=== PATIENT | female | born 1930 | race Caucasian/White ===

== ENCOUNTER → 2017-01-10 | Outpatient (CLI) | payer MEDICARE ==
--- NOTE | 2017-01-10 10:42 | REP ---
BILATERAL DIAGNOSTIC DIGITAL MAMMOGRAM: 01/10/2017. Clinical history: breast cancer follow-up. Lumpectomy and radiation therapy right breast in 2014. Comparison: 05/23/2016, 06/21/2015 diagnostic right mammogram 06/10/2015 screening mammogram. Findings: Standard two-view mammography with an additional rotated CC view of the right breast performed. There are scattered fibroglandular elements in a pattern and distribution which may obscure a lesion. Coarse benign calcifications are seen scattered in each breast. There is some tissue asymmetry and surgical scarring upper outer quadrant right breast. There is only mild stromal thickening and skin thickening related to radiation therapy which has improved significantly since the previous exam. No dominant mass, areas of architectural distortion, clusters of microcalcification or other secondary sign of malignancy. Impression: 1. BIRADS ACR category 2, benign. Benign finding. Postradiation and post-biopsy changes right breast upper outer quadrant with improvement in the postradiation changes since last year's exam. 2. Recommend followup mammography 1 year. This mammogram was interpreted with the aid of an FDA-approved computer-aided detection system. The patient states she/he had a clinical breast exam in 07/2016. Signed by Aden Marino MD 01/10/2017 01:20 P
== END ==
LOC: M RAD 09:24
PROVIDERS: ATTEND Internal Medicine
DX: Z08 Encounter for follow-up examination after completed treatment for malignant neoplasm (principal); Z85.3 Personal history of malignant neoplasm of breast

== ENCOUNTER → 2017-01-30 | Outpatient (CLI) | payer MEDICARE ==
--- NOTE | 2017-01-30 14:10 | RADONC ---
RADIATION ONCOLOGY FOLLOWUP NOTE: DATE: DATE OF SERVICE DIAGNOSIS: Right breast cancer. STAGE: Stage I A, [id number] ECOG PERFORMANCE STATUS: 0 MsRoxann Joaquin is a very pleasant 86-year-old white female with the diagnosis of a stage I A, [id number], moderately differentiated infiltrating ductal carcinoma of the right breast who is presenting to us today for routine followup visit 1 year and 1 month post completion of external beam radiation therapy. The patient presents today reporting that she is doing quite well with no complaints at this time related to her radiation therapy or disease. She has no breast or bone pain. REVIEW OF SYSTEMS: The patient's review of systems is noncontributory. Denies nausea, vomiting, fevers, chills, night sweats, diplopia, headaches, anxiety or depression, anorexia, weight loss, visual disturbances, chest pain, urinary or bowel difficulties, bone pain, or neurological problems. PHYSICAL EXAMINATION: The patient is a well-developed, well-nourished female in no acute distress. HEENT exam is normocephalic, atraumatic. Extraocular movements are intact. There is no palpable cervical, supraclavicular, infraclavicular, axillary, or inguinal lymphadenopathy present. Lungs are clear to auscultation and percussion. Heart has a regular rate and rhythm. Abdomen is benign with no hepatosplenomegaly, masses, or tenderness. Breast examination reveals no masses or discharge bilaterally. Skeletal examination reveals no tenderness to pressure or percussion of the bony skeleton. Extremities reveal no clubbing, cyanosis, or edema. Neurologic exam is grossly intact, as is the remainder of the physical examination. ASSESSMENT: The patient is clinically ASTER at this time and will be seen by us again in 6 months for further followup. She will also continue to be followed by her other physicians as well. cc: *Edgar Oliver MD
== END ==
LOC: M ONCR 13:17
PROVIDERS: ATTEND Radiology Radiation Oncology
DX: C50.411 Malignant neoplasm of upper-outer quadrant of right female breast (principal)

== ENCOUNTER → 2017-07-31 | Outpatient (CLI) | payer MEDICARE ==
--- NOTE | 2017-08-01 08:20 | RADONC ---
RADIATION ONCOLOGY FOLLOWUP NOTE DATE: 07/31/2017 CHART NUMBER: [id number] DIAGNOSIS: Right breast cancer. STAGE IA, [id number]. ECOG PERFORMANCE STATUS: 0 FOLLOWUP NOTE: Ms. Joaquin is a very pleasant 86-year-old white female with the diagnosis of a stage IA, [id number] moderately differentiated infiltrating ductal carcinoma of the right breast who is presenting to us today for routine followup visit 1-1/2 years post completion of external beam radiation therapy. The patient presents today reporting that she is doing quite well with no complaints at this time related to radiation therapy or disease. She has no breast or bone pain. The patient's review of systems is noncontributory. She denies nausea, vomiting, fevers, chills, night sweats, diplopia, headaches, anxiety or depression, anorexia, weight loss, visual disturbances, chest pain, urinary or bowel difficulties, bone pain, or neurological problems. PHYSICAL EXAMINATION: The patient is a well-developed, well-nourished female in no acute distress. HEENT exam is normocephalic, atraumatic. Extraocular movements are intact. There is no palpable cervical, supraclavicular, infraclavicular, axillary, or inguinal lymphadenopathy present. Lungs are clear to auscultation and percussion. Heart has a regular rate and rhythm. Abdomen is benign with no hepatosplenomegaly, masses, or tenderness. Breast examination reveals no masses or discharge bilaterally. Skeletal examination reveals no tenderness to pressure or percussion of the bony skeleton. Extremities reveal no clubbing, cyanosis, or edema. Neurologic exam is grossly intact, as is the remainder of the physical examination. ASSESSMENT: The patient is clinically ASTER at this time and will be seen by us again in 6 months for further followup. She will also continue to be followed by her other physicians as well. cc: Edgar Oliver MD
== END ==
LOC: M ONCR 13:13
PROVIDERS: ATTEND Radiology Radiation Oncology
DX: C50.411 Malignant neoplasm of upper-outer quadrant of right female breast (principal)

== ENCOUNTER → 2018-01-13 | Outpatient (CLI) | payer MEDICARE | LOC: M WHC 12:27 | DX: Z12.31 Encounter for screening mammogram for malignant neoplasm of breast (principal) | CPT/HCPCS: 77067 ==

== ENCOUNTER → 2018-02-05 | Outpatient (CLI) | payer MEDICARE | LOC: M ONCR 09:30 | DX: Z08 Encounter for follow-up examination after completed treatment for malignant neoplasm (principal); Z85.3 Personal history of malignant neoplasm of breast; Z92.3 Personal history of irradiation | CPT/HCPCS: G0463 ==

== ENCOUNTER → 2018-04-08 | Outpatient (CLI) | payer MEDICARE | LOC: M WUC 09:25 | DX: I20.9 Angina pectoris, unspecified (principal) | CPT/HCPCS: 71046 ==

== ENCOUNTER → 2018-08-06 | Outpatient (CLI) | payer MEDICARE | LOC: M ONCR 09:03 | DX: C50.411 Malignant neoplasm of upper-outer quadrant of right female breast (principal); Z92.3 Personal history of irradiation | CPT/HCPCS: G0463 ==

== ENCOUNTER → 2019-01-14 | Outpatient (CLI) | payer MEDICARE ==
--- NOTE | 2019-01-14 11:45 | REPMRS ---
Patient History The patient states she had a clinical breast exam in 09/04 Family history of breast cancer at age 48 in daughter, ovarian cancer in mother. Malignant radio exam breast specimen, August 25, 2015. 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 Radiation therapy of the right breast. Digital Woman Screen Mammo: January 14, 2019 - Exam #: [id number] Bilateral CC and MLO view(s) were taken. Technologist: Fariba Humphries, Technologist Prior study comparison: January 13, 2018, digital woman screen mammo performed at [facility]. January 10, 2017, digital mammo diagnostic bilateral, performed at [facility]. May 23, 2016, digital mammo diagnostic bilateral, performed at [facility]. FINDINGS: There are scattered fibroglandular densities. There has been no change in the appearance of the mammogram from the prior studies. There is a mild amount of scattered fibroglandular density which is fairly symmetric. There is no interval development of dominant mass, architectural distortion, or clustered microcalcification suggestive of malignancy. 3-D tomosynthesis shows no additional findings. Assessment: BI-RADS/ACR category 1 mammogram. Negative Mammogram. Recommendation Routine screening mammogram of both breasts in 1 year (for women over age 40). This mammogram was interpreted with the aid of an FDA-approved computer-aided dectection system. Electronically Signed By: Rolando Harper MD 01/14/19 [id number]
== END ==
LOC: M WHC 10:26
PROVIDERS: ATTEND Internal Medicine
DX: Z12.31 Encounter for screening mammogram for malignant neoplasm of breast (principal)

== ENCOUNTER → 2019-02-04 | Outpatient (CLI) | payer MEDICARE ==
--- NOTE | 2019-02-05 09:08 | RADONC ---
RADIATION ONCOLOGY FOLLOW-UP NOTE DATE: 02/04/2019 CHART NUMBER: [id number] DIAGNOSIS: Right breast cancer. STAGE: IA, [id number]. ECOG PERFORMANCE STATUS: 0 FOLLOW-UP NOTE Ms. Joaquin is a very pleasant 88-year-old white female with the diagnosis of a stage IA, [id number], moderately differentiated infiltrating ductal carcinoma of the right breast who is presenting to us today for routine followup visit 3 years and 1 month post completion of external beam radiation therapy. The patient presents today reporting that she is doing quite well with no complaints at this time related to her radiation therapy or disease. She has no breast or bone pain. REVIEW OF SYSTEMS: The patient's review of systems is noncontributory. She denies nausea, vomiting, fevers, chills, night sweats, diplopia, headaches, anxiety or depression, anorexia, weight loss, visual disturbances, chest pain, urinary or bowel difficulties, bone pain, or neurological problems. PHYSICAL EXAMINATION: The patient is a well-developed, well-nourished white female in no acute distress. HEENT exam is normocephalic, atraumatic. Extraocular movements are intact. There is no palpable cervical, supraclavicular, infraclavicular, axillary, or inguinal lymphadenopathy present. Lungs are clear to auscultation and percussion. Heart has a regular rate and rhythm. Abdomen is benign with no hepatosplenomegaly, masses, or tenderness. Breast examination reveals no masses or discharge bilaterally. Skeletal examination reveals no tenderness to pressure or percussion of the bony skeleton. Extremities reveal no clubbing, cyanosis, or edema. Neurologic exam is grossly intact, as is the remainder of the physical examination. ASSESSMENT: The patient is medically ASTER at this time. She is being followed by her primary care doctor, Dr. Oliver, who is ordering her mammograms. In light of this, I am discharging her from our follow-up except on a p.r.n. basis.
== END ==
LOC: M ONCR 10:08
PROVIDERS: ATTEND Radiology Radiation Oncology
DX: C50.411 Malignant neoplasm of upper-outer quadrant of right female breast (principal)

== ENCOUNTER 2019-02-25 10:19 | Inpatient (IN) | payer MEDICARE ==
[~2019-02-25] VITALS: Ht 152.4 cm; Wt 80.0 kg
[~2019-02-25 10:19] MED LIST: ASPIRIN 81 MG CHEW TABLET PO SCH
[2019-02-25] MEDS ORDERED: LISI20TA PO (10:28)
[2019-02-25] MEDS ORDERED: ROSU5TAB4 PO (10:28)
--- NOTE | 2019-02-25 11:06 | REP ---
CT brain without contrast: History: CVA. No comparison brain imaging. 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 No bony calvarial defect is seen. Vascular calcification is noted in the carotid siphons bilaterally. Visualized paranasal sinuses are clear. On soft tissue windows, there is minimal diffuse atrophy. There are small vessel atherosclerotic changes in the periventricular white matter of the frontal lobes bilaterally. There is no evidence of intracranial hemorrhage. No acute infarction is evident. No mass, extra-axial fluid collection, or midline shift is seen. Impression: Minimal diffuse atrophy, vascular calcification, small vessel changes. No acute intracranial abnormality seen. Electronically Signed by Isai Harper MD 02/25/2019 11:04 A
[2019-02-25] MEDS ORDERED: ASPIRIN 325 MG TAB PO ONE (11:15)
[2019-02-25 11:17] LABS: BASO % 0.5 % (0.0-1.0); EOS # 0.1 10^3/uL (0.0-0.50); EOS % 2.5 % (0.0-3.0); HEMATOCRIT 41.8 % (36.0-47.0); HEMOGLOBIN 13.8 g/dl (12.0-15.5); LYMPH # 1.4 10^3/uL (1.5-4.5); LYMPH % 31.5 % (24.0-44.0); MEAN CORPUSCULAR HEMOGLOBIN 29.7 pg (27.0-33.0); MEAN CORPUSCULAR VOLUME 89.9 fl (80.0-96.0); MONO # 0.5 10^3/uL (0.0-0.8); NEUTROPHILS # 2.4 10^3/uL (1.8-7.7); NEUTROPHILS % 54.3 % (36.0-66.0); PLATELET COUNT, AUTOMATED 223 10^3/uL (150-450); RED BLOOD COUNT 4.65 10^6/uL (4.00-5.40); WHITE BLOOD COUNT 4.4 10^3/uL (4.0-10.0)
--- NOTE | 2019-02-25 11:19 | REP ---
White floors portable chest, 11:02 a.m., single AP upright view: Comparison is the PA and lateral chest dated 04/08/2018. There is chronic cardiomegaly, unchanged. The lung rockwell are clear. The lionel, mediastinum, skeletal structures are unremarkable. Impression: Chronic cardiomegaly. No acute cardiopulmonary findings. Electronically Signed by Yassine Gonzalez MD 02/25/2019 11:10 A
[2019-02-25] MEDS ORDERED: MAGN400T PO (11:37)
[2019-02-25] MEDS ORDERED: VITA-158 PO (11:37)
[2019-02-25] MEDS ORDERED: NITR4TASL SL (11:37)
[2019-02-25] MEDS ORDERED: D-10TAB3 PO (11:37)
[2019-02-25] MEDS ORDERED: HAWT150C PO (11:37)
[2019-02-25] MEDS ORDERED: VITA400C53 PO (11:37)
[2019-02-25] MEDS ORDERED: [UNRECOGNIZED DRUG - OTHER] PO (11:37)
[2019-02-25] MEDS ORDERED: IBUP200T45 PO (11:37)
[2019-02-25] MEDS ORDERED: CALC600T5 PO (11:37)
[2019-02-25 12:57] LABS: INR 0.92; PROTHROMBIN TIME 12.5 SECONDS (12.1-14.4)
[2019-02-25 12:58] LABS: PARTIAL THROMBOPLASTIN TIME 30.2 SECONDS (25.4-37.6)
[2019-02-25 13:08] LABS: BLOOD UREA NITROGEN 21 MG/DL (7-18); CALCIUM LEVEL 9.2 MG/DL (8.8-10.2); CARBON DIOXIDE LEVEL 29 MEQ/L (21-32); CHLORIDE LEVEL 105 MEQ/L (98-107); CPK CREATINE PHOSPHOKINASE 63 U/L (26-192); CREATININE FOR GFR 0.78 MG/DL (0.55-1.30); GLOMERULAR FILTRATION RATE > 60.0 (>32); GLUCOSE, FASTING 100 MG/DL (70-100); SODIUM LEVEL 141 MEQ/L (136-145); TROPONIN I < 0.02 NG/ML (< 0.10)
--- NOTE | 2019-02-25 13:42 | ECGEPIP ---
Stationary ECG Study 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
[2019-02-25] MEDS: HEPARIN SOD (PORCINE) 5000 UNITS/ML VIAL SC SCH ×2 (14:00→22:01)
--- NOTE | 2019-02-25 15:24 | HPE ---
DATE OF ADMISSION: 02/25/2019 PRIMARY CARE PROVIDER: Edgar Oliver MD HISTORY OF PRESENT ILLNESS: The patient is an 88-year-old female with a past medical history significant for right breast cancer status post radiation therapy, hypertension, osteoarthritis, hyperlipidemia, angina who presented to [facility] on 02/25/2019 with a complaint of left-sided tingling/weakness. The patient stated she went to bed around 10:00 p.m. yesterday and at around 2:00 a.m. this morning, the patient woke up with a complaint of left facial, hand and foot tingling/numbness. Initially, she thought she had a nerve compression so she went back to sleep and woke up around 7:00 a.m. However, the patient still had persistent symptoms. Therefore, then the patient went to be evaluated in urgent care. Emergency medical services (EMS) was called and the patient was transferred to [facility] for further evaluation. The patient denies any chest pain. The patient denies any shortness of breath. The patient denies any similar episode occurring in the past. The patient denies any loss of consciousness. Denies any loss of muscle strength. PAST MEDICAL HISTORY: 1. Angina. 2. Hypertension. 3. History of right breast cancer diagnosed four years ago, status post radiation therapy. 4. Osteoarthritis. 5. Hyperlipidemia. PAST SURGICAL HISTORY: 1. Hysterectomy. 2. Bladder suspension. 3. Right breast cancer biopsy. 4. Left torn meniscus repair. SOCIAL HISTORY: Denies smoking. Denies any alcohol use. Denies any recreational drug use. The patient is a [employer]. REVIEW OF SYSTEMS: GENERAL: Denies any fever or chills. HEENT: Denies any vision change or auditory changes. CARDIOVASCULAR: Denies any chest pain or palpitations. RESPIRATORY: Denies shortness of breath, cough, or sputum production. GASTROINTESTINAL (GI): Denies any nausea, vomiting, diarrhea or abdominal pain. MUSCULOSKELETAL: Denies any muscle pain or joint pain. NEUROLOGICAL: The patient complained about onset of the left facial, left hand and left foot numbness/tingling. The symptoms have been persistent since 2:00 a.m. this morning. Denies any muscle weakness. OBJECTIVE: VITAL SIGNS: Temperature 98.4, pulse is 67, blood pressure is 167/76 at the time of the encounter, pulse oximetry is 96% in room air. GENERAL: No sign of acute distress, alert and awake. HEENT: Normocephalic, atraumatic. Extraocular motor grossly intact. CARDIOVASCULAR: Positive S1, S2, regular rate. Positive systolic murmur mainly on the second intercostal space. LUNGS: Clear to auscultation bilaterally. No wheezes or rhonchi. ABDOMEN: Soft, nontender, nondistended. Bowel sounds present. MUSCULOSKELETAL: No lower extremity appreciated. NEUROLOGICAL: Cranial nerves II-XII grossly intact. Sensation to fine touch intact. Muscle strength 5/5 bilaterally. However, during the physical examination, the patient stated she feels the sensation is equal on both sides but she had a subjective feeling of the tingling of the left side. She thinks that there is some numbness mainly on the left side. LABORATORY DATA: WBC 4.4, hemoglobin 13.8, hematocrit 41.8, platelet count is 223. Sodium is 141, potassium 4, chloride is 105, carbon dioxide 29, BUN 21, creatinine is 0.78, GFR greater than 60, fasting glucose 100, calcium is 9.2, total CK is 63, troponin I is less than 0.02. PT is 12.5, INR is 0.92. IMAGING STUDIES: CT of the head without contrast shows minimal diffuse atrophy, vascular calcification, small vessel changes, no acute intracranial abnormality. Chest x-ray demonstrates no acute cardiopulmonary findings, chronic cardiomegaly. ASSESSMENT AND PLAN: 1. Left-sided numbness/tingling. The patient admitted to the progressive care unit (PCU) under observation status. We will finish the transient ischemic attack (TIA) workup. MRI/MRA ordered. We will followup with the carotid ultrasound. Followup with echocardiogram. The patient will be monitored on the telemetry. The patient will be given 325 mg aspirin. According to the patient, the patient complained about reaction to the statin. She states she has tried different types of statin and it causes some musculoskeletal discomfort. The patient also experienced palpitations with the statin therapy. Therefore, the patient has discontinued the statin therapy. In the past two months, the patient has been started on the new cholesterol medication but she can not recall the name of the therapy. At the time of the encounter, the patient had a systolic blood pressure of 160s to 170s. We will continue to hold the blood pressure medication for her permissive hypertension. Neurology consulted. 2. Hypertension. At baseline, the patient is taking lisinopril and hydrochlorothiazide. Currently, we are allowing permissive hypertension. We will hold the blood pressure medication at this moment. Continue to monitor symptoms. 3. Angina. At baseline, the patient is using as needed statin. The patient is not sure why she is not on the aspirin therapy. At baseline, the patient follows with Dr. Farnsworth in the outpatient setting. 4. Cardiac murmur. Follow with repeated echocardiogram. 5. History of right breast cancer, status post radiation therapy. The patient had a biopsy performed in 2014. At the time, the patient was shown to have grade 2 infiltrating ductal carcinoma. 6. Deep vein thrombosis (DVT) prophylaxis. The patient will be on heparin.
--- NOTE | 2019-02-25 16:04 | REP ---
Bilateral carotid artery duplex ultrasound: Peak flow velocity analysis: RIGHT LEFT ICA Peak flow velocity cm/sec 66.9 71.3 ICA Diastolic flow velocity cm/sec 15.6 19.4 ICA/CCA Ratio 0.88 0.90 ECA Peak flow velocity cm/sec 88.1 77.7 CCA Peak flow velocity cm/sec 75.6 79.6 There is shallow atheromatous plaque in the bulbs bilaterally. There is no atheromatous plaque is seen in the ICA is or EDC is bilaterally. The peak flow velocities are normal bilaterally. The findings indicate that there is less than 50% stenosis on the right and the left. The vertebral arteries could not be identified. Impression: There is no significant stenosis on the right on the left. Electronically Signed by Yassine Gonzalez MD 02/25/2019 03:56 P
[2019-02-25 17:00] VITALS: BP 142/84
[2019-02-25] MEDS ORDERED: SLF 3 ML SYR IV PRN (17:15)
--- NOTE | 2019-02-25 17:17 | REP ---
MR angiography the brain without contrast: History: Left sided numbness. Possible CVA. Technique: 3-D [id number] MR angiography of the brain is acquired in the usual fashion and maximal intensity projection images were generated in rotational format about the vertical and horizontal axes. In addition, source axial T1-weighted images are viewed in cine mode. MR angiographic findings: The distal vertebral arteries are patent and co-dominant. Basilar artery is tortuous but widely patent. The posterior cerebral and superior cerebellar vessels are patent and symmetric. There is some atherosclerotic irregularity of the posterior cerebral arteries bilaterally left a little more so than right. No high-grade stenosis is seen. The distal internal carotid arteries are unremarkable. Anterior and middle cerebral arteries appear intact. The A1 segment on the right is smaller than that on the left. There is no visible ramirez aneurysm or arteriovenous malformation. Impression: Atherosclerotic changes involving the proximal posterior cerebral arteries bilaterally and the right A1 segment. Otherwise unremarkable MR angiography the brain. Electronically Signed by Isai Harper MD 02/25/2019 05:08 P
--- NOTE | 2019-02-25 17:18 | REP ---
MRI brain without contrast: History: Left-sided numbness. Comparison is made with today's head CT. Technique: Axial and sagittal imaging planes are utilized for T1 and T2-weighted scans. Sequences include spin-echo, fast spin echo, FLAIR, and diffusion weighted sequences. MRI findings: Craniocervical junction and upper cervical cord are normal. No bony calvarial lesion is appreciated. There is no MR evidence of significant paranasal sinus disease. No intraorbital abnormality is seen. On diffusion weighted scans, there is a subcentimeter focus of restricted diffusion in the right thalamus consistent with a recent infarction. No other evidence of restricted diffusion is seen. There is no evidence of intracranial hemorrhage. There is some low T1 high T2 signal in the periventricular white matter of the right frontal lobe posteriorly. This may be old lacunar infarct. There are small vessel atherosclerotic changes. Impression: Findings consistent with an acute lacunar infarction involving the right thalamus. Small vessel changes and mild diffuse atrophy are seen. No hemorrhage is noted. Old lacunar infarcts suspected in the periventricular white matter of the right frontal lobe. Electronically Signed by Isai Harper MD 02/25/2019 05:34 P
[2019-02-25 20:00] VITALS: BP 170/94
[2019-02-25] MEDS: SLF 3 ML SYR IV SCH (22:01)
[2019-02-25 23:59] VITALS: BP 168/78
[2019-02-26] VITALS (7 sets, daily range): BP systolic 140–182; BP diastolic 68–90
[2019-02-26 05:48] LABS: HEMATOCRIT 40.9 % (36.0-47.0); HEMOGLOBIN 13.7 g/dl (12.0-15.5); MEAN CORPUSCULAR HEMOGLOBIN 29.7 pg (27.0-33.0); MEAN CORPUSCULAR HGB CONC 33.5 g/dl (32.0-36.5); MEAN CORPUSCULAR VOLUME 88.7 fl (80.0-96.0); PLATELET COUNT, AUTOMATED 224 10^3/uL (150-450); RED BLOOD COUNT 4.61 10^6/uL (4.00-5.40); WHITE BLOOD COUNT 4.9 10^3/uL (4.0-10.0)
[2019-02-26] MEDS: SLF 3 ML SYR IV SCH ×3 (06:00→21:35)
[2019-02-26] MEDS: HEPARIN SOD (PORCINE) 5000 UNITS/ML VIAL SC SCH ×3 (06:00→21:35)
[2019-02-26 06:08] LABS: HEMOGLOBIN A1c 5.9 %
[2019-02-26 06:27] LABS: BLOOD UREA NITROGEN 17 MG/DL (7-18); CALCIUM LEVEL 8.5 MG/DL (8.8-10.2); CARBON DIOXIDE LEVEL 27 MEQ/L (21-32); CHLORIDE LEVEL 107 MEQ/L (98-107); CHOLESTEROL LEVEL 227 MG/DL (<200); CHOLESTEROL RISK RATIO 4.934 (<5); CREATININE FOR GFR 0.78 MG/DL (0.55-1.30); GLOMERULAR FILTRATION RATE > 60.0 (>32); GLUCOSE, FASTING 96 MG/DL (70-100); HDL CHOLESTEROL 46 MG/DL (>40); LDL CHOLESTEROL 147 MG/DL (<100); MAGNESIUM LEVEL 2.1 MG/DL (1.8-2.4); NON-HDL-C 181 MG/DL; POTASSIUM SERUM 3.8 MEQ/L (3.5-5.1); SODIUM LEVEL 140 MEQ/L (136-145); TRIGLYCERIDES LEVEL 172 MG/DL (<150)
[2019-02-26] MEDS: VITAMIN D 1,000 INTERNATIONAL UNITS TABLET PO SCH (08:42)
[2019-02-26] MEDS: ASPIRIN 81 MG CHEW TABLET PO SCH (08:42)
[2019-02-26] MEDS ORDERED: FENOFIBRATE 48 MG TAB (TRICOR) PO SCH (09:00)
--- NOTE | 2019-02-26 18:12 | IPN ---
DATE: 02/26/2019 SUBJECTIVE: Patient seen and examined in the room today. Patient states that she still has residual left facial, left hand and foot numbness, however, during the physical exam sensation to fine touch is very similar bilateral upper and lower extremities. Patient feels that there may be improvement of her symptoms. Denies any acute complaints. Imaging studies and diagnostic workup were discussed with the patient. Patient understands the importance of controlling her cholesterol and also continue with aspirin. Patient states she has been on low dose Crestor for the past 2 weeks and she has had no adverse affects from the medication. She does have a history of severe myalgia from a different type of statin in the past. OBJECTIVE: VITAL SIGNS: Temperature 97.8, pulse 68, respirations 18, blood pressure 144/68, pulse oximetry 95% on room air. GENERAL: No sign of acute distress. Alert and oriented times three. HEENT: Normocephalic, atraumatic. Extraocular movements grossly intact. CARDIOVASCULAR: Positive S1, S2, regular rate. LUNGS: Clear to auscultation bilaterally. ABDOMEN: Soft, nontender, nondistended. Bowel sounds present. EXTREMITIES: No edema appreciated. NEURO: Neurological changes sensation defined almost close to equal bilaterally. However, during physical exam, patient still noticed mild tingling of the left facial area and left hand. Muscle strength 5 out of 5 bilaterally. LABORATORY DATA: WBC 4.9, hemoglobin 13.7, hematocrit 40.9, platelet count 224. Sodium is 140, potassium 3.8, chloride is 107, carbon dioxide 27, BUN 17, creatinine 0.78. GFR greater than 60. Fasting glucose 96. A1c is 5.9. Magnesium 2.1, calcium 8.5. Triglycerides 172. Total cholesterol is 227. LDL is 147. TSH 1.38. ASSESSMENT AND PLAN: 1. Right thalamic infarct. MRI demonstrated acute lacunar infarct involving the right thalamus. No hemorrhage seen. There is a lacunar infarct suspected in the periventricular white matter of the right frontal lobe. MRA demonstrated there is atherosclerotic changes involving the proximal posterior cerebral artery bilaterally in the right A1 segment. Echocardiogram was performed. We are waiting for the official report. No events monitored on telemetry. Patient's blood pressure medications continue to be on hold for permissive hypertension. Patient is on aspirin 81 mg. Patient is on Crestor 5 mg by mouth at bedtime. Patient does have severe myalgia due to statin adverse affect. She has tried different type of statin in the past, however, so far she has not had any reaction to the Crestor. Lipid profile reviewed. Will supplement the patient with Tricor. Patient passed physical therapy. We anticipate discharge in the next 24 hours. 2. Angina. On aspirin. On statin. 3. Hypertension. Currently blood pressure is on hold for permissive hypertension. 4. History of right breast cancer diagnosed 4 years ago. Status post radiation therapy. 5. Osteoarthritis. Continue outpatient followup. 6. Deep venous thrombosis (DVT) prophylaxis. Patient is on heparin.
[2019-02-26] MEDS ORDERED: ROSUVASTATIN 10 MG TAB (CRESTOR) PO SCH (21:00)
--- NOTE | 2019-02-26 22:14 | ECHO ---
DATE OF PROCEDURE: 02/25/2019 AGE: 88 GENDER: Female HEIGHT: 60 inches WEIGHT: 183 pounds BODY SURFACE AREA: 1.80 m2 PATIENT LOCATION: Inpatient, PCU, room 3224 REFERRING PHYSICIAN: Aviva Villasenor MD INDICATION: Transient ischemic attack (TIA). 2-D MEASUREMENTS: RV: 3.0 cm LV: 4.7 cm Septum: 1.0 cm Posterior wall: 1.0 cm Aortic root: 3.1 cm LA: 4.3 cm LVEF: 75% DOPPLER MEASUREMENTS: AV: 2.6 m/s LVOT: 1.0 m/s LVOT diameter: 2.1 cm Mean AV systolic gradient: 15 mmHg Dimensionless index: 0.38 MV-E: 55, A: 120, EA ratio: 0.5 Early mitral deceleration time: 261 ms E prime: 4.3, A prime: 8.5, E/E prime ratio: 13.5 PV: 0.8 m/s Pulmonary artery acceleration time: 130 ms RVST: 28 mmHg IVC: 1.3 cm COMMENTS Normal sinus rhythm without intraventricular conduction disturbance. M-mode and two-dimensional echocardiography was performed with pulsed, continuous wave, color flow, and tissue Doppler studies. Normal left ventricular size and wall thickness with hyperkinetic wall motion. Mildly dilated left atrium with impairment of left ventricle (LV) diastolic relaxation, but current estimated mean left atrial pressure upper limits of normal. Normal right heart chamber sizes and wall motion with current pulmonary arterial pressure upper limits of normal. Normal inferior vena cava (IVC) size and collapse against an elevated central venous pressure. Mild calcific aortic stenosis without insufficiency. Normal aortic root size. Mild mitral annular thickening without functional valvular abnormality. No apparent intracardiac mass or pericardial effusion. If a cardiac source is seriously suspect for the patient's transient ischemic attack, a transesophageal echocardiogram would be the investigation of choice. KAREEMD
[2019-02-27 01:05] VITALS: BP 166/74
[2019-02-27 04:00] VITALS: BP 162/70
[2019-02-27 05:26] LABS: HEMATOCRIT 39.4 % (36.0-47.0); MEAN CORPUSCULAR HEMOGLOBIN 29.7 pg (27.0-33.0); PLATELET COUNT, AUTOMATED 221 10^3/uL (150-450); RED BLOOD COUNT 4.38 10^6/uL (4.00-5.40); WHITE BLOOD COUNT 4.1 10^3/uL (4.0-10.0)
[2019-02-27 05:40] LABS: BLOOD UREA NITROGEN 21 MG/DL (7-18); CALCIUM LEVEL 8.6 MG/DL (8.8-10.2); CARBON DIOXIDE LEVEL 27 MEQ/L (21-32); CHLORIDE LEVEL 110 MEQ/L (98-107); GLOMERULAR FILTRATION RATE > 60.0 (>32); GLUCOSE, FASTING 94 MG/DL (70-100); MAGNESIUM LEVEL 2.2 MG/DL (1.8-2.4); POTASSIUM SERUM 3.7 MEQ/L (3.5-5.1); SODIUM LEVEL 143 MEQ/L (136-145)
[2019-02-27] MEDS: HEPARIN SOD (PORCINE) 5000 UNITS/ML VIAL SC SCH (06:13)
[2019-02-27] MEDS: SLF 3 ML SYR IV SCH (06:14)
--- NOTE | 2019-02-27 07:05 | CR ---
DATE OF CONSULTATION: 02/26/2019 NEUROLOGY CONSULTATION: REFERRING PROVIDER: Dr. Aviva Villasenor REASON FOR CONSULTATION: Suspected stroke. HISTORY OF PRESENT ILLNESS: Mayra Joaquin is an 88-year-old female with past medical history significant for hypertension, history of angina, history of breast cancer diagnosed 4 years ago status post radiation therapy, and hyperlipidemia. The patient presents with going to bed at 10:30 p.m., waking up at 2:30 a.m. with left hand numbness. The patient thought she fell asleep on the bed wrong and compressed her left hand. The patient woke up again in the morning and had numbness of her left foot and face as well. The symptoms persisted. She came to the emergency department. The patient states that the symptoms are mostly located in her hand now. They are no longer affecting the rest of her body. She was examined by Dr. Jhon Fernandez in the emergency department. National Institutes of Health (NIH) Stroke Scale was reported to be 0. The patient's last known time of being normal was 10:30 p.m. Tissue plasminogen activator (tPA) (agree) was not offered. [facility] was not contacted for management advice. The patient was admitted to [facility]. MRI of the brain reveals right acute thalamic stroke, corresponding to the patient's new acute symptoms. The patient denies any headache, chest pain, or shortness of breath at this point in time. She denies any vertigo, dizziness, dysarthria, aphasia. REVIEW OF SYSTEMS: 14-point review of systems obtained and is negative except as per history of present illness (HPI). PAST MEDICAL HISTORY: Hypertension. Hyperlipidemia. History of breast cancer status post radiation therapy. Angina. Osteoporosis. PAST SURGICAL HISTORY: Hysterectomy. Bladder suspension. Right breast cancer biopsy. Left torn meniscus repair. FAMILY HISTORY: Noncontributory. SOCIAL HISTORY: The patient denies use of tobacco, alcohol, or illicit drugs. PHYSICAL EXAMINATION: Blood pressure is 150/55, pulse rate is 63, respiratory rate is 18, temperature is 98.4 degrees Fahrenheit, oxygenation 98% on room air. Height is 5 feet 0 inches. Current weight is 82 kg. The patient is awake, alert, oriented to person, place, and time. Speech-language comprehension and repetition are intact. Pupils are 2-3 mm, round, reactive to light. Extraocular movements are intact in all directions without nystagmus. Sensation in V1, V2, V3 is decreased to light touch involving the left face. Tongue is midline. No weakness of sternocleidomastoids bilaterally. Hearing is subjectively equal to finger rub. There is no pronator drift. The patient has reasonable strength in bilateral deltoids, biceps, triceps, handgrip. Iliopsoas is 5-, bilateral quadriceps is 5/5, anterior tibialis 5/5. Sensory is decreased to light touch in the left hand and parts of the left face, otherwise intact throughout. Coordination: There is slight ataxia [id number] of the left upper extremity. The right upper extremity [id number] is within normal limits. Gait deferred. ASSESSMENT: 88-year-old female with acute right thalamic lacunar infarction, likely related to underlying microvessel disease. PLAN: Start aspirin 81 mg by mouth daily. The patient is intolerant to statin therapy but states she takes a home medication to reduce cholesterol. Primary team will look into which medication that is. Continue telemetry monitoring. Obtain echocardiogram. Physical therapy (PT)/occupational therapy (OT) evaluation. Systolic blood pressure can remain 140-180 over the next 48 hours, after which it can be normalized. Anticipate discharge date to be Saturday possibly. Followup in the [facility] Neurology office 4-8 weeks after discharge. History obtained from both the patient and the patient's [id number] and son.
[2019-02-27 08:00] VITALS: BP 164/90
[2019-02-27] MEDS ORDERED: ASPI81CH8 PO (08:33)
[2019-02-27] MEDS ORDERED: ROSU10TA5 PO (08:33)
[2019-02-27] MEDS: VITAMIN D 1,000 INTERNATIONAL UNITS TABLET PO SCH (09:50)
[2019-02-27] MEDS: ASPIRIN 81 MG CHEW TABLET PO SCH (09:50)
--- NOTE | 2019-02-27 15:05 | DSES ---
DATE OF ADMISSION: 02/25/2019 DATE OF DISCHARGE: 02/27/2019 CONSULTANTS: Neurology. PROCEDURES: None. DISCHARGE DIAGNOSES: 1. Right thalamic infarct. 2. History of angina. 3. Hypertension. 4. History of right breast cancer, status post radiation therapy. 5. Osteoarthritis. HOSPITAL COURSE: The patient is an 88-year-old female who presented to [facility] on 02/25/2019 with complaint of left-sided tingling and numbness. The initial onset of event occurred approximately 10 pm on the night before admission. Patient did not seek medical evaluation till the next morning. Patient was admitted and neurology consulted. Later MRI/MRA demonstrated patient had an acute right thalamic stroke. Patient continued to be monitored on telemetry. Blood pressures medicines were on hold for <<1:41>> hypertension. Patient was also evaluated by physical therapy. Patient's cerebrovascular accident (CVA) medication was started. On 02/27/2019, patient is determined stable for discharge with recommendations to follow with her primary care provider in 1 week. Patient should follow with neurology in 4 weeks. Patient should continue taking aspirin and statin medication. Patient recommended to followup low cholesterol diet. Patient does have a significant history of developing adverse effects from different type of statin therapy. Patient was on Crestor for the past too low dose of Crestor prior to admission. Recommend titrating up the Crestor dosage as tolerated. OBJECTIVE: VITAL SIGNS: Temperature 97.2, pulse 71, respirations 16, blood pressure 164/94, saturating 97% in room air. LABORATORY DATA: On the day of discharge: WBC 4.1, hemoglobin 13, hematocrit 39.4, platelet count 221. Sodium 142, potassium 3.7, chloride 110, carbon dioxide 27, BUN 21, creatinine 0.8, GFR greater than 60, fasting glucose 94, A1c 5.9, calcium 8.6, magnesium 2.2. Triglycerides on admission show 172, total cholesterol 227, LDL 147, HDL 46, TSH 1.38. IMAGING STUDY: CT head without contrast demonstrates minimal diffuse atrophy, vascular calcification, small vessel changes. No acute intracranial abnormalities. Portable chest x-ray: No acute cardiopulmonary findings. Carotid duplex demonstrates no significant stenosis of the right or the left. MRA of the brain without contrast demonstrates atherosclerotic changes involving the proximal posterior cerebral arteries bilaterally and the right A1 segment. Otherwise unremarkable MR angiogram of the brain. MRI of the brain without contrast demonstrates findings consistent with acute lacunar infarction involving the right thalamus. Small vessel changes and mild diffuse atrophy are seen. No hemorrhage is noted. Low lacunar infarct suspected in the periventricular white matter of the right frontal lobe. DISCHARGE MEDICATIONS: - aspirin 81 mg by mouth daily - rosuvastatin 10 mg by mouth nightly - vitamin C 500 mg by mouth daily - calcium 600 mg by mouth nightly - vitamin D3 1000 units by mouth daily - Ibuprofen 200 by mouth every 6 hours as needed - lisinopril/hydrochlorothiazide 20/12.5 one tablet by mouth daily - magnesium oxide 400 mg by mouth nightly - nitroglycerine 0.4 mg sublingual every 5 minutes as needed for chest pain - vitamin E 400 mg by mouth daily DISCHARGE INSTRUCTIONS: Discharged home. Activity as tolerated. Low fat diet as tolerated. Patient should follow with her primary care provider in one week. Patient should follow with neurology in 4 weeks. It is uncertain why patient was not on aspirin or why patient has a significant cardiac history. Patient was recommended to continue taking the aspirin and statin for stroke prevention. Discharge took greater than 30 minutes.
== END 2019-02-27 10:45 | disposition home or self-care (01) | DRG 66 ==
LOC: M ED 10:19 → EDBD 10:19 → M ED INP 13:18 → OBSVTOIN 13:18 → M PCU 17:01
PROVIDERS: ADMIT Internal Medicine; ATTEND Internal Medicine
DX: I63.9 Cerebral infarction, unspecified (principal); I10 Essential (primary) hypertension; M19.90 Unspecified osteoarthritis, unspecified site; Z85.3 Personal history of malignant neoplasm of breast; E78.5 Hyperlipidemia, unspecified; I20.9 Angina pectoris, unspecified; Z79.899 Other long term (current) drug therapy

== ENCOUNTER 2019-10-28 18:18 | Observation (INO) | payer MEDICARE ==
[~2019-10-28] VITALS: Ht 165.1 cm; Wt 84.0 kg
[~2019-10-28 18:18] MED LIST changes: +ASPI81CH8 PO; -ASPIRIN 81 MG CHEW TABLET PO SCH; +CALC600T5 PO; +D-10TAB3 PO; +HAWT150C PO; +IBUP200T45 PO; +LISI20TA19 PO; +MAGN400T3 PO; +NITR4TASL SL; +ROSU10TA6 PO; +ROSU5TAB5 PO; +VITA-158 PO; +VITA400C53 PO; +[UNRECOGNIZED DRUG - OTHER] PO
[2019-10-28 18:52] LABS: BASO % 0.6 % (0.0-1.0); EOS # 0.2 10^3/uL (0.0-0.5); EOS % 4.2 % (0.0-3.0); HEMATOCRIT 42.3 % (36.0-47.0); HEMOGLOBIN 14.4 g/dl (12.0-15.5); LYMPH # 1.7 10^3/uL (1.5-5.0); LYMPH % 33.3 % (24.0-44.0); MEAN CORPUSCULAR HEMOGLOBIN 30.4 pg (27.0-33.0); MEAN CORPUSCULAR VOLUME 89.4 fl (80.0-96.0); MONO # 0.6 10^3/uL (0.0-0.8); MONO % 11.8 % (0.0-5.0); NEUTROPHILS # 2.5 10^3/uL (1.5-8.5); NEUTROPHILS % 49.9 % (36.0-66.0); PLATELET COUNT, AUTOMATED 231 10^3/uL (150-450); RED BLOOD COUNT 4.73 10^6/uL (4.00-5.40)
[2019-10-28 19:02] LABS: INR 0.94; PROTHROMBIN TIME 12.3 SECONDS (11.8-14.0)
[2019-10-28] MEDS ORDERED: fentaNYL 100 MCG/2 ML INJECTION (J3010) IV ONE (19:15)
[2019-10-28] MEDS ORDERED: LABETALOL HCL 100 MG/20 ML VIAL IV STA ×2 (19:18→20:23)
--- NOTE | 2019-10-28 19:36 | REP ---
CHEST, SINGLE VIEW: Single view of the chest is performed and compared to prior study of 02/25/2019. There is mild cardiomegaly. There is mild calcification and tortuosity of the thoracic aorta. The mediastinal silhouette is unchanged. There are degenerative changes of the spine. There is no acute infiltrate or pulmonary edema. IMPRESSION: Mild cardiomegaly. No acute infiltrate or pulmonary edema. Electronically Signed by Yassine Fernandez MD 11/02/2019 10:11 A
[2019-10-28 19:41] LABS: ALT/SGPT 26 U/L (12-78); BLOOD UREA NITROGEN 18 MG/DL (7-18); CALCIUM LEVEL 9.1 MG/DL (8.8-10.2); CARBON DIOXIDE LEVEL 28 MEQ/L (21-32); CHLORIDE LEVEL 107 MEQ/L (98-107); CK-MB VALUE MASS 2.1 NG/ML (<3.6); CPK CREATINE PHOSPHOKINASE 91 U/L (26-192); CREATININE FOR GFR 0.79 MG/DL (0.55-1.30); GLOMERULAR FILTRATION RATE > 60.0 (>32); GLUCOSE, FASTING 108 MG/DL (70-100); POTASSIUM SERUM 3.7 MEQ/L (3.5-5.1); SODIUM LEVEL 141 MEQ/L (136-145)
[2019-10-28 19:42] LABS: ALBUMIN 3.9 GM/DL (3.2-5.2); BILIRUBIN,DIRECT < 0.1 MG/DL (0.0-0.2); BILIRUBIN,TOTAL 0.3 MG/DL (0.2-1.0); LIPASE 116 U/L (73-393); TOTAL PROTEIN 7.3 GM/DL (6.4-8.2); TROPONIN I < 0.02 NG/ML (< 0.10)
--- NOTE | 2019-10-28 20:25 | REPVR ---
PROCEDURE INFORMATION: Exam: CT Cervical Spine Without Contrast Exam date and time: 10/28/2019 7:33 PM Age: 88 years old Clinical history: Injury or trauma; Fall; Initial encounter; Blunt trauma TECHNIQUE: Imaging protocol: Computed tomography images of the cervical spine without contrast. Radiation optimization: All CT scans at this facility use at least one of these dose optimization techniques: automated exposure control; mA and/or kV adjustment per patient size (includes targeted exams where dose is matched to clinical indication); or iterative reconstruction. COMPARISON: No relevant prior studies available. FINDINGS: Vertebrae: Nonspecific straightening of the cervical lordosis. Vertebral body height and AP alignment is preserved. Mild to moderate degenerative change about the dens. Moderate to severe prevertebral osteophytosis. There are bilateral facet joint degenerative changes. No acute cervical spine fracture. Discs/Spinal canal/Neural foramina: No definite significant central canal stenosis. Soft tissues: Unremarkable. Thyroid: Heterogeneous thyroid gland with poorly defined nodules. Lungs: Mild scarring at the lung apices. Pleural space: No visible pneumothorax. IMPRESSION: 1. No acute fracture. 2. Heterogeneous thyroid gland with poorly defined nodules. Ultrasound may be considered. COMMENT: In patients aged 35 years and older with an incidental thyroid nodule equal to or greater than 1.[address], MRI or extrathyroidal US, further evaluation with dedicated thyroid US is recommended for patients with normal life expectancy and without comorbidities. For smaller nodules without suspicious features, no further evaluation or follow up is recommended. Electronically signed by: Fidel Smith On 10/28/2019 20:24:53 PM
--- NOTE | 2019-10-28 20:27 | REPVR ---
PROCEDURE INFORMATION: Exam: CT Head Without Contrast Exam date and time: 10/28/2019 7:33 PM Age: 88 years old Clinical history: Injury or trauma; Fall; Initial encounter; Blunt trauma (contusions or hematomas) TECHNIQUE: Imaging protocol: Computed tomography of the head without contrast. Radiation optimization: All CT scans at this facility use at least one of these dose optimization techniques: automated exposure control; mA and/or kV adjustment per patient size (includes targeted exams where dose is matched to clinical indication); or iterative reconstruction. COMPARISON: CT Head without contrast 02/25/2019 10:40 AM FINDINGS: Brain: Decreased attenuation of the supratentorial white matter is likely secondary to chronic microvascular ischemia. No acute intracranial hemorrhage. Ventricles: Ventricular and subarachnoid spaces are age appropriate. Bones/joints: Unremarkable. No acute fracture. Sinuses: Visualized sinuses are unremarkable. No fluid levels. Mastoid air cells: Visualized mastoid air cells are well aerated. Soft tissues: High posterior scalp soft tissue swelling. Vasculature: Intracranial vascular calcification. IMPRESSION: No acute intracranial abnormality. Electronically signed by: Fidel Smith On 10/28/2019 20:26:37 PM
[2019-10-28] MEDS ORDERED: ACET-1146 PO (20:41)
[2019-10-28] MEDS ORDERED: AMLO5TAB6 PO (20:41)
[2019-10-28] MEDS ORDERED: C-101TAB3 PO (20:41)
[2019-10-28] MEDS ORDERED: CRES5TAB PO (20:41)
[2019-10-28] MEDS ORDERED: ECOT81TA5 PO (20:41)
[2019-10-28] MEDS ORDERED: VITA100066 PO (20:41)
--- NOTE | 2019-10-28 21:02 | HPEPDOC ---
[facility] Medical History & Physical Date of Admission Oct 28, 2019 Date of Service: Oct 28, 2019 Primary Care Physician: A Other Provider Edgar Oliver MD Attending Physician: PORTILLO NAPIER MD History and Physical TIME OF SERVICE: 10:30 PM CHIEF COMPLAINT: High blood pressure HISTORY OF PRESENT ILLNESS: This is an 88 old female who came to the hospital because her blood pressure was high . Yesterday she had chest "heaviness" but denied that it was chest pain. She thought her blood pressure was high, so she took an extra 5 mg of amlodipine. Today prior to arrival in the ER systolic pressure was in 180- 190s. She came in because she was concerned because she had a CVA in the past. Her initial blood pressure in the ER was 201/93. She denied having any chest pain, shortness of breath, dizziness, or any other complaints. On her way to the hospital, she slipped on her wooden floors and hit her head. Her son also slipped when he came to try help his mother up; she had recently applied an "oil treatment" on the floors. As a result of the fall, she hit her head and developed a headache. 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 Chronic hypertension/ Chronic diastolic congestive heart failure History of right lacunar infarct Osteoarthritis Dyslipidemia. Status post hysterectomy. Status post bladder suspension surgery SOCIAL HISTORY: Does not smoke. Does not drink. History of Restorationism FAMILY HISTORY: Father had kidney cancer ALLERGIES: Please see below. HOME MEDICATIONS: Please see below. PHYSICAL EXAMINATION: VITAL SIGNS: Please see below. GEN: well nourished / well developed INTEGUMENT: not flushed/ not jaundice HEENT: normocephalic / atraumatic / neck short/mucus membranes moist and pink CVS: RRR/NMRG/ radial and dorsalis pedis pulses intact / upper chest is nontender on palpation LUNGS: able to speak full sentences without stopping to take a breath / no coughing / lungs are clear to auscultation bilaterally on room air ABDOMEN: there are no masses or lesions / bowel sounds are present / the abdomen is soft & not tender with palpation MSK/EXTREMITIES: range of motion intact in all 4 extremities NEURO: CN 2-12 are grossly intact / speech is not dysarthric PSYCH: alert and oriented/ able to understand and follow all commands LABORATORY DATA: See below. IMAGING: Chest x-ray " IMPRESSION: Mild cardiomegaly. No acute infiltrate or pulmonary edema." CT of the head " IMPRESSION: No acute intracranial abnormality. " CT of the head " IMPRESSION: 1. No acute fracture. 2. Heterogeneous thyroid gland with poorly defined nodules. Ultrasound may be considered. COMMENT: In patients aged 35 years and older with an incidental thyroid nodule equal to or greater than 1.[address], MRI or extrathyroidal US, further evaluation with dedicated thyroid US is recommended for patients with normal life expectancy and without comorbidities. For smaller nodules without suspicious features, no further evaluation or follow up is recommended. ASSESSMENT: Ms. Joaquin is an 88 [id number] with a the past medical history of the infilt rating ductal carcinoma, CVA, chronic hypertension and dyslipidemia will be admitted for management of hypertensive urgency. PLAN: 1. Hypertensive Urgency Resolved after she received IV metoprolol in the ER It is unclear what caused the sudden rise in her blood pressure. Per Dr. Hoffman the EKG is unremarkable Her Trop, Potassium, GFR, Cr & BUN, Ca++ and chest x-ray are all unremarkable. Her echo from earlier on this year showed mild diastolic dysfunction. Plan: admit to medical floor/ low salt diet / follow-up TSH and renal ultrasound / increase amlodipine from 5 to 10 mg QHS, c/w Lisionpril 20mg PO daily, increase HTCZ from 12.5 to 25mg daily / recommend cardiovascular exercise 4-5 days a week for weight loss as this has been shown to help improve blood pressure control / her PCP may consider ordering an ambulatory blood pressure monitor, referral to elementary librarian for assistance w weight loss and completing a ST[employer] questionnaire to determine if she needs a sleep study 2. Abnormal thyroid on CT scan. Plan: Follow-up thyroid ultrasound and TSH 3. History of right lacunar infarct /Dyslipidemia Plan: Continue with aspirin, statin DVT prophylaxis with SCDs. Disposition likely home after less than 2 midnight's stay Vital Signs Vital Signs Date Time Temp Pulse Resp B/P (MAP) Pulse Ox O2 Delivery O2 Flow Rate FiO2 10/28/19 20:43 144/67 (92) 10/28/19 20:35 66 10/28/19 20:34 93 10/28/19 20:33 18 Room Air 10/28/19 18:19 97.4 Laboratory Data Labs 24H Laboratory Tests 2 10/28/19 18:40: Immature Granulocyte % (Auto) 0.2, Neutrophils (%) (Auto) 49.9, Lymphocytes (%) (Auto) 33.3, Monocytes (%) (Auto) 11.8H, Eosinophils (%) (Auto) 4.2H, Basophils (%) (Auto) 0.6, Neutrophils # (Auto) 2.5, Lymphocytes # (Auto) 1.7, Monocytes # (Auto) 0.6, Eosinophils # (Auto) 0.2, Basophils # (Auto) 0.0, Nucleated Red Blood Cells % (auto) 0.0, Prothrombin Time 12.3, Prothromb Time International Ratio 0.94, Anion Gap 6L, Glomerular Filtration Rate > 60.0, Calcium Level 9.1, Total Bilirubin 0.3, Direct Bilirubin < 0.1, Aspartate Amino Transf (AST/SGOT) 20, Alanine Aminotransferase (ALT/SGPT) 26, Alkaline Phosphatase 92, Total Creatine Kinase 91, Creatine Kinase MB 2.1, Creatine Kinase MB Relative Index 2.30, Troponin I < 0.02, Total Protein 7.3, Albumin 3.9, Albumin/Globulin Ratio 1.15, Lipase 116 CBC/BMP Laboratory Tests 10/28/19 18:40 Home Medications Scheduled Acetaminophen/Diphenhydramine (Acetaminophen-Diphenhyd 500-25) 1 Each Tablet, 2 TAB PO QHS Amlodipine Besylate (Amlodipine Besylate) 10 Mg Tablet, 10 MG PO QHS Ascorbic Acid (C-1000) 1,000 Mg Tablet, 1,000 MG PO DAILY Aspirin (Ecotrin) 81 Mg Tablet.dr, 81 MG PO DAILY Calcium Carbonate (Calcium) 600 Mg Tablet, 600 MG PO QHS Cholecalciferol (Vitamin D3) (Vitamin D3) 1,000 Unit Tablet, 1,000 UNIT PO DAILY [place] Extract ([place]) 150 Mg Capsule, 150 MG PO DAILY Hydrochlorothiazide (Hydrochlorothiazide) 25 Mg Tablet, 25 MG PO DAILY Lisinopril (Lisinopril) 20 Mg Tablet, 20 MG PO DAILY Magnesium Oxide (Magnesium Oxide) 400 Mg Tablet, 400 MG PO QHS Rosuvastatin Calcium (Crestor) 5 Mg Tablet, 5 MG PO DAILY Vitamin E (Vitamin E) 400 Unit Capsule, 400 UNIT PO DAILY [[employer]] , 1 TAB PO DAILY Scheduled PRN Nitroglycerin (Nitrostat) 0.4 Mg Tab.subl, 0.4 MG SL NITRO PRN for CHEST PAIN Allergies Coded Allergies: Antihistamines - Alkylamine (Unverified Allergy, Unknown, UNKNOWN REACTION, 02/25/19) hydrocodone (Verified Allergy, Unknown, 02/26/19) oxycodone (Unverified Allergy, Unknown, UNKNOWN REACTION, 02/25/19) Pdtsgon-Cfz-Tko Reductase Inhibitor (Verified Adverse Reaction, Intermediate, HEART RACES, 02/26/19) A-FIB/CHADSVASC A-FIB History Current/History of A-Fib/PAF?: No Current PO Anticoag Therapy: PORTILLO Palmer MD Oct 28, 2019 21:02
[2019-10-28] MEDS ORDERED: ACETAMINOPHEN TAB 650MG DOSE (2X325MG) PO PRN (21:15)
[2019-10-29] MEDS ORDERED: NITROGLYCERIN 0.4 MG SUBL TABLET SL PRN (01:30)
[2019-10-29] MEDS ORDERED: amLODIPine 5 MG TAB PO ONE (02:00)
[2019-10-29] MEDS ORDERED: PILL CUTTER 1 EACH XX PRN (02:45)
--- NOTE | 2019-10-29 07:25 | IPNPDOC ---
Text Note Date of Service The patient was seen on 10/29/19. NOTE SUBJECTIVE: Patient is sitting at bedside in emergency department. She states that she did have chest tightness yesterday morning when she woke up and found her blood pressure to be elevated, workup in the emergency department ruled out acute myocardial infarction. Her blood pressure has been quite difficult to control overnight. She is now on 20 mg of lisinopril, 25 mg of hydrochlorothiazide, and 10 mg of amlodipine. She denies any chest pain, palpitations, or difficulty breathing. She denies any lower extremity swelling. She denies fever or chills. OBJECTIVE: VITAL SIGNS: Please see below. GENERAL: Elderly obese female in the stretcher, in no acute distress HEENT: Atraumatic, normocephalic. Mucous membranes are moist. NECK: No JVD is appreciated HEART: Crescendo decrescendo murmur heard best at the second intercostal space on the right. No gallops or rubs. Regular rate and rhythm LUNGS: Clear to auscultation bilaterally; no wheezes, rhonchi, or rales ABDOMEN: Obese, normoactive bowel sounds, soft and nontender EXTREMITIES: No clubbing or cyanosis. Trace edema in the lower extremities that is nonpitting. NEURO: Sensation intact throughout, muscle strength 5 out of 5 bilaterally, cranial nerves II through XII grossly intact PSYCH: Answers questions appropriately, affect full LABORATORY DATA: See below. IMAGING: Chest x-ray 10/28/2019: Mild cardiomegaly, no acute infiltrates or pulmonary edema CT of the head 10/28/2019: No acute intracranial abnormality. CT of the neck 10/28/2019: 1. No acute fracture. 2. Heterogeneous thyroid gland with poorly defined nodules. Thyroid ultrasound 10/29/2019: Right lobe larger than left, with a suspicious nodule mid right lobe maximum diameter 2.7 cm, appears to contain tiny microcalcifications. Recommend ultrasound guided FNA. Several other smaller cystic and solid appearing nodules, not particularly suspicious. Renal ultrasound 10/29/2019: Real-time sonographic evaluation of the kidneys performed. The kidneys ar normal in size and echotexture, right kidney measuring 12.0 x 5.9 x 4.5 cm and left kidney 11.3 x 5.6 x 4.7 cm. There is no renal mass, hydronephrosis or nephrolithiasis. Urinary bladder demonstrates bilateral ureteral jets with Doppler color evaluation. ASSESSMENT: Ms. Joaquin is an 88 [id number] with a the past medical history of the infiltrating ductal carcinoma, CVA, chronic hypertension and dyslipidemia will be admitted for management of hypertensive urgency. Hospital day #2 PLAN: 1. Hypertensive Urgency. EKG done in the emergency department yesterday unchanged from prior. Troponins negative, blood lites are stable, and her kidney function is stable. ProBNP not elevated. Chest x-ray unremarkable Her echo from February showed mild diastolic dysfunction. - Blood pressure medications increased to lisinopril 20 mg daily, hydrochlorothiazide 25 mg daily, amlodipine 10 mg daily - Continue to observe, may consider switching her hydrochlorothiazide to chlorthalidone for a longer half-life - Case discussed with Dr. Hutson, her flute teacher, no cardiac intervention needed at this time, she can follow up with him outpatient 2. History of right lacunar infarct /Dyslipidemia Plan: Continue with aspirin, statin 3. Thyroid nodule, should get FNA and workup outpatient. Thyroid hormones are within normal limits, likely not the cause of her hypertension. DVT prophylaxis with SCDs. Disposition likely discharge home tomorrow pending adequate blood pressure cont rol VS,Fishbone, I+O VS, Fishbone, I+O Laboratory Tests 10/28/19 18:40 Vital Signs Date Time Temp Pulse Resp B/P (MAP) Pulse Ox O2 Delivery O2 Flow Rate FiO2 10/29/19 07:01 70 135/64 (87) 10/29/19 06:00 97.9 96 Room Air 10/28/19 22:00 18 GME ATTESTATION GME ATTESTATION My faculty preceptor for this patient encounter was physically present during the encounter and was fully available. All aspects of the patient interview, examination, medical decision making process, and medical care plan development were reviewed and approved by the faculty preceptor. The faculty preceptor is aware and concurs with the plan as stated in the body of this note and will att est to such by his/her cosignature. HAZEL LIVE D.O. Oct 29, 2019 07:25
[2019-10-29 07:38] LABS: BLOOD UREA NITROGEN 13 MG/DL (7-18); CALCIUM LEVEL 8.8 MG/DL (8.8-10.2); CARBON DIOXIDE LEVEL 26 MEQ/L (21-32); CHLORIDE LEVEL 104 MEQ/L (98-107); CREATININE FOR GFR 0.76 MG/DL (0.55-1.30); GLOMERULAR FILTRATION RATE > 60.0 (>32); GLUCOSE, FASTING 98 MG/DL (70-100); MAGNESIUM LEVEL 2.2 MG/DL (1.8-2.4); POTASSIUM SERUM 3.7 MEQ/L (3.5-5.1); SODIUM LEVEL 141 MEQ/L (136-145)
[2019-10-29 07:45] LABS: FREE T4 1.14 NG/DL (0.76-1.46)
[2019-10-29] MEDS: ROSUVASTATIN 10 MG TAB (CRESTOR) PO SCH (08:22)
[2019-10-29] MEDS: lisinopriL 20 MG TAB PO SCH (08:22)
[2019-10-29] MEDS: hydroCHLOROthiazide 25 MG TAB PO SCH (08:22)
[2019-10-29] MEDS: VITAMIN D 1,000 INTERNATIONAL UNITS TABLET PO SCH (08:22)
[2019-10-29] MEDS: ASPIRIN 81 MG ENTERIC TAB PO SCH (08:22)
[2019-10-29 09:10] LABS: NT-PRO BNP 243 PG/ML (<450)
[2019-10-29 09:40] VITALS: BP 149/68
--- NOTE | 2019-10-29 10:22 | REP ---
RENAL ULTRASOUND: Real-time sonographic evaluation of the kidneys performed. The kidneys are normal in size and echotexture, right kidney measuring 12.0 x 5.9 x 4.5 cm and left kidney 11.3 x 5.6 x 4.7 cm. There is no renal mass, hydronephrosis or nephrolithiasis. Urinary bladder demonstrates bilateral ureteral jets with Doppler color evaluation. IMPRESSION: Negative renal ultrasound. Electronically Signed by Yassine Fernandez MD 11/02/2019 10:13 A
--- NOTE | 2019-10-29 10:24 | REP ---
THYROID ULTRASOUND: Real-time sonographic evaluation of the thyroid was performed. Right lobe is enlarged 6.0 x 2.4 x 2.9 cm. The left lobe measures 4.8 x 1.5 x 2.2 m. Multiple cystic and solid nodules are seen bilaterally with diffuse heterogenous echotexture bilaterally. Dominant solid nodule in the mid right lobe appears to contain several microcalcifications. It measures 2.7 x 2.4 x 1.9 cm. There is an adjacent medial solid nodule in the right mid aspect 1.1 cm in diameter as well as a 5 mm cyst. In the mid to lower left lobe there is a solid appearing nodule 2.0 x 0.7 x 1.1 cm. There is an adjacent 6 mm solid nodule more medially in the lower pole. 3 mm cystic structure is seen in the left upper pole. IMPRESSION: Suspicious nodule mid right lobe maximum diameter 2.7 cm, appears to contain tiny microcalcifications. Recommend ultrasound guided FNA. Otherwise there are several other smaller cystic and solid appearing nodules, not particularly suspicious. Right lobe is larger than left. Electronically Signed by Yassine Fernandez MD 11/02/2019 10:13 A
[2019-10-29 14:00] VITALS: BP 148/73
[2019-10-29] MEDS ORDERED: ACETAMINOPHEN 500 MG TAB PO SCH (21:00)
[2019-10-29] MEDS ORDERED: diphenhydrAMINE 50 MG CAP PO SCH (21:00)
[2019-10-29] MEDS ORDERED: MAGNESIUM OXIDE 400 MG TAB (MAG-OX) PO SCH (21:00)
[2019-10-29] MEDS ORDERED: ENTER DRUG NAME HERE (PATIENT'S OWN MED) PO SCH (21:00)
[2019-10-29] MEDS ORDERED: amLODIPine 10 MG TAB PO SCH (21:00)
--- NOTE | 2019-10-29 21:58 | ECGEPIP ---
[facility] - ED Test Date: 2019-10-28 Pat Name: SUGEY NAM Department: Room: [place] [address] Gender: Female Manager Produce: FARAZ : 1930 Requested By: Navin Vogel Order Number: [id number] Reading MD: An Dubose Measurements Intervals [place] Rate: 78 P: -30 DC: 200 QRS: -19 QRSD: 89 T: 6 QT: 396 QTc: 453 Interpretive Statements SINUS RHYTHM MODERATE VOLTAGE CRITERIA FOR LVH, CONSIDER NORMAL VARIANT INFERIOR MYOCARDIAL INFARCTION, PROBABLY OLD NSTTW abnormalities SLIGHTLY MORE PRONOUNCED COMPARED 02/25/19 Electronically Signed on 10-29-2019 21:58:08 EST by An Dubose
[2019-10-29 22:00] VITALS: BP 142/70
[2019-10-30 06:00] VITALS: BP 169/89
[2019-10-30 10:00] VITALS: BP 169/89
[2019-10-30] MEDS: VITAMIN D 1,000 INTERNATIONAL UNITS TABLET PO SCH (10:00)
[2019-10-30] MEDS: hydroCHLOROthiazide 25 MG TAB PO SCH (10:00)
[2019-10-30] MEDS: ROSUVASTATIN 10 MG TAB (CRESTOR) PO SCH (10:00)
[2019-10-30] MEDS: ASPIRIN 81 MG ENTERIC TAB PO SCH (10:00)
[2019-10-30] MEDS: lisinopriL 20 MG TAB PO SCH (10:00)
[2019-10-30 10:35] LABS: BLOOD UREA NITROGEN 16 MG/DL (7-18); CALCIUM LEVEL 8.6 MG/DL (8.8-10.2); CARBON DIOXIDE LEVEL 23 MEQ/L (21-32); CHLORIDE LEVEL 106 MEQ/L (98-107); GLOMERULAR FILTRATION RATE > 60.0 (>32); GLUCOSE, FASTING 193 MG/DL (70-100); POTASSIUM SERUM 3.8 MEQ/L (3.5-5.1); SODIUM LEVEL 137 MEQ/L (136-145)
[2019-10-30] MEDS ORDERED: LISI-538 PO (10:52)
[2019-10-30] MEDS ORDERED: AMLO10TA5 PO (10:52)
[2019-10-30] MEDS ORDERED: HYDR25TAB PO (10:52)
[2019-10-30 11:34] VITALS: BP 154/74
--- NOTE | 2019-10-30 19:08 | DSES ---
DATE OF ADMISSION: 10/28/2019 DATE OF DISCHARGE: 10/30/2019 My preceptor for this encounter is Dr. Gustavo Alexandre. DISCHARGE DIAGNOSES: 1. Hypertensive urgency, asymptomatic. 2. History of right lacunar infarct. 3. Dyslipidemia. 4. Thyroid nodule. This is an 88-year-old female who presented to the emergency department on 10/28/2019 due to chest tightness, which woke her up from sleep. She checked her blood pressure and found it to be elevated with a systolic in the 200s. She decided to come to the emergency department for evaluation. On her way out the door, she slipped on her wooden floors, which had recently been varnished. She ended up hitting her head. She is accompanied by her son who also slipped when he went to try to help his mother up. As a result of the fall, they both hit their heads. She hit her head and developed a headache. In the emergency department, she received IV labetalol, which seemed to control her blood pressure decently. EKG was unchanged from prior. Her troponins were negative. Her blood electrolytes were stable, and her kidney function was stable. Pro-BNP was not elevated, and her chest x-ray was unremarkable. Her blood pressure medications were increased to 20 mg of lisinopril daily, 25 mg of hydrochlorothiazide daily, and amlodipine 10 mg by mouth daily. The case was also discussed with her magnetic tape typewriter operator, Dr. Hutson, with whom she should followup with outpatient. Due to her fall and subsequent headache, CT of the head and neck were done. CT of the head revealed no acute intracranial abnormality. However, the CT of the neck showed a heterogeneous thyroid gland with poorly defined nodules. Subsequent thyroid ultrasound showed that the right lobe was larger than the left with a suspicious nodule mid right lobe, maximum diameter 2.7 cm, appears to contain tiny microcalcifications. It was recommended to get an ultrasound-guided fine needle aspiration. There were several other smaller cystic and solid appearing nodules, none of which looked particularly suspicious. On the day of discharge, her blood pressure had been much better controlled with the systolic ranging in the 140s to 160s. All of her chest pressure had resolved. She was asymptomatic, and meeting all discharge criteria. PHYSICAL EXAMINATION: Vital signs: Temperature 97.6, pulse 73 and regular, respiratory rate 18, blood pressure 154/74, 94% on room air. General: Elderly obese female lying in bed. No acute distress. HEENT: Atraumatic, normocephalic. Mucous membranes are moist. Sclerae are anicteric. Neck: Mild fullness to the right side of the thyroid is appreciated. There is no jugular venous distention (JVD). Heart: Crescendo-decrescendo murmur heard best at the second intercostal space on the right side of the sternum, no gallops or rubs. Regular rate and rhythm. Lungs: Clear to auscultation bilaterally. No wheezes, rhonchi or rales. Abdomen: Obese, normoactive bowel sounds, soft and nontender. Extremities: No clubbing or cyanosis. Nonpitting trace edema in the bilateral lower extremities. Neurologic: Sensation intact throughout, 5/5 muscle strength bilaterally. Cranial nerves II-XII grossly intact. Psychiatric: Answers all questions appropriately. Affect is full. The patient is jovial. LABORATORY DATA: CBC: WBC 5.0, hemoglobin 14.4, hematocrit 42.3, platelets 234. Chemistry: Sodium 137, potassium 3.8, chloride 106, carbon dioxide 23, BUN 16, creatinine 0.90, fasting glucose 193, calcium 8.6. Coagulation: PT 12.3, INR 0.94. Troponins done 10/28/2019 were less than 0.02, Pro-BNP 243. Thyroid studies showed a TSH of 1.8 and a free T4 of 1.14. IMAGING: Chest x-ray done 10/28/2019 showed mild cardiomegaly, no acute infiltrates or pulmonary edema. CT of the head done 10/28/2019 showed no acute intracranial abnormality. CT of the head done 10/28/2019 showed no acute cervical spine fracture, but there was a heterogeneous thyroid gland with poorly defined nodules. Thyroid ultrasound done 10/29/2019 showed a right lobe larger than left, suspicious nodule in the mid right lobe, maximum diameter 2.7 cm, appears to contain tiny microcalcifications. Recommend ultrasound-guided FNA. Several other smaller cystic and solid appearing nodules, none particularly suspicious. Renal ultrasound 10/29/2019 showed the kidneys are normal in size and echo texture, right kidney measuring 12.0 x 5.9 x 4.5 cm and left kidney 11.3 x 5.6 x 4.7 cm. No renal mass, hydronephrosis, or nephrolithiasis. Urinary bladder demonstrates bilateral ureteral jets with Doppler color evaluation. DIET: 2 gram sodium. ACTIVITY: As tolerated. FOLLOWUP: 1. Hypertensive urgency: Blood pressure medications were increased to lisinopril 20 mg daily, hydrochlorothiazide 25 mg daily and amlodipine 10 mg daily. She should follow up with Dr. Hutson, may consider switching hydrochlorothiazide to chlorthalidone for the longer half-life. 2. Thyroid nodule. Recommend getting an FNA and work up outpatient. The thyroid hormones were within normal limits, and likely not the cause of her hypertension. DISCHARGE MEDICATIONS: - amlodipine 10 mg by mouth nightly - hydrochlorothiazide 25 mg by mouth daily - lisinopril 20 mg by mouth daily - Tylenol-diphenhydramine two tablets by mouth nightly - vitamin C 1000 mg by mouth daily - aspirin 81 mg by mouth daily - calcium carbonate 600 mg by mouth nightly - vitamin D3 1000 units by mouth daily - [place] Extract 150 mg by mouth daily - magnesium oxide 400 mg by mouth nightly - nitroglycerin 0.4 mg sublingual as needed for chest pain - Crestor 5 mg by mouth daily - vitamin E 400 mg by mouth daily - [employer] vitamin one tablet by mouth daily STOPPED MEDICATIONS: Amlodipine 5 mg by mouth daily as needed for systolic greater than 130 and lisinopril/hydrochlorothiazide combination tablet 20-12.5 mg by mouth daily. DISPOSITION: Stable. Greater than 30 minutes spent on discharge.
== END 2019-10-30 12:14 | disposition home or self-care (01) ==
LOC: M ED 18:18 → M ED INP 18:19 → M MSPAV 10-29 13:55
PROVIDERS: ADMIT Internal Medicine; ATTEND Internal Medicine
DX: I16.0 Hypertensive urgency (principal); E78.5 Hyperlipidemia, unspecified; E04.1 Nontoxic single thyroid nodule; I10 Essential (primary) hypertension; Z86.73 Personal history of transient ischemic attack (TIA), and cerebral infarction without residual deficits; Z85.3 Personal history of malignant neoplasm of breast; Z92.3 Personal history of irradiation; Z79.82 Long term (current) use of aspirin; Z79.899 Other long term (current) drug therapy; S09.90XA Unspecified injury of head, initial encounter; W19.XXXA Unspecified fall, initial encounter; Y92.018 Other place in single-family (private) house as the place of occurrence of the external cause; Y93.9 Activity, unspecified; Y99.9 Unspecified external cause status
CPT/HCPCS: 36415; 70450; 71045; 72125; 76536; 76775; 80048; 80076; 82550; 82553; 83690; 83735; 83880; 84439; 84443; 84484; 85025; 85610; 93005; 93041; 94760; 96374; 96375; 96376; 99285; G0378; J3010

== ENCOUNTER → 2020-01-27 | Outpatient (CLI) | payer MEDICARE ==
[~2020-01-27] MED LIST changes: +ACET-1146 PO; +AMLO10TA5 PO; +AMLO5TAB6 PO; +C-101TAB3 PO; +CRES5TAB PO; +ECOT81TA5 PO; +HYDR25TAB PO; +LISI-538 PO; +VITA100066 PO
--- NOTE | 2020-01-27 13:06 | REPMRS ---
Patient History The patient states she had a clinical breast exam in January 2020.Family history of breast cancer at age 48 in daughter, ovarian cancer in mother. Malignant radio exam breast specimen, August 25, 2015. 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 Radiation therapy of the right breast. Digital Woman Screen Mammo: January 27, 2020 - Exam #: [id number] Bilateral CC and MLO view(s) were taken. Technologist: Kerline Benedict, Prior study comparison: January 14, 2019, bilateral digital woman screen mammo performed at [facility]. January 13, 2018, digital woman screen mammo performed at [facility]. January 10, 2017, digital mammo diagnostic bilateral, performed at [facility]. FINDINGS: There are scattered fibroglandular densities. There are stable post-treatment changes on the right. There has been no change in the appearance of the mammogram from the prior studies. There is a mild amount of scattered fibroglandular density which is fairly symmetric. There is no interval development of dominant mass, architectural distortion, or grouped microcalcification suggestive of malignancy. 3-D tomosynthesis shows no additional findings. Assessment: BI-RADS/ACR category 2 mammogram. Benign Findings. Recommendation Routine screening mammogram of both breasts in 1 year (for women over age 40). This mammogram was interpreted with the aid of an FDA-approved computer-aided dectection system. Electronically Signed By: Rolando Harper MD 01/27/20 [id number]
== END ==
LOC: M WHC 10:20
PROVIDERS: ATTEND Nurse Practitioner
DX: Z12.31 Encounter for screening mammogram for malignant neoplasm of breast (principal); Z85.3 Personal history of malignant neoplasm of breast; Z80.41 Family history of malignant neoplasm of ovary; Z92.3 Personal history of irradiation

== ENCOUNTER → 2020-12-07 | Outpatient (CLI) | payer MEDICARE ==
[~2020-12-07] MED LIST changes: -AMLO10TA5 PO; +AMLO1TAB24 PO; +AMLO1TAB25 PO; -AMLO5TAB6 PO; -CALC600T5 PO; +CALC600T61 PO; +CALCCAP4 PO; +D31000TA2 PO; +HYDR-3490 PO; -HYDR25TAB PO; +LETR2.5T2 PO; -LISI-538 PO; -LISI20TA19 PO; +LISI20TA20 PO; +LISI20TA33 PO; +LISI20TA35 PO; +NITR0.4S14 SL; +OMEP-218 PO; +OYST1TAB PO; +RA K500C PO; +SM M250T PO
--- NOTE | 2020-12-07 16:59 | REP ---
INDICATION: MALIGNANT PLEURAL EFFUSION. COMPARISON: Comparison chest x-ray June 03, 2020. TECHNIQUE: Two views.. FINDINGS: There is blunting of the lateral and posterior pleural angles indicating small bilateral effusions. The lungs are hyperinflated overall. Heart is not enlarged. The aorta is calcific and somewhat tortuous. The pleural angle blunting is new when compared with May 19 chest x-ray. No soft tissue mass or pulmonary nodule is appreciated. Pulmonary vasculature is not increased. Heart size is felt to be normal. IMPRESSION: Small bilateral pleural effusions. Hyperinflation. Otherwise no acute disease seen.. <Electronically signed by Rolando Harper > 12/07/20 [id number]
== END ==
LOC: M WUC 15:46
PROVIDERS: ATTEND Internal Medicine
DX: J90 Pleural effusion, not elsewhere classified (principal)

== ENCOUNTER → 2020-12-30 | Outpatient (CLI) | payer MEDICARE ==
[~2020-12-30] MED LIST changes: +ACET1TAB55 PO; +ASCO50TA PO; +BISA10SU PR; +DOK1CAP7 PO; +FERR325T3 PO; +KISQ200T PO; +LIDOCAINE 1% MDV 20ML VIAL As Ordered ONE; +PROT1TAB2 PO; +SUCR1TA PO
[2020-12-30 11:18] LABS: INR 0.92; PROTHROMBIN TIME 12.6 SECONDS (12.5-14.3)
--- NOTE | 2020-12-30 11:56 | REP ---
INDICATION: SHYANN PLEURAL EFFUSION. Preprocedure ultrasound evaluation. Contemplated thoracentesis. COMPARISON: Comparison chest x-ray 07 December 2020.. TECHNIQUE: Targeted right posterior chest ultrasound. None FINDINGS: Scanning of the right posterior chest demonstrates a moderate amount of pleural fluid. Thoracentesis will proceed under ultrasound guidance. IMPRESSION: Right pleural effusion. <Electronically signed by Rolando Harper > 12/30/20 [id number]
[2020-12-30 13:16] LABS: PH BODY FLUID 7.674 UNITS (NOT ESTABLISHED); SOURCE, BODY FLUID pH PLEURAL
--- NOTE | 2020-12-30 13:25 | REP ---
INDICATION: POST RIGHT THORA, 2 VIEW. COMPARISON: 07 December 2020.. TECHNIQUE: PA and lateral views. FINDINGS: Post right thoracentesis radiograph show no evidence of pneumothorax. The right pleural angle blunting is improved. There is a small persistent effusion on the left. Heart size is borderline unchanged. IMPRESSION: No complications seen. Improved right pleural angle post thoracentesis. No evidence of pneumothorax. <Electronically signed by Rolando Harper > 12/30/20 [id number]
[2020-12-30 13:43] LABS: APPEARANCE, BODY FLUID CLOUDY (CLEAR); PLEURAL FL COLOR AMBER (COLORLESS); SOURCE, BODY FLUID PLEURAL
[2020-12-30 13:52] LABS: LDH, BODY FLUID 129 U/L (NOT ESTABLISHED); SOURCE, BODY FLUID GLUCOSE PLEURAL; SOURCE, BODY FLUID LDH PLEURAL; SOURCE, BODY FLUID TOT PROTEIN PLEURAL; TOTAL PROTEIN, BODY FLUID 4.3 G/DL (NOT ESTABLISHED)
[2020-12-30 15:00] VITALS: BP 153/70
--- NOTE | 2020-12-30 17:32 | REP ---
INDICATION: PLEURAL EFFUSION. COMPARISON: None. TECHNIQUE: The procedure was performed under the direct supervision of Dr. Harper. The risks and benefits of the procedure were explained to the patient and informed consent was obtained. The right pleural effusion was localized using ultrasound guidance. The skin was prepped and draped in a sterile fashion. 1% lidocaine was used as local anesthetic. An 8 [place] multi side hole catheter was inserted using trocar technique. 915 cc of low viscosity red colored fluid was withdrawn and sent to the lab for analysis. The patient tolerated the procedure well and there were no immediate complications. After the appropriate amount to monitor convalescence the patient was discharged from the department. FINDINGS: None IMPRESSION: Ultrasound-guided right thoracentesis yielding 915 cc of low viscosity red colored fluid. <Electronically signed by Eric Nguyễn > 12/30/20 [id number] <Electronically signed by Rolando Harper > 12/30/20 [id number]
== END ==
LOC: M IRPRO 10:12
PROVIDERS: ATTEND Internal Medicine Medical Oncology
DX: C78.01 Secondary malignant neoplasm of right lung (principal)

== ENCOUNTER → 2021-01-09 | Outpatient (CLI) | payer MEDICARE ==
[~2021-01-09] MED LIST changes: -ACET1TAB55 PO; -ASCO50TA PO; -BISA10SU PR; -DOK1CAP7 PO; -FERR325T3 PO; -KISQ200T PO; -LIDOCAINE 1% MDV 20ML VIAL As Ordered ONE; -PROT1TAB2 PO; -SUCR1TA PO
--- NOTE | 2021-01-11 17:51 | REP ---
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 COMPARISON: None. TECHNIQUE: Fifty-three minutes following the intravenous injection of a 13.56 mCi dose of F-18 FDG, three-dimensional PET scintigraphy is acquired from the skull base to the proximal thighs. Triplanar noncontrast CT scanning is acquired through the same anatomic range for attenuation correction, and image registration with scan parameters optimized to minimize radiation exposure to the patient. PET scintigraphy and CT datasets were fused and displayed on a workstation with multiplanar and projection display capability. FINDINGS: There is 1 small supraclavicular lymph node on each side which shows mildly hypermetabolic uptake. These are 1 cm lymph nodes. On the right, maximum SUV value is 3.71 and on the left 2.86. There are job foci of hypermetabolic uptake in the mediastinum with maximum standard uptake value 5.28 and 4.69. Bilateral hilar job hypermetabolic uptake is seen. Maximum standard uptake value in the left hilar node is 8.16 and that in the right 5.51. There is a subcarinal hypermetabolic node with maximum standard uptake value 6.35. There are moderate bilateral pleural effusions but no pleural focus of localized hypermetabolic uptake is seen in the pleural space. No pulmonary parenchymal hypermetabolic uptake is appreciated. No axillary job uptake is appreciated. No abnormal hypermetabolic uptake is seen within the abdomen or pelvis. However, there are 2 suspicious bone lesions, the largest of these is in the right superior ischium at the posteroinferior aspect of the acetabulum where maximum standard uptake value is 6.48. Accompanying CT image show some cortical disruption posteriorly at this metastatic site. The other apparent hypermetabolic skeletal metastatic lesion is in the T11 vertebral body. There is no definite accompanying bone destruction on CT images. Maximum standard uptake value at this site is 6.12. IMPRESSION: 1. Hypermetabolic bilateral hilar and mediastinal lymphadenopathy. There are small 1 cm hypermetabolic nodes in each supraclavicular region as well, 1 on each side. 2. Moderate bilateral pleural effusions. No localized pleural uptake or parenchymal uptake seen however. 3. 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 <Electronically signed by Rolando Harper > 01/11/21 0533
== END ==
LOC: M PLARAD 11:08
PROVIDERS: ATTEND Internal Medicine Medical Oncology
DX: C50.811 Malignant neoplasm of overlapping sites of right female breast (principal); J90 Pleural effusion, not elsewhere classified
CPT/HCPCS: 78815; A9552

== ENCOUNTER → 2021-01-12 | Outpatient (CLI) | payer MEDICARE ==
[~2021-01-12] MED LIST changes: +ACET1TAB55 PO
--- NOTE | 2021-01-12 11:08 | REPPI ---
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 COMPARISON: Comparison chest x-ray December 30, 2020. TECHNIQUE: Two views.. FINDINGS: There are small bilateral pleural effusions blunting the pleural angles. This is similar on the left compared to the December 30, 2020 study. This is increased on the right compared to the prior study. Mild cardiomegaly is observed. No infiltrate is seen. IMPRESSION: Small bilateral pleural effusions.. <Electronically signed by Rolando Harper > 01/12/21 1105
== END ==
LOC: M PLAIMG 08:30
PROVIDERS: ATTEND Thoracic Surgery (Cardiothoracic Vascular Surgery)
DX: C50.911 Malignant neoplasm of unspecified site of right female breast (principal); J91.0 Malignant pleural effusion; I51.7 Cardiomegaly

== ENCOUNTER → 2021-01-13 | Outpatient (CLI) | payer MEDICARE | LOC: M LABSMTC 12:17 | PROVIDERS: ATTEND Anesthesiology | DX: Z01.812 Encounter for preprocedural laboratory examination (principal); Z20.822 Contact with and (suspected) exposure to COVID-19 ==

== ENCOUNTER 2021-01-14 04:42 | Inpatient (IN) | payer MEDICARE ==
[~2021-01-14] VITALS: Ht 162.6 cm; Wt 80.4 kg
[2021-01-14] VITALS (24 sets, daily range): BP systolic 125–193; BP diastolic 55–87
[~2021-01-14 04:42] MED LIST changes: -ACET1TAB55 PO
--- OUTSIDE RECORDS SUMMARY | 2021-01-14 04:49 | CCD | Continuity of Care Document ---
Author Author Mayra OLIVER M.D. Organization Unknown Address [address] [address] Phone [phone] Problems Active Problems Provider Date Benign hypertension Edgar Oliver M.D. Onset: 4 Aortic valve stenosis Edgar Oliver M.D. Onset: 019 Hyperlipidemia Edgar Oliver M.D. Onset: 0 Personal history of primary malignant neoplasm of breast Rou Amanda higuera, [employer] Onset: 01/26/2020 Social History Type Date Description Comments Sex Unknown ETOH Use Denies alcohol use Tobacco Use Start: Unknown Patient has never smoked Recreational Drug Use Denies Drug Use Allergies, Adverse Reactions, Alerts Active Allergies Reaction Severity Comments Date Statins muscle pain 06/06/2016 Trilipix hives, flushing of face 02/16 Medications Active Medications SIG Qnty Indications Ordering Provide r Date Omeprazole 20mg Capsules DR 1 by mouth every morning 90caps Edgar Oliver M.D. 11/16/20 20 Crestor 5mg Tablets take one tablet by mouth every day next rx 90 day 90tabs Edgar Oliver M.D. 03/06/2019 Nitroglycerin 0.4mg Tablets Sub take 1 tablet under the tongue every 5 minutes x 3 doses as needed for chest pain. call 911 with second dose 1bottle Edgar Oliver M.D. B Complex 100mg Capsules 1 by mouth every day OTC Unknown Vitamin C 1000mg Tablets 2 by mouth every day Unknown Biotin 120mg Tablets 1 po qd Unknown [place] 3 1000mg Capsules 1 by mouth every day Unknown Calcium 600-D Tablets 1 by mouth twice a day Unknown Aspirin [address] 1 by mouth every day Unknown Vitamin D 25mcg (1000 Ut) Tablets 1 by mouth every day OTC Unknown Lisinopril-Hydrochlorothiazide 20-25mg Tablets 1 by mouth every day 90tabs Edgar Oliver M .D. Immunizations CPT Code Status Date Vaccine Lot # [id number] Refused 08/16/2020 Influenza Virus Vaccine, Quadrivalent, Slit Virus, Im Use 3Y & Up Vital Signs Date Vital Result Comment 12/07/2020 2:59pm BP Systolic 136 mmHg BP Diastolic 76 mmHg Body Temperature 98.3 F Heart Rate 88 /min Respiratory Rate 18 /min Height 64 inches 5'4" Weight 171.00 lb [place] Body Weight 120 lb BMI (Body Mass Index) 29.3 kg/m2 O2 % BldC Oximetry 97 % 11/16/2020 10:57am BP Systolic 138 mmHg BP Diastolic 68 mmHg Body Temperature 97.8 F Heart Rate 86 /min Respiratory Rate 16 /min Height 64 inches 5'4" Weight 175.00 lb [place] Body Weight 120 lb BMI (Body Mass Index) 30.0 kg/m2 O2 % BldC Oximetry 94 % Results Test Acquired Date Facility Test Result H/L Range Note Cell Count Pleural Fluid 12/30/2020 [facility] (Interface) [phone] Source, Body Fluid PLEURAL Normal Pleural FL Color REESE Normal Colorless Appearance, Body Fluid CLOUDY Normal Clear WBC Body Fluid 1623 /uL High 0-10 RBC Body Fluid 22 10 Normal <2 BF Mononuclear Cell % 96.1 % High 0-0 BF Polymorphonuclear Cell % 3.9 % High 0-0 TP Body Fluid 12/30/2020 [facility]) [phone] Total Protein, Body Fluid 4.3 g/dL Normal Not Es tablished Source, Body Fluid Tot Protein PLEURAL Normal LDH Body Fluid 12/30/2020 [facility]) [phone] LDH, Body Fluid 129 U/L Normal Not Established Source, Body Fluid LDH PLEURAL Normal Glucose Body Fluid 12/30/2020 [facility]) [phone] Glucose, Body Fluid 105 mg/dL Normal Not Establis hed Source, Body Fluid Glucose PLEURAL Normal PH, Body Fluid 12/30/2020 [facility] [phone] PH Body Fluid 7.674 units Normal Not Established Source, Body Fluid pH PLEURAL Normal Prothrombin Time/Inr 12/30/2020 [facility] ( Interface) [phone] Prothrombin Time 12.6 seconds Normal 12.5-14.3 Inr 0.92 Normal 1 CBC With Auto Differential OB [facility] [phone] White Blood Count 4.2 10 Normal 4.0-10.0 Red Blood Count 4.62 10 Normal 4.00-5.40 Hemoglobin 13.3 g/dL Normal 12.0-15.5 Hematocrit 40.7 % Normal 36.0-47.0 Mean Corpuscular Volume 88.1 fl Normal 80.0-96.0 Mean Corpuscular Hemoglobin 28.8 pg Normal 27.0-33.0 Mean Corpuscular HGB Conc 32.7 g/dL Normal 32.0-36.5 Red Cell Distribution Width 13.5 % Normal 11.5-14.5 Platelet Count, Automated 264 10 Normal 150-450 Neutrophils % 64.0 % Normal 36.0-66.0 Lymph % 21.8 % Low 24.0-44.0 [place] % 11.8 % High 0.0-5.0 Eos % 1.7 % Normal 0.0-3.0 Baso % 0.5 % Normal 0.0-1.0 Immature Granulocyte % 0.2 % Normal 0-3.0 Nucleated Red Blood Cell % 0.0 % Normal 0-0 Neutrophils # 2.7 10 Normal 1.5-8.5 Lymph # 0.9 10 Low 1.5-5.0 [place] # 0.5 10 Normal 0.0-0.8 Eos # 0.1 10 Normal 0.0-0.5 Baso # 0.0 10 Normal 0.0-0.2 Comprehensive Metabolic Profil 12/28/2020 [facility] (Interface) [phone] Glucose, Fasting 129 mg/dL High 70-100 Blood Urea Nitrogen 15 mg/dL Normal 7-18 Creatinine For GFR 0.88 mg/dL Normal 0.55-1.30 Glomerular Filtration Rate > 60.0 Normal >32 2 Sodium Level 137 mEq/L Normal 136-145 Potassium Serum 3.7 mEq/L Normal 3.5-5.1 Chloride Level 102 mEq/L Normal 98-107 Carbon Dioxide Level 27 mEq/L Normal 21-32 Anion Gap 8 mEq/L Normal 8-16 Calcium Level 9.4 mg/dL Normal 8.8-10.2 Ast/Sgot 11 U/L Normal 7-37 Alt/SGPT 14 U/L Normal 12-78 Alkaline Phosphatase 77 U/L Normal 45-117 Bilirubin,Total 0.6 mg/dL Normal 0.2-1.0 Total Protein 6.8 GM/DL Normal 6.4-8.2 Albumin 3.6 GM/DL Normal 3.2-5.2 Albumin/Globulin Ratio 1.1 Low 1.2-2.2 Laboratory test finding 12/28/2020 [facility] (Interface) [phone] Ca15-3 Antigen 44.0 U/ML High <32.4 3 CA 27.29 59.8 U/mL High 0.0-38.6 4 CBC 12/07/2020 [facility] WBC 4.6 10E3/uL 4.1 - 10.9 5 RBC 4.53 10E6/uL 4.20 - 6.30 HGB 13.7 g/dL 12.0 - 18.0 HCT 40.8 % 37.0 - 51.0 MCV 90.1 fL 80.0 - 97.0 MCH 30.2 pg 26.0 - 32.0 MCHC 33.6 g/dL 31.0 - 36.0 PLT 273 10E3/uL 140 - 440 RDW-CV 13.3 % 11.5 - 14.5 Lym% 22.5 % 10.0 - 58.5 Neut% 66.5 % 37.0 - 92.0 MXD% 11.0 % 0.1 - 24.0 Lym# 1.0 10E3/uL 0.6 - 4.1 Neut# 3.1 % 2.0 - 7.8 MXD# 0.5 10E3/uL 0.0 - 1.8 MPV 10.4 fL 9.0 - 13.0 CMP 12/07/2020 [facility] Glu 127 mg/dL High 70 - 110 BUN 18 mg/dL 8 - 23 Creat 0.8 mg/dL 0.5 - 1.0 BUN/Creatinine Ratio 21.0 Calc Na 135 mmol/L Low 136 - 145 K 3.7 mmol/L 3.5 - 5.1 CL 101.6 mmol/L 98.0 - 107.0 Co2 20.9 mmol/L Low 22.0 - 29.0 CA 10.0 mg/dL 8.6 - 10.2 TP 6.6 g/dL 6.6 - 8.7 Alb 4.2 g/dL 3.4 - 4.8 A/G Ratio 1.7 Calc Globulin 2.5 Calc Alp 87.2 U/L 35 - 129 Alt (SGPT) 8 U/L 0 - 41 Ast (Sgot) 14 U/L 0 - 40 Tbili 0.36 mg/dL 0.0 - 1.2 Osmolality-Calculated 274.3 Calc Anion Gap 17 mmol/L eGFR 76 # Calc 6 eGFR Non-Afr. [place] 66 # Calc 7 CBC 08/16/2020 [facility] WBC 4.6 10E3/uL 4.1 - 10.9 8 RBC 4.36 10E6/uL 4.20 - 6.30 HGB 13.1 g/dL 12.0 - 18.0 HCT 39.6 % 37.0 - 51.0 MCV 90.8 fL 80.0 - 97.0 MCH 30.0 pg 26.0 - 32.0 MCHC 33.1 g/dL 31.0 - 36.0 PLT 239 10E3/uL 140 - 440 RDW-CV 14.1 % 11.5 - 14.5 Lym% 30.7 % 10.0 - 58.5 Neut% 62.4 % 37.0 - 92.0 MXD% 6.9 % 0.1 - 24.0 Lym# 1.4 10E3/uL 0.6 - 4.1 Neut# 2.9 % 2.0 - 7.8 MXD# 0.3 10E3/uL 0.0 - 1.8 MPV 10.7 fL 9.0 - 13.0 CMP 08/16/2020 [facility] Glu 94 mg/dL 70 - 110 BUN 15 mg/dL 8 - 23 Creat 0.7 mg/dL 0.5 - 1.0 BUN/Creatinine Ratio 20.9 CALC Na 136 mmol/L 136 - 145 K 3.7 mmol/L 3.5 - 5.1 CL 99.1 mmol/L 98.0 - 107.0 Co2 24.4 mmol/L 22.0 - 29.0 CA 10.0 mg/dL 8.6 - 10.2 TP 6.4 g/dL Low 6.6 - 8.7 Alb 4.3 g/dL 3.4 - 4.8 A/G Ratio 2.1 CALC Globulin 2.1 CALC Alp 79.6 U/L 35 - 129 Alt (SGPT) 10 U/L 0 - 41 Ast (Sgot) 17 U/L 0 - 40 Tbili 0.38 mg/dL 0.0 - 1.2 Osmolality-Calculated 272.6 CALC Anion Gap 16 mmol/L eGFR 90 # Calc 9 eGFR Non-Afr. [place] 78 # Calc 10 Lipid Panel 08/16/2020 [facility] Chol 162 mg/dL 0 - 200 Trig 163 mg/dL 40 - 200 HDL 49 mg/dL 45 - 65 LDL_C 80 Calc 75 - 129 Cho/HDL Ratio 3.3 CALC Laboratory test finding 08/16/2020 [facility] TSH 1.045 ulU/mL 0.60 - 4.8 1 THERAPUTIC HUMAN INR VALUES INDICATIONS NORMAL RANGES PROPHYLAXIS/TREATMENT OF: VENOUS THROMBOSIS 2.0-3.0 PULMONARY EMBOLISM 2.0-3.0 PREVENTION OF SYSTEMIC EMBOLISM FROM: TISSUE HEART VALVES 2.0-3.0 ACUTE MYOCARDIAL INFARCTION 2.0-3.0 VALVULAR HEART DISEASE 2.0-3.0 ATRIAL FIBRILLATION 2.0-3.0 MECHANICAL VALVES(HIGH RISK) 2.5-3.5 RECURRENT MYOCARDIAL INFARCTION 2.5-3.5 2 Units are mL/min/1.73 m2 Chronic Kidney Disease Staging per NKF: Stage I & II GFR >=60 Normal to Mildly Decreased Stage III GFR 30-59 Moderately Decreased Stage IV GFR 15-29 Severely Decreased Stage V GFR <15 Very Little GFR Left ESRD GFR <15 on NEWCOMER HOSTESS 3 THE CA 15-3 ASSAY IS PERFORM ED ON THE [employer] BY CHEMILUMINESCENCE AND SHOULD NOT BE COMPARED INTERCHANGEABLY WITH OTHER METHODS. IT SHOULD NOT BE USED ALONE A SCREENING TEST OR DIAGNOSIS FOR THE PRESENCE OR ABSENCE OF MALIGNANT DISEASE. PREDICTIONS OF DISEASE RECURRENCE SHOULD NOT BE BASED SOLELY ON VALUES OBTAINED FROM SERIAL PATIENT SERUM VALUES. 4 Siemens Centaur Immunochemil uminometric Methodology (ICMA) . Values obtained with different assay methods or kits cannot be used interchangeably. Results cannot be interpreted as absolute evidence of the presence or absence of malignant disease. Performed at: [facility] [id number] [place] Captain: Mervat Huffman MD, Phone: [phone] NORMAL RANGES Age WBC RBC HGB HCT MCV PLT Adult M 4.1-10.9 4.20-6.30 12.0-18.0 37.0-51.0 80-97 140-440 Adult F 4.1-10.9 4.04-5.48 12.0-18.0 37.0-51.0 80-97 140-440 0 -1 Yr 5.0-20.0 3.9-5.9 15-18 MV: 44 MV: 91 MV: 277 2-9 Yr. 6.0-17.0 3.8-5.4 11-13 MV: 37 MV: 78 MV: 300 10 Yrs. 5.0-13.0 3.8-5.4 12-15 MV: 39 MV: 80 MV: 250 NOTE: * FOR ADULT BLACK MALES AND FEMALES, NORMAL WBC IS 2.9-7.7 K/ML * FOR ADULT BLACK MALES AND FEMALES, NORMAL RBC,HGB, AND HCT IS 5% LESS SOURCE FOR DATA: [employer] 1800 OPERATION MANUAL( AUTOMATED BLOOD COUNTS AND DIFF.) APPENDIX B-3 CHRONIC KIDNEY DISEASE STAGING PER NKF: MALE GFR INTERPRETATION: 20-49 YRS: >60 mL/min Normal 50-59 YRS: >56 mL/min Normal 60-69 YRS: >49 mL/min Normal 70-79 YRS: >42 mL/min Normal 80 and above >35 mL/min Normal FEMALE GRF INTERPRETATION: 20-39 YRS: >60 mL/min Normal 40-49 YRS: >58 mL/min Normal 50-59 YRS: >51 mL/min Normal 60-69 YRS: >45 mL/min Normal 70-79 YRS: >39 mL/min Normal 80 and above >32 mL/min Normal 6 CKD-EPI 7 CKD-EPI 8 NORMAL RANGES Age WBC RBC HGB HCT MCV PLT Adult M 4.1-10.9 4.20-6.30 12.0-18.0 37.0-51.0 80-97 140-440 Adult F 4.1-10.9 4.04-5.48 12.0-18.0 37.0-51.0 80-97 140-440 0 -1 Yr 5.0-20.0 3.9-5.9 15-18 MV: 44 MV: 91 MV: 277 2-9 Yr. 6.0-17.0 3.8-5.4 11-13 MV: 37 MV: 78 MV: 300 10 Yrs. 5.0-13.0 3.8-5.4 12-15 MV: 39 MV: 80 MV: 250 NOTE: * FOR ADULT BLACK MALES AND FEMALES, NORMAL WBC IS 2.9-7.7 K/ML * FOR ADULT BLACK MALES AND FEMALES, NORMAL RBC,HGB, AND HCT IS 5% LESS SOURCE FOR DATA: [employer] 1800 OPERATION MANUAL( AUTOMATED BLOOD COUNTS AND DIFF.) APPENDIX B-3 CHRONIC KIDNEY DISEASE STAGING PER NKF: MALE GFR INTERPRETATION: 20-49 YRS: >60 mL/min Normal 50-59 YRS: >56 mL/min Normal 60-69 YRS: >49 mL/min Normal 70-79 YRS: >42 mL/min Normal 80 and above >35 mL/min Normal FEMALE GRF INTERPRETATION: 20-39 YRS: >60 mL/min Normal 40-49 YRS: >58 mL/min Normal 50-59 YRS: >51 mL/min Normal 60-69 YRS: >45 mL/min Normal 70-79 YRS: >39 mL/min Normal 80 and above >32 mL/min NormalCLASSIFICATION CHOLESTEROL FOR ADULTS CHILDREN/ADOLESCENTS* DESIRABLE: <200 MG/DL <170 MG/DL BORDER-LINE HIGH RISK: 200-239 MG/DL 170-199 MG/DL HIGH RISK: >240 MG/DL >200 MG/DL CLASS. FOR PRIMARY LDL CHOL PREVENTION: LDL CHOL-CHILD/ADOLESCENTS* DESIRABLE: <130 MG/DL <110 MG/DL BORDERLINE-HIGH RISK: 130-159 MG/DL 110-129 MG/DL HIGH RISK: >160 MG/DL >130 MG/DL *CHILDREN AND ADOLESCENTS REPRESENTS INDIVIDUALA AGED 2-19 YEARS EXCLUSIVE. 9 CKD-EPI 10 CKD-EPI Procedures Date Code Description Status 01/14/2019 [id number] Mammogram Completed 01/13/2018 [id number] Mammogram Completed Medical Devices Description No Information Available Encounters Type Date Location Provider Dx Diagnosis Office Visit 12/07/2020 3:00p [facility] Edgar Oliver M. D. 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 D. I10 Essential (primary) hypertension E78.5 Hyperlipidemia, unspecified I35.0 Nonrheumatic aortic (valve) stenosis Office Visit 08/16/2020 1:30p [facility] Edgar Oliver M. D. I10 Essential (primary) hypertension E78.5 Hyperlipidemia, unspecified I67.9 Cerebrovascular disease, uns pecified Assessments Date Code Description Provider 12/07/2020 Z85.3 Personal history of malignant ne oplasm of breast Edgar Oliver M.D. 12/07/2020 I67.9 Cerebrovascular disease, unspeci fied Edgar Oliver M.D. 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 12/07/2020 E78.5 Hyperlipidemia, unspecified [facility] Edgar albert M.D. 11/16/2020 I10 Essential (primary) hypertension Edgar Oliver M.D. 11/16/2020 E78.5 Hyperlipidemia, unspecified [facility] Edgar albert M.D. 11/16/2020 I35.0 Nonrheumatic aortic (valve) sten osis Edgar Oliver M.D. 08/16/2020 I10 Essential (primary) hypertension Edgar Oliver M.D. 08/16/2020 E78.5 [facility], [facility] 08/16/2020 I67.9 Cerebrovascular disease, unspeci Edgar Foster M.D. Plan of Treatment Future Appointment(s):* 02/03/2021 9:45 am - Amanda Abraham FNP-BC at [facility] * 01/09/2021 3:20 pm - Edgar Oliver M.D. at [facility] * 02/15/2021 9:00 am - Edgar Oliver M.D. at [facility] Functional Status Description No Information Available Mental Status Description No Information Available Referrals Refer to Dr Reason for Referral Status Appt Date [facility] Oncology & Hematology malignant pleural effusion, h/o breast ca, current lung nodule- eval and rx Sent 12/28/2020 [address] [place] [address] Jose Elias Avila MD malignant pleural effusion- eval and rx Se nt [facility] [employer] [id number] [place] [address] [phone]
--- OUTSIDE RECORDS SUMMARY | 2021-01-14 04:49 | CCD | Continuity of Care Document ---
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 Name Role Phone Edgar Oliver MD AUT [phone] Problems Active Problems Provider Date Aortic valve disorder MARLON Wright Onset: 10/24/2018 Electrocardiogram abnormal MARLON Wright Onset: 10/24 Obesity MARLON Wright Onset: 10/24/2018 Atherosclerotic heart disease of [place] coronary arter y without angina pectoris MARLON Wright Onset: 10/24/2018 Hypertensive heart disease without heart failure MARLON Turcios Onset: 10/24/2018 Essential hypertension MARLON Wright Onset: 9 Pure hypercholesterolemia MARLON Wright Onset: 2018 Dietary management surveillance MARLON Wright Onset: 04/23/2019 Social History Type Date Description Comments Sex Unknown ETOH Use Does not consume alcohol Tobacco Use Start: Unknown Patient has never smoked Smoking Status Reviewed: 08/30/20 Patient has never smoked Exercise Type/Frequency Does housework 3 times a week Exercise Type/Frequency Does yardwork sporadical ly trimming only and small amounts of shoveling as needed Exercise Type/Frequency Walks sporadically Exercise Type/Frequency Physical Therapy x2 days weekly and at home exercises Exercise Type/Frequency Does gardening sporadica lly Exercise Limitations Shortness Of Breath just wh en hurrying or strenuous exertion Allergies, Adverse Reactions, Alerts Active Allergies Reaction Severity Comments Date Statins myalgias and weakness 2017 Ahist Antihistamine heart racing 04/23/20 18 Melatonin alertness and insomnia 04/23 Oxycodone 04/23/2018 Rosuvastatin Calcium restless leg syndrom e, "foamy urine", constipation 06/10/2018 Medications Active Medications SIG Qnty Indications Ordering Provide r Date Eye Multivitamin/Lutein Tablets 1 by mouth daily Unknown 08/29/2020 Amlodipine Besylate 10mg Tablets 1 by mouth in the afternoon only for SBP >130 Unknown 08/29/2020 Lisinopril-Hydrochlorothiazide 20-25mg Tablets 1 by mouth daily Gustavo Alexandre MD 019 Vitamin C 1000mg Tablets 1 by mouth every day Gustavo Alexandre MD 11/02/2019 Calcium Carbonate 1500(600Ca) mg T ablets 1 by mouth every day Gustavo Alexandre MD 11/02/2019 Vitamin D-3 25mcg (1000 Ut) Capsul es 1 by mouth every day Gustavo Alexandre MD 11/02/2019 Magnesium Oxide -MG Supplement 400mg Capsules 1 by mouth every day at bedtime Yury Alexandre MD 11/02/2019 Vitamin E Blend 400Unit Capsules 1 by mouth every day Unknown 11/02/2019 [address]irin [address] 1 by mouth every day Unknown 04/22/2019 Crestor 5mg Tablets 1 by mouth every night at bedtime Unknown 03/06/2019 Nitrostat 0.4mg Tablets Sub 1 sl every 5min x3 as needed for chest pain Edgar Oliver MD 04/23/2018 Immunizations Description No Information Available Vital Signs Date Vital Result Comment 08/30/2020 2:24pm Weight 174.00 lb Home Weight 172lb yesterday Height 64.5 inches 5'4.50" BMI (Body Mass Index) 29.4 kg/m2 Heart Rate 68 /min Regular Respiratory Rate 16 /min BP Systolic Left Arm 128 mmHg sitting, large cuff BP Diastolic Left Arm 76 mmHg sitting, large cuf f 01/20/2020 8:12am Weight 175.00 lb Home Weight 173lb Height 64.5 inches 5'4.50" BMI (Body Mass Index) 29.6 kg/m2 Heart Rate 74 /min BP Systolic Sitting 138 mmHg large cuff, Ra BP Diastolic Sitting 78 mmHg large cuff, Ra Results Test Acquired Date Facility Test Result H/L Range Note Lipid Profile/Cardiac Risk Pro 08/16/2020 [facility] ([facility])- - Triglycerides 163 Cholesterol 162 0-200 HDL 49 45-65 LDL Cholesterol 80 Chol/HDL Ratio 3.3 CBC without Differential 08/16/2020 [facility] ([facility])- - White Blood Count 4.6 4.1-10.9 Red Blood Count 4.36 4.20-6.30 Platelets 239 140-440 Hemoglobin 13.1 12.0-18.0 Hematocrit 39.6 37.0-51.0 CMP 08/16/2020 [facility] (315)- - Albumin Serum/Plasma 4.3 Alt - SGPT 10 Calcium Ser/Plasma Mass/Vol 10.0 Carbon Dioxide Ser/Plasm 24.4 Chloride Serum/Plasma 99.1 Alkaline Phosphatase 79.6 Potassium 3.7 Protein Total 6.4 Sodium 136 Ast - Sgot 17 BUN - Urea Nitrogen 15 Glucose 94 70-110 Creatinine For GFR 0.7 Procedures Date Code Description Status 08/30/2020 [id number] ECG 12-Lead Completed Medical Devices Description No Information Available Encounters Type Date Location Provider Dx Diagnosis Office Visit 11/02/2020 11:59a [facility] Brian Hutson MD I35.0 Nonrheumatic aortic (valve) stenosis I10 Essential (primary) hyperten marlo E78.00 Pure hypercholesterolemia, u nspecified E66.09 Other obesity due to excess calories Office Visit 10/11/2020 8:45a [facility] Brian Hutson MD I35.0 Nonrheumatic aortic (valve) stenosis I10 Essential (primary) hyperten marlo E78.00 Pure hypercholesterolemia, u nspecified E66.09 Other obesity due to excess calories Office Visit 09/08/2020 9:16a [facility] Office Brian Hutson MD I35.0 Nonrheumatic aortic (valve) stenosis I10 Essential (primary) hyperten marlo E78.00 Pure hypercholesterolemia, u nspecified E66.09 Other obesity due to excess calories Office Visit 08/30/2020 2:30p [facility] Office Anne Marie Yousif PA-C I35.0 Nonrheumatic aortic (valve) stenosis I10 Essential (primary) hyperten marlo R94.31 Abnormal electrocardiogram [ ECG] [EKG] E78.00 Pure hypercholesterolemia, u nspecified Z71.3 Dietary counseling and surve illance Office Visit 08/05/2020 11:18a Main Office Brian Hutson MD I10 Essential (primary) hypertension I35.0 Nonrheumatic aortic (valve) stenosis E78.00 Pure hypercholesterolemia, u nspecified E66.09 Other obesity due to excess calories Office Visit 07/14/2020 4:12p Main Office Brian Hutson MD I10 Essential (primary) hypertension I35.0 Nonrheumatic aortic (valve) stenosis E78.00 Pure hypercholesterolemia, u nspecified E66.09 Other obesity due to excess calories Assessments Date Code Description Provider 12/07/2020 I35.0 Nonrheumatic aortic (valve) sten osis Brian Hutson MD 12/07/2020 I10 Essential (primary) hypertension Brian Hutson MD 12/07/2020 E78.00 Pure hypercholesterolemia, unspe cified Brian Hutson MD 12/07/2020 E66.09 Other obesity due to excess kathleen jayant Brian Hutson MD 11/02/2020 I35.0 Nonrheumatic aortic (valve) sten osis Brian Hutson MD 11/02/2020 I10 Essential (primary) hypertension Brian Huston MD 11/02/2020 E78.00 Pure hypercholesterolemia, unspe cified Brian Hutson MD 11/02/2020 E66.09 Other obesity due to excess kathleen jayant Brian Hutson MD 10/11/2020 I35.0 Nonrheumatic aortic (valve) sten osis Brian Hutson MD 10/11/2020 I10 Essential (primary) hypertension Brian Hutson MD 10/11/2020 E78.00 Pure hypercholesterolemia, unspe cified Brian Hutson MD 10/11/2020 E66.09 Other obesity due to excess kathleen jayant Brian Hutson MD 09/08/2020 I35.0 Nonrheumatic aortic (valve) sten osis Brian Hutson MD 09/08/2020 I10 Essential (primary) hypertension Brian Hutson MD 09/08/2020 E78.00 Pure hypercholesterolemia, unspe cified Brian Hutson MD 09/08/2020 E66.09 Other obesity due to excess kathleen jayant Brian Hutson MD 08/30/2020 I35.0 Nonrheumatic aortic (valve) sten osis Anne Marie Yousif PA-C 08/30/2020 I10 Essential (primary) hypertension Anne Marie Yousif PA-C 08/30/2020 R94.31 Abnormal electrocardiogram [ECG] [EKG] Anne Marie Yousif PA-C 08/30/2020 E78.00 Pure hypercholesterolemia, unspe cified Anne Marie Yousif PA-C 08/30/2020 Z71.3 Dietary counseling and surveilla naye Yousif PA-C 08/05/2020 I10 Essential (primary) hypertension Brian Hutson MD 08/05/2020 I35.0 Nonrheumatic aortic (valve) sten osis Brian Hutson MD 08/05/2020 E78.00 Pure hypercholesterolemia, unspe cified Brian Hutson MD 08/05/2020 E66.09 Other obesity due to excess kathleen jayantamanda Hutson MD 07/14/2020 I10 Essential (primary) hypertension Brian Hutson MD 07/14/2020 I35.0 Nonrheumatic aortic (valve) sten traceyis Brian Hutson MD 07/14/2020 E78.00 Pure hypercholesterolemia, unspe cified Brian Hutson MD 07/14/2020 E66.09 Other obesity due to excess kathleen jayantamanda Hutson MD Plan of Treatment Future Appointment(s):* 03/02/2021 9:45 am - Anne Marie Yousif PA-C at Main Office 08/30/2020 - Anne Marie Yousif PA-C* I35.0 Nonrheumatic aortic (valve) stenosis * I10 Essential (primary) hypertension * R94.31 Abnormal electrocardiogram [ECG] [EKG] * E78.00 Pure hypercholesterolemia, unspecified * Z71.3 Dietary counseling and surveillance* Recommendations:* Follow a low fat/low cholesterol diet and do as much aerobic exercise as you can tolerate. * All * Follow up:* 6 month follow up. Functional Status Functional Condition Comment Date Status Independent with all ADL's Activ e Mental Status Description No Information Available Referrals Description No Information Available
--- OUTSIDE RECORDS SUMMARY | 2021-01-14 04:49 | CCD | Continuity of Care Document ---
Author Author Mayra OLIVER M.D. Organization Unknown Address [address] [address] Phone [phone] Problems Active Problems Provider Date Benign hypertension Edgar Oliver M.D. Onset: 4 Aortic valve stenosis Edgar Oliver M.D. Onset: 019 Hyperlipidemia Edgar Oliver M.D. Onset: 0 Personal history of primary malignant neoplasm of breast Rou Amanda higuera, BORDEREAU CLERK-BC Onset: 01/26/2020 Social History Type Date Description [...] Biotin 120mg Tablets 1 po qd Unknown [place] 3 1000mg Capsules 1 by mouth every [...] CPT Code Status Date Vaccine Lot # [id number] Refused 08/16/2020 Influenza Virus Vaccine, Quadrivalent, Slit Virus, Im Use 3Y & Up Vital Signs Date Vital Result Comment 12/07/2020 2:59pm BP Systolic 136 mmHg BP Diastolic 76 mmHg Body Temperature 98.3 F Heart Rate 88 /min Respiratory Rate 18 /min Height 64 inches 5'4" Weight 171.00 lb [place] Body Weight 120 lb BMI (Body Mass Index) 29.3 kg/m2 O2 % BldC Oximetry 97 % 11/16/2020 10:57am BP Systolic 138 mmHg BP Diastolic 68 mmHg Body Temperature 97.8 F Heart Rate 86 /min Respiratory Rate 16 /min Height 64 inches 5'4" Weight 175.00 lb [place] Body Weight 120 lb BMI (Body Mass Index) 30.0 kg/m2 O2 % BldC Oximetry 94 % Results Test Acquired Date Facility Test Result H/L Range Note Prothrombin Time/Inr 12/30/2020 [facility] ( Interface) [phone] Prothrombin Time 12.6 seconds Normal 12.5-14.3 Inr 0.92 Normal 1 CBC With Auto Differential OB 12/28/2020 [facility] (Interface) [phone] White Blood Count 4.2 10 Normal 4.0-10.0 [...] 36.0-66.0 Lymph % 21.8 % Low 24.0-44.0 [place] % 11.8 % High 0.0-5.0 Eos % 1.7 % Normal 0.0-3.0 Baso % 0.5 % Normal 0.0-1.0 Immature Granulocyte % 0.2 % Normal 0-3.0 Nucleated Red Blood Cell % 0.0 % Normal 0-0 Neutrophils # 2.7 10 Normal 1.5-8.5 Lymph # 0.9 10 Low 1.5-5.0 [place] # 0.5 10 Normal 0.0-0.8 Eos # 0.1 10 Normal 0.0-0.5 Baso # 0.0 10 Normal 0.0-0.2 Comprehensive Metabolic Profil 12/28/2020 [facility] (Interface) [phone] Glucose, Fasting 129 mg/dL High 70-100 Blood [...] 1.1 Low 1.2-2.2 Laboratory test finding 12/28/2020 [facility] (Interface) [phone] Ca15-3 Antigen 44.0 U/ML High <32.4 3 [...] eGFR 76 # Calc 6 eGFR Non-Afr. Ugandan 66 # Calc 7 CBC 08/16/2020 [facility]/Inhouse [...] eGFR 90 # Calc 9 eGFR Non-Afr. [place]an 78 # Calc 10 Lipid Panel 08/16/2020 [...] Little GFR Left ESRD GFR <15 on GANG SUPERVISOR 3 THE CA 15-3 ASSAY IS PERFORM ED ON THE Instilling ValuesR BY CHEMILUMINESCENCE AND SHOULD NOT BE COMPARED INTERCHANGEABLY WITH OTHER METHODS. IT SHOULD NOT BE USED ALONE A SCREENING TEST OR DIAGNOSIS FOR THE PRESENCE OR ABSENCE OF MALIGNANT DISEASE. PREDICTIONS OF DISEASE RECURRENCE SHOULD NOT BE BASED SOLELY ON VALUES OBTAINED FROM SERIAL PATIENT SERUM VALUES. 4 Honey Immunochemil uminometric Methodology (ICMA) . Values obtained with different assay methods or kits cannot be used interchangeably. Results cannot be interpreted as absolute evidence of the presence or absence of malignant disease. Performed at: - [facility] [address] [id number] Mini Bar Attendant: Mervat Huffman MD, Phone: [phone] 5 NORMAL RANGES Age WBC RBC HGB [...] HCT IS 5% LESS SOURCE FOR DATA: [employer] 1800 OPERATION MANUAL( AUTOMATED BLOOD COUNTS AND [...] HCT IS 5% LESS SOURCE FOR DATA: [employer] 1800 OPERATION MANUAL( AUTOMATED BLOOD COUNTS AND [...] CKD-EPI Procedures Date Code Description Status 01/14/2019 [id number] Mammogram Completed 01/13/2018 [id number] Mammogram Completed Medical Devices Description No Information Available Encounters Type Date Location Provider Dx Diagnosis Office Visit 12/07/2020 3:00p [place] [facility] Edgar Oliver M. D. 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 D. I10 Essential (primary) hypertension E78.5 Hyperlipidemia, unspecified I35.0 Nonrheumatic aortic (valve) stenosis Office Visit 08/16/2020 1:30p [facility] Edgar Olivre M. D. I10 Essential (primary) hypertension E78.5 Hyperlipidemia, unspecified I67.9 Cerebrovascular disease, uns pecified Assessments Date Code Description Provider 12/07/2020 Z85.3 Personal history of malignant ne oplasm of breast Edgar Oliver M.D. 12/07/2020 I67.9 Cerebrovascular disease, unspeci fied Edgar Oliver M.D. 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 12/07/2020 E78.5 Hyperlipidemia, unspecified Mitc Edgar albert M.D. 11/16/2020 I10 Essential (primary) hypertension Edgar Oliver M.D. 11/16/2020 E78.5 Hyperlipidemia, unspecified Mitc Edgar albert M.D. 11/16/2020 I35.0 Nonrheumatic aortic (valve) sten osis Edgar Oliver M.D. 08/16/2020 I10 Essential (primary) hypertension Edgar Oliver M.D. 08/16/2020 E78.5 Hyperlipidemia, unspecified Mitc Edgar albert M.D. 08/16/2020 I67.9 Cerebrovascular disease, unspeci fied Edgar Oliver M.D. Plan of Treatment Future Appointment(s):* 02/03/2021 9:45 am - Amanda Abraham FNP-LAURA at [facility] * 01/09/2021 3:20 pm - Edgar Oliver M.D. at [facility] * 02/15/2021 9:00 am - Edgar Oliver M.D. at [facility] Functional Status Description No Information Available Mental Status Description No Information Available Referrals Refer to Reason for Referral Status Appt Date [facility] Oncology & Hematology malignant pleural effusion, h/o breast ca, current lung nodule- eval and rx Sent 12/28/2020 [address] [facility] [address] [place] [address] Jose Elias Avila MD malignant pleural effusion- eval and rx Se nt [facility] Pipe Installer [id number], [address] [place] [address] [phone]
--- OUTSIDE RECORDS SUMMARY | 2021-01-14 04:49 | CCD | Continuity of Care Document ---
Author Author Mayra OLIVER M.D. Organization Unknown Address [address] [address] Phone [phone] Problems Active Problems Provider Date Benign hypertension Edgar Oliver M.D. Onset: 4 Aortic valve stenosis Edgar Oliver M.D. Onset: 019 Hyperlipidemia Edgar Oliver M.D. Onset: 0 Personal history of primary malignant neoplasm of breast Rou Amanda higuera, TAX ASSISTANT-BC Onset: 01/26/2020 Social History Type Date Description [...] Biotin 120mg Tablets 1 po qd Unknown [place] 3 1000mg Capsules 1 by mouth every [...] CPT Code Status Date Vaccine Lot # [id number] Refused 08/16/2020 Influenza Virus Vaccine, Quadrivalent, Slit Virus, Im Use 3Y & Up Vital Signs Date Vital Result Comment 12/07/2020 2:59pm BP Systolic 136 mmHg BP Diastolic 76 mmHg Body Temperature 98.3 F Heart Rate 88 /min Respiratory Rate 18 /min Height 64 inches 5'4" Weight 171.00 lb [place] Body Weight 120 lb BMI (Body Mass Index) 29.3 kg/m2 O2 % BldC Oximetry 97 % 11/16/2020 10:57am BP Systolic 138 mmHg BP Diastolic 68 mmHg Body Temperature 97.8 F Heart Rate 86 /min Respiratory Rate 16 /min Height 64 inches 5'4" Weight 175.00 lb [place] Body Weight 120 lb BMI (Body Mass Index) 30.0 kg/m2 O2 % BldC Oximetry 94 % Results Test Acquired Date Facility Test Result H/L Range Note CBC With Auto Differential OB 12/28/2020 [facility] (Interface) [phone] White Blood Count 4.2 10 Normal 4.0-10.0 [...] 36.0-66.0 Lymph % 21.8 % Low 24.0-44.0 [place] % 11.8 % High 0.0-5.0 Eos % 1.7 % Normal 0.0-3.0 Baso % 0.5 % Normal 0.0-1.0 Immature Granulocyte % 0.2 % Normal 0-3.0 Nucleated Red Blood Cell % 0.0 % Normal 0-0 Neutrophils # 2.7 10 Normal 1.5-8.5 Lymph # 0.9 10 Low 1.5-5.0 [place] # 0.5 10 Normal 0.0-0.8 Eos # 0.1 10 Normal 0.0-0.5 Baso # 0.0 10 Normal 0.0-0.2 Comprehensive Metabolic Profil 12/28/2020 [facility] (Interface) [phone] Glucose, Fasting 129 mg/dL High 70-100 Blood Urea Nitrogen 15 mg/dL Normal 7-18 Creatinine For GFR 0.88 mg/dL Normal 0.55-1.30 Glomerular Filtration Rate > 60.0 Normal >32 1 Sodium Level 137 mEq/L Normal 136-145 Potassium [...] 1.1 Low 1.2-2.2 Laboratory test finding 12/28/2020 [facility] (Interface) [phone] Ca15-3 Antigen 44.0 U/ML High <32.4 2 CA 27.29 59.8 U/mL High 0.0-38.6 3 CBC 12/07/2020 [facility]/Inhouse WBC 4.6 10E3/uL 4.1 - 10.9 4 RBC 4.53 10E6/uL 4.20 - 6.30 HGB [...] Gap 17 mmol/L eGFR 76 # Calc 5 eGFR Non-Afr. Eritrean 66 # Calc 6 CBC 08/16/2020 [facility]/Inhouse WBC 4.6 10E3/uL 4.1 - 10.9 7 RBC 4.36 10E6/uL 4.20 - 6.30 HGB [...] Gap 16 mmol/L eGFR 90 # Calc 8 eGFR Non-Afr. [place]ritrean 78 # Calc 9 Lipid Panel 08/16/2020 [facility]Inhouse Chol 162 mg/dL 0 - 200 Trig 163 mg/dL 40 - 200 HDL 49 mg/dL 45 - 65 LDL_C 80 Calc 75 - 129 Cho/HDL Ratio 3.3 CALC Laboratory test finding 08/16/2020 [facility]Inhouse TSH 1.045 ulU/mL 0.60 - 4.8 1 Units are mL/min/1.73 m2 Chronic Kidney Disease Staging per NKF: Stage I & II GFR >=60 Normal to Mildly Decreased Stage III GFR 30-59 Moderately Decreased Stage IV GFR 15-29 Severely Decreased Stage V GFR <15 Very Little GFR Left ESRD GFR <15 on FLOAT BUILDER 2 THE CA 15-3 ASSAY IS PERFORM ED ON THE JESSICA Netsmart Technologies[employer]UR BY CHEMILUMINESCENCE AND SHOULD NOT BE COMPARED INTERCHANGEABLY WITH OTHER METHODS. IT SHOULD NOT BE USED ALONE A SCREENING TEST OR DIAGNOSIS FOR THE PRESENCE OR ABSENCE OF MALIGNANT DISEASE. PREDICTIONS OF DISEASE RECURRENCE SHOULD NOT BE BASED SOLELY ON VALUES OBTAINED FROM SERIAL PATIENT SERUM VALUES. 3 Siemens Digital Reasoningaur Immunochemil uminometric Methodology (ICMA) . Values obtained with different assay methods or kits cannot be used interchangeably. Results cannot be interpreted as absolute evidence of the presence or absence of malignant disease. Performed at: - [facility] [id number] Cardiac/Vascular Sonographer: Mervat Huffman MD, Phone: [phone] 4 NORMAL RANGES Age WBC RBC HGB HCT [...] HCT IS 5% LESS SOURCE FOR DATA: [employer] 1800 OPERATION MANUAL( AUTOMATED BLOOD COUNTS AND [...] Normal 80 and above >32 mL/min Normal 5 CKD-EPI 6 CKD-EPI 7 NORMAL RANGES Age WBC RBC HGB HCT [...] HCT IS 5% LESS SOURCE FOR DATA: [employer] 1800 OPERATION MANUAL( AUTOMATED BLOOD COUNTS AND [...] ADOLESCENTS REPRESENTS INDIVIDUALA AGED 2-19 YEARS EXCLUSIVE. 8 CKD-EPI 9 CKD-EPI Procedures Date Code Description Status 01/14/2019 [id number] Mammogram Completed 01/13/2018 [id number] Mammogram Completed Medical Devices Description No Information Available Encounters Type Date Location Provider Dx Diagnosis Office Visit 12/07/2020 3:00p [place] [facility] Edgar Oliver M. D. 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 D. I10 Essential (primary) hypertension E78.5 Hyperlipidemia, unspecified I35.0 Nonrheumatic aortic (valve) stenosis Office Visit 08/16/2020 1:30p [facility] Edgar Oliver M. D. I10 Essential (primary) hypertension E78.5 Hyperlipidemia, unspecified I67.9 Cerebrovascular disease, uns pecified Assessments Date Code Description Provider 12/07/2020 Z85.3 Personal history of malignant ne oplasm of breast Edgar Oliver M.D. 12/07/2020 I67.9 Cerebrovascular disease, unspeci fied Edgar Oliver M.D. 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 12/07/2020 E78.5 Hyperlipidemia, unspecified Mitc helEdgar olivier M.D. 11/16/2020 I10 Essential (primary) hypertension Edgar Oliver M.D. 11/16/2020 E78.5 Hyperlipidemia, unspecified Mitc Edgar albert M.D. 11/16/2020 I35.0 Nonrheumatic aortic (valve) sten osis Edgar Oliver M.D. 08/16/2020 I10 Essential (primary) hypertension Edgar Oliver M.D. 08/16/2020 E78.5 Hyperlipidemia, unspecified Mitc Edgar albert M.D. 08/16/2020 I67.9 Cerebrovascular disease, unspeci Edgar Foster M.D. Plan of Treatment Future Appointment(s):* 02/03/2021 9:45 am - Amanda Abraham FNP-LAURA at [facility] * 01/09/2021 3:20 pm - Edgar Oliver M.D. at [facility] * 02/15/2021 9:00 am - Edgar Oliver M.D. at [facility] Functional Status Description No Information Available Mental Status Description No Information Available Referrals Refer to Reason for Referral Status Appt Date [facility] Oncology & Hematology malignant pleural effusion, h/o breast ca, current lung nodule- eval and rx Sent 12/28/2020 [address] [place] [address] Jose Elias Avila MD malignant pleural effusion- eval and rx Se nt [facility] Production Hand [id number], [address] [place] [address] [phone]
--- OUTSIDE RECORDS SUMMARY | 2021-01-14 04:50 | CCD | Continuity of Care Document ---
Author Author Mayra OLIVER M.D. Organization Unknown Address [address] [address] Phone [phone] Problems Active Problems Provider Date Benign hypertension Edgar Oliver M.D. Onset: 4 Aortic valve stenosis Edgar Oliver M.D. Onset: 019 Hyperlipidemia Edgar Oliver M.D. Onset: 0 Personal history of primary malignant neoplasm of breast Rou Amanda higuera, SENIOR PROJECT ENGINEER-BC Onset: 01/26/2020 Social History Type Date Description [...] Biotin 120mg Tablets 1 po qd Unknown [place] 3 1000mg Capsules 1 by mouth every [...] CPT Code Status Date Vaccine Lot # [id number] Refused 08/16/2020 Influenza Virus Vaccine, Quadrivalent, Slit Virus, Im Use 3Y & Up Vital Signs Date Vital Result Comment 12/07/2020 2:59pm BP Systolic 136 mmHg BP Diastolic 76 mmHg Body Temperature 98.3 F Heart Rate 88 /min Respiratory Rate 18 /min Height 64 inches 5'4" Weight 171.00 lb [place] Body Weight 120 lb BMI (Body Mass Index) 29.3 kg/m2 O2 % BldC Oximetry 97 % 11/16/2020 10:57am BP Systolic 138 mmHg BP Diastolic 68 mmHg Body Temperature 97.8 F Heart Rate 86 /min Respiratory Rate 16 /min Height 64 inches 5'4" Weight 175.00 lb [place] Body Weight 120 lb BMI (Body Mass Index) 30.0 kg/m2 O2 % BldC Oximetry 94 % Results Test Acquired Date Facility Test Result H/L Range Note CBC 12/07/2020 [facility]house WBC 4.6 10E3/uL 4.1 - 10.9 1 RBC 4.53 10E6/uL 4.20 - 6.30 HGB [...] Gap 17 mmol/L eGFR 76 # Calc 2 eGFR Non-Afr. Salvadorean 66 # Calc 3 CBC 08/16/2020 [facility]Inhouse WBC 4.6 10E3/uL 4.1 - 10.9 4 RBC 4.36 10E6/uL 4.20 - 6.30 HGB [...] Gap 16 mmol/L eGFR 90 # Calc 5 eGFR Non-Afr. Salvadorean 78 # Calc 6 Lipid Panel 08/16/2020 [facility] Chol 162 mg/dL 0 - 200 Trig 163 mg/dL 40 - 200 HDL 49 mg/dL 45 - 65 LDL_C 80 Calc 75 - 129 Cho/HDL Ratio 3.3 CALC Laboratory test finding 08/16/2020 [facility]house TSH 1.045 ulU/mL 0.60 - 4.8 1 NORMAL RANGES Age WBC RBC HGB HCT [...] HCT IS 5% LESS SOURCE FOR DATA: [employer] 1800 OPERATION MANUAL( AUTOMATED BLOOD COUNTS AND [...] Normal 80 and above >32 mL/min Normal 2 CKD-EPI 3 CKD-EPI 4 NORMAL RANGES Age WBC RBC HGB [...] HCT IS 5% LESS SOURCE FOR DATA: [employer] 1800 OPERATION MANUAL( AUTOMATED BLOOD COUNTS AND [...] ADOLESCENTS REPRESENTS INDIVIDUALA AGED 2-19 YEARS EXCLUSIVE. 5 CKD-EPI 6 CKD-EPI Procedures Date Code Description Status 01/14/2019 [id number] Mammogram Completed 01/13/2018 [id number] Mammogram Completed Medical Devices Description No Information Available Encounters Type Date Location Provider Dx Diagnosis Office Visit 12/07/2020 3:00p [place] [facility] Edgar Oliver M. D. 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 D. I10 Essential (primary) hypertension E78.5 Hyperlipidemia, unspecified I35.0 Nonrheumatic aortic (valve) stenosis Office Visit 08/16/2020 1:30p [place] [facility] Edgar Oliver M. D. I10 Essential (primary) hypertension E78.5 Hyperlipidemia, unspecified I67.9 Cerebrovascular disease, uns pecified Office Visit 06/15/2020 2:00p [place] [facility] Edgar Oliver M. D. I10 Essential (primary) hypertension R20.9 Unspecified disturbances of skin sensation R01.1 Cardiac murmur, unspecified Assessments Date Code Description Provider 12/07/2020 Z85.3 [...] Cerebrovascular disease, unspeci fied Edgar Oliver M.D. 06/15/2020 I10 Essential (primary) hypertension Edgar Oliver M.D. 06/15/2020 R20.9 Unspecified disturbances of skin sensation Edgar Oliver M.D. 06/15/2020 R01.1 [facility]iac murmur, [facility] Plan of Treatment Future Appointment(s):* 01/09/2021 3:20 pm - Edgar Oliver M.D. at [facility] * 02/15/2021 9:00 am - Edgar Oliver M.D. at [facility] * 01/30/2021 1:30 pm - Amanda Abraham FNP- at [facility] Functional Status Description No Information Available Mental Status Description No Information Available Referrals Refer to Dr Reason for Referral Status Appt Date [facility] Oncology & Hematology malignant pleural effusion, h/o breast ca, current lung nodule- eval and rx Sent 12/28/2020 [address] [facility] [address] [place] [address] Jose Elias Avila MD malignant pleural effusion- eval and rx Se nt [facility] Group Therapy Counselor [id number] [place] [address] [phone] [facility] Cardiology murmur- echo w doppler only Sent 08/09/[id number] [place], [place] [address] [phone]
--- OUTSIDE RECORDS SUMMARY | 2021-01-14 04:50 | CCD | Continuity of Care Document ---
Author Author Mayra OLIVER M.D. Organization Unknown Address [address] [address] Phone [phone] Problems Active Problems Provider Date Benign hypertension Edgar Oliver M.D. Onset: 4 Aortic valve stenosis Edgar Oliver M.D. Onset: 019 Hyperlipidemia Edgar Oliver M.D. Onset: 0 Personal history of primary malignant neoplasm of breast Rou Amanda higuera, SUMMER CLERK-BC Onset: 01/26/2020 Social History Type Date [...] Biotin 120mg Tablets 1 po qd Unknown [place] 3 1000mg Capsules 1 by mouth every [...] CPT Code Status Date Vaccine Lot # [id number] Refused 08/16/2020 Influenza Virus Vaccine, Quadrivalent, Slit Virus, Im Use 3Y & Up Vital Signs Date Vital Result Comment 12/07/2020 2:59pm BP Systolic 136 mmHg BP Diastolic 76 mmHg Body Temperature 98.3 F Heart Rate 88 /min Respiratory Rate 18 /min Height 64 inches 5'4" Weight 171.00 lb [place] Body Weight 120 lb BMI (Body Mass Index) 29.3 kg/m2 O2 % BldC Oximetry 97 % 11/16/2020 10:57am BP Systolic 138 mmHg BP Diastolic 68 mmHg Body Temperature 97.8 F Heart Rate 86 /min Respiratory Rate 16 /min Height 64 inches 5'4" Weight 175.00 lb [place] Body Weight 120 lb BMI (Body Mass Index) 30.0 kg/m2 O2 % BldC Oximetry 94 % Results Test Acquired Date Facility Test Result H/L Range Note CBC 08/16/2020 [facility]house WBC 4.6 10E3/uL 4.1 - 10.9 1 RBC 4.36 10E6/uL 4.20 - 6.30 HGB [...] Gap 16 mmol/L eGFR 90 # Calc 2 eGFR Non-Afr. Lithuanian 78 # Calc 3 Lipid Panel 08/16/2020 [facility]house Chol 162 mg/dL [...] HCT IS 5% LESS SOURCE FOR DATA: [employer] 1800 OPERATION MANUAL( AUTOMATED BLOOD COUNTS AND [...] ADOLESCENTS REPRESENTS INDIVIDUALA AGED 2-19 YEARS EXCLUSIVE. 2 CKD-EPI 3 CKD-EPI Procedures Date Code Description Status 01/14/2019 [id number] Mammogram Completed 01/13/2018 [id number] Mammogram Completed Medical Devices Description No Information Available Encounters Type Date Location Provider Dx Diagnosis Office Visit 12/07/2020 3:00p [place] [facility] Edgar Oliver M. D. 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 D. I10 Essential (primary) hypertension E78.5 Hyperlipidemia, unspecified I35.0 Nonrheumatic aortic (valve) stenosis Office Visit 08/16/2020 1:30p [place] [facility] Edgar Oliver M. D. I10 Essential (primary) hypertension E78.5 Hyperlipidemia, unspecified I67.9 Cerebrovascular disease, uns pecified Office Visit 06/15/2020 2:00p [place] [facility] Edgar Oliver M. D. I10 Essential (primary) hypertension R20.9 Unspecified disturbances of skin sensation R01.1 Cardiac murmur, unspecified Assessments Date Code Description Provider 12/07/2020 Z85.3 Personal history of malignant ne oplasm of breast Edgar Oliver M.D. 12/07/2020 I67.9 Cerebrovascular disease, unspeci fied Edgar Oliver M.D. 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 11/16/2020 I10 Essential (primary) hypertension Edgar Oliver M.D. 11/16/2020 E78.5 Hyperlipidemia, [facility] 11/16/2020 I35.0 Nonrheumatic aortic (valve) sten osis Edgar Oliver M.D. 08/16/2020 I10 Essential (primary) hypertension Edgar Oliver M.D. 08/16/2020 E78.5 Hyperlipidemia, unspecified [facility] Edgar albert M.D. 08/16/2020 I67.9 Cerebrovascular disease, unspeci fied Edgar Oliver M.D. 06/15/2020 I10 Essential (primary) hypertension Edgar Oliver M.D. 06/15/2020 R20.9 Unspecified disturbances of skin sensation Edgar Oliver M.D. 06/15/2020 R01.1 Cardiac murmur, unspecified [facility] Edgar albert M.D. Plan of Treatment Future Appointment(s):* 02/15/2021 9:00 am - Edgar Oliver M.D. at [facility] * 01/30/2021 1:30 pm - Amanda Abraham FNP-LAURA at [facility] Functional Status Description No Information Available Mental Status Description No Information Available Referrals Refer to Dr Reason for Referral Status Appt Date [facility] Oncology & Hematology malignant pleural effusion, h/o breast ca, current lung nodule- eval and rx Created [address] [facility] [address] [place] [address] Jose Elias Avila MD malignant pleural effusion- eval and rx Cr eated [facility] Sustainability Officer [address] [place] [address] [phone] [place] [facility] Cardiology murmur- echo w doppler only Sent 08/09/2020 [address] [place] [facility] [address] [place] [address] [phone]
--- OUTSIDE RECORDS SUMMARY | 2021-01-14 04:50 | CCD | Continuity of Care Document ---
Author Author Mayra OLIVER M.D. Organization Unknown Address 3 [facility] 3 [place] [address] Phone [phone] Problems Active Problems Provider Date Benign hypertension Edgar Oliver M.D. Onset: 4 Aortic valve stenosis Edgar Oliver M.D. Onset: 019 Hyperlipidemia Edgar Oliver M.D. Onset: 0 Personal history of primary malignant neoplasm of breast Rou Amanda higuera, MANAGER PRIVATE-BC Onset: 01/26/2020 Social History Type Date Description [...] day OTC Unknown Vitamin C 1000mg Tablets 1 by mouth every day Unknown Biotin 120mg Tablets 1 po qd Unknown [place] 3 1000mg Capsules 1 by mouth every [...] CPT Code Status Date Vaccine Lot # [id number] Refused 08/16/2020 Influenza Virus Vaccine, Quadrivalent, Slit Virus, Im Use 3Y & Up Vital Signs Date Vital Result Comment 11/16/2020 10:57am BP Systolic 138 mmHg BP Diastolic 68 mmHg Body Temperature 97.8 F Heart Rate 86 /min Respiratory Rate 16 /min Height 64 inches 5'4" Weight 175.00 lb [place] Body Weight 120 lb BMI (Body Mass Index) 30.0 kg/m2 O2 % BldC Oximetry 94 % 08/16/2020 3:27pm BP Systolic 128 mmHg BP Diastolic 74 mmHg Body Temperature 97.6 F Heart Rate 70 /min Respiratory Rate 14 /min Height 64 inches 5'4" Weight 175.00 lb [place] Body Weight 120 lb BMI (Body Mass [...] eGFR 90 # Calc 2 eGFR Non-Afr. Sierra Leonean 78 # Calc 3 Lipid Panel 08/16/2020 [facility]/Inhouse Chol 162 mg/dL 0 - 200 Trig 163 mg/dL 40 - 200 HDL 49 mg/dL 45 - 65 LDL_C 80 Calc 75 - 129 Cho/HDL Ratio 3.3 CALC Laboratory test finding 08/16/2020 [facility]/Inhouse TSH 1.045 ulU/mL 0.60 - 4.8 CBC With Differential 06/03/2020 [facility] ([facility]) [phone] White Blood Count 4.9 10 Normal 4.0-10.0 Red Blood Count 4.41 10 Normal 4.00-5.40 Hemoglobin 13.1 g/dL Normal 12.0-15.5 Hematocrit 39.7 % Normal 36.0-47.0 Mean Corpuscular Volume 90.0 fl Normal 80.0-96.0 Mean Corpuscular Hemoglobin 29.7 pg Normal 27.0-33.0 Mean Corpuscular HGB Conc 33.0 g/dL Normal 32.0-36.5 Red Cell Distribution Width 13.3 % Normal 11.5-14.5 Platelet Count, Automated 219 10 Normal 150-450 Neutrophils % 61.6 % Normal 36.0-66.0 Lymph % 26.0 % Normal 24.0-44.0 [place] % 10.3 % High 0.0-5.0 Eos % 1.9 % Normal 0.0-3.0 Baso % 0.2 % Normal 0.0-1.0 Immature Granulocyte % 0.0 % Normal 0-3.0 Nucleated Red Blood Cell % 0.0 % Normal 0-0 Neutrophils # 3.0 10 Normal 1.5-8.5 Lymph # 1.3 10 Low 1.5-5.0 [place] # 0.5 10 Normal 0.0-0.8 Eos # 0.1 10 Normal 0.0-0.5 Baso # 0.0 10 Normal 0.0-0.2 Liver Profile 06/03/2020 [facility] ([facility]) [phone] Ast/Sgot 19 U/L Normal 7-37 Alt/SGPT 23 U/L Normal 12-78 Alkaline Phosphatase 78 U/L Normal 45-117 Bilirubin,Total 0.4 mg/dL Normal 0.2-1.0 Bilirubin,Direct 0.1 mg/dL Normal 0.0-0.2 Total Protein 6.9 GM/DL Normal 6.4-8.2 Albumin 3.5 GM/DL Normal 3.2-5.2 Albumin/Globulin Ratio 1.0 Low 1.2-2.2 Basic Metabolic Profile 06/03/2020 [facility] ([facility]) [phone] Glucose, Fasting 122 mg/dL High 70-100 Blood Urea Nitrogen 18 mg/dL Normal 7-18 Creatinine For GFR 0.88 mg/dL Normal 0.55-1.30 Glomerular Filtration Rate > 60.0 Normal >32 4 Sodium Level 142 mEq/L Normal 136-145 Potassium Serum 3.4 mEq/L Low 3.5-5.1 Chloride Level 107 mEq/L Normal 98-107 Carbon Dioxide Level 27 mEq/L Normal 21-32 Anion Gap 8 mEq/L Normal 8-16 Calcium Level 9.1 mg/dL Normal 8.8-10.2 Laboratory test finding 06/03/2020 [facility] ([facility]) [phone] iSTAT Troponin 0.01 NG/ML Normal 0.00-0.08 1 NORMAL RANGES Age WBC RBC HGB [...] HCT IS 5% LESS SOURCE FOR DATA: [employer] 1800 OPERATION MANUAL( AUTOMATED BLOOD COUNTS AND [...] 2-19 YEARS EXCLUSIVE. 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 D. I10 Essential (primary) hypertension E78.5 Hyperlipidemia, unspecified I35.0 Nonrheumatic aortic (valve) stenosis Office Visit 08/16/2020 1:30p [place] [facility] Edgar Oliver M. D. I10 Essential (primary) hypertension E78.5 Hyperlipidemia, unspecified I67.9 Cerebrovascular disease, uns pecified Office Visit 06/15/2020 2:00p [place] Edgar Oliver M. D. I10 Essential (primary) hypertension R20.9 Unspecified disturbances of skin sensation R01.1 Cardiac murmur, unspecified Assessments Date Code Description Provider 11/16/2020 I10 Essential (primary) hypertension Edgar Oliver M.D. 11/16/2020 E78.5 Hyperlipidemia, unspecified [facility] Edgar albert M.D. 11/16/2020 I35.0 Nonrheumatic aortic (valve) sten osis Edgar Oliver M.D. 08/16/2020 I10 Essential (primary) hypertension Edgar Oliver M.D. 08/16/2020 E78.5 Hyperlipidemia, unspecified [facility] Edgar albert M.D. 08/16/2020 I67.9 Cerebrovascular disease, unspeci fied Edgar Oliver M.D. 06/15/2020 I10 Essential (primary) hypertension Edgar Oliver M.D. 06/15/2020 R20.9 Unspecified disturbances of skin sensation Edgar Oliver M.D. 06/15/2020 R01.1 Cardiac murmur, unspecified [facility] Edgar albert M.D. Plan of Treatment Future Appointment(s):* 01/30/2021 1:30 pm - Amanda Abraham FNP-LAURA at [facility] Functional Status Description No Information Available Mental Status Description No Information Available Referrals Refer to Dr Reason for Referral Status Appt Date [facility] Cardiology murmur- echo w doppler only Sent 08/09/[address] Puckett [address] [place] [address] [phone]
--- OUTSIDE RECORDS SUMMARY | 2021-01-14 04:50 | CCD | Continuity of Care Document ---
Author Author Mayra OLIVER M.D. Organization Unknown Address [address] [address] Phone [phone] Problems Active Problems Provider Date Benign hypertension Edgar Oliver M.D. Onset: 4 Aortic valve stenosis Edgar Oliver M.D. Onset: 019 Hyperlipidemia Edgar Oliver M.D. Onset: 0 Personal history of primary malignant neoplasm of breast Rou Amanda higuera, CELLAR PACKER-BC Onset: 01/26/2020 Social History Type Date Description [...] Biotin 120mg Tablets 1 po qd Unknown [place] 3 1000mg Capsules 1 by mouth every [...] CPT Code Status Date Vaccine Lot # [id number] Refused 08/16/2020 Influenza Virus Vaccine, Quadrivalent, Slit Virus, Im Use 3Y & Up Vital Signs Date Vital Result Comment 11/16/2020 10:57am BP Systolic 138 mmHg BP Diastolic 68 mmHg Body Temperature 97.8 F Heart Rate 86 /min Respiratory Rate 16 /min Height 64 inches 5'4" Weight 175.00 lb [place] Body Weight 120 lb BMI (Body Mass Index) 30.0 kg/m2 O2 % BldC Oximetry 94 % 08/16/2020 3:27pm BP Systolic 128 mmHg BP Diastolic 74 mmHg Body Temperature 97.6 F Heart Rate 70 /min Respiratory Rate 14 /min Height 64 inches 5'4" Weight 175.00 lb [place] Body Weight 120 lb BMI (Body Mass [...] eGFR 90 # Calc 2 eGFR Non-Afr. [place] Islander 78 # Calc 3 Lipid Panel 08/16/2020 [facility]/Inhouse Chol 162 mg/dL 0 - 200 Trig 163 mg/dL 40 - 200 HDL 49 mg/dL 45 - 65 LDL_C 80 Calc 75 - 129 Cho/HDL Ratio 3.3 CALC Laboratory test finding 08/16/2020 [facility]/Inhouse TSH 1.045 ulU/mL 0.60 - 4.8 CBC With Differential 06/03/2020 [facility] ([facility]) [phone] White Blood Count 4.9 10 Normal 4.0-10.0 [...] 36.0-66.0 Lymph % 26.0 % Normal 24.0-44.0 Edgar % 10.3 % High 0.0-5.0 Eos % 1.9 % Normal 0.0-3.0 Baso % 0.2 % Normal 0.0-1.0 Immature Granulocyte % 0.0 % Normal 0-3.0 Nucleated Red Blood Cell % 0.0 % Normal 0-0 Neutrophils # 3.0 10 Normal 1.5-8.5 Lymph # 1.3 10 Low 1.5-5.0 Edgar # 0.5 10 Normal 0.0-0.8 Eos # 0.1 10 Normal 0.0-0.5 Baso # 0.0 10 Normal 0.0-0.2 Liver Profile 06/03/2020 [facility] ([facility]) [phone] Ast/Sgot 19 U/L Normal 7-37 Alt/SGPT 23 U/L Normal 12-78 Alkaline Phosphatase 78 U/L Normal 45-117 Bilirubin,Total 0.4 mg/dL Normal 0.2-1.0 Bilirubin,Direct 0.1 mg/dL Normal 0.0-0.2 Total Protein 6.9 GM/DL Normal 6.4-8.2 Albumin 3.5 GM/DL Normal 3.2-5.2 Albumin/Globulin Ratio 1.0 Low 1.2-2.2 Basic Metabolic Profile 06/03/2020 [facility] ([facility]) [phone] Glucose, Fasting 122 mg/dL High 70-100 Blood [...] mg/dL Normal 8.8-10.2 Laboratory test finding 06/03/2020 [facility] ([facility]) [phone] iSTAT Troponin 0.01 NG/ML Normal 0.00-0.08 1 [...] HCT IS 5% LESS SOURCE FOR DATA: [employer] 1800 OPERATION MANUAL( AUTOMATED BLOOD COUNTS AND [...] Little GFR Left ESRD GFR <15 on 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 D. I10 Essential (primary) hypertension E78.5 Hyperlipidemia, unspecified I35.0 Nonrheumatic aortic (valve) stenosis Office Visit 08/16/2020 1:30p [place] [facility] Edgar Oliver M. D. I10 Essential (primary) hypertension E78.5 Hyperlipidemia, unspecified I67.9 Cerebrovascular disease, uns pecified Office Visit 06/15/2020 2:00p [place] [facility] Edgar Oliver M. D. I10 Essential (primary) hypertension R20.9 Unspecified disturbances of skin sensation R01.1 Cardiac murmur, unspecified Assessments Date Code Description Provider 11/16/2020 I10 Essential (primary) hypertension Edgar Oliver M.D. 11/16/2020 E78.5 Hyperlipidemia, unspecified [facility] Edgar albert M.D. 11/16/2020 I35.0 Nonrheumatic aortic (valve) sten osis Edgar Oliver M.D. 08/16/2020 I10 Essential (primary) hypertension Edgar Oliver M.D. 08/16/2020 E78.5 Hyperlipidemia, unspecified [facility] Edgar albert M.D. 08/16/2020 I67.9 Cerebrovascular disease, unspeci fied Edgar Oliver M.D. 06/15/2020 I10 Essential (primary) hypertension Edgar Oliver M.D. 06/15/2020 R20.9 Unspecified disturbances of skin sensation Edgar Oliver M.D. 06/15/2020 R01.1 Cardiac murmur, unspecified [facility] Edgar albert M.D. Plan of Treatment Future Appointment(s):* 02/15/2021 9:00 am - Edgar Oliver M.D. at [facility] * 01/30/2021 1:30 pm - Amanda Abraham FNP-LAURA at [facility] Functional Status Description No Information Available Mental Status Description No Information Available Referrals Refer to Dr Reason for Referral Status Appt Date [facility] Cardiology murmur- echo w doppler only Sent 08/09/[address] Puckett [address] [place] [address] [phone]
--- OUTSIDE RECORDS SUMMARY | 2021-01-14 04:50 | CCD | Continuity of Care Document ---
Author Author Mayra OLIVER M.D. Organization Unknown Address [address] [address] Phone [phone] Problems Active Problems Provider Date Benign hypertension Edgar Oliver M.D. Onset: 4 Aortic valve stenosis Edgar Oliver M.D. Onset: 019 Hyperlipidemia Edgar Oliver M.D. 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 Onset: 01/26/2020 Social History Type Date Description [...] Biotin 120mg Tablets 1 po qd Unknown [place] 3 1000mg Capsules 1 by mouth every [...] CPT Code Status Date Vaccine Lot # [id number] Refused 08/16/2020 Influenza Virus Vaccine, Quadrivalent, Slit Virus, Im Use 3Y & Up Vital Signs Date Vital Result Comment 12/07/2020 2:59pm BP Systolic 136 mmHg BP Diastolic 76 mmHg Body Temperature 98.3 F Heart Rate 88 /min Respiratory Rate 18 /min Height 64 inches 5'4" Weight 171.00 lb [place] Body Weight 120 lb BMI (Body Mass Index) 29.3 kg/m2 O2 % BldC Oximetry 97 % 11/16/2020 10:57am BP Systolic 138 mmHg BP Diastolic 68 mmHg Body Temperature 97.8 F Heart Rate 86 /min Respiratory Rate 16 /min Height 64 inches 5'4" Weight 175.00 lb [place] Body Weight 120 lb BMI (Body Mass [...] eGFR 76 # Calc 2 eGFR Non-Afr. [place] 66 # Calc 3 CBC 08/16/2020 [facility]/Inhouse [...] eGFR 90 # Calc 5 eGFR Non-Afr. [place] 78 # Calc 6 Lipid Panel 08/16/2020 [...] HCT IS 5% LESS SOURCE FOR DATA: [employer] 1800 OPERATION MANUAL( AUTOMATED BLOOD COUNTS AND [...] HCT IS 5% LESS SOURCE FOR DATA: [employer] 1800 OPERATION MANUAL( AUTOMATED BLOOD COUNTS AND [...] CKD-EPI Procedures Date Code Description Status 01/14/2019 [id number] Mammogram Completed 01/13/2018 [id number] Mammogram Completed Medical Devices Description No Information Available Encounters Type Date Location Provider Dx Diagnosis Office Visit 12/07/2020 3:00p [place] [facility] Edgar Oliver M. D. 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 D. I10 Essential (primary) hypertension E78.5 Hyperlipidemia, unspecified I35.0 Nonrheumatic aortic (valve) stenosis Office Visit 08/16/2020 1:30p [place] [facility] Edgar Oliver M. D. I10 Essential (primary) hypertension E78.5 Hyperlipidemia, unspecified I67.9 Cerebrovascular disease, uns pecified Office Visit 06/15/2020 2:00p [place] [facility] Edgar Oliver M. D. I10 Essential [...] Oliver M.D. 06/15/2020 R01.1 Cardiac murmur, unspecified [facility] Edgar albert M.D. Plan of Treatment Future Appointment(s):* 01/09/2021 3:20 pm - Edgar Oliver M.D. at [facility] * 02/15/2021 9:00 am - Edgar Oliver M.D. at [facility] * 01/30/2021 1:30 pm - Amanda Abraham FNP- at [facility] Functional Status Description No Information Available Mental Status Description No Information Available Referrals Refer to Dr Reason for Referral Status Appt Date [facility] Oncology & Hematology malignant pleural effusion, h/o breast ca, current lung nodule- eval and rx Sent [address] [facility] [address] [place] [address] Jose Elias Avila MD malignant pleural effusion- eval and rx Se nt [facility] Lead Business Systems Analyst [address] [place] [address] [phone] [facility] Cardiology murmur- echo w doppler only Sent 08/09/[address] [place] [address] [phone]
--- OUTSIDE RECORDS SUMMARY | 2021-01-14 04:50 | CCD ---
Continuity of Care Document (CCD) Created on: 12/28/2020 Mayra Joaquin External Reference #: [id number] Sex: Female Author Author Mayra OLIVER M.D. Organization Unknown Address [address] [address] Phone [phone] Problems Active Problems Provider Date Benign hypertension Edgar Olivre M.D. Onset: 4 Aortic valve stenosis Edgar Oliver M.D. Onset: 019 Hyperlipidemia Edgar Oliver M.D. 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-BC Onset: 01/26/2020 Social History Type Date [...] Biotin 120mg Tablets 1 po qd Unknown [place] 3 1000mg Capsules 1 by mouth every [...] CPT Code Status Date Vaccine Lot # [id number] Refused 08/16/2020 Influenza Virus Vaccine, Quadrivalent, Slit Virus, Im Use 3Y & Up Vital Signs Date Vital Result Comment 12/07/2020 2:59pm BP Systolic 136 mmHg BP Diastolic 76 mmHg Body Temperature 98.3 F Heart Rate 88 /min Respiratory Rate 18 /min Height 64 inches 5'4" Weight 171.00 lb [place] Body Weight 120 lb BMI (Body Mass Index) 29.3 kg/m2 O2 % BldC Oximetry 97 % 11/16/2020 10:57am BP Systolic 138 mmHg BP Diastolic 68 mmHg Body Temperature 97.8 F Heart Rate 86 /min Respiratory Rate 16 /min Height 64 inches 5'4" Weight 175.00 lb [place] Body Weight 120 lb BMI (Body Mass Index) 30.0 kg/m2 O2 % BldC Oximetry 94 % Results Test Acquired Date Facility Test Result H/L Range Note CBC With Auto Differential OB 12/28/2020 [facility] ([facility]) [phone] White Blood Count 4.2 10 Normal 4.0-10.0 [...] 36.0-66.0 Lymph % 21.8 % Low 24.0-44.0 [place] % 11.8 % High 0.0-5.0 Eos % 1.7 % Normal 0.0-3.0 Baso % 0.5 % Normal 0.0-1.0 Immature Granulocyte % 0.2 % Normal 0-3.0 Nucleated Red Blood Cell % 0.0 % Normal 0-0 Neutrophils # 2.7 10 Normal 1.5-8.5 Lymph # 0.9 10 Low 1.5-5.0 [place] # 0.5 10 Normal 0.0-0.8 Eos # 0.1 10 Normal 0.0-0.5 Baso # 0.0 10 Normal 0.0-0.2 CBC 12/07/2020 [facility]/Inhouse WBC 4.6 10E3/uL 4.1 [...] eGFR 76 # Calc 2 eGFR Non-Afr. [place] 66 # Calc 3 CBC 08/16/2020 [facility]/Inhouse [...] eGFR 90 # Calc 5 eGFR Non-Afr. [place]ian 78 # Calc 6 Lipid Panel 08/16/2020 [...] CKD-EPI Procedures Date Code Description Status 01/14/2019 [id number] Mammogram Completed 01/13/2018 [id number] Mammogram Completed Medical Devices Description No Information Available Encounters Type Date Location Provider Dx Diagnosis Office Visit 12/07/2020 3:00p [place] [facility] Edgar Oliver M. D. 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 D. I10 Essential (primary) hypertension E78.5 Hyperlipidemia, unspecified I35.0 Nonrheumatic aortic (valve) stenosis Office Visit 08/16/2020 1:30p [place] [facility] Edgar Oliver M. D. I10 Essential (primary) hypertension E78.5 Hyperlipidemia, unspecified I67.9 Cerebrovascular disease, uns pecified Assessments Date Code Description Provider 12/07/2020 Z85.3 Personal history of malignant ne oplasm of breast Edgar Oliver M.D. 12/07/2020 I67.9 Cerebrovascular disease, unspeci fied Edgar Oliver M.D. 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 12/07/2020 E78.5 [facility], [facility] 11/16/2020 I10 Essential (primary) hypertension Edgar Oliver M.D. 11/16/2020 E78.5 Hyperlipidemia, unspecified [facility] helEdgar olivier M.D. 11/16/2020 I35.0 Nonrheumatic aortic (valve) sten osis Edgar Oliver M.D. 08/16/2020 I10 Essential (primary) hypertension Edgar Oliver M.D. 08/16/2020 E78.5 Hyperlipidemia, unspecified [facility] Edgar albert M.D. 08/16/2020 I67.9 Cerebrovascular disease, unspeci fied Edgar Oliver M.D. Plan of Treatment Future Appointment(s):* 02/03/2021 9:45 am - Amanda Abraham FNP-BC at [facility] * 01/09/2021 3:20 pm - Edgar Oliver M.D. at [facility] * 02/15/2021 9:00 am - Edgar Oliver M.D. at [facility] Functional Status Description No Information Available Mental Status Description No Information Available Referrals Refer to Dr Reason for Referral Status Appt Date [facility] Oncology & Hematology malignant pleural effusion, h/o breast ca, current lung nodule- eval and rx Sent 12/28/2020 [address] [facility] [address] [place] [address] Jose Elias Avila MD malignant pleural effusion- eval and rx Se nt [facility] Drain Cleaner [address] [place] [address] [phone]
--- OUTSIDE RECORDS SUMMARY | 2021-01-14 04:50 | CCD | Continuity of Care Document ---
Author Author Mayra HUTSON MD Organization Unknown Address [address] [place] [address], [facility] [place] [address] Phone [phone] Care Team Providers Care Tour Agent Name Role Phone Edgar Oliver MD AUT [phone] Problems Active Problems Provider Date Aortic valve disorder MARLON Wright Onset: 10/24/2018 Electrocardiogram abnormal MARLON Wright Onset: 10/24 Obesity MARLON Wright Onset: 10/24/2018 Atherosclerotic heart disease of [place] coronary arter y without angina pectoris MARLON [...] 0.7 Procedures Date Code Description Status 08/30/2020 10321 ECG 12-Lead Completed Medical Devices Description No Information Available Encounters Type Date Location Provider Dx Diagnosis Office Visit 10/11/2020 8:45a Main Office Brian [...] excess calories Assessments Date Code Description Provider 11/02/2020 I35.0 Nonrheumatic aortic (valve) sten osis Brian Hutson MD 11/02/2020 I10 Essential (primary) hypertension Brian Hutson MD 11/02/2020 E78.00 Pure hypercholesterolemia, unspe cified [...] PA-C 08/30/2020 Z71.3 Dietary counseling and surveilla nce Anne Marie Yousif PA-C 08/05/2020 I10 Essential (primary) hypertension Brian Hutson MD 08/05/2020 I35.0 Nonrheumatic aortic (valve) sten osis Brian Hutson MD 08/05/2020 E78.00 Pure hypercholesterolemia, unspe cified Brian Hutson MD 08/05/2020 E66.09 Other obesity due to excess kathleen jayant Hutson MD 07/14/2020 I10 Essential (primary) hypertension Brian Hutson MD 07/14/2020 I35.0 Nonrheumatic aortic (valve) sten osis Brian Hutson MD 07/14/2020 E78.00 Pure hypercholesterolemia, unspe cified Brian Hutson MD 07/14/2020 E66.09 Other obesity due to excess kathleen jayant Hutson MD Plan of Treatment Future Appointment(s):* [...]
--- OUTSIDE RECORDS SUMMARY | 2021-01-14 04:50 | CCD | Continuity of Care Document ---
Author Author Mayra OLIVER M.D. Organization Unknown Address [address] [address] Phone [phone] Problems Active Problems Provider Date Benign hypertension Edgar Oliver M.D. Onset: 4 Aortic valve stenosis Edgar Oliver M.D. Onset: 019 Hyperlipidemia Edgar Oliver M.D. Onset: 0 Personal history of primary malignant neoplasm of breast Rou Amanda higuera, [employer]-BC Onset: 01/26/2020 Social History Type Date Description [...] Biotin 120mg Tablets 1 po qd Unknown [place] 3 1000mg Capsules 1 by mouth every [...] CPT Code Status Date Vaccine Lot # [id number] Refused 08/16/2020 Influenza Virus Vaccine, Quadrivalent, Slit Virus, Im Use 3Y & Up Vital Signs Date Vital Result Comment 12/07/2020 2:59pm BP Systolic 136 mmHg BP Diastolic 76 mmHg Body Temperature 98.3 F Heart Rate 88 /min Respiratory Rate 18 /min Height 64 inches 5'4" Weight 171.00 lb [place] Body Weight 120 lb BMI (Body Mass Index) 29.3 kg/m2 O2 % BldC Oximetry 97 % 11/16/2020 10:57am BP Systolic 138 mmHg BP Diastolic 68 mmHg Body Temperature 97.8 F Heart Rate 86 /min Respiratory Rate 16 /min Height 64 inches 5'4" Weight 175.00 lb [place] Body Weight 120 lb BMI (Body Mass Index) 30.0 kg/m2 O2 % BldC Oximetry 94 % Results Test Acquired Date Facility Test Result H/L Range Note CBC With Auto Differential OB 12/28/2020 [facility] (Interface) [phone] White Blood Count 4.2 10 Normal 4.0-10.0 [...] 36.0-66.0 Lymph % 21.8 % Low 24.0-44.0 [place] % 11.8 % High 0.0-5.0 Eos % 1.7 % Normal 0.0-3.0 Baso % 0.5 % Normal 0.0-1.0 Immature Granulocyte % 0.2 % Normal 0-3.0 Nucleated Red Blood Cell % 0.0 % Normal 0-0 Neutrophils # 2.7 10 Normal 1.5-8.5 Lymph # 0.9 10 Low 1.5-5.0 [place] # 0.5 10 Normal 0.0-0.8 Eos # 0.1 10 Normal 0.0-0.5 Baso # 0.0 10 Normal 0.0-0.2 Comprehensive Metabolic Profil 12/28/2020 [facility] (Interface) [phone] Glucose, Fasting 129 mg/dL High 70-100 Blood [...] 1.1 Low 1.2-2.2 Laboratory test finding 12/28/2020 [facility] (Interface) [phone] Ca15-3 Antigen 44.0 U/ML High <32.4 2 CBC 12/07/2020 [facility] WBC 4.6 10E3/uL 4.1 - 10.9 3 RBC 4.53 10E6/uL 4.20 - 6.30 HGB [...] Gap 17 mmol/L eGFR 76 # Calc 4 eGFR Non-Afr. [place] 66 # Calc 5 CBC 08/16/2020 [facility] WBC 4.6 10E3/uL 4.1 - 10.9 6 RBC 4.36 10E6/uL 4.20 - 6.30 HGB [...] Gap 16 mmol/L eGFR 90 # Calc 7 eGFR Non-Afr. 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 IT SHOULD NOT BE USED ALONE A SCREENING TEST OR DIAGNOSIS FOR THE PRESENCE OR ABSENCE OF MALIGNANT DISEASE. PREDICTIONS OF DISEASE RECURRENCE SHOULD NOT BE BASED SOLELY ON VALUES OBTAINED FROM SERIAL PATIENT SERUM VALUES. 3 NORMAL RANGES Age WBC RBC HGB HCT [...] HCT IS 5% LESS SOURCE FOR DATA: [employer] 1800 OPERATION MANUAL( AUTOMATED BLOOD COUNTS AND [...] Normal 80 and above >32 mL/min Normal 4 CKD-EPI 5 CKD-EPI 6 NORMAL RANGES Age WBC RBC HGB HCT [...] HCT IS 5% LESS SOURCE FOR DATA: [employer] 1800 OPERATION MANUAL( AUTOMATED BLOOD COUNTS AND [...] ADOLESCENTS REPRESENTS INDIVIDUALA AGED 2-19 YEARS EXCLUSIVE. 7 CKD-EPI 8 CKD-EPI Procedures Date Code Description Status 01/14/2019 [id number] Mammogram Completed 01/13/2018 [id number] Mammogram Completed Medical Devices Description No Information Available Encounters Type Date Location Provider Dx Diagnosis Office Visit 12/07/2020 3:00p [facility] Edgar Oliver M. D. 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 D. I10 Essential (primary) hypertension E78.5 Hyperlipidemia, unspecified I35.0 Nonrheumatic aortic (valve) stenosis Office Visit 08/16/2020 1:30p [facility] Edgar Oliver M. D. I10 Essential (primary) hypertension E78.5 Hyperlipidemia, unspecified I67.9 Cerebrovascular disease, uns pecified Assessments Date Code Description Provider 12/07/2020 Z85.3 Personal history of malignant ne oplasm of breast Edgar Oliver M.D. 12/07/2020 I67.9 Cerebrovascular disease, unspeci fied Edgar Oliver M.D. 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 12/07/2020 E78.5 Hyperlipidemia, unspecified [facility] Edgar albert M.D. 11/16/2020 I10 Essential (primary) hypertension Edgar Oliver M.D. 11/16/2020 E78.5 [facility], [facility] 11/16/2020 I35.0 Nonrheumatic aortic (valve) sten osis Edgar Oliver M.D. 08/16/2020 I10 Essential (primary) hypertension Edgar Oliver M.D. 08/16/2020 E78.5 Hyperlipidemia, unspecified [facility] 08/16/2020 I67.9 Cerebrovascular disease, unspeci Edgar Foster M.D. Plan of Treatment Future Appointment(s):* 02/03/2021 9:45 am - Amanda Abraham FNP-BC at [facility] * 01/09/2021 3:20 pm - Edgar Oliver M.D. at [facility] * 02/15/2021 9:00 am - Edgar Oliver M.D. at [facility] Functional Status Description No Information Available Mental Status Description No Information Available Referrals Refer to Dr Reason for Referral Status Appt Date [facility] Oncology & Hematology malignant pleural effusion, h/o breast ca, current lung nodule- eval and rx Sent 12/28/2020 [address] [facility] [address] [place] [address] Jose Elias Avila MD malignant pleural effusion- eval and rx Se nt [facility] Director Of [employer] [address], [address] [place] [address] [phone]
--- OUTSIDE RECORDS SUMMARY | 2021-01-14 04:50 | CCD | Continuity of Care Document ---
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 Name Role Phone Edgar Oliver MD AUTM [phone] Problems Active Problems Provider Date Aortic valve disorder MARLON Wright Onset: 10/24/2018 Electrocardiogram abnormal MARLON Wright Onset: 10/24 Obesity MARLON Wright Onset: 10/24/2018 Atherosclerotic heart disease of [place] coronary arter y without angina pectoris MARLON [...] 0.7 Procedures Date Code Description Status 08/30/2020 10751 ECG 12-Lead Completed Medical Devices Description No Information Available Encounters Type Date Location Provider Dx Diagnosis Office Visit 09/08/2020 9:16a Main Office Brian [...] obesity due to excess calories Office Visit 05/31/2020 10:44a Main Office Brian Hutson MD I10 Essential (primary) hypertension I35.0 Nonrheumatic aortic (valve) stenosis E78.00 Pure hypercholesterolemia, u nspecified E66.09 Other obesity due to excess calories Office Visit 04/29/2020 2:27p Main Office Brian Hutson MD I10 Essential (primary) hypertension I35.0 Nonrheumatic aortic (valve) stenosis E78.00 Pure hypercholesterolemia, u nspecified E66.09 Other obesity due to excess calories Assessments Date Code Description Provider 09/08/2020 I35.0 Nonrheumatic aortic (valve) sten osis Brian Hutson MD 09/08/2020 I10 Essential (primary) hypertension Brian Hutson MD 09/08/2020 E78.00 Pure hypercholesterolemia, unspe cified Brian Hutson MD 09/08/2020 E66.09 Other obesity due to excess kathleen jayant Brian Hutson MD 08/30/2020 I35.0 Nonrheumatic aortic (valve) sten osis Anne Marie Yousif, PA-C 08/30/2020 I10 Essential (primary) hypertension Anne Marie Yousif, PA-C 08/30/2020 R94.31 Abnormal electrocardiogram [ECG] [EKG] Anne Marie Yousif, PA-C 08/30/2020 E78.00 Pure hypercholesterolemia, unspe cified Anne Marie Yousif, PA-C 08/30/2020 Z71.3 Dietary counseling and surveilla nce Anne Marie Yousif, PA-C 08/05/2020 I10 Essential (primary) hypertension Brian Hutson MD 08/05/2020 I35.0 Nonrheumatic aortic (valve) sten osis Brian Hutson MD 08/05/2020 E78.00 Pure hypercholesterolemia, unspe cified Brian Hutson MD 08/05/2020 E66.09 Other obesity due to excess kathleen jayant Brian Hutson MD 07/14/2020 I10 Essential (primary) hypertension Brian Hutson MD 07/14/2020 I35.0 Nonrheumatic aortic (valve) sten osis Brian Hutson MD 07/14/2020 E78.00 Pure hypercholesterolemia, unspe cified Brian Hutson MD 07/14/2020 E66.09 Other obesity due to excess kathleen jayant Brian Hutson MD 05/31/2020 I10 Essential (primary) hypertension Brian Hutson MD 05/31/2020 I35.0 Nonrheumatic aortic (valve) sten traceyis Brian Hutson MD 05/31/2020 E78.00 Pure hypercholesterolemia, unspe cified Brian Hutson MD 05/31/2020 E66.09 Other obesity due to excess kathleen jayant Brian Hutson MD 04/29/2020 I10 Essential (primary) hypertension Brian Hutson MD 04/29/2020 I35.0 Nonrheumatic aortic (valve) sten osis Brian Hutson MD 04/29/2020 E78.00 Pure hypercholesterolemia, unspe cified Brian Hutson MD 04/29/2020 E66.09 Other obesity due to excess kathleen jayant Brian Hutson MD Plan of Treatment Future Appointment(s):* [...]
--- OUTSIDE RECORDS SUMMARY | 2021-01-14 04:50 | CCD | Continuity of Care Document ---
Author Author Mayra OLIVER M.D. Organization Unknown Address [address] [address] Phone [phone] Problems Active Problems Provider Date Benign hypertension Edgar Oliver M.D. Onset: 4 Aortic valve stenosis Edgar Oliver M.D. Onset: 019 Hyperlipidemia Edgar Oliver M.D. Onset: 0 Personal history of primary malignant neoplasm of breast Rou Amanda higuera, [employer]S [employer]-BC Onset: 01/26/2020 Social History Type Date Description [...] Biotin 120mg Tablets 1 po qd Unknown [place] 3 1000mg Capsules 1 by mouth every [...] CPT Code Status Date Vaccine Lot # [id number] Refused 08/16/2020 Influenza Virus Vaccine, Quadrivalent, Slit Virus, Im Use 3Y & Up Vital Signs Date Vital Result Comment 12/07/2020 2:59pm BP Systolic 136 mmHg BP Diastolic 76 mmHg Body Temperature 98.3 F Heart Rate 88 /min Respiratory Rate 18 /min Height 64 inches 5'4" Weight 171.00 lb [place] Body Weight 120 lb BMI (Body Mass Index) 29.3 kg/m2 O2 % BldC Oximetry 97 % 11/16/2020 10:57am BP Systolic 138 mmHg BP Diastolic 68 mmHg Body Temperature 97.8 F Heart Rate 86 /min Respiratory Rate 16 /min Height 64 inches 5'4" Weight 175.00 lb [place] Body Weight 120 lb BMI (Body Mass Index) 30.0 kg/m2 O2 % BldC Oximetry 94 % Results Test Acquired Date Facility Test Result H/L Range Note CMP 12/07/2020 [facility] Glu 127 mg/dL High 70 - 110 1 BUN 18 mg/dL 8 - 23 Creat [...] eGFR 76 # Calc 2 eGFR Non-Afr. [place] 66 # Calc 3 CBC 08/16/2020 [facility] [...] eGFR 90 # Calc 5 eGFR Non-Afr. [place] 78 # Calc 6 Lipid Panel 08/16/2020 [...] HCT IS 5% LESS SOURCE FOR DATA: [employer] 1800 OPERATION MANUAL( AUTOMATED BLOOD COUNTS AND [...] HCT IS 5% LESS SOURCE FOR DATA: [employer] 1800 OPERATION MANUAL( AUTOMATED BLOOD COUNTS AND [...] CKD-EPI Procedures Date Code Description Status 01/14/2019 [id number] Mammogram Completed 01/13/2018 [id number] Mammogram Completed Medical Devices Description No Information Available Encounters Type Date Location Provider Dx Diagnosis Office Visit 12/07/2020 3:00p [facility] Edgar Oliver M. D. 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 D. I10 Essential (primary) hypertension E78.5 Hyperlipidemia, unspecified I35.0 Nonrheumatic aortic (valve) stenosis Office Visit 08/16/2020 1:30p [facility] Edgar Oliver M. D. I10 Essential (primary) hypertension E78.5 Hyperlipidemia, unspecified I67.9 Cerebrovascular disease, uns pecified Office Visit 06/15/2020 2:00p [facility] Edgar Oilver M. D. I10 Essential (primary) hypertension R20.9 [...] I67.9 Cerebrovascular disease, unspeci Edgar Foster M.D. 06/15/2020 I10 Essential (primary) hypertension Edgar Oliver M.D. 06/15/2020 R20.9 Unspecified disturbances of skin sensation Edgar Oliver M.D. 06/15/2020 R01.[address], [address] [facility] Edgar albert M.D. Plan of Treatment Future Appointment(s):* 01/09/2021 3:20 pm - Edgar Oliver M.D. at [facility] * 02/15/2021 9:00 am - Edgar Oliver M.D. 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 Cardiology murmur- echo w doppler only Sent 08/09/[id number] [place] [address] [place] [id number] [phone]
--- OUTSIDE RECORDS SUMMARY | 2021-01-14 04:52 | CCD ---
Author Author [facility] Organization [facility] Address Unknown Phone Unavailable Care Team Providers Care Crumb Packer Name Role Phone Kristal Davila MD Unavailable Unavailable Kristal Davila MD Unavailable Unavailable Kristal Davila MD Unavailable Unavailable Kristal Davila MD Unavailable Unavailable Kristal Davila MD Unavailable Unavailable Kristal Davila MD Unavailable Unavailable Kristal Davila MD Unavailable Unavailable Kristal Davila MD Unavailable Unavailable Kristal Davila MD Unavailable Unavailable Kristal Davila MD Unavailable Unavailable Kristal Davila MD Unavailable Unavailable Kristal Davila MD Unavailable Unavailable Kristal Davila MD Unavailable Unavailable Kristal Davila MD Unavailable Unavailable Rere Yousif Unavailable Unavailable Rere Yousif Unavailable Unavailable Rere Yousif Unavailable Unavailable Rere Yousif Unavailable Unavailable Rere Yousif Unavailable Unavailable Symenow, Rere Anne Marie PA Unavailable Unavailable Symenow, Rere Anne Marie PA Unavailable Unavailable Symenow, Rere Anne Marie PA Unavailable Unavailable Symenow, Rere Anne Marie PA Unavailable Unavailable Symenow, Rere Anne Marie PA Unavailable Unavailable Symenow, Rere Anne Marie PA Unavailable Unavailable Symenow, Rere Anne Marie PA Unavailable Unavailable Symenow, Rere Anne Marie PA Unavailable Unavailable Symenow, Rere Anne Marie PA Unavailable Unavailable Symenow, Rere Anne Marie PA Unavailable Unavailable Symenow, Rere Anne Marie PA Unavailable Unavailable Symenow, Rere Anne Marie PA Unavailable Unavailable Symenow, Rere Anne Marie PA Unavailable Unavailable Symenow, Rere Anne Marie PA Unavailable Unavailable Symenow, Rere Anne Marie PA Unavailable Unavailable Symenow, Rere Anne Marie PA Unavailable Unavailable Symenow, Rere Anne Marie PA Unavailable Unavailable Symenow, Rere Anne Marie PA Unavailable Unavailable Symenow, Rere Anne Marie PA Unavailable Unavailable Symenow, Rere Anne Marie PA Unavailable Unavailable Symenow, Rere Anne Marie PA Unavailable Unavailable Symenow, Rere Anne Marie PA Unavailable Unavailable Symenow, Rere Anne Marie PA Unavailable Unavailable Symenow, Rere Anne Marie PA Unavailable Unavailable Symenow, Rere Anne Marie PA Unavailable Unavailable Symenow, Rere Anne Marie PA Unavailable Unavailable Symenow, Rere Anne Marie PA Unavailable Unavailable Symenow, Rere Anne Marie PA Unavailable Unavailable Symenow, Rere Anne Marie PA Unavailable Unavailable Symenow, Rere Anne Marie PA Unavailable Unavailable Symenow, Rere Anne Marie PA Unavailable Unavailable ANTECOL, Jenny CHIANG MD Unavailable Unavailable ANTECOL, Jenny CHIANG MD Unavailable Unavailable ANTECOL, Jenny CHIANG MD Unavailable Unavailable ANTECOL, Jenny CHIANG MD Unavailable Unavailable ANTECOL, Jenny CHIANG MD Unavailable Unavailable ANTECOL, Jenny CHIANG MD Unavailable Unavailable ANTECOL, Jenny CHIANG MD Unavailable Unavailable ANTECOL, Jenny CHIANG MD Unavailable Unavailable ANTECOL, Jenny CHIANG MD Unavailable Unavailable ANTECOL, Jenny CHIANG MD Unavailable Unavailable ANTECOL, Jenny CHIANG MD Unavailable Unavailable ANTECOL, Jenny CHIANG MD Unavailable Unavailable ANTECOL, Jenny CHIANG MD Unavailable Unavailable ANTECOL, Jenny CHIANG MD Unavailable Unavailable ANTECOL, Jenny CHIANG MD Unavailable Unavailable ANTECOL, Jenny CHIANG MD Unavailable Unavailable ANTECOL, Jenny CHIANG MD Unavailable Unavailable ANTECOL, Jenny CHIANG MD Unavailable Unavailable ANTECOL, Jenny CHIANG MD Unavailable Unavailable ANTECOL, Jenny CHIANG MD Unavailable Unavailable ANTECOL, Jenny CHIANG MD Unavailable Unavailable ANTECOL, Jenny CHIANG MD Unavailable Unavailable ANTECOL, Jenny CHIANG MD Unavailable Unavailable ANTECOL, Jenny CHIANG MD Unavailable Unavailable ANTECOL, Jenny CHIANG MD Unavailable Unavailable ANTECOL, Jenny CHIANG MD Unavailable Unavailable ANTECOL, Jenny CHIANG MD Unavailable Unavailable ANTECOL, Jenny CHIANG MD Unavailable Unavailable ANTECOL, Jenny CHIANG MD Unavailable Unavailable ANTECOL, Jenny CHIANG MD Unavailable Unavailable ANTECOL, Jenny CHIANG MD Unavailable Unavailable ANTECOL, Jenny CHIANG MD Unavailable Unavailable ANTECOL, Jenny CHIANG MD Unavailable Unavailable ANTECOL, Jenny CHIANG MD Unavailable Unavailable ANTECOL, Jenny CHIANG MD Unavailable Unavailable ANTECOL, Jenny CHIANG MD Unavailable Unavailable ANTECOL, Jenny CHIANG MD Unavailable Unavailable ANTECOL, Jenny CHIANG MD Unavailable Unavailable ANTECOL, Jenny CHIANG MD Unavailable Unavailable ANTECOL, Jenny CHIANG MD Unavailable Unavailable ANTECOL, Jenny CHIANG MD Unavailable Unavailable ANTECOL, Jenny CHIANG MD Unavailable Unavailable ANTECOL, Jenny CHIANG MD Unavailable Unavailable ANTECOL, Jenny CHIANG MD Unavailable Unavailable ANTECOL, Jenny CHIANG MD Unavailable Unavailable ANTECOL, Jenny CHIANG MD Unavailable Unavailable ANTECOL, Jenny CHIANG MD Unavailable Unavailable ANTECOL, Jenny CHIANG MD Unavailable Unavailable ANTECOL, Jenny CHIANG MD Unavailable Unavailable ANTECOL, Jenny CHIANG MD Unavailable Unavailable ANTECOL, Jenny CHIANG MD Unavailable Unavailable ANTECOL, Jenny CHIANG MD Unavailable Unavailable ANTECOL, Jenny CHIANG MD Unavailable Unavailable ANTECOL, Jenny CHIANG MD Unavailable Unavailable ANTECOL, Jenny CHIANG MD Unavailable Unavailable ANTECOL, Jenny CHIANG MD Unavailable Unavailable RICK PARMAR Unavailable Unavailable Jenny OLIVER MD Unavailable Unavailable Jenny OLIVER MD Unavailable Unavailable Jenny OLIVER MD Unavailable Unavailable Jenny OLIVER MD Unavailable Unavailable Jenny OLIVER MD Unavailable Unavailable Jenny OLIVER MD Unavailable Unavailable Jenny OLIVER MD Unavailable Unavailable Jenny OLIVER MD Unavailable Unavailable Jenny OLIVER MD Unavailable Unavailable Jenny OLIVER MD Unavailable Unavailable Jenny OLIVER MD Unavailable Unavailable Jenny OLIVER MD Unavailable Unavailable Jenny OLIVER MD Unavailable Unavailable Jenny OLIVER MD Unavailable Unavailable Jenny OLIVER MD Unavailable Unavailable Jenny OLIVER MD Unavailable Unavailable Jenny OLIVER MD Unavailable Unavailable Jenny OLIVER MD Unavailable Unavailable Jenny OLIVER MD Unavailable Unavailable Jenny OLIVER MD Unavailable Unavailable Jenny OLIVER MD Unavailable Unavailable Jenny OLIVER MD Unavailable Unavailable Jenny OLIVER MD Unavailable Unavailable Jenny OLIVER MD Unavailable Unavailable Jenny OLIVER MD Unavailable Unavailable Jenny OLIVER MD Unavailable Unavailable Jenny OLIVER MD Unavailable Unavailable Jenny OLIVER MD Unavailable Unavailable Jenny OLIVER MD Unavailable Unavailable Jenny OLIVER MD Unavailable Unavailable Jenny OLIVER MD Unavailable Unavailable Jenny OLIVER MD Unavailable Unavailable Jenny OLIVER MD Unavailable Unavailable Jenny OLIVER MD Unavailable Unavailable Jenny OLIVER MD Unavailable Unavailable Jenny OLIVER MD Unavailable Unavailable Jenny OLIVER MD Unavailable Unavailable Jenny OLIVER MD Unavailable Unavailable Jenny OLIVER MD Unavailable Unavailable Jenny OLIVER MD Unavailable Unavailable Jenny OLIVER MD Unavailable Unavailable Jenny OLIVER MD Unavailable Unavailable Jenny OLIVER MD Unavailable Unavailable Jenny OLIVER MD Unavailable Unavailable Jenny OLIVER MD Unavailable Unavailable Jenny OLIVER MD Unavailable Unavailable Jenny OLIVER MD Unavailable Unavailable Jenny OLIVER MD Unavailable Unavailable Jenny OLIVER MD Unavailable Unavailable Jenny OLIVER MD Unavailable Unavailable Jenny OLIVER MD Unavailable Unavailable Jenny OLIVER MD Unavailable Unavailable Jenny OLIVER MD Unavailable Unavailable Jenny OLIVER MD Unavailable Unavailable Jenny OLIVER MD Unavailable Unavailable Jenny OLIVER MD Unavailable Unavailable Jenny OLIVER MD Unavailable Unavailable Jenny OLIVER MD Unavailable Unavailable Jenny OLIVER MD Unavailable Unavailable Jenny OLIVER MD Unavailable Unavailable Jenny OLIVER MD Unavailable Unavailable Jenny OLIVER MD Unavailable Unavailable Jenny OLIVER MD Unavailable Unavailable Jenny OLIVER MD Unavailable Unavailable Jenny OLIVER MD Unavailable Unavailable Jenny OLIVER MD Unavailable Unavailable Jenny OLIVER MD Unavailable Unavailable Jenny OLIVER MD Unavailable Unavailable Jenny OLIVER MD Unavailable Unavailable Jenny OLIVER MD Unavailable Unavailable Jenny OLIVER MD Unavailable Unavailable Jenny OLIVER MD Unavailable Unavailable Jenny OLIVER MD Unavailable Unavailable Jenny OLIVER MD Unavailable Unavailable Jenny OLIVER MD Unavailable Unavailable Jenny OLIVER MD Unavailable Unavailable VASQUEZNICK WORTHY Unavailable Unavailable Thai, L Jenna PA Unavailable Unavailable Thai, L Jenna PA Unavailable Unavailable Thai, L Jenna PA Unavailable Unavailable Thai, L Jenna PA Unavailable Unavailable Thai, L Jenna PA Unavailable Unavailable Thai, L Jenna PA Unavailable Unavailable Thai, L Jenna PA Unavailable Unavailable Thai, L Jenna PA Unavailable Unavailable Thai, L Jenna PA Unavailable Unavailable Thai, L Jenna PA Unavailable Unavailable Thai, L Jenna PA Unavailable Unavailable Thai, L Jenna PA Unavailable Unavailable Thai, L Jenna PA Unavailable Unavailable Thai, L Jenna PA Unavailable Unavailable Thai, L Jenna PA Unavailable Unavailable Thai, L Jenna PA Unavailable Unavailable Thai, L Jenna PA Unavailable Unavailable Thai, L Jenna PA Unavailable Unavailable Thai, L Jenna PA Unavailable Unavailable Thai, L Jenna PA Unavailable Unavailable Thai, L Jenna PA Unavailable Unavailable Thai, L Jenna PA Unavailable Unavailable Thai, L Jenna PA Unavailable Unavailable RICK PARMAR Unavailable Unavailable VASQUEZNICK WORTHY Unavailable Unavailable OVALLES, M ROSLYN BICYCLE TAXI DRIVER Unavailable Unavailable OVALLES, M ROSLYN BICYCLE TAXI DRIVER Unavailable Unavailable OVALLES, M ROSLYN BICYCLE TAXI DRIVER Unavailable Unavailable OVALLES, M ROSLYN BICYCLE TAXI DRIVER Unavailable Unavailable OVALLES, M ROSLYN BICYCLE TAXI DRIVER Unavailable Unavailable OVALLES, M ROSLYN BICYCLE TAXI DRIVER Unavailable Unavailable OVALLES, M ROSLYN BICYCLE TAXI DRIVER Unavailable Unavailable OVALLES, M ROSLYN BICYCLE TAXI DRIVER Unavailable Unavailable OVALLES, M ROSLYN BICYCLE TAXI DRIVER Unavailable Unavailable OVALLES, M ROSLYN BICYCLE TAXI DRIVER Unavailable Unavailable OVALLES, M ROSLYN BICYCLE TAXI DRIVER Unavailable Unavailable OVALLES, M ROSLYN BICYCLE TAXI DRIVER Unavailable Unavailable OVALLES, M ROSLYN BICYCLE TAXI DRIVER Unavailable Unavailable OVALLES, M ROSLYN BICYCLE TAXI DRIVER Unavailable Unavailable OVALLES, M ROSLYN BICYCLE TAXI DRIVER Unavailable Unavailable OVALLES, M ROSLYN BICYCLE TAXI DRIVER Unavailable Unavailable OVALLES, M ROSLYN BICYCLE TAXI DRIVER Unavailable Unavailable OVALLES, M ROSLYN BICYCLE TAXI DRIVER Unavailable Unavailable OVALLES, M ROSLYN BICYCLE TAXI DRIVER Unavailable Unavailable OVALLES, M ROSLYN BICYCLE TAXI DRIVER Unavailable Unavailable OVALLES, M ROSLYN BICYCLE TAXI DRIVER Unavailable Unavailable OVALLES, M ROSLYN BICYCLE TAXI DRIVER Unavailable Unavailable OVALLES, M ROSLYN BICYCLE TAXI DRIVER Unavailable Unavailable OVALLES, M ROSLYN BICYCLE TAXI DRIVER Unavailable Unavailable OVALLES, M ROSLYN BICYCLE TAXI DRIVER Unavailable Unavailable OVALLES, M ROSLYN BICYCLE TAXI DRIVER Unavailable Unavailable OVALLES, M ROSLYN BICYCLE TAXI DRIVER Unavailable Unavailable OVALLES, M ROSLYN BICYCLE TAXI DRIVER Unavailable Unavailable OVALLES, M ROSLYN BICYCLE TAXI DRIVER Unavailable Unavailable OVALLES, M ROSLYN BICYCLE TAXI DRIVER Unavailable Unavailable OVALLES, M ROSLYN BICYCLE TAXI DRIVER Unavailable Unavailable OVALLES, M ROSLYN BICYCLE TAXI DRIVER Unavailable Unavailable OVALLES, M ROSLYN BICYCLE TAXI DRIVER Unavailable Unavailable OVALLSE, M ROSLYN BICYCLE TAXI DRIVER Unavailable Unavailable OVALLES, M ROSLYN BICYCLE TAXI DRIVER Unavailable Unavailable OVALLES, M ROSLYN BICYCLE TAXI DRIVER Unavailable Unavailable OVALLES, M ROSLYN BICYCLE TAXI DRIVER Unavailable Unavailable OVALLES, M ROSLYN BICYCLE TAXI DRIVER Unavailable Unavailable OVALLES, M ROSLYN BICYCLE TAXI DRIVER Unavailable Unavailable OVALLES, M ROSLYN BICYCLE TAXI DRIVER Unavailable Unavailable OVALLES, M ROSLYN BICYCLE TAXI DRIVER Unavailable Unavailable OVALLES, M ROSLYN BICYCLE TAXI DRIVER Unavailable Unavailable OVALLES, M ROSLYN BICYCLE TAXI DRIVER Unavailable Unavailable OVALLES, M ROSLYN BICYCLE TAXI DRIVER Unavailable Unavailable OVALLES, M ROSLYN BICYCLE TAXI DRIVER Unavailable Unavailable OVALLES, M ROSLYN BICYCLE TAXI DRIVER Unavailable Unavailable OVALLES, M ROSLYN BICYCLE TAXI DRIVER Unavailable Unavailable OVALLES, M ROSLYN BICYCLE TAXI DRIVER Unavailable Unavailable OVALLES, M ROSLYN BICYCLE TAXI DRIVER Unavailable Unavailable OVALLES, M ROSLYN BICYCLE TAXI DRIVER Unavailable Unavailable OVALLES, M ROSLYN BICYCLE TAXI DRIVER Unavailable Unavailable OVALLES, M ROSLYN BICYCLE TAXI DRIVER Unavailable Unavailable OVALLES, M ROSLYN BICYCLE TAXI DRIVER Unavailable Unavailable OVALLES, M ROSLYN BICYCLE TAXI DRIVER Unavailable Unavailable OVALLES, M ROSLYN BICYCLE TAXI DRIVER Unavailable Unavailable OVALLES, M ROSLYN BICYCLE TAXI DRIVER Unavailable Unavailable OVALLES, M ROSLYN BICYCLE TAXI DRIVER Unavailable Unavailable OVALLES, M ROSLYN BICYCLE TAXI DRIVER Unavailable Unavailable GarciaNinilyn PA Unavailable Unavailable GarciaNinin PA Unavailable Unavailable GarciaNini Nasrin PA Unavailable Unavailable Garcia, Nini Nasrin PA Unavailable Unavailable GarciaNini Nasrin PA Unavailable Unavailable GarciaNini Nasrin PA Unavailable Unavailable GarciaNinin PA Unavailable Unavailable Garcia, Nini Nasrin PA Unavailable Unavailable Garcia, Nini Nasrin PA Unavailable Unavailable GarciaNini Nasrin PA Unavailable Unavailable Tutu Forbes MD Unavailable Unavailable Tutu Forbes MD Unavailable Unavailable Tutu Forbes MD Unavailable Unavailable Tutu Forbes MD Unavailable Unavailable Tutu Forbes MD Unavailable Unavailable Tutu Forbes MD Unavailable Unavailable Tutu Forbes MD Unavailable Unavailable Tutu Forbes MD Unavailable Unavailable Tutu Forbes MD Unavailable Unavailable Tutu Forbes MD Unavailable Unavailable Tutu Forbes MD Unavailable Unavailable Tutu Forbes MD Unavailable Unavailable Tutu Forbes MD Unavailable Unavailable Tutu Forbes MD Unavailable Unavailable Tutu Forbes MD Unavailable Unavailable Tutu Forbes MD Unavailable Unavailable Tutu Forbes MD Unavailable Unavailable Tutu Forbes MD Unavailable Unavailable Tutu Forbes MD Unavailable Unavailable Tutu Forbes MD Unavailable Unavailable Tutu Forbes MD Unavailable Unavailable Tutu Forbes MD Unavailable Unavailable Tutu Forbes MD Unavailable Unavailable Tutu Forbes MD Unavailable Unavailable Tutu Forbes MD Unavailable Unavailable Tutu Forbes MD Unavailable Unavailable Tutu Forbes MD Unavailable Unavailable Tutu Forbes MD Unavailable Unavailable Tutu Forbes MD Unavailable Unavailable Tutu Forbes MD Unavailable Unavailable Tutu Forbes MD Unavailable Unavailable Tutu Forbes MD Unavailable Unavailable Tutu Forbes MD Unavailable Unavailable Tutu Forbes MD Unavailable Unavailable Tutu Forbes MD Unavailable Unavailable Tutu Forbes MD Unavailable Unavailable Tutu Forbes MD Unavailable Unavailable Tutu Forbes MD Unavailable Unavailable Tutu Forbes MD Unavailable Unavailable Tutu Forbes MD Unavailable Unavailable Tutu Forbes MD Unavailable Unavailable Tutu Forbes MD Unavailable Unavailable Tutu Forbes MD Unavailable Unavailable Tutu Forbes MD Unavailable Unavailable Tutu Forbes MD Unavailable Unavailable Tutu Forbes MD Unavailable Unavailable Tutu Forbes MD Unavailable Unavailable Tutu Forbes MD Unavailable Unavailable Tutu Forbes MD Unavailable Unavailable Tutu Forbes MD Unavailable Unavailable Tutu Forbes MD Unavailable Unavailable Tutu Forbes MD Unavailable Unavailable Tutu Forbes MD Unavailable Unavailable Tutu Forbes MD Unavailable Unavailable Tutu Forbes MD Unavailable Unavailable Tutu Forbes MD Unavailable Unavailable Tutu Forbes MD Unavailable Unavailable Tutu Forbes MD Unavailable Unavailable Tutu Forbes MD Unavailable Unavailable Tutu Forbes MD Unavailable Unavailable Tutu Forbes MD Unavailable Unavailable Tutu Forbes MD Unavailable Unavailable Tutu Forbes MD Unavailable Unavailable Tutu Forbes MD Unavailable Unavailable Tutu Forbes MD Unavailable Unavailable Andrei, O Samah MD Unavailable Unavailable Andrei, O Samah MD Unavailable Unavailable Andrei, O Samah MD Unavailable Unavailable Andrei, O Samah MD Unavailable Unavailable Andrei, O Samah MD Unavailable Unavailable Andrei, O Samah MD Unavailable Unavailable Andrei, O Samah MD Unavailable Unavailable Andrei, O Samah MD Unavailable Unavailable Andrei, O Samah MD Unavailable Unavailable Andrei, O Samah MD Unavailable Unavailable Andrei, O Samah MD Unavailable Unavailable WILLIAM, B YUAN MD Unavailable Unavailable WILLIAM, B YUAN MD Unavailable Unavailable WILLIAM, B YUAN MD Unavailable Unavailable WILLIAM, B YUAN MD Unavailable Unavailable WILLIAM, B YUAN MD Unavailable Unavailable WILLIAM, B YUAN MD Unavailable Unavailable WILLIAM, B YUAN MD Unavailable Unavailable WILLIAM, B YUAN MD Unavailable Unavailable WILLIAM, B YUAN MD Unavailable Unavailable WILLIAM, B YUAN MD Unavailable Unavailable WILLIAM, B YUAN MD Unavailable Unavailable WILLIAM, B YUAN MD Unavailable Unavailable WILLIAM, B YUAN MD Unavailable Unavailable WILLIAM, B YUAN MD Unavailable Unavailable WILLIAM, B YUAN MD Unavailable Unavailable WILLIAM, B YUAN MD Unavailable Unavailable WILLIAM, B YUAN MD Unavailable Unavailable WILLIAM, B YUAN MD Unavailable Unavailable WILLIAM, B YUAN MD Unavailable Unavailable WILLIAM, B YUAN MD Unavailable Unavailable WILLIAM, B YUAN MD Unavailable Unavailable WILLIAM, B YUAN MD Unavailable Unavailable WILLIAM, B YUAN MD Unavailable Unavailable WILLIAM, B YUAN MD Unavailable Unavailable WILLIAM, B YUAN MD Unavailable Unavailable WILLIAM, B YUAN Unavailable Unavailable Re-disclosure Warning The records that you are about to access may contain information from federally-assisted alcohol or drug abuse programs. If such information is present, then the following federally mandated warning applies: This information has been disclosed to you from records protected by federal confidentiality rules (42 CFR part 2). The federal rules prohibit you from making any further disclosure of this information unless further disclosure is expressly permitted by the written consent of the person to whom it pertains or as otherwise permitted by 42 CFR part 2. A general authorization for the release of medical or other information is NOT sufficient for this purpose. The Federal rules restrict any use of the information to criminally investigate or prosecute any alcohol or drug abuse patient.The records that you are about to access may contain highly sensitive health information, the redisclosure of which is protected by Article 27-F of the [facility] [place] Public Health law. If you continue you may have access to information: Regarding HIV / AIDS; Provided by facilities licensed or operated by the [facility] Office of Mental Health; or Provided by the [facility] Office for People With Developmental Disabilities. If such information is present, then the following [facility] mandated warning applies: This information has been disclosed to you from confidential records which are protected by state law. State law prohibits you from making any further disclosure of this information without the specific written consent of the person to whom it pertains, or as otherwise permitted by law. Any unauthorized further disclosure in violation of state law may result in a fine or mcfp sentence or both. A general authorization for the release of medical or other information is NOT sufficient authorization for further disc losure. Allergies and Adverse Reactions Type Description Substance Reaction Status Data Source(s ) Propensity to adverse reactions OXYCODONE Oxycodone Acti ve [facility] Propensity to adverse reactions ATORVASTATIN Atorvastatin Active [facility] Propensity to adverse reactions HYDROCODONE Hydrocodone Ac tive [facility] Propensity to adverse reactions ANTIHISTAMINES, DIPHENHYDRAM INE-TYPE Antihistamines, Diphenhydramine-Type Palpitations Low Active 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 Encounters Encounter Providers Location Date Indications Data Source(s ) Outpatient Attender: STEFFEN OLIVER MD [facility] 02:00:00 PM EST [facility] ([facility] Inpatient Attender: NICK Caruso : NICK Caruso: YUAN THOMAS MDAttender: RICK PARMARAttender: RICK PARMARAdmitter: YUAN THOMAS MDConsultant: Kristal Davila MD [id number] 11/25/2020 11:51:56 PM EST - 11/27/2020 04:59:00 PM EST [facility] Patient discharged. Outpatient Attender: STEFFEN OLIEVR MD [facility] 10:15:00 AM EST [facility] ([facility] Office Visit Attender: MARIIA CORNELL MD Main Office 11/02/2020 10: 59:00 AM EST [facility] ([facility]) Office Visit Attender: MARIIA CORNELL MD Main Office 10/11/2020 07: 45:00 AM EST [facility] ([facility]) Outpatient Attender: Efrain Forbes MD Main office - [facility] 09/22/2020 01:45:00 PM EST [facility] ([facility] Office Visit Attender: MARIIA CORNELL MD Main Office 09/08/2020 09: 16:00 AM EDT [facility] ([facility]) Outpatient Attender: Anne Marie MASON Main Office 08/30/2020 02:30:00 PM EDT [facility] ([facility]) [place] [place]: [place] [facility] 01:30:00 PM EDT [facility] ([facility] Outpatient KASH 08/09/2020 07:07:46 PM EDT [facility] Outpatient Referrer: STEFFEN GARZA 07/20 12:00:00 AM EDT [facility] Office Visit Attender: MARIIA CORNELL MD Main Office 08/05/2020 11: 18:00 AM EDT [facility] ([facility]) Office Visit Attender: MARIIA CORNELL MD Main Office 07/14/2020 04: 12:00 PM EDT [facility] ([facility]) Outpatient Attender: Efrain Forbes MD Main office - [facility] 06/16/2020 02:00:00 PM EDT [facility] ([facility] Outpatient Attender: STEFFEN OLIVER MD [facility] 02:00:00 PM EDT [facility] ([facility] Outpatient Attender: Nasrin Serrano nikole 06/03/2020 06:15:00 PM EDT [facility] ([facility] Office Visit Attender: MARIIA CORNELL MD Main Office 05/31/2020 10: 44:00 AM EDT [facility] ([facility]) Office Visit Attender: MARIIA CORNELL MD Main Office 04/29/2020 02: 27:00 PM EDT [facility] ([facility]) Office Visit Attender: MARIIA CORNELL MD Main Office 03/25/2020 02: 15:00 PM EDT [facility] ([facility]) Office Visit Attender: MARIIA CORNELL MD Main Office 02/23/2020 07: 22:00 AM EDT [facility] ([facility]) Outpatient Attender: ROSLYN OVALLES NP [facility] 01/25 11:00:00 AM EDT [facility] ([facility] Outpatient Attender: Jenna MASON Main Office 01/20/2020 07:15:0 0 AM EST [facility] ([facility]) Outpatient Attender: STEFFEN OLIVER MD [facility] 09:40:00 AM EST [facility] ([facility] Immunizations Vaccine Date Status Description Data Source(s) New in 2012. IIV4 08/16/2020 03:24:00 PM EDT completed [facility] ([facility] Medications Medication Brand Name Start Date Product Form Dose Route Admi nistrative Instructions Pharmacy Instructions Status Indications Reaction Description Data Source(s) potassium chloride SA (K-DUR,KLOR-CON) CR tablet 40 mEq 6203 [id number] 11/26/2020 07:00:00 PM EST 40 meq Oral completed 40 mEq, Oral, Once, 11/26/20 at 1900, For 1 dose [facility] Medication administered onsite Magnesium Oxide (MAG-OX) tablet 400 mg [id number] 10:00:00 AM EST 400 mg Oral active 400 mg, Oral, Da raffi, First dose on 11/26/20 at 1000 [facility] Medication administered onsite Aspirin 81 MG Delayed Release Oral Tablet aspirin EC t ablet 81 mg aspirin EC tablet 81 mg 11/26/2020 10:00:00 AM EST 81 mg Oral activ e 81 mg, Oral, Daily, First dose on 11/26/20 at 1000
Hold if bleeding or platelets < 100 and call
[facility] Medication administered onsite Hydrochlorothiazide 25 MG / Lisinopril 2 0 MG Oral Tablet lisinopril- hydrochlorothiazide (PRINZIDE,ZESTORETIC) 20-25 MG per tablet 1 tablet lisinopril-hydrochlorothiazide (PRINZIDE,ZESTORETIC) 20-25 MG per tablet 1 tablet 11/26/2020 10:00:00 AM EST 1 {tbl} Oral active 1 tablet, Oral, Daily, First dose on 11/26/20 at 1000
Hold if SBP < 130 or DBP < 70 and call if held
[facility] Medication administered onsite Rosuvastatin calcium 5 MG Oral Tablet rosuvastatin (CR ESTOR) tablet 5 mg rosuvastatin (CRESTOR) tablet 5 mg 11/26/2020 10:00:00 AM EST 5 mg Oral active 5 mg, Oral, Daily, First dose on 11/26/20 at 1000 [facility] Medication administered onsite pantoprazole 40 MG Delayed Release Oral Tablet pantoprazole (PROTONIX) EC tablet 40 mg pantoprazole (PROTONIX) EC tablet 40 mg 11/26/2020 10:00:[address] 40 mg Oral active Gastroesophageal Reflux Diseas e 40 mg, Oral, Daily, Indications: Gastroesophageal Reflux Disease, First dose on 11/26/20 at 1000 [facility] Gastroesophageal Reflux Disease Medication administered onsite heparin (porcine) injection 5,000 Units 20440-870-32 11/26/19 10:00:00 AM EST 5000 U Subcutaneous active 5,000 Units , Subcutaneous, Every 12 hours (scheduled), First dose on 11/26/20 at 1000
If platelet count is less than 100,000 or hematocrit is less than 25, or if there is a 5 point decrease in hematocrit, do not give the dose and call physician/designee.Hold if any procedure within 8 hours please or call if bleeding or other obvious concerns.
[facility] Medication administered onsite Polyvinyl Alcohol 0.014 ML/ML Ophthalmic Solution polyvinyl alcohol (LIQUIFILM TEARS) 1.4 % ophthalmic solution 1 drop polyvinyl alcohol (LIQUIFILM TEARS) 1.4 % ophthalmic solution 1 drop 11/26/2020 09:28:56 AM EST 1 [drp] active 1 drop, Both Eyes, As needed, dry eyes, Starting 11/26/20 at 0928 [facility] Medication administered onsite Aspirin 81 MG Chewable Tablet aspirin chewable tablet 162 mg aspirin chewable tablet 162 mg 11/25/2020 10:45:00 PM EST 162 mg Oral comp leted 162 mg, Oral, Once, 11/25/20 at 2245, For 1 dose [facility] Medication administered onsite Omeprazole 20 MG Delayed Release Oral Capsule Omeprazole 11/16/2020 12:00:00 AM EST ORAL active [facility] ([facility] Ascorbic Acid 60 MG / Beta Carotene 5000 UNT / Copper Sulfate 40 MG / dl-alpha tocopheryl acetate 30 UNT / Sodium Selenite 0.04 MG / Zinc Oxide 40 MG Oral Tablet Eye Multivitamin/Lutein 08/29/2020 12:00:00 AM EDT ORAL active [facility] ([facility] Amlodipine 10 MG Oral Tablet Amlodipine Besylate 08/29/2020 12:00:00 AM EDT ORAL active [facility] ([facility]) coenzyme Q10 200 MG Oral Capsule Co-Enzyme Q10 01/19/2020 12:00:00 AM EST ORAL active [facility] ([facility]) [place] 11/02/2019 12:00:00 AM EST ORAL completed [facility] ([facility]) Insurance Providers Payer name Policy type / Coverage type Policy ID Covered constitution party ID Covered constitution party's relationship to qureshi Policy Qureshi Plan Information MEDICARE [id number] SP [id number] [employer] OPTIONS [id number] SP [id number] INSURANCE COVID-[address] [facility] [id number] Karma [id number] MEDICARE [id number] Karma [id number] F23 [facility] [id number] MEDICARE [id number] MEDICARE A [id number] Self [id number] MEDICARE C [id number] S [id number] [id number] AARP O [id number] S [id number] 211 MEDICARE C [id number] S [id number] F23 [employer] Medigap Part B [id number] Self [id number] Medicare (Part B) Medicare Primary [id number] Self [id number] [employer] Medigap Part B [id number] Self [id number] [employer] Medigap Part B [id number] Self [id number] Medicare (Part B) Medicare Primary [id number] Self [id number] MEDICARE [id number] SP [id number] A [employer] Medigap Part B [id number] Self [id number] Medicare (Part B) Medicare Primary [id number] Self [id number] [employer] Medigap Part B [id number] Self [id number] Medicare (Part B) Medicare Primary [id number] Self [id number] MEDICARE C [id number] S [id number] A [employer] Medigap Part B [id number] Self [id number] Medicare (Part B) Medicare Primary [id number] Self [id number] MEDICARE [id number] SP [id number] A [employer] Medigap Part B F Self F [place] Medicare Primary Self [facility] [facility] Options Medigap Part B Self Medicare [place] [employer] Medicare Primary Self MEDICARE [id number] SP [id number] A [id number] A Problems, Conditions, and Diagnoses Code Display Name Description Problem Type Effective Dates Data Source(s) J90 Bilateral pleural effusion Bilateral pleural effusion [id number] 11/26/2020 12:00:00 AM EST [facility] R20.0 Numbness and tingling in left hand Numbness and tingling in left hand [id number] 11/26/2020 12:00:00 AM EST [facility] R29.898 Left hand weakness, acute on chronic x 3 days Left hand weakness, acute on chronic x 3 days [id number] 11/26/2020 12:00:00 AM [facility] R20.0 Left arm numbness, complete, acute on ch ronic x 3 days Left arm numbness, complete, acute on chronic x 3 days [id number] 11/26/2020 12:00:00 AM E [facility] R09.89 Suspected cerebrovascular accident (CVA) Suspected cerebrovascular accident (CVA) [id number] 11/26/2020 12:00:00 AM EST 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 [id number] Hyperlipidemia Hyperlipidemia Problem 01/13/2020 12:00: 00 AM EST [facility] ([facility] R07.9 Chest pain, unspecified Chest pain, unspecified Diagno sis 11/25/2020 11:51:56 PM [facility] R20.2 Paresthesia of skin Paresthesia of skin Diagnosis 0 11/25/2020 11:51:56 PM [facility] R20.0 Anesthesia of skin Anesthesia of skin Diagnosis 06/2021 11:51:56 PM [facility] Surgeries/Procedures Procedure Description Date Indications Data Source(s) NT PRO BNP NT PRO BNP Routine 11/27/2020 11:01 AM EST 11/27/2020 04:01:00 PM [facility] BLOOD COUNT COMPLETE AUTOMATED CBC Timed 11/27/2020 11:01 A M EST 11/27/2020 04:01:00 PM [facility] MAGNESIUM MAGNESIUM Routine 11/27/2020 11:01 AM EST 11/27/2020 04:01:00 PM [facility] BASIC METABOLIC PANEL CALCIUM TOTAL BASIC METABOLIC PANEL Timed 11/27/2020 11:01 AM EST 11/27/2020 04:01:00 PM [facility] PLEURAL FLUID CELL COUNT PLEURAL FLUID CELL COUNT Routine 11/27/2020 10:15 AM EST 11/27/2020 03:15:00 PM EST [facility] PLEURAL FLD PH PLEURAL FLD PH Routine 11/27/2020 10:15 AM EST 11/27/2020 03:15:00 PM EST [facility] FLUID SOURCE FLUID SOURCE Routine 11/27/2020 10:15 AM EST 11/27/2020 03:15:00 PM EST [facility] SPECIFIC GRAVITY EXCEPT URINE SPECIFIC GRAVITY, BODY FLUID Rout ine 11/27/2020 10:15 AM EST 11/27/2020 03:15:00 PM [facility] PROTEIN TOTAL XCPT REFRACTOMETRY OTH SRC PROTEIN, BODY FLUID Ro utine 11/27/2020 10:15 AM EST 11/27/2020 03:15:00 PM EST [facility] LACTATE DEHYDROGENASE LDH LACTATE DEHYDROGENASE, BODY FLUID Rou alfonzo 11/27/2020 10:15 AM EST 11/27/2020 03:15:00 PM EST [facility] GLUCOSE BODY FLUID OTHER THAN BLOOD GLUCOSE, BODY FLUID Routine 11/27/2020 10:15 AM EST 11/27/2020 03:15:00 PM [facility] AMYLASE AMYLASE, BODY FLUID Routine 11/27/2020 10:15 AM EST 11/27/2020 03:15:00 PM EST [facility] ECHO TTHRC R-T 2D W/WOM-MODE COMPL SPEC&COLR DOP ECHOCARDIO GRAM TRANSTHORACIC Pending Discharge 11/27/2020 8:18 AM EST 11/27/2020 01:18 :39 PM EST [facility] CT THORAX W/O CONTRAST MATERIAL CT CHEST WO CONTRAST STAT 11/26/2020 1:10 PM EST 11/26/2020 06:10:35 PM [facility] MRA NECK W/O CONTRST MATERIAL MRA NECK WO CONTRAST STAT 11/26/2020 10:13 AM EST 11/26/2020 03:13:27 PM [facility] MRI BRAIN BRAIN STEM W/O CONTRAST MATERIAL MRI BRAIN WO CONTRAS T STAT 11/26/2020 10:03 AM EST 11/26/2020 03:03:58 PM EST [facility] MRA HEAD W/O CONTRST MATERIAL MRA BRAIN WO CONTRAST Routine 11/26/2020 9:52 AM EST 11/26/2020 02:52:36 PM [facility] COVID/FLU AB/RSV PCR COVID/FLU AB/RSV PCR STAT 11/26/2020 4:55 AM EST 11/26/2020 09:55:00 AM EST [facility] CT HEAD/BRAIN W/O CONTRAST MATERIAL CT HEAD WO CONTRAST STAT 11/26/2020 2:08 AM EST 11/26/2020 07:08:26 AM [facility] TROPONIN QUANTITATIVE POCT TROPONIN Routine 11/26/2020 12:57 AM EST 11/26/2020 05:57:00 AM EST [facility] NT PRO BNP NT PRO BNP STAT 11/26/2020 12:09 AM EST 11/26/2020 05:09:00 AM EST [facility] TROPONIN QUANTITATIVE TROPONIN I Routine 11/26/2020 12:09 AM EST 11/26/2020 05:09:00 AM [facility] PROTEIN XCPT REFRACTOMETRY SERUM PLASMA/WHL BLD PROTEIN, TOTAL Add-On 11/26/2020 12:09 AM EST 11/26/2020 05:09:00 AM EST [facility] LACTATE DEHYDROGENASE LDH LACTATE DEHYDROGENASE Add-On 11/26 12:09 AM EST 11/26/2020 05:09:00 AM EST [facility] XR CHEST PORTABLE XR CHEST PORTABLE STAT 11/25/2020 7:08 PM EST 11/26/2020 12:08:46 AM [facility] TROPONIN QUANTITATIVE POCT TROPONIN Routine 11/25/2020 6:28 PM EST 11/25/2020 11:28:00 PM [facility] THROMBOPLASTIN TIME PARTIAL PLASMA/WHOLE BLOOD APTT STAT 11/25/2020 6:11 PM EST 11/25/2020 11:11:00 PM EST [facility] PROTHROMBIN TIME PROTIME-INR STAT 11/25/2020 6:11 PM EST 11/25/2020 11:11:00 PM EST [facility] BLOOD COUNT COMPLETE AUTO&AUTO DIFRNTL WBC COUNT CBC AND DIFFER ENTIAL STAT 11/25/2020 6:11 PM EST 11/25/2020 11:11:00 PM EST [facility] HEMOGLOBIN GLYCOSYLATED A1C HEMOGLOBIN A1C Add-On 11/25/2020 6:11 PM EST 11/25/2020 11:11:00 PM EST [facility] COMPREHENSIVE METABOLIC PANEL COMPREHENSIVE METABOLIC PANEL STA T 11/25/2020 6:11 PM EST 11/25/2020 11:11:00 PM EST [facility] ECG ROUTINE ECG W/LEAST 12 LDS W/I&R ECG 12-LEAD STAT 06/2021 6:10 PM EST 11/25/2020 11:10:06 PM EST [facility] ECG ROUTINE ECG W/LEAST 12 LDS W/I&R 08/30/2020 12:00: 00 AM EDT [facility] ([facility]) TSTG ANS FUNCJ CARDIOVAGAL INNERVAJ PARASYMP 0 12:00:00 AM EDT [facility] ([facility]) TSTG ANS FUNCJ CARDIOVAGAL INNERVAJ PARASYMP 0 12:00:00 AM EDT [facility] ([facility] ) TESTING AUTONOMIC NERVOUS SYSTEM FUNCTION 05/11/2020 1 2:00:00 AM EDT [facility] ([facility]) TESTING AUTONOMIC NERVOUS SYSTEM FUNCTION 05/11/2020 1 2:00:00 AM EDT [facility] ([facility]) Results ID Date Data Source [id number] 12/30/2020 12:36:00 PM EST [facility] ([facility] Name Value Range Interpretation Code Description Data Blanca rce(s) Supporting Document(s) Laboratory test finding (navigational concept) 7.674 units Normal (applies to non-numeric results) [facility] ([facility]) Laboratory test finding (navigational concept) Laboratory test r esult Normal (applies to non-numeric results) [facility] ID Date Data Source [id number] 12/30/2020 12:36:00 PM EST [facility] ([facility] Name Value Range Interpretation Code Description Data Blanca rce(s) Supporting Document(s) Glucose, Body Fluid 105 mg/dL Normal (applies to non-nume pam results) [facility] ([facility] Source, Body Fluid Glucose Laboratory test result Normal (applies to non- numeric results) [facility] ([facility] ) ID Date Data Source [id number] 12/30/2020 12:36:00 PM EST [facility] ([facility] Name Value Range Interpretation Code Description Data Blanca rce(s) Supporting Document(s) Source, Body Fluid LDH Laboratory test result No rmal (applies to non-numeric results) [facility] ([facility] ) LDH, Body Fluid 129 U/L Normal (applies to non-numeric results) [facility] ([facility] ID Date Data Source [id number] 12/30/2020 12:36:00 PM EST [facility] ([facility] Name Value Range Interpretation Code Description Data Blanca rce(s) Supporting Document(s) Total Protein, Body Fluid 4.3 g/dL Normal (applies to no n-numeric results) [facility] ([facility] Source, Body Fluid Tot Protein Laboratory test result Normal (applies to non- numeric results) [facility] ([facility] ) ID Date Data Source [id number] 12/30/2020 12:36:00 PM EST [facility] ([facility] Name Value Range Interpretation Code Description Data Blanca rce(s) Supporting Document(s) Laboratory test finding (navigational concept) Laboratory test r esult Normal (applies to non-numeric results) [facility] ([facility] Laboratory test finding (navigational concept) Laboratory test r esult Normal (applies to non-numeric results) [facility] Laboratory test finding (navigational concept) Laboratory test r esult Normal (applies to non-numeric results) [facility] Laboratory test finding (navigational concept) 1623 /uL 0-10 Above high normal [facility] ([facility] Laboratory test finding (navigational concept) 22 10 Normal (applies to non- numeric results) [facility] ([facility] Laboratory test finding (navigational concept) 96.1 % 0-0 Above high normal [facility] Laboratory test finding (navigational concept) 3.9 % 0-0 Above high normal [facility] ([facility] ID Date Data Source [id number] 12/30/2020 10:40:00 AM EST [facility] ([facility] Name Value Range Interpretation Code Description Data Blanca rce(s) Supporting Document(s) Prothrombin Time 12.6 s 12.5-14.3 Normal (applies to non-numeric results) [facility] ([facility] Inr 0.92 Normal (applies to non-numeric resul ts) [facility] THERAPUTIC HUMAN INR VALUES INDICATIONS NORMAL RANGES PROPHYLAXIS/TREATMENT OF: VENOUS THROMBOSIS 2.0-3.0 PULMONARY EMBOLISM 2.0-3.0 PREVENTION OF SYSTEMIC EMBOLISM FROM: TISSUE HEART VALVES 2.0-3.0 ACUTE MYOCARDIAL INFARCTION 2.0-3.0 VALVULAR HEART DISEASE 2.0-3.0 ATRIAL FIBRILLATION 2.0-3.0 MECHANICAL VALVES(HIGH RISK) 2.5-3.5 RECURRENT MYOCARDIAL INFARCTION 2.5-3.5 ID Date Data Source [id number] 12/28/2020 10:30:00 AM EST [facility] ([facility] Name Value Range Interpretation Code Description Data Blanca rce(s) Supporting Document(s) Cancer Ag 15-3 [Units/volume] in Serum or Plasma 44.0 U/ML Above high normal [facility] ([facility] THE CA 15-3 ASSAY IS PERFORMED ON THE [employer] BY CHEMILUMINESCENCE AND SHOULD NOT BE COMPARED INTERCHANGEABLY WITH OTHER METHODS. IT SHOULD NOT BE USED ALONE A SCREENING TEST OR DIAGNOSIS FOR THE PRESENCE OR ABSENCE OF MALIGNANT DISEASE. PREDICTIONS OF DISEASE RECURRENCE SHOULD NOT BE BASED SOLELY ON VALUES OBTAINED FROM SERIAL PATIENT SERUM VALUES. Cancer Ag 27-29 [Units/volume] in Serum or Plasma 59.8 U/mL 0.0-38.6 Above high normal [facility] ([facility] ) Siemens Centaur Immunochemiluminometric Methodology (ICMA) . Values obtained with different assay methods or kits cannot be used interchangeably. Results cannot be interpreted as absolute evidence of the presence or absence of malignant disease. Performed at: [facility] [id number] [employer] Kit Assembler: Mervat Huffman MD, Phone: [phone] ID Date Data Source [id number] 12/28/2020 10:30:00 AM EST [facility] ([facility] Name Value Range Interpretation Code Description Data Blanca rce(s) Supporting Document(s) Glucose, Fasting 129 mg/dL 70-100 Above high normal [facility] ([facility] Blood Urea Nitrogen 15 mg/dL 7-18 Normal (applies to non-nume pam results) [facility] Creatinine For GFR 0.88 mg/dL 0.55-1.30 Normal (applies to non -numeric results) [facility] ([facility] Glomerular Filtration Rate Laboratory test result Normal (applies to non- numeric results) [facility] ([facility] ) <content>Units are mL/min/1.73 m2</content>
<content></content>
<content>Chronic Kidney Disease Staging per NKF:</content>
<content></content>
<content>Stage I & II GFR >=60 Normal to Mildly Decreased</content>
<content>Stage III GFR 30- 59 Moderately Decreased</content>
<content>Stage IV GFR 15-29 Severely Decreased</content>
<content>Stage V GFR <15 Very Little GFR Left</content>
<content>ESRD GFR <15 on HOP WORKER</content>
<content></content> Potassium Serum 3.7 meq/L 3.5-5.1 Normal (applies to non-numeric results) [facility] ([facility] Sodium Level 137 meq/L 136-145 Normal (applies to non-numeric res ults) [facility] ([facility] Carbon Dioxide Level 27 meq/L 21-32 Normal (applies to non-num layo results) [facility] ([facility] Chloride Level 102 meq/L 98-107 Normal (applies to non-numeric r esults) [facility] ([facility] Anion Gap 8 meq/L 8-16 Normal (applies to non-numeric resul ts) [facility] ([facility] Calcium Level 9.4 mg/dL 8.8-10.2 Normal (applies to non-numeric re sults) [facility] ([facility] Ast/Sgot 11 U/L 7-37 Normal (applies to non-numeric resul ts) [facility] ([facility] Alkaline Phosphatase 77 U/L 45-117 Normal (applies to non-num layo results) [facility] ([facility] Alt/SGPT 14 U/L 12-78 Normal (applies to non-numeric resul ts) [facility] ([facility] Bilirubin,Total 0.6 mg/dL 0.2-1.0 Normal (applies to non-numeric results) [facility] ([facility] Total Protein 6.8 GM/DL 6.4-8.2 Normal (applies to non-numeric re sults) [facility] ([facility] Albumin 3.6 GM/DL 3.2-5.2 Normal (applies to non-numeric resul ts) [facility] ([facility] Albumin/Globulin Ratio 1.1 1.2-2.2 Below low normal [facility] ([facility] ID Date Data Source [id number] 12/28/2020 10:30:00 AM EST [facility] ([facility] Name Value Range Interpretation Code Description Data Blanca rce(s) Supporting Document(s) Red Blood Count 4.62 10 4.00-5.40 Normal (applies to non-numeric results) [facility] ([facility] White Blood Count 4.2 10 4.0-10.0 Normal (applies to non-numeri c results) [facility] ([facility] Hemoglobin 13.3 g/dL 12.0-15.5 Normal (applies to non-numeric resul ts) [facility] ([facility] Hematocrit 40.7 % 36.0-47.0 Normal (applies to non-numeric resul ts) [facility] ([facility] Mean Corpuscular Volume 88.1 fl 80.0-96.0 Normal ( applies to non-numeric results) [facility] ([facility] ) Mean Corpuscular HGB Conc 32.7 g/dL 32.0-36.5 Normal (applies to non-numeric results) [facility] ([facility] ) Mean Corpuscular Hemoglobin 28.8 pg 27.0-33.0 Norm al (applies to non-numeric results) [facility] ([facility] ) Red Cell Distribution Width 13.5 % 11.5-14.5 Norm al (applies to non-numeric results) [facility] ([facility] ) Platelet Count, Automated 264 10 150-450 Normal (applies to non-numeric results) [facility] ([facility] ) Neutrophils % 64.0 % 36.0-66.0 Normal (applies to non-numeric re sults) [facility] ([facility] Lymph % 21.8 % 24.0-44.0 Below low normal [facility] ( [facility] Lane % 11.8 % 0.0-5.0 Above high normal [facility] ([facility] Eos % 1.7 % 0.0-3.0 Normal (applies to non-numeric resul ts) [facility] ([facility] Immature Granulocyte % 0.2 % 0-3.0 Normal (applies to non-n umeric results) [facility] ([facility] Baso % 0.5 % 0.0-1.0 Normal (applies to non-numeric resul ts) [facility] ([facility] Nucleated Red Blood Cell % 0.0 % 0-0 Normal (applies to n on-numeric results) [facility] ([facility] Lymph # 0.9 10 1.5-5.0 Below low normal [facility] ( [facility] Neutrophils # 2.7 10 1.5-8.5 Normal (applies to non-numeric re sults) [facility] ([facility] Eos # 0.1 10 0.0-0.5 Normal (applies to non-numeric resul ts) [facility] ([facility] Lane # 0.5 10 0.0-0.8 Normal (applies to non-numeric resul ts) [facility] ([facility] Baso # 0.0 10 0.0-0.2 Normal (applies to non-numeric resul ts) [facility] ([facility] ID Date Data Source [id number] 12/07/2020 03:32:00 PM EST [facility] ([facility] Name Value Range Interpretation Code Description Data Blanca rce(s) Supporting Document(s) Glu 127 mg/dL 70-110 Above high normal [facility] ([facility] NORMAL RANGES Age WBC RBC HGB HCT [...] HCT IS 5% LESS SOURCE FOR DATA: [employer] 1800 [employer]PERATION MANUAL( AUTOMATED BLOOD COUNTS AND [...] Normal 80 and above >32 mL/min Normal Creat 0.8 mg/dL 0.5-1.0 [facility] NORMAL RANGES Age WBC RBC HGB HCT [...] HCT IS 5% LESS SOURCE FOR DATA: [employer] 1800 OPERATION MANUAL( AUTOMATED BLOOD COUNTS AND [...] Normal 80 and above >32 mL/min Normal BUN 18 mg/dL 8-23 [facility] ([facility] NORMAL RANGES Age WBC RBC HGB HCT [...] HCT IS 5% LESS SOURCE FOR DATA: [employer] 1800 OPERATION MANUAL( AUTOMATED BLOOD COUNTS AND [...] Normal 80 and above >32 mL/min Normal BUN/Creatinine Ratio 21.0 Calc [facility] NORMAL RANGES Age WBC RBC HGB HCT [...] HCT IS 5% LESS SOURCE FOR DATA: [employer] 1800 OPERATION MANUAL( AUTOMATED BLOOD COUNTS AND [...] Normal 80 and above >32 mL/min Normal K 3.7 mmol/L 3.5-5.1 [employer] ([facility] NORMAL RANGES Age WBC RBC HGB HCT [...] HCT IS 5% LESS SOURCE FOR DATA: [employer] 1800 OPERATION MANUAL( AUTOMATED BLOOD COUNTS AND [...] Normal 80 and above >32 mL/min Normal Na 135 mmol/L 136-145 Below low normal [facility] [facility] ( [facility] NORMAL RANGES Age WBC RBC HGB HCT [...] HCT IS 5% LESS SOURCE FOR DATA: GüvenRehberi 1800 OPERATION MANUAL( AUTOMATED BLOOD COUNTS AND [...] Normal 80 and above >32 mL/min Normal CL 101.6 mmol/L 98.0-107.0 [facility] ([facility] NORMAL RANGES Age WBC RBC HGB HCT [...] HCT IS 5% LESS SOURCE FOR DATA: GüvenRehberi 1800 OPERATION MANUAL( AUTOMATED BLOOD COUNTS AND [...] Normal 80 and above >32 mL/min Normal Co2 20.9 mmol/L 22.0-29.0 Below low normal [facility] ([facility] NORMAL RANGES Age WBC RBC HGB HCT [...] HCT IS 5% LESS SOURCE FOR DATA: Güven[employer]hberi 1800 OPERATION MANUAL( AUTOMATED BLOOD COUNTS AND [...] Normal 80 and above >32 mL/min Normal CA 10.0 mg/dL 8.6-10.2 [employer] ([facility] NORMAL RANGES Age WBC RBC HGB HCT [...] HCT IS 5% LESS SOURCE FOR DATA: GüvenRehberi 1800 OPERATION MANUAL( AUTOMATED BLOOD COUNTS AND [...] Normal 80 and above >32 mL/min Normal TP 6.6 g/dL 6.6-8.7 [facility] ([facility] NORMAL RANGES Age WBC RBC HGB HCT [...] HCT IS 5% LESS SOURCE FOR DATA: GüvenRehberi 1800 OPERATION MANUAL( AUTOMATED BLOOD COUNTS AND [...] Normal 80 and above >32 mL/min Normal Alb 4.2 g/dL 3.4-4.8 [facility] NORMAL RANGES Age WBC RBC HGB HCT [...] HCT IS 5% LESS SOURCE FOR DATA: GüvenRehberi 1800 OPERATION MANUAL( AUTOMATED BLOOD COUNTS AND [...] Normal 80 and above >32 mL/min Normal A/G Ratio 1.7 Calc [facility] ([facility] NORMAL RANGES Age WBC RBC HGB HCT [...] HCT IS 5% LESS SOURCE FOR DATA: GüvenRehberi 1800 OPERATION MANUAL( AUTOMATED BLOOD COUNTS AND [...] Normal 80 and above >32 mL/min Normal Globulin 2.5 Calc [facility] ([facility] NORMAL RANGES Age WBC RBC HGB HCT [...] HCT IS 5% LESS SOURCE FOR DATA: GüvenRehberi 1800 OPERATION MANUAL( AUTOMATED BLOOD COUNTS AND [...] Normal 80 and above >32 mL/min Normal Alt (SGPT) 8 U/L 0-41 [facility] ([facility] NORMAL RANGES Age WBC RBC HGB HCT [...] HCT IS 5% LESS SOURCE FOR DATA: GüvenRehberi 1800 OPERATION MANUAL( AUTOMATED BLOOD COUNTS AND [...] Normal 80 and above >32 mL/min Normal Alp 87.2 U/L 35-129 [facility] ([facility] NORMAL RANGES Age WBC RBC HGB HCT [...] HCT IS 5% LESS SOURCE FOR DATA: GüvenRehberi 1800 OPERATION MANUAL( AUTOMATED BLOOD COUNTS AND [...] Normal 80 and above >32 mL/min Normal Ast (Sgot) 14 U/L 0-40 [facility] ([facility] NORMAL RANGES Age WBC RBC HGB HCT [...] HCT IS 5% LESS SOURCE FOR DATA: GüvenRehberi 1800 OPERATION MANUAL( AUTOMATED BLOOD COUNTS AND [...] Normal 80 and above >32 mL/min Normal Osmolality-Calculated 274.3 Calc [facility] ([facility] NORMAL RANGES Age WBC RBC HGB HCT [...] HCT IS 5% LESS SOURCE FOR DATA: GüvenRehberi 1800 OPERATION MANUAL( AUTOMATED BLOOD COUNTS AND [...] Normal 80 and above >32 mL/min Normal Tbili 0.36 mg/dL 0.0-1.2 [facility] ([facility] NORMAL RANGES Age WBC RBC HGB HCT MCV PLT Adult M 4.1-10.9 4.20-6.30 12.0-18.0 37.0-51.0 80- 140-440 Adult F 4.1-10.9 4.04-5.48 12.0-18.0 37.0-51.0 80- 140-440 0 -1 Yr 5.0-20.0 3.9-5.9 15-18 [...] Normal 80 and above >32 mL/min Normal Anion Gap 17 mmol/L [facility] ([facility] NORMAL RANGES Age WBC RBC HGB HCT [...] HCT IS 5% LESS SOURCE FOR DATA: GüvenRehberi 1800 OPERATION MANUAL( AUTOMATED BLOOD COUNTS AND [...] Normal 80 and above >32 mL/min Normal eGFR Non-Afr. Kittitian 66 # [facility] ([facility] NORMAL RANGES Age WBC RBC HGB HCT [...] HCT IS 5% LESS SOURCE FOR DATA: GüvenRehberi 1800 OPERATION MANUAL( AUTOMATED BLOOD COUNTS AND [...] Normal 80 and above >32 mL/min Normal eGFR 76 # [facility] ( [facility] NORMAL RANGES Age WBC RBC HGB HCT [...] HCT IS 5% LESS SOURCE FOR DATA: GüvenRehberi 1800 OPERATION MANUAL( AUTOMATED BLOOD COUNTS AND [...] Normal 80 and above >32 mL/min Normal ID Date Data Source [id number] 12/07/2020 03:32:00 PM EST [facility] ([facility] Name Value Range Interpretation Code Description Data Blanca rce(s) Supporting Document(s) WBC 4.6 10E3/uL 4.1-10.9 [facility] ([facility] NORMAL RANGES Age WBC RBC HGB HCT [...] HCT IS 5% LESS SOURCE FOR DATA: GüvenRehberi 1800 OPERATION MANUAL( AUTOMATED BLOOD COUNTS AND [...] Normal 80 and above >32 mL/min Normal HGB 13.7 g/dL 12.0-18.0 [facility] NORMAL RANGES Age WBC RBC HGB HCT [...] HCT IS 5% LESS SOURCE FOR DATA: GüvenRehberi 1800 OPERATION MANUAL( AUTOMATED BLOOD COUNTS AND [...] Normal 80 and above >32 mL/min Normal RBC 4.53 10E6/uL 4.20-6.30 [facility] ([facility] NORMAL RANGES Age WBC RBC HGB HCT [...] HCT IS 5% LESS SOURCE FOR DATA: GüvenRehberi 1800 OPERATION MANUAL( AUTOMATED BLOOD COUNTS AND [...] Normal 80 and above >32 mL/min Normal HCT 40.8 % 37.0-51.0 [facility] ([facility] NORMAL RANGES Age WBC RBC HGB HCT [...] HCT IS 5% LESS SOURCE FOR DATA: GüvenRehberi 1800 OPERATION MANUAL( AUTOMATED BLOOD COUNTS AND [...] Normal 80 and above >32 mL/min Normal MCV 90.1 fL 80.0-97.0 [facility] ([facility] NORMAL RANGES Age WBC RBC HGB HCT [...] HCT IS 5% LESS SOURCE FOR DATA: [facility] DYN 1800 OPERATION MANUAL( AUTOMATED BLOOD COUNTS [...] Normal 80 and above >32 mL/min Normal MCH 30.2 pg 26.0-32.0 [facility] ([facility] NORMAL RANGES Age WBC RBC HGB HCT MCV PLT Adult M 4.1-10.9 4.20-6.30 12.0-18.0 37.0-51.0 80-97 140-440 Adult F 4.1-10.9 4.04-5.48 12.0-18.0 37.0-51.0 80- 140-440 0 -1 Yr 5.0-20.0 3.9-5.9 15-18 [...] HCT IS 5% LESS SOURCE FOR DATA: [employer] DYN 1800 OPERATION MANUAL( AUTOMATED BLOOD COUNTS [...] Normal 80 and above >32 mL/min Normal MCHC 33.6 g/dL 31.0-36.0 [facility] ([facility] NORMAL RANGES Age WBC RBC HGB HCT [...] HCT IS 5% LESS SOURCE FOR DATA: GüvenRehberi 1800 OPERATION MANUAL( AUTOMATED BLOOD COUNTS AND [...] Normal 80 and above >32 mL/min Normal PLT 273 10E3/uL 140-440 [facility] ([facility] NORMAL RANGES Age WBC RBC HGB HCT [...] HCT IS 5% LESS SOURCE FOR DATA: GüvenRehberi 1800 OPERATION MANUAL( AUTOMATED BLOOD COUNTS AND [...] Normal 80 and above >32 mL/min Normal RDW-CV 13.3 % 11.5-14.5 [facility] ([facility] NORMAL RANGES Age WBC RBC HGB HCT [...] HCT IS 5% LESS SOURCE FOR DATA: GüvenRehberi 1800 OPERATION MANUAL( AUTOMATED BLOOD COUNTS AND [...] Normal 80 and above >32 mL/min Normal Lym% 22.5 % 10.0-58.5 [facility] ([facility] NORMAL RANGES Age WBC RBC HGB HCT [...] HCT IS 5% LESS SOURCE FOR DATA: GüvenRehberi 1800 OPERATION MANUAL( AUTOMATED BLOOD COUNTS AND [...] Normal 80 and above >32 mL/min Normal MXD% 11.0 % 0.1-24.0 [facility] ([facility] NORMAL RANGES Age WBC RBC HGB HCT [...] HCT IS 5% LESS SOURCE FOR DATA: GüvenRehberi 1800 OPERATION MANUAL( AUTOMATED BLOOD COUNTS AND [...] Normal 80 and above >32 mL/min Normal Neut% 66.5 % 37.0-92.0 [facility] NORMAL RANGES Age WBC RBC HGB HCT [...] HCT IS 5% LESS SOURCE FOR DATA: GüvenRehberi 1800 OPERATION MANUAL( AUTOMATED BLOOD COUNTS AND [...] Normal 80 and above >32 mL/min Normal Lym# 1.0 10E3/uL 0.6-4.1 [facility] ([facility] [place] NORMAL RANGES Age WBC RBC HGB HCT [...] HCT IS 5% LESS SOURCE FOR DATA: GüvenRehberi 1800 OPERATION MANUAL( AUTOMATED BLOOD COUNTS AND [...] Normal 80 and above >32 mL/min Normal Neut# 3.1 % 2.0-7.8 [facility] ([facility] NORMAL RANGES Age WBC RBC HGB HCT [...] HCT IS 5% LESS SOURCE FOR DATA: GüvenRehberi 1800 OPERATION MANUAL( AUTOMATED BLOOD COUNTS AND [...] Normal 80 and above >32 mL/min Normal MXD# 0.5 10E3/uL 0.0-1.8 [employer] ([facility] NORMAL RANGES Age WBC RBC HGB HCT [...] Normal 80 and above >32 mL/min Normal MPV 10.4 fL 9.0-13.0 [facility] ([facility] NORMAL RANGES Age WBC RBC HGB HCT [...] Normal 80 and above >32 mL/min Normal ID Date Data Source [id number] 11/28/2020 12:05:51 AM EST [address] [address] Name: SUGEY MARIEB: 1930Sex: FOrdering Provider: JORDAN Greene Prov: JORDAN Boyce Provider: Procedure Performed: IR THORACENTESIS LOCALIZATION RIGHTExam Date: 11/27/2020 10:14MRN: [id number] Number: [id number] Class: InpatientAccount #: [id number] for Exam: Pleural effusionTechnique: Real-time sonographic images recordedComparison: NoneMaximal sterile barrier technique was used including cap and mask, sterile gloves, and partial sterile body drape. Hand hygiene and skin preparation were done according to the hospital policy and procedure. Procedure: This is a 89-year-old female with a rightpleural effusion. Thoracentesis has been requested. Informed consent was obtained. Risks of the procedure were explained to the patient to include but are not limited to: Bleeding, infection, injury to surrounding vessels or adjacent structures, reaction to medications or products used and pneumothorax. Patient expressed understanding of these risk factors. Ultrasound was used to scan the patient's right lung field posteriorly. A safe site for performing the procedure was chosen. The overlying skin was marked, prepped and draped in usual sterile fashion. A timeout was performed verifying patient identity, procedure to be performed, and laterality. Sterile barrier technique was utilized throughout the procedure. Local anesthesia was obtained with 1% Lidocaine. Under ultrasound guidance with image documentation, a 5-Mosotho catheter was inserted into the right pleural space. There was return of clear yellow fluid through the catheter. The catheter was connected to wall suction and approximately 700 mL of clear yellow fluid was removed. Upon completion of procedure catheter was removed and dressing was applied. A fluid sample sent to lab for analysis. There were no immediate complications noted. Patient tolerated the procedure well. The procedure was performed by Rox YEBOAH under the direct supervision of Dr. Trejo.Impression: Ultrasound-guided right thoracentesis as described above with no acute complication.Report electronically approved by: ROX NARAYANAN On 11/27/2020 10:26 AMThe procedure described above was performed under my supervision and I agree with this reportReport electronically signed by: JORDAN TREJO On 11/28/2020 12:05 AMWorkstation ID: [id number] Name Value Range Interpretation Code Description Data Blanca rce(s) Supporting Document(s) ID Date Data Source [id number] 11/27/2020 11:59:19 PM EST [facility] INFORMATIONPatient MRN Name Date of Age Gend*PT [id number] Sugey Joaquin 1930 89 years F IPPT Location Admission Date/Time Visit ID Attending [id number] 11/25/20 2351 --- --- EPI ID CSN Admitting Provider [id number] Yuan Thomas MD([id number]) Attestation signed by Jordan Trejo MD at 11/27/2020 11:59 PMProcedure performed under my supervision, I agree with above report.Jordan Trejo MD 11/27/2020 11:59 PMDepartment of Interventional Radiology ---------Brief Operative/Invasive Procedure NoteFlorence WhiteDATE OF : 1930MRN # [id number] DATE: 11/27/2020ROVIDER:Rox Narayanan NP 11/27/2020 10:23 AMASSISTANCE(S): NonePROCEDURE:Ultrasound guided right thoracentesis.Drained 700 ml of clear yellowpleural fluid.PRE-PROCEDURE DIAGNOSIS:Right Pleural EffusionPOST PROCEDURE DIAGNOSIS:Right Pleural EffusionANESTHESIA TYPE:local-1% Lidocaine (5cc)DRAINS:NoneSPECIMENS:Fluid sent to lab for analysis.ESTIMATED BLOOD LOSS: MinimalGRAFTS OR IMPLANTS:Non eFINDINGS: Consistent with operative diagnosisCOMPLICATIONS: NoneSee dictated note.Rox Narayanan NPDepartment of Interventional Radiology Name Value Range Interpretation Code Description Data Blanca rce(s) Supporting Document(s) ID Date Data Source [id number] 11/27/2020 03:43:04 PM EST [facility] CenterPATIE NT INFORMATIONPatient MRN Name Date of Age Gend*PT [id number] Sugey Joaquin 1930 89 years F IPPT Location Admission Date/Time Visit ID Attending [id number] 11/25/201 --- Nick Vasquez MD([id number]) EPI ID CSN Admitting Provider [id number] Yuan Thomas MD([id number]) Attestation signed by Nick Vasquez MD at 11/27/2020 3:43 PMI discussed case and reviewed MARLON Monsalve 's note. I agree with thehistory, physical and medical decision making. ------- DISCHARGE SUMMARYFlorenctrice [id number]/dmit date: 11/25/2020dmitting Physician: Yuan Thomas MDDischarge date and time:Discharge Orders Placed(From admission, onward) NoneDischarge Physician: Adrian Woodson, PAAdmission Diagnosis:Suspected cerebrovascular accident (CVA)Secondary Diagnoses:Principal Problem: Suspected cerebrovascular accident (CVA)Active Problems: Essential hypertension Aortic valve disorder Coronary arteriosclerosis Obesity Pure hypercholesterolemia Hypertensive heart disease without heart failure Left arm numbness, complete, acute on chronic x 3 days Left hand weakness, acute on chronic x 3 days Numbness and tingling in left hand Bilateral pleural effusionIndication for Admission:LUE weakness, suspected CVAHistory of presenting illness:Sugey Joaquin is a 89 years old female with a 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 She also reported some brief left-sided chestdiscomfort not associated with exertion as well as some mild shortness ofbreath. In the ED, CT head demonstrated chronic or subacute lacunar infarct inthe right escoto radiata. Patient was evaluated by tele-neurology whorecommended inpatient stroke work-up. Troponin was negative and EKG showed NSRwith first-degree AV block and no acute ischemic changes.. CXR showed smallbilateral pleural effusions. Covid/flu was negative. Medicine was asked toadmit.Hospital Course & Complications:Sugey Joaquin was monitored on the observation unit. She underwent MRI brainand MRA head and neck which was notable for a chronic infarct in the rightputamen (full results included below). Patient was evaluated by neurology, , who felt that findings were chronic and recommended outpatient nerveconduction study/EMG to evaluate for other causes of LUE sensory deficit. CT ofthe chest was obtained due to abnormal CXR and revealed moderate pleuraleffusions right greater than left as well as a 1.1 cm spiculated nodule in theanterior aspect of the right midlung. Patient underwent right thoracentesiswith 700 mL of fluid removed which appeared to be consistent with exudativeeffusion. Cultures and cytology are currently pending. Patient and [facility], were both extensively counseled on need for closefollow-up of pleural fluid analysis and need for further work- up of spiculatednodule. They expressed understanding. Ms. Joaquin also underwent TTE whichshowed preserved LVEF, mild diastolic dysfunction, mild aortic stenosis, and nowall motion abnormalities. Serial cardiac enzymes were negative. Patient hadno chest discomfort throughout her stay. Her vital signs remained stable. Shewas advised to follow-up closely with her automatic chief in [place] to discussfurther cardiac work-up and management. Patient is feeling well and isagreeable to discharge. All findings and recommendations were relayed to [facility]. All questions have been answered to their satisfaction.Consultations:Neurology Dr. Rawls discharge instructions:1. Follow-up with PCP in 7-10 days for results of pleural fluid analysis2. Discuss work-up of spiculated right lung nodule pending pleural fluidcytology3. Discuss referral to [facility] for nerve conduction study4. Follow-up with cardiology in 1-2 weeks to discuss further cardiacmanagement.PAST MEDICAL HISTORY:Past Medical History:Diagnosis Date HypertensionPast Surgical History:Procedure Laterality Date BREAST SURGERY HYSTERECTOMYPHYSICAL EXAMVital Signs: Temp: [98.2 F-98.7 F] 98.7 FHeart Rate: [68-83] 75Resp: [12-18] 12BP: (120-172)/(64-90) 150/85I/O:Intake/Output Summary (Last 24 hours) at 11/27/2020 1314Last data filed at 11/27/2020 1000Gross per 24 hourIntake Output 700 mlNet -700 mlPhysical ExamConstitutional: She is oriented to person, place, and time. She appearswell-developed. No distress.Pleasant and conversantHENT:Head: Normocephalic and atraumatic.Mouth/Throat: Oropharynx is clear and moist.Eyes: Conjunctivae and EOM are normal.Neck: Normal range of motion.Cardiovascular: Normal rate, regular rhythm and intact distal pulses.Murmur heard. Systolic murmur is present.Pulmonary/Chest: Effort normal and breath sounds normal. No respiratorydistress. She has no wheezes.Breath sounds diminished at bases, but patient is breathing comfortably andspeaking in full sentences on room airAbdominal: Soft. Bowel sounds are normal. She exhibits no distension. There isno tenderness. There is no rebound and no guarding.Neurological: She is alert and oriented to person, place, and time.LUE strength 4/5, RUE strength 5/5. 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.No facial droop and no slurred speechSkin: Skin is warm and dry.Psychiatric: She has a normal mood and affect.Significant Labs:Recent Labs 11/27/2110NA 139 141K 3.2* 3.9CL 103 105CO2 28 27ANIONGAP 8 9GLU 114* 94BUN 20 22CREATININE 0.86 0.76GFRAA >60 >60GFRNONAA >60 >60CALCIUM 9.5 9.2ALKPHOS 79 --ALT 14 --AST 13 --ALBUMIN 3.8 --Results from last 7 daysLab Units 11/25/2117WBC 10*3/uL 3.7* 5.2HEMOGLOBIN g/dL 13.0 14.0HEMATOCRIT % 37.5 40.7PLATELETS 10*3/uL 224 247Cardiac:Lab ResultsComponent Value Date TROPONINI <0.05 11/26/2020 POCTROP 0.01 11/26/2020 POCTROP <0.01 (L) 11/25/2020 PROBNP 228 11/27/2020oags:Lab ResultsComponent Value Date PROTIME 9.9 11/25/2020 INR 0.94 11/25/2020 APTT 24.6 11/25/2020HgbA1c:Lab ResultsComponent Value Date HGBA1C 5.6 11/25/2020Magnesium:Lab ResultsComponent Value Date MG 2.0 11/27/2020Imaging and Procedures:CXR:IMPRESSION:Small bilateral pleural effusions with probable basilar compressive atelectasisbut minimal pneumonia not excluded and clinical correlation is recommended.CT head:FINDINGS:Brain: Bilateral basal ganglia low densities some appear chronic however therecould be subacute lacunar infarcts. Right escoto radiata chronic or subacutelacunar infarct.No obvious acute loss of meraz-white matter differentiation. Noevidence of acute intracranial hemorrhage.Cerebral ventricles: No ventriculomegaly.Bones/joints: Unremarkable. No acute fracture.Paranasal sinuses: Visualized sinuses are unremarkable. No fluid levels.Mastoid air cells: Visualized mastoid air cells are well aerated.Soft tissues: Unremarkable.IMPRESSION:1. Bilateral basal ganglia low densities some appear chronic however therecould be subacute lacunar infarcts. Right escoto radiata chronic or subacutelacunar infarct.2. No obvious acute large vessel infarct or acute intracranial hemorrhage.MRI brain:INDINGS:Brain: There is no abnormal diffusion weighted signal intensity to suggest anacute ischemic event. There is moderate atrophy and chronic white mattermicroangiopathic changes. Focal 13 mm chronic infarct extending superiorly fromthe right putamen is seen on axial image 5:18 and 8:16. It is not as sharplydefined on CT as a typical chronic lacunar infarct and could be late subacutegiven the absence of DWI signal.Cerebral ventricles: There is compensatory ventricular dilation.Bones/joints: Unremarkable.Paranasal sinuses: Normal as visualized. No acute sinusitis.Mastoid air cells: Normal as visualized. No mastoid effusion.Orbits: Unremarkable.Soft tissues: Unremarkable.Other findings: There is no abnormal suceptibility to suggest h emorrhage.IMPRESSION:1. Focal 13 mm chronic infarct extending superiorly from the right putamen isseen on axial image 5:18 and 8:16. It is not as sharply defined on CT as atypical chronic lacunar infarct and could be late subacute given the absence ofDWI signal.2. No acute intracranial process is identified.MRA brain:ANTERIOR CIRCULATION:Right internal carotid artery: Intracranial segment is patent with nosignificant stenosis. No aneurysm.Right middle cerebral artery: No occlusion or significant stenosis. Noaneurysm.Right anterior cerebral artery: No occlusion or significant stenosis. Noaneurysm.Left internal carotid artery: Intracranial segment is patent with nosignificant stenosis. No aneurysm.Left middle cerebral artery: There is apparent stenosis of the more superior X5rxxllg of the left middle cerebral artery on the rotational views in the planeof axial image 75. This is not confidently identified on the source images andmay reflect a slab saturation artifact given the change in background signal atthis level.Left anterior cerebral artery: No occlusion or significant stenosis. Noaneurysm.POSTERIOR CIRCULATION:Right vertebral artery: No occlusion or significant stenosis. No aneurysm.Left vertebral artery: No occlusion or significant stenosis. No aneurysm.Basilar artery: No occlusion or significant stenosis. No aneurysm.Right posterior cerebral artery: There is origin of the right posteriorcerebral artery. There is a codominant right P1.Left posterior cerebral artery: There is origin of the left posteriorcerebral artery. There is a codominant left P1.Other vasculature: The A 1 segment of the left anterior cerebral artery is thedominant supply of the bilateral anterior cerebral circulationIMPRESSION:1. There is origin of the right posterior cerebral artery. There is acodominant right P1.2. There is origin of the left posterior cerebral artery. There is acodominant left P1.3. There is apparent stenosis of the more superior M2 branch of the left middlecerebral artery on the rotational views in the plane of axial image 75. This isnot confidently identified on the source images and may reflect a slabsaturation artifact given the change in background signal at this level.MRA neck:IMPRESSION:No stenosis or occlusion.CT chest:Findings: Moderate pleural effusions right greater than left.Small hiatal hernia.Severe aortic valvular calcification and moderate coronary artery calcification.No significant thoracic aortic aneurysm appreciated.Enlarged heterogeneous right lobe thyroid extending substernal.There is right hilar and paratracheal adenopathy. Largest discrete node righthilar 1.4 cm in diameter. Some of the lymph nodes do demonstrate calcification.There are calcified granulomata in the liver and spleen. No acute abnormalityseen in the upper abdomen.There is calcified adenopathy right axilla.There is mild dependent atelectasis.There is a 1.1 cm spiculated nodular opacity medial anterior aspect right midhemithorax along the minor fissure.No pulmonary edema or acute airspace consolidation is seen.There is a tiny 4 mm triangular nodular opacity left upper lobe image 53. Thereis a small calcified granuloma left upper lobe image 47.IMPRESSION: Moderate pleural effusions right greater than left. They do appearlarge enough for thoracentesis, if required.There is a 1.1 cm spiculated nodule anterior aspect right midlung. A malignancyis not excluded.There is evidence prior granulomatous disease.There is severe aortic valvular and moderate coronary artery calcification.There is a multinodular goiter extending substernal with asymmetric enlargementof the right lobe.TTE:Interpretation SummaryNormal left ventricular systolic function with an estimated LVEF of 60%. Mildconcentric left ventricular hypertrophy with grade I diastolic dysfunction.Normal right ventricular systolic function and size.The left atrium appears mildly dilated.Mild aortic stenosis with a calculated aortic valve area of 1.4 cm2. The peakgradient across the aortic valve is 35 mmHg with a mean gradient of 18 mmHg.The mitral valve leaflets appear mildly thickened and mildly calcified. Thereis mild calcification of the mitral valve annulus. Mild mitral insufficiency.Mild tricuspid insufficiency with the resting pulmonary artery pressures mildlyelevated.Echocardiographic FindingsLeft Ventricle The left ventricular cavity is normal. Normal (55-65%) ejectionfraction. Wall motion is normal. Grade I (mild) left ventricular diastolicdysfunction consistent with impaired relaxation. mild concentric leftventricular hypertrophy observed.Right Ventricle The right ventricle is normal. There is normal wall thickness.Wall motion normal. Normal septal motion.Left Atrium The left atrium is mildly dilated. Volume is mildly increased.Right Atrium The right atrium is normal in size. Volume appears normal.IVC/SVC Inferior vena cava is normal.Mitral Valve There is mild valve leaflet thickening. There is mild valve leafletcalcification. There is mild mitral annular calcification. No stenosis. Mildregurgitation.Tricuspid Valve The tricuspid valve is normal. No stenosis. Mild regurgitation.Mild pulmonary hypertension present.Aortic Valve There is moderate focal calcification with reduced excursion of theaortic valve present. The aortic valve is mildly sclerotic with reducedexcursion. Mild stenosis. No aortic insufficiency is present.Pulmonic Valve The pulmonic valve was not well visualized. No stenosis. Traceregurgitation.Ascending Aorta Normal aortic root, size and contour. no aneurysm is present. Nograft present.Pericardium Pericardium is normal. No pericardial effusion.Right thoracentesis:PROCEDU RE:Ultrasound guided right thoracentesis.Drained 700 ml of clear yellowpleural fluid.PRE-PROCEDURE DIAGNOSIS:Right Pleural EffusionPOST PROCEDURE DIAGNOSIS:Right Pleural EffusionANESTHESIA TYPE:local-1% Lidocaine (5cc)DRAINS:NoneSPECIMENS:Fluid sent to lab for analysis.ESTIMATED BLOOD LOSS: MinimalGRAFTS OR IMPLANTS:NoneFINDINGS: Consistent with operative diagnosisCOMPLICATIONS: NoneDischarged Condition:stableDisposition:Home or Self CareDischarge Instructions:An After Visit Summary was printed and given to the patient.Your medication listASK your doctor about these medications Instructions Last Dose Given Morning Afternoon Evening Bedtime As Neededaspirin EC 81 MG EC tablet Take 81 mg by mouth dailybeta carotene w/ C and E mineral tablet Take 1 tablet by mouth dailyCALCIUM 1200 PO Take 1 tablet by mouth dailycholecalciferol 25 MCG (1000 UT) capsuleCommonly known as: VITAMIN D3 Take 1,000 Units by mouth dailyGinkgo Biloba 40 MG Tabs Take 1 tablet by mouth dailylisinopril-hydrochlorothiazide 20-25 MG per tabletCommonly known as: PRINZIDE,ZESTORETIC Take 1 tablet by mouth dailyMagnesium Oxide 400 MG tabletCommonly known as: MAG-OX Take 400 mg by mouth dailyOMEGA-3 KRILL OIL PO Take 1 tablet by mouth dailyomeprazole 40 MG capsuleCommonly known as: PriLOSEC Take 40 mg by mouth daily as needed (reflux)polyvinyl alcohol 1.4 % ophthalmic solutionCommonly known as: LIQUIFILM TEARS Administer 1 drop to both eyes as needed for dry eyesrosuvastatin 5 MG tabletCommonly known as: CRESTOR Take 5 mg by mouth dailyvitamin C 1000 MG tablet Take 1,000 mg by mouth dailyvitamin E 400 UNIT capsule Take 400 Units by mouth dailyDiscussed assessment and plan with Dr. Vasquez who is in agreement.Total time spent for discharge was: greater than 30 minutesSignature: Ernst Monsalve: November 27, 2020Time: 1:14 PM Name Value Range Interpretation Code Description Data Blanca rce(s) Supporting Document(s) ID Date Data Source [id number] 11/28/2020 09:31:33 AM EST [facility] Name Value Range Interpretation Code Description Data Blanca rce(s) Supporting Document(s) CHOLESTEROL @ 152 mg/dL (0-200) [facility] TRIGLYCERIDE @ 92 mg/dL (30-200) [facility] HDL CHOLESTEROL @ 55 mg/dL (>40) [facility] PER NCEP ATP III GUIDELINES:RESULTS LOWE R THAN 40 MG/DL ARE SUGGESTIVEOF INCREASED RISK FOR CORONARY ARTERYDISEASE. RESULTS > OR = TO 60 MG/DL ARECONSIDERED A NEGATIVE RISK FACTOR. CHOL/HDL RATIO 2.8 RATIO [facility] INTERPRETATION OF CHOL-HDL RATIO CHD RISK FEMALE MALEVERY HIGH >8.3 >14.3HIGH 5.6- 8.3 6.7- 14.3AVERAGE 3.7- 5.6 4.0- 6.7BELOW AVERAGE 2.5- 3.7 2.7- 4.0PROTECTED <2.5 <2.7 LDL CHOL (CALC) 79 mg/dL (<130) [facility] PER NCEP ATP III GUIDELINES: OPTIMAL < 100 NEAR OPTIMAL 100 - 129BORDERLINE HIGH 130 - 159 HIGH 160 - 189 VERY HIGH > 189 ID Date Data Source [id number] 11/27/2020 12:31:38 PM EST [facility] Name Value Range Interpretation Code Description Data Blanca rce(s) Supporting Document(s) NT PRO BNP 228 pg/mL (0-450) [facility] ID Date Data Source [id number] 11/27/2020 12:31:38 PM EST [facility] Name Value Range Interpretation Code Description Data Blanca rce(s) Supporting Document(s) MAGNESIUM 2.0 mg/dL (1.7-2.4) [facility] ID Date Data Source [id number] 11/27/2020 12:31:38 PM EST [facility] Name Value Range Interpretation Code Description Data Blanca rce(s) Supporting Document(s) SODIUM 141 mmol/L (136-145) [facility] POTASSIUM 3.9 mmol/L (3.6-5.2) [facility] CHLORIDE 105 mmol/L (100-108) [facility] CO2 27 mmol/L (22-31) [facility] ANION GAP 9 mmol/L (7-16) [facility] UREA NITROGEN 22 mg/dL (7-24) [facility] CREATININE 0.76 mg/dL (0.60-1.00) [facility] BUN/CREAT RATIO 28.9 RATIO (10.0-20.0) H [facility] GLUCOSE 94 mg/dL (70-99) [facility] CALCIUM 9.2 mg/dL (8.4-10.2) [facility] GFR >60 ml/min/1.73m2 (>59) [facility] GFR ( AMER) >60 ml/min/1.73m2 (>59) [facility] GFR INTERPRETATION [facility] --NORMAL KIDNEY FUNCTION OR MILD DISEASE - GFR >OR= 60CHRONIC KIDNEY DISEASE - GFR 15 - 59RENAL FAILURE - GFR <15 Est. GFR calculation based on the MDRDstudy equation, which assumes a steadystate for creatinine. Est. GFR should notbe used for medication dosing. ID Date Data Source [id number] 11/27/2020 12:00:41 PM EST [facility] Name Value Range Interpretation Code Description Data Blanca rce(s) Supporting Document(s) WBC 3.7 10*3/uL (4.1-11.0) L [facility] RBC 4.31 10*6/uL (4.00-5.40) [facility] HGB 13.0 g/dL (12.0-16.0) [facility] HCT 37.5 % (36.0-47.0) [facility] MCV 86.9 fL (80.0-95.0) [facility] MCH 30.1 pg (27.0-32.0) [facility] MCHC 34.7 g/dL (32.0-36.0) [facility] RDW 14.5 % (10.5-14.5) [facility] PLT 224 10*3/uL (150-450) [facility] MPV 8.0 fL (7.1-10.7) [facility] ID Date Data Source [id number] 11/27/2020 10:29:16 AM EST [facility] Name Value Range Interpretation Code Description Data Blanca rce(s) Supporting Document(s) &PDF [facility] TMZUUd5yQnWNVqIr85/VHZruHMJmi0RyKXvoJMn8CEmbQIIeJ4NkaGfrUYvTXQNGVXDZP4KYLvIUAD4r oRX AuJdSFpRU5CS4cENHjicIgtiP6tK3jAE1GXTI+Wb6BRH4av5MfJTc8INOxr2WcMVcvLMv3Y4PhgRUehh LjKqzlvLZLYQLhSPHnV2ougnc2oQXkYBBxTq7FLwQoc9TeUQIsWBzDfg0vR6/bRhZ+X2D/M1ROMzfrfi L3PkxIoDIyE3vmiUOMTH7dNTpP9DDQA5Nj38+/FIe0 5N1Mx5rPNULmBR/WKWfO/UshHgWl1Z+/HggsnFOe0c/yDkes85oNwY//a0zg0yl7e+4/nhBSl8VwzO0l k5ZenStYUYoD4WiYG8e1iGaciMKcTkKxCbNJ1/36xw6n8tfPzyglg7wEXUp3RDx2oc6hp9NHY3k8/rXT +7XahhcVXntx0L24hYvNvtpbI1EacwdkDItglsn5Fb [file] Z9yOMvIl2YHuG6RDNGNjOhIH2NQYc= ID Date Data Source [id number] 01/01/2021 12:08:37 PM EST [facility] SPECIMEN DESCRIPTION PLEURAL FLUI D RSPECIAL REQUESTS NONECULTURE RESULTS NO FUNGUS ISOLATED AFTER 5 WEEKSREPORT STATUS FINAL 01/01/2021 Name Value Range Interpretation Code Description Data Blanca rce(s) Supporting Document(s) ID Date Data Source [id number] 12/05/2020 03:51:18 PM EST [facility] Name Value Range Interpretation Code Description Data Blanca rce(s) Supporting Document(s) COLOR [facility] APPEAR [facility] RBC (0) [facility] TOTAL NUCLEATED CNT 1718 /uL (0-1000) H [facility] NEUT % 1 % (0-25) [facility] LYMPH % 68 % [facility] MONO/HISTIO % 23 % [facility] MESOTHELIAL CELLS % 5 % [facility] OTHER % 3 % [facility] COMMENT [facility] SCATTERED CELLS SUSPICIOUS FOR MALIGNANC Y. SEE CYTOLOGY CASE NUMBER [id number] [address] .. PERFORMED AT [address] [place] [id number] ID Date Data Source [id number] 12/02/2020 08:53:55 AM EST [facility] SPECIMEN DESCRIPTION PLEURAL FLUI D RSPECIAL REQUESTS NONECULTURE RESULTS NO ANAEROBES ISOLATED AFTER 5 DAYSREPORT STATUS FINAL 12/02/2020 Name Value Range Interpretation Code Description Data Blanca rce(s) Supporting Document(s) ID Date Data Source [id number] 12/02/2020 08:53:40 AM EST [facility] SPECIMEN DESCRIPTION PLEURAL FLUI D RSPECIAL REQUESTS NONEGRAM STAIN FEW (<10/LPF) WHITE BLOOD CELLS NO BACTERIACULTURE RESULTS NO GROWTH 5 DAYSREPORT STATUS FINAL 12/02/2020 Name Value Range Interpretation Code Description Data Blanca rce(s) Supporting Document(s) ID Date Data Source [id number] 11/27/2020 12:53:50 PM EST [facility] Name Value Range Interpretation Code Description Data Blanca rce(s) Supporting Document(s) FLUID TOTAL PROTEIN 4.2 g/dL [facility] FOR PLEURAL AND PERCARDIAL FLUID: <50% O F SERUM PROTEIN INDICATES TRANSUDATE >50% OF SERUM PROTEIN INDICATES EXUDATE ID Date Data Source [id number] 11/27/2020 12:53:50 PM EST [facility] Name Value Range Interpretation Code Description Data Blanca rce(s) Supporting Document(s) FLUID AMYLASE 34 U/L [facility] ID Date Data Source [id number] 11/27/2020 12:53:50 PM EST [facility] Name Value Range Interpretation Code Description Data Blanca rce(s) Supporting Document(s) FLUID GLUCOSE 97 mg/dL [facility] ID Date Data Source [id number] 11/27/2020 12:53:50 PM EST [facility] Name Value Range Interpretation Code Description Data Blanca rce(s) Supporting Document(s) FLUID LDH 123 U/L [facility] FOR PLEURAL AND PERICARDIAL FLUID:<60% O F SERUM LD REPRESENTS TRANSUDATE>60% OF SERUM LD REPRESENTS EXUDATE ID Date Data Source [id number] 11/27/2020 12:49:20 PM EST [facility] Name Value Range Interpretation Code Description Data Blanca rce(s) Supporting Document(s) FLUID SG 1.025 [facility] ID Date Data Source [id number] 11/27/2020 12:02:30 PM EST [facility] Name Value Range Interpretation Code Description Data Blanca rce(s) Supporting Document(s) FLUID SOURCE [facility] R ID Date Data Source [id number] 11/27/2020 10:33:19 AM EST [facility] Name Value Range Interpretation Code Description Data Blanac rce(s) Supporting Document(s) PLEURAL FLD PH 7.52 [facility] ID Date Data Source [id number] 12/02/2020 06:45:59 PM EST [place], [place] [address]Tel# MISCELLANEOUS CYTOLOGY REPORTAccession Number: [id number] of Specimen(s): A: Pleural Fluid RightClinical Diagnosis and History: Gross DescriptionRight Pleural Fluid: 20 cc of cloudy larisa fluid with 2 slides received Final DiagnosisSpecimen AdequacySatisfactoryFinal DiagnosisPOSITIVE FOR MALIGNANCY Malignant cells present, consistent with adenocarcinoma of breast origin,see comments.Comments:According to the electronic medical record the patient has a history ofbreast cancer. The slides and cell block contain scattered groups ofmalignant cells with moderately pleomorphic nuclei, occasional nucleoli,and a small amount of cytoplasm. The malignant cells are positive forGATA3, while negative for CK7, CK20, TTF-1, PAX8, WT1, and calretinin. Iliana positive (90%, strong staining), PA is positive (40%, strong staining),and HER2 is negative (score 0). The morphology and immunoprofile areconsistent with a breast primary. One other pathologist reviewed thiscase and concurs with the diagnosis. The findings were discussed with Dr.Scott Oliver on December 02, at 0945 hours.Processed and screened at [facility],Cytology, [address] [place] [address], [id number].As applicable, positive and negative controls for all immunohistochemicaland/or special stains were reviewed and considered appropriate. Reported: 12/02/2020Electronically Signed Out By Samy Landa MDMohawk [facility] Center PatholoCytotechnologist: Isaura Wagner CT(ASCP)[facility]bcICD code: J90CPT code: A: 51042D, 56092V, 12919i, 23504(6), 90126T, 53347T, 29299P Name Value Range Interpretation Code Description Data Blanca rce(s) Supporting Document(s) ID Date Data Source [id number] 11/26/2020 02:26:25 PM EST [facility] CenterPAT[facility] NT INFORMATIONPatient MRN Name Date of Age Gend*PT [id number] Sugey Joaquin 1930 89 years F OBSPT Location Admission Date/Time Visit ID Attending [id number] 11/25/20 2351 --- Nick Vasquez MD([id number]) EPI ID CSN Admitting Provider [id number] Yuan Thomas MD([id number])NeurologyInpatient Consult NoteFlorence EmaniMRN: [id number] of stay: 0Reason for consult: Neurology was consulted by Dr. Nick Vasquez MD to evaluateFljoi Joaquin for worsening left hand numbness and tingling. 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 Patient states that in February 2020she had a CVA and [place] went to [place] with ischemicinfarct. She has a residual left hemiparesis with left hemisensory deficit butfor 2 days she has noticed increased numbness and tingling in her left hand.Denies any new focal weakness, dysarthria, blurred vision, double vision, ataxiaor dysphagia. She had MRI brain on my review it looks like chronic lacunarinfarct in the right coronary radiata hypoattenuation seen on CAT scan at samelocation. 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 Currently patient onaspirin and statin therapy.Labs, Imaging and Other Diagnostics:IMAGING:MRI brain on my review it looks like chronic lacunar infarct in the rightcoronary radiata hypoattenuation seen on CAT scan at same location. 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.Past Medical History:Diagnosis Date HypertensionPast Surgical History:Procedure Laterality Date BREAST SURGERY HYSTERECTOMYSocial HistorySocioeconomic History Marital status: Spouse name: Not on file Number of children: Not on file Years of education: Not on file Highest education level: Not on fileOccupational History Not on fileSocial Needs Financial resource strain: Not on file Food insecurity: Worry: Not on file Inability: Not on file Transportation needs: Medical: Not on file Non-medical: Not on fileTobacco Use Smoking status: Never Smoker Smokeless tobacco: Never UsedSubstance and Sexual Activity Alcohol use: Never Frequency: Never Drug use: Never Sexual activity: Not on fileLifestyle Physical activity: Days per week: Not on file Minutes per session: Not on file Stress: Not on fileRelationships Social connections: Talks on phone: Not on file Gets together: Not on file Attends rastafarian service: Not on file Active member of club or organization: Not on file Attends meetings of clubs or organizations: Not on file Relationship status: Not on file Intimate partner violence: Fear of current or ex partner: Not on file Emo tionally abused: Not on file Physically abused: Not on file Forced sexual activity: Not on fileOther Topics Concern Not on fileSocial History Narrative Not on fileHistory reviewed. No pertinent family history.MEDICATIONS: aspirin EC 81 mg Oral Daily heparin (porcine) 5,000 Units Subcutaneous Q12H POOJA lisinopril-hydrochlorothiazide 1 tablet Oral Daily Magnesium Oxide 400 mg Oral Daily pantoprazole 40 mg Oral Daily rosuvastatin 5 mg Oral DailyAllergiesAllergen Reactions Hydrocodone Other (See Comments) unknown Lipitor [Atorvastatin] Other (See Comments) myalgia Oxycodone Other (See Comments) unknown Antihistamines, Diphenhydramine-Type PalpitationsROS: A 14-point ROS was obtained and otherwise negative except for what wasmentioned in the HPI.Physical Exam:Vitals: 11/26/20 0109 11/26/20 0218 11/26/20 0603 11/26/20 1131BP: 199/90 180/82 150/72 144/77BP Location: Left upper arm Left upper armPatient Position: Lying LyingPulse: 75 76 94Resp: 18 18Temp: 97.6 FTempSrc: TympanicSpO2: 97% 98% 97%Weight:Height:General: well nourished, well developed. Alert, cooperative, no apparentdistress, appears stated age.Head: normocephalic, without obvious abnormalityEyes: conjunctivae/corneas clearNeck: supple, symmetrical. No carotid bruit. No lymphadenopathy.Lungs: clear to auscultation bilaterally, non-laboredCV: regular rhythm, S1, S2 normal, radial pulses palpableExtremities: normal range of motion with no cyanosis.Skin: no skin lesions or lacerationsPsych: affect-broad and normal mood. Easy to es tablish rapport.Neurological examination:Mental status: awake; alert and oriented to person, place, time, & generalcircumstances; speech & language including expression, naming, repetition, &comprehension were assessed and found to be normal.Cranial nerves:I: not testedII, III, IV, : normal confrontation B/L, Pupils midrange and reactive tolight, normal consensual response; extraocular muscles are intact; no ptosis; noconjugate or asymmetrical nystagmusV 1/2/3: sensation is intact on forehead, cheeks, and jaw regionVII: Mild left facial droopVIII: able to hear throughout the history processIX & X: symmetric palatal elevationXI: normal strength against resistanceXII: tongue is symmetrical & midline with no atrophy or fasciculationsMotor (R/L): no abnormal movements, no pronator drift. Normal bulk and tonethroughout. No fasciculations.Motor strength: Right upper extremity 5/5, Right lower extremity 5/5, Left upperextremity 4 /5, left lower extremity 4 /5Reflexes R LBrachio radialis 2+ 2+Biceps 2+ 2+Triceps 2+ 2+Patella 2+ 2+Ankle absent absentPlantar flexor flexorSensation decreased pinprick and light touch to left upper and lower extremitycoordination: normal finger to nose and rapid alternating movements.Gait & Station: DeferredAssessment:Worsening left hand numbness or tingling in 89-year-old female with history ofischemic infarct in February 2020 with residual left hemiparesis and hemisensorydeficit. Her sensory deficit is not particularly in the median nervedistribution but I would like to have a NCS/EMG to rule it out(difficult examdue to prior stroke). MRI brain ruled out acute infarct. On my review MRIfindings suggestive of old infarct in the right coronary radiataRecommendations:Continue aspirin and statin therapyCheck lipid panel and Q1bXjjcistfzqw per protocolNCS/EMG as outpatientDVT prophylaxisNeurology signing off call us if you have any questionSKRISTINA Dykesate: November 26, 2020Time: 2:14 PM Name Value Range Interpretation Code Description Data Blanca rce(s) Supporting Document(s) ID Date Data Source [id number] 11/26/2020 01:19:[address] [address]Eygmndz Name: SUGEY JOAQUINB: 1930Sex: FOrdering Provider: YUAN Villanueva Prov: YUAN Kapoor Provider: Procedure Performed: CT CHEST WO CONTRASTExam Date: 11/26/2020 13:10MRN: [id number] Number: [id number] Class: OutpatientAccount #: [id number] for Exam: new unexplained pleural effusionTechnique: Helical axial images were obtained without IV contrast.One or more of the following dose reduction techniqueswere utilized; automated exposure control, dose modulation, technique adjustment b ased on patient size and iterativereconstruction algorithms. Multiplanar reconstructions were created and reviewed.Comparison: NoneFindings: Moderate pleural effusions right greater than left.Small hiatal hernia.Severe aortic valvular calcification and moderate coronary artery calcification.No significant thoracic aortic aneurysm appreciated.Enlarged heterogeneous right lobe thyroid extending substernal.There is right hilar and paratracheal adenopathy. Largest discrete node right hilar 1.4 cm in diameter. Some of the lymph nodes do demonstrate calcification.There are calcified granulomata in the liver and spleen. No acute abnormality seen in the upper abdomen.There is calcified adenopathy right axilla.There is mild dependent atelectasis. There is a 1.1 cm spiculated nodular opacity medial anterior aspect right mid hemithorax along the minor fissure. No pulmonary edema or acute airspace consolidation is seen. There is a tiny 4 mm triangular nodular opacity left upper lobe image 53. There is a s mall calcified granuloma left upper lobe image 47.IMPRESSION: Moderate pleural effusions right greater than left. They do appear large enough for thoracentesis, if required.There is a 1.1 cm spiculated nodule anterior aspect right midlung. A malignancy is not excluded.There is evidence prior granulomatous disease.There is severe aortic valvular and moderate coronary artery calcification.There is a multinodular goiter extending substernal with asymmetric enlargement of the right lobe.Report electronically signed by: JIN COVINGTON On 11/26/2020 1:19 PMWorkstation ID: [id number] Name Value Range Interpretation Code Description Data Blanca rce(s) Supporting Document(s) ID Date Data Source [id number] 11/26/2020 11:46:25 AM EST [facility] Name Value Range Interpretation Code Description Data Blanca rce(s) Supporting Document(s) EKG [facility] [id number]mpxu4H2T7jSTbS4FxqXHuq2tsT9UyZ6KwFTNdGPPDPN3XwMEn jb2 [file] [facility]/nlO198hM7mnH+FG4kFPUBBZ3JmdEyuHGHTqzGw [file] [id number]/TRAFFIC PERSONNEL SUPERVISOR+VJRF27upoehHCo8ysMU7TkWYRT1gfE8gmLNC [file] HpMfyVUv4Rs9NnckH4giIyHhZ2XYw6RgZmZO5D ID Date Data Source [id number] 11/26/2020 10:25:48 AM EST [address] [address]Rkzuzke Name: Sugey MarieB: 1930Sex: FOrdering Provider: YUAN Navazing Prov: YUAN Kapoor Provider: Procedure Performed: MRA NECK WO CONTRASTExam Date: 11/26/2020 09:34MRN: [id number] Number: [id number] Class: INFORMATION: Exam: MR Angiography Neck Without Contrast Exam date and time: 11/26/2020 9:34 AM Age: 89 years old Clinical indication: Dizziness and giddiness; Additional info: Acute on chronic left arm numbness whole arm distribution and left hand weakness accute on chronic HX CVA 02/2020 now worse TECHNIQUE: Imaging protocol: Magnetic resonance angiography of the neck without contrast. 3D rendering (Not supervised by radiologist): MIP and/or 3D reconstructed images were created by the technologist. COMPARISON: MRA BRAIN WO CONTRAST 11/26/2020 9:33 AM FINDINGS: Right common carotid artery: No stenosis. No dissection or occlusion. Right internal carotid artery: No stenosis of the extracranial segment. No dissection or occlusion. Right external carotid artery: No stenosis. No dissection or occlusion of the origin. Right vertebral artery: No stenosis. No dissection or occlusion. Left common carotid artery: No stenosis. No dissection or occlusion. Left internal carotid artery: No stenosis of the extracranial segment. No dissection or occlusion. Left external carotid artery: No stenosis. No dissection or occlusion of the origin. Left vertebral artery: No stenosis. No dissection or occlusion. IMPRESSION: No stenosis or occlusion. REFERENCES: NASCET CRITERIA. The degree of internal carotid artery stenosis is based on NASCET criteria. Normal is no stenosis. Mild is less than 50% stenosis. Moderate is 50-69% stenosis. Severe is 70% to 99% stenosis. Total occlusion is no detectable patent lumen. Report electronically signed by: BENJAMIN BOWEN MD on 11/26/2020 10:25:48 Name Value Range Interpretation Code Description Data Blanca rce(s) Supporting Document(s) ID Date Data Source [id number] 11/26/2020 10:23:08 AM EST [address] [id number] Name: Sugey MarieB: 1930Sex: FOrdering Provider: RICK Ramesh Prov: RICK Sen Provider: Procedure Performed: MRI BRAIN WO CONTRASTExam Date: 11/26/2020 09:34MRN: [id number] Number: [id number] Class: INFORMATION: Exam: MR Head Without Contrast Exam date and time: 11/26/2020 9:34 AM Age: 89 years old Clinical indication: Dizziness; Additional info: Focal neuro deficit, > 6 hrs, stroke suspected TECHNIQUE: Imaging protocol: MR of the head without contrast. COMPARISON: MRA BRAIN WO CONTRAST 11/26/2020 9:33 AM FINDINGS: Brain: There is no abnormal diffusion weighted signal intensity to suggest an acute ischemic event. There is moderate atrophy and chronic white matter microangiopathic changes. Focal 13 mm chronic infarct extending superiorly from the right putamen is seen on axial image 5:18 and 8:16. It is not as sharply defined on CT as a typical chronic lacunar infarct and could be late subacute given the absence of DWI signal. Cerebral ventricles: There is compensatory ventricular dilation. Bones/joints: Unremarkable. Paranasal sinuses: Normal as visualized. No acute sinusitis. Mastoid air cells: Normal as visualized. No mastoid effusion. Orbits: Unremarkable. Soft tissues: Unremarkable. Other findings: There is no abnormal suceptibility to suggest hemorrhage. IMPRESSION: 1. Focal 13 mm chronic infarct extending superiorly from the right putamen is seen on axial image 5:18 and 8:16. It is not as sharply defined on CT as a typical chronic lacunar infarct and could be late subacute given the absence of DWI signal. 2. No acute intracranial process is identified. Report electronically signed by: BENJAMIN BOWEN MD on 11/26/2020 10:23:08 Name Value Range Interpretation Code Description Data Blanca rce(s) Supporting Document(s) ID Date Data Source [id number] 11/26/2020 10:18:[address] [id number] Name: Sugey MarieB: 1930Sex: FOrdering Provider: RICK PARMARAuthorinelda Prov: RICK Sen Provider: Procedure Performed: MRA BRAIN WO CONTRASTExam Date: 11/26/2020 09:34MRN: [id number] Number: [id number] Class: INFORMATION: Exam: MR Angiogram Head Without Contrast, Arteries Exam date and time: 11/26/2020 9:34 AM Age: 89 years old Clinical indication: Dizziness and giddiness; Additional info: Stroke, follow up TECHNIQUE: Imaging protocol: MR angiogram head without contrast. Exam focused on the arteries. COMPARISON: CT HEAD WO CONTRAST 11/26/2020 2:04 AM FINDINGS: ANTERIOR CIRCULATION: Right internal carotid artery: Intracranial segment is patent with no significant stenosis. No aneurysm. Right middle cerebral artery: No occlusion or significant stenosis. No aneurysm. Right anterior cerebral artery: No occlusion or significant stenosis. No aneurysm. Left internal carotid artery: Intracranial segment is patent with no significant stenosis. No aneurysm. Left middle cerebral artery: There is apparent stenosis of the more superior M2 branch of the left middle cerebral artery on the rotational views in the plane of axial image 75. This is not confidently identified on the source images and may reflect a slab saturation artifact given the change in background signal at this level. Left anterior cerebral artery: No occlusion or significant stenosis. No aneurysm. POSTERIOR CIRCULATION: Right vertebral artery: No occlusion or significant stenosis. No aneurysm. Left vertebral artery: No occlusion or significant stenosis. No aneurysm. Basilar artery: No occlusion or significant stenosis. No aneurysm. Right posterior cerebral artery: There is origin of the right posterior cerebral artery. There is a codominant right P1. Left posterior cerebral artery: There is origin of the left posterior cerebral artery. There is a codominant left P1. Other vasculature: The A1 segment of the left anterior cerebral artery is the dominant supply of the bilateral anterior cerebral circulation IMPRESSION: 1. There is origin of the right posterior cerebral artery. There is a codominant right P1. 2. There is origin of the left posterior cerebral artery. There is a codominant left P1. 3. There is apparent stenosis of the more superior M2 branch of the left middle cerebral artery on the rotational views in the plane of axial image 75. This is not confidently identified on the source images and may reflect a slab saturation artifact given the change in background signal at this level. Report electronically signed by: BENJAMIN BOWEN MD on 11/26/2020 10:18:10 Name Value Range Interpretation Code Description Data Blanca rce(s) Supporting Document(s) ID Date Data Source [id number] 11/26/2020 09:24:52 AM EST [facility] NT INFORMATIONPatient MRN Name Date of Age Gend*PT [id number] Sugey Joaquin 1930 89 years F OBSPT Location Admission Date/Time Visit ID Attending [id number] 11/25/20 2351 --- Nick Vasquez MD([id number]) EPI ID CSN Admitting Provider [id number] Yuan Thomas MD([id number])Inpatient History & PhysicalFlorence WhiteMRN: [id number] and Plan:Principal Problem: Suspected cerebrovascular accident (CVA)Active Problems: Left arm numbness, complete, acute on chronic x 3 days Left hand weakness, acute on chronic x 3 days Essential hypertension Aortic valve disorder Coronary arteriosclerosis Obesity Pure hypercholesterolemia Hypertensive heart disease without heart failure1. 3 days of left arm numbness acute on chronic and left hand violin mechanic weaknessMri brain recommendedMra head and neckASA and STATIN continueTeleNeuro checks2. Essential HTN continue her usual medsRelative permissive HTN but give 3 days out start to reduce 10% per shiftapproximately3. Atypical left under breath chest discomfortNo evidence of IA so farStress test and Echo 07/2020 with cardiology she says normalTele monitorTrop enzyme seriesGiven her left chest pain and ? Effusions obtain CT chest without contrast andDDimerIf Ddimer elevated consider CTA vs VQ given her GFR47 mL/minEKG abnormal may represent LVH hypertensive heartUpdate echo only due to new CVA eval look for emboli sources4. ? Trace effusionsCT chestNo pneumonia symptomsOxygen normalAs above #3Update BNP5. DVT px - heparin subQFull codeAdmit to observationHistory of Present Illness: Patient decided come to the emergency room aftersome delay. She said her arms been more numb than usual. Is like a glovespattern going all the way up from her fingers to her shoulder. It is the wholefront back complete leg as if you dipped her arm into something. It has beenthat way since she was diagnosed with a small stroke she said in February of lastye2019 in [place]. She is on aspirin therapy for that and she has notstopped this. Her hand was also weak when this happened in February and she feelslike it is a little more weak is harder for her to grab onto things. It so undslike may be family may have pressure to get evaluation because she was literallybreaking glasses to drink with him and they told her to quit breaking theirglasses and to go to the hospital. She shows me she tries to shake my hand isvery weak. She had a hard time describing exactly how much its worse I tried tohave her give a percentage and she would say small to medium amount more. Itcame down to more that her function was different. Because of the weakness butalso because with the numbness she felt like her ability to sense things waseven worse and she had to pay attention how she is using her arm.No visual changes. No confusion. She is a good historian about timelines andmemory. She knows where she is she is fully oriented. No headache. No troublewith swallowing. No falls or injuries she is walking well as usual.She did have an episode of chest discomfort yesterday about 30 hours ago onlylasted for a number of minutes. It was under her left breast. Nothing seemedto change it. It just went away on its own. She is not sure what itrepresents. She denies having a history of heart surgery or proven heartattack. She has been evaluated by a automatic chief in [place] before. She hada stress test just 3 to 4 months ago that was normal she had an echocardiogramalso. She has had no new palpitations dizziness passing out. No leg swellingorthopnea paroxysmal nocturnal dyspnea. She does not have new exerciseintolerance and is able to do her usual activity.She denies history of arrhythmia or atrial fibrillation specifically.There is no family history of hypercoagulable disorder or bleeding disorders orstrokes reported.Past Medical History:History reviewed. No pertinent past medical history.Past Surgical History:No past surgical history on file.Medications:Medications Prior to AdmissionMedication Sig Dispense Refill Last Dose Ascorbic Acid (VITAMIN C) 1000 MG tablet Take 1,000 mg by mouth daily11/25/2020 at Unknown time aspirin EC 81 MG EC tablet Take 81 mg by mouth daily 11/25/2020 at Unknowntime beta carotene w/ C and E mineral (OCUVITE) tablet Take 1 tablet by mouth daily11/25/2020 at Unknown time Calcium Carbonate-Vit D-Min (CALCIUM 1200 PO) Take 1 tablet by mouth daily11/25/2020 at Unknown time cholecalciferol (VITAMIN D3) 25 MCG (1000 UT) capsule Take 1,000 Units bymouth daily 11/25/2020 at Unknown time Ginkgo Biloba 40 MG TABS Take 1 tablet by mouth daily 11/25/2020 at Unknowntime lisinopril-hydrochlorothiazide (PRINZIDE,ZESTORETIC) 20-25 MG per tablet Take1 tablet by mouth daily 11/25/2020 at Unknown time Magnesium Oxide (MAG-OX) 400 MG tablet Take 400 mg by mouth daily 11/25/2020t Unknown time OMEGA-3 KRILL OIL PO Take 1 tablet by mouth daily 11/25/2020 at Unknown time omeprazole (PRILOSEC) 40 MG capsule Take 40 mg by mouth daily as needed(reflux) 11/25/2020 at Unknown time polyvinyl alcohol (LIQUIFILM TEARS) 1.4 % ophthalmic solution Administer 1drop to both eyes as needed for dry eyes 11/25/2020 at Unknown time rosuvastatin (CRESTOR) 5 MG tablet Take 5 mg by mouth daily 11/25/2020 atUnknown time vitamin E 400 UNIT capsule Take 400 Units by mouth daily 11/25/2020 at Unkno wntimeAllergies:Hydrocodone; Lipitor [atorvastatin]; Oxycodone; and Antihistamines,diphenhydramine-typeFamily History:History reviewed. No pertinent family history.Social History:Social HistorySocioeconomic History Marital status: Spouse name: Not on file Number of children: Not on file Years of education: Not on file Highest education level: Not on fileOccupational History Not on fileSocial Needs Financial resource strain: Not on file Food insecurity: Worry: Not on file Inability: Not on file Transportation needs: Medical: Not on file Non-medical: Not on fileTobacco Use Smoking status: Not on fileSubstance and Sexual Activity Alcohol use: Not on file Drug use: Not on file Sexual activity: Not on fileLifestyle Physical activity: Days per week: Not on file Minutes per session: Not on file Stress: Not on fileRelationships Social connections: Talks on phone: Not on file Gets together: Not on file Attends rastafarian service: Not on file Active member of club or organization: Not on file Attends meetings of clubs or organizations: Not on file Relationship status: Not on file Intimate partner violence: Fear of current or ex partner: Not on file Emotionally abused: Not on file Physically abused: Not on file Forced sexual activity: Not on fileOther Topics Concern Not on fileSocial History Narrative Not on fileReview of SystemsAll other systems reviewed and are negative.All systems were reviewed and foundto be negative except for those mentioned in the HPI.Temp: [97.6 F-98.1 F] 97.6 FHeart Rate: [73-98] 76Resp: [18] 18BP: (150-202)/(72-91) 150/72Physical ExamConstitutional: She is oriented to person, place, and time. She appearswell -nourished. No distress.HENT:Head: Normocephalic and atraumatic.Right Ear: External ear normal.Left Ear: External ear normal.Nose: Nose normal.Mouth/Throat: Oropharynx is clear and moist. No oropharyngeal exudate.Eyes: Pupils are equal, round, and reactive to light. Conjunctivae and EOM arenormal. Right conjunctiva is not injected. Left conjunctiva is not injected. Noscleral icterus.Neck: Neck supple. No JVD present.Cardiovascular: Normal rate, regular rhythm and intact distal pulses. Examreveals no gallop and no friction rub.No murmur heard.Peripheral Edema: no lower extremity edema.Pulmonary/Chest: Effort normal and breath sounds normal. No respiratorydistress. She has no wheezes. She has no rhonchi. She has no rales. She exhibitsno tenderness.Abdominal: Soft. Bowel sounds are normal. She exhibits no distension and nomass. There is no tenderness. There is no rebound and no guarding. No hernia.Lymphadenopathy: She has no cervical adenopathy.Neurological: She is alert and oriented to person, place, and time. No cranialnerve deficit. She exhibits normal muscle tone. Coordination normal.Her left whole arm is numb feeling but she can feel me touching. She doesnotice the temperature she remarks how my hand feels very cold to her. Herhandgrip is about 50% strength or less on the left compared with the right. Shehas normal deep tendon reflexes in her biceps her patella and her Achilles. Sheis able to sit up and actively readily get up to side of the bed and cooperatewith the neurologic exam rapidly. She makes good eye contact. Normalconfrontation. No neglect no issues with her speech. She has a symmetricappearance. Smile is full. Normal cheek puff. Tongue is midline. 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 She does notethe year note does know the president's term is up this next week. [facility] [place] and speaks about her recent doctor's visits.Skin: Skin is warm and dry. No rash noted. She is not diaphoretic. No erythema.No pallor.Psyc hiatric: She has a normal mood and affect. Her behavior is normal. Judgmentand thought content normal.Vitals reviewed.Labs, Imaging and Other Diagnostic Tests:Diagnostic test reviewed for today's visit include: Labs, Old Records Reviewed,ECG and CT scan.Significant findings: IMPRESSION:1. Bilateral basal ganglia low densities some appear chronic however therecould be subacute lacunar infarcts. Right escoto radiata chronic or subacutelacunar infarct.2. No obvious acute large vessel infarct or acute intracranial hemorrhage. .Signature: KRISTINA Mcwilliamsate: November 26, 2020Time: 9:24 AM Name Value Range Interpretation Code Description Data [facility] Supporting Document(s) ID Date Data Source [id number] 11/26/2020 04:55:00 AM EST [facility] Name Value Range Interpretation Code Description Data Blanca rce(s) Supporting Document(s) SARS coronavirus 2 RNA [Presence] in Res piratory specimen by ROSE with probe detection NOT DETECTED [facility] This lab was reported by [facility]. ID Date Data Source [id number] 11/26/2020 07:26:59 AM EST [facility] Name Value Range Interpretation Code Description Data Blanca rce(s) Supporting Document(s) SPECIMEN DESCRIPTION [facility] [place] INFLUENZA A (NEG) [facility] [place] Y INFLUENZA B (NEG) [facility] Y RSV (NEG) [facility] COMMENT [facility] [place] UNDER AN EMERGENCY USE AUTHORIZATION(EUA ) FOR THE DETECTION AND/OR DIAGNOSISOF THE VIRUS THAT CAUSES COVID-19.PERFORMED AT [address] [place] [id number] COVID19 RESULT (NDET) [facility] THIS ASSAY AMPLIFIES AND DETECTSTHE TARG ET RNA USING REAL-TIME PCR.NEGATIVE 2019_NCOV RT-PCR RESULTS DONOT PRECLUDE 2019_NCOV INFECTION ANDSHOULD NOT BE USED THE SOLE BASISFOR PATIENT MANAGEMENT DECISIONS. FIRST TEST [facility] [place] [employer] [facility] [place] SYMPTOMATIC [facility] [place] DATE OF SYMPT ONSET [facility] [place] [facility]ITAL[facility]ED [facility] ICU [facility] [place] CONGREGATE CARE SET [facility] [place] [facility] [place] ID Date Data Source [id number] 11/26/2020 04:06:50 AM EST [facility] CenterPAT[facility] NT INFORMATIONPatient MRN Name Date of Age Gend*PT [id number] Sugey Joaquin 1930 89 years F EDPT Location Admission Date/Time Visit ID Attending [id number] 11/25/20 2351 --- Rick Parmar MD([id number]) EPI ID CSN Admitting Provider [id number] ---Provider in Triage NotesED Provider in Triage NotePatient Name: Sugey Chappell and Time of Assessment: 11/25/20, 6:02 PMNo chief complaint on file.Brief HPI: 89 years female, patient thinks she had a heart attack last nightHad L rib pain yesterday-continued back pain todayHad IA in the past, no stents or bypass+SOB, no nauseaPhysical exam:Hypertensive and slightly tachyAmbulatoryNontoxPreliminary Plan:Labs, EKG, CXRThis note was electronically signed by MARLON Ramos, 11/25/20, 6:02 PM.ED CourseMARLON Ramos11/25/20 1805Josimone Blair MD11/25/20 1959Attestation signed by Ryne Blair MD at 11/25/2020 7:59 PM:I was the attending physician on duty at the time the patient visited the ED.The patient was evaluated by the PA/SURFACER. I was personally available forconsultation; however, I did not see the patient nor participated in the medicaldecision making process of the encounter. The patient was dispositioned withoutmy knowledge and I am administratively signing the chart after the fact. I wasavailable for immediate consultation during the patient's ED visit.History of Present IllnessChief ComplaintPatient presents with Chest Pain "last night I had pains in my left side/axilla and chest, this morning thechest pain was gone but I've been having pain in my back" describes as sharp "ihad a heart attack in 2007 the pain felt similar" denies stents/bypass.89-year-old female with past medical history of IA, stroke with residualleft-sided weakness presenting with left-sided chest pain and left upperextremity numbness. Patient states that yesterday she developed left- sidedchest pain which has since resolved. However today she had right-sided backpain and mild shortness of breath. She states she had an echo and stress test 3months ago which were unremarkable per patient. 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 She states that sheis concerned that she either had a heart attack or a stroke. No fever,headache, cough, abdominal pain, nausea vomiting or diarrhea, urinary symptoms,lower extremity swelling or pain. No recent travel or sick contacts. No recenttrauma. Review of systems otherwise negativeHistoryHistory reviewed. No pertinent past medical history.No past surgical history on file.History reviewed. No pertinent family history.Social HistoryTobacco Use Smoking status: Not on fileSubstance Use Topics Alcohol use: Not on file Drug use: Not on fileROSReview of SystemsConstitutional: Negative for chills, diaphoresis, fatigue and fever.HENT: Negative for rhinorrhea, sore throat and voice change.Eyes: Negative for pain, discharge, itching and visual disturbance.Respiratory: Positive for shortness of breath. Negative for cough and chesttightness.Cardiovascular: Positive for chest pain. Negative for palpitations and legswelling.Gastrointestinal: Negative for abdominal distention, abdominal pain,constipation, diarrhea, nausea and vomiting.Endocrine: Negative for cold intolerance and heat intolerance.Genitourinary: Negative for difficulty urinating, dysuria, fr equency, hematuriaand urgency.Musculoskeletal: Positive for back pain. Negative for myalgias, neck pain andneck stiffness.Skin: Negative for rash and wound.Neurological: Positive for numbness. Negative for dizziness, tremors, syncope,weakness, light-headedness and headaches.Hematological: Negative for adenopathy. Does not bruise/bleed easily.Psychiatric/Behavioral: Negative for agitation, behavioral problems andconfusion.Physical ExamBP 180/82 (BP Location: Left upper arm, Patient Position: Lying) | Pulse 75 |Temp 98 F (Oral) | Resp 18 | Ht 65" | Wt 77.1 kg | SpO2 97% | BMI 28.29kg/m Physical ExamConstitutional: She is oriented to person, place, and time. She appearswell-developed and well-nourished.HENT:Head: Normocephalic and atraumatic.Eyes: Pupils are equal, round, and reactive to light. EOM are normal.Neck: Normal range of motion. Neck supple.Cardiovascular: Normal rate, regular rhythm and normal heart sounds.Pulmonary/Chest: Effort normal and breath sounds normal. No respiratorydistress.Abdominal: Soft. She exhibits no distension. There is no tenderness.Musculoskeletal: She exhibits no edema, tenderness or deformity.Neurological: She is alert and oriented to person, pl adam, and time. She exhibitsnormal muscle tone.CN II-XII intactStrength 5/5 in all extremitiesSubjective decreased sensation LUENo ataxiaSkin: Skin is warm and dry.Psychiatric: She has a normal mood and affect. Her behavior is normal.Nursing note and vitals reviewed.ED CourseED Course as of Nov 26 399Sat Nov 26 Spoke with neurology, they recommend asa, MRI/MRA and admission. Pt tookasa this AM, already received remaining dose here for full dose asa. Will orderMRI/MRA and admit. [DC]ED Course User Index[DC] FORREST Maddox 12 leadDate/Time: 11/26/2020 4:05 AMPerformed by: Rick Parmar MDAuthorized by: Karime Torres [facility] interpreted by ED Physician in the absence of a automatic chief: yesPrevious ECG: Previous ECG: UnavailableInterpretation: Interpretation: normalRate: ECG rate: 86 ECG rate assessment: normalRhythm: Rhythm: sinus rhythmEctopy: Ectopy: noneQRS: QRS axis: Normal QRS intervals: NormalConduction: Conduction: abnormal Abnormal conduction: 1st degreeST segments: ST segments: NormalT waves: T waves: non- specificMDMNumber of Diagnoses or Management OptionsDiagnosis management comments: + Chest pain, right-sided back pain consistentwith prior IA; worsening left upper extremity numbnessACS versus pneumonia versus strokeEKGLabsChest x- rayCT headDisposition pending resultsEKG and labs unremarkableCT head concerning for chronic versus subacute lacunar infarctsNeurology consulted, recommends admission with full dose aspirin and MRI/MRAAspirin givenPatient admittedAmount and/or Complexity of Data ReviewedClinical lab tests: reviewedTests in the radiology section of CPT : reviewedThis was electronically signed by Rick Parmar MD, 11/26/20 2:44 AM.Rick Parmar MD11/26/20 0406 Name Value Range Interpretation Code Description Data Blanca rce(s) Supporting Document(s) ID Date Data Source [id number] 11/26/2020 02:19:[address] [id number] Name: Sugey MarieB: 1930Sex: FOrdering Provider: RICK PARMARAuthorizing Prov: RICK PARMARReferrramos Provider: Procedure Performed: CT HEAD WO CONTRASTExam Date: 11/26/2020 01:53MRN: [id number] Number: [id number] Class: INFORMATION: Exam: CT Head Without Contrast Exam date and time: 11/26/2020 1:53 AM Age: 89 years old Clinical indication: Other: Focal neuro deficit, > 6 hrs, stroke suspected TECHNIQUE: Imaging protocol: Computed tomography of the head without contrast. Radiation optimization: All CT scans at this facility use at least one of these dose optimization techniques: automated exposure control; mA and/or kV adjustment per patient size (includes targeted exams where dose is matched to clinical indication); or iterative reconstruction. COMPARISON: No relevant prior studies available. FINDINGS: Brain: Bilateral basal ganglia low densities some appear chronic however there could be subacute lacunar infarcts. Right escoto radiata chronic or subacute lacunar infarct.No obvious acute loss of meraz-white matter differentiation. No evidence of acute intracranial hemorrhage. Cerebral ventricles: No ventriculomegaly. Bones/joints: Unremarkable. No acute fracture. Paranasal sinuses: Visualized sinuses are unremarkable. No fluid levels. Mastoid air cells: Visualized mastoid air cells are well aerated. Soft tissues: Unremarkable. IMPRESSION: 1. Bilateral basal ganglia low densities some appear chronic however there could be subacute lacunar infarcts. Right escoto radiata chronic or subacute lacunar infarct. 2. No obvious acute large vessel infarct or acute intracranial hemorrhage. Report electronically signed by: LIDYA BRICE MD on 11/26/2020 02:19:23 Name Value Range Interpretation Code Description Data Blanca rce(s) Supporting Document(s) ID Date Data Source [id number] 11/26/2020 01:09:13 AM EST Lab [facility] Name Value Range Interpretation Code Description Data Blanca rce(s) Supporting Document(s) POC CTNI 0.01 ng/mL (0.01-0.07) Lab [place] Less than 0.08: Myocardial injury unlike lyGreater than or equal to 0.08: Highlysuggestive of myocardial injuryCorrelation with rise and/or fall ofserial troponins, clinical symptoms,and ECG changes is necessary.PERFORMED BY [facility] ID Date Data Source [id number] 11/27/2020 11:40:38 AM EST Lab [facility] Name Value Range Interpretation Code Description Data Blanca rce(s) Supporting Document(s) TOTAL PROTEIN 7.2 g/dL (6.4-8.2) Lab [facility] ID Date Data Source [id number] 11/27/2020 11:40:38 AM EST Lab Dearing lissette CHANCE Name Value Range Interpretation Code Description Data Blanca rce(s) Supporting Document(s) LDH 189 U/L (84-246) Lab [facility] ID Date Data Source [id number] 11/26/2020 07:25:32 PM EST Lab [facility] Name Value Range Interpretation Code Description Data Blanca rce(s) Supporting Document(s) NT PRO BNP 256 pg/mL (0-450) Lab [facility] lissette [place] ID Date Data Source [id number] 11/26/2020 02:07:06 AM EST Lab [facility] Name Value Range Interpretation Code Description Data Blanca rce(s) Supporting Document(s) TROPONIN I <0.05 ng/mL (<0.05) Lab [facility] [place] Less than 0.05: Myocardial injury unlike lyGreater than or equal to 0.05: Highly suggestive of myocardial injuryCorrelation with rise and/or fall ofserial troponins, clinical symptomsand ECG changes is necessary. ID Date Data Source [id number] 11/25/2020 08:36:03 PM EST [address] [id number] Name: Sugey Schreiber: 1930Sex: FOrdering Provider: KARIME TORRESAuthorinelda Prov: KARIME TORRESReferrramos Provider: Procedure Performed: XR CHEST PORTABLEExam Date: 11/25/2020 19:06MRN: [id number] Number: [id number] Class: INFORMATION: Exam: XR Chest, 1 View Exam date and time: 11/25/2020 7:06 PM Age: 89 years old Clinical indication: Other: Chest pain TECHNIQUE: Imaging protocol: XR of the chest Views: 1 view. COMPARISON: No relevant prior studies available. FINDINGS: Lungs: Mild hazy bibasilar opacities. Pleural space: Small bilateral pleural effusions. No pneumothorax. Heart/Mediastinum: Unremarkable. No cardiomegaly. Vasculature: Calcified plaque and unfolding of the aorta. Bones/joints: Bones osteopenic with degenerative changes. IMPRESSION: Small bilateral pleural effusions with probable basilar compressive atelectasis but minimal pneumonia not excluded and clinical correlation is recommended. Report electronically signed by: LIDYA BRICE MD on 11/25/2020 20:36:03 Name Value Range Interpretation Code Description Data Blanca rce(s) Supporting Document(s) ID Date Data Source [id number] 11/25/2020 07:59:55 PM EST [facility] INFORMATIONPatient MRN Name Date of Age Gend*PT [id number] Sugey Joaquin 1930 89 years F EDPT Location Admission Date/Time Visit ID Attending Provider --- --- --- --- EPI ID CSN Admitting Provider [id number] ---Attestation signed by Ryne Blair MD at 11/25/2020 7:59 PMI was the attending physician on duty at the time the patient visited the ED.The patient was evaluated by the PA/SURFACER. I was personally available forconsultation; however, I did not see the patient nor participated in themedical decision making process of the encounter. The patient was dispositionedwithout my knowledge and I am administratively signing the chart after thefact. I was available for immediate consultation during the patient's ED visit. ------ED Provider in Triage NotePatient Name: Sugey Chappell and Time of Assessment: 11/25/20, 6:02 PMNo chief complaint on file.Brief HPI: 89 years female, patient thinks she had a heart attack last nightHad L rib pain yesterday-continued back pain todayHad IA in the past, no stents or bypass+SOB, no nauseaPhysical exam:Hypertensive and slightly tachyAmbulatoryNontoxPreliminary Plan:Labs, EKG, CXRThis note was electronically signed by MARLON Ramos, 11/25/20, 6:02 PM.ED CourseMARLON Ramos11/25/20 180Joseondina Blair MD11/25/201958 Name Value Range Interpretation Code Description Data Blanca rce(s) Supporting Document(s) ID Date Data Source [id number] 11/25/2020 06:39:40 PM EST [facility] [place] Name Value Range Interpretation Code Description Data Blanca rce(s) Supporting Document(s) POC CTNI <0.01 ng/mL (0.01-0.07) L [facility] [place] [place] Less than 0.08: Myocardial injury unlike lyGreater than or equal to 0.08: Highlysuggestive of myocardial injuryCorrelation with rise and/or fall ofserial troponins, clinical symptoms,and ECG changes is necessary.PERFORMED BY [facility] ID Date Data Source [id number] 11/26/2020 03:45:33 PM EST [facility] [place] Name Value Range Interpretation Code Description Data Blanca rce(s) Supporting Document(s) HEMOGLOBIN A1C @ 5.6 % (4.0-6.0) Lab Jeovanny Performed using Siemens [place] immunoassa y.Care must be taken when interpreting [id number] in patients with a hemoglobin variantor decreased erythrocyte lifespan. Values 5.7 - 6.4% suggest prediabetes.Values >=6.5% are diagnostic for diabetes.REFERENCE: DIABETES CARE 2018: 41(S13-S27).PERFORMED AT [address] [place] [id number] EST AVERAGE GLUCOSE 114 mg/dL Lab [place]ela [place]a [place] ID Date Data Source [id number] 11/25/2020 07:16:41 PM EST [facility] [place] Name Value Range Interpretation Code Description Data Blanca rce(s) Supporting Document(s) APTT 24.6 s (22.0-34.3) [facility] [place] ID Date Data Source [id number] 11/25/2020 07:16:41 PM EST [facility] [place] Name Value Range Interpretation Code Description Data Blanca rce(s) Supporting Document(s) PT 9.9 s (9.2-11.9) [facility] [place] INR 0.94 [facility] [place] SUGGESTED THERAPEUTIC RANGES USING INR F ORSTABILIZED ANTICOAGULATED PATIENTS:STANDARD DOSE THERAPY INR 2.0-3.0 DVT, PE, PREVENT DVT OR EMBOLISMHIGH DOSE THERAPY INR 2.5-3.5 PREVENT EMBOLISM FROM MECHANICAL HEART VALVE ID Date Data Source [id number] 11/25/2020 07:06:20 PM EST [facility] [place] Name Value Range Interpretation Code Description Data Blanca rce(s) Supporting Document(s) WBC 5.2 10*3/uL (4.1-11.0) [facility] [place] RBC 4.61 10*6/uL (4.00-5.40) [facility] [place] HGB 14.0 g/dL (12.0-16.0) [facility] [place] HCT 40.7 % (36.0-47.0) [facility] [place] MCV 88.3 fL (80.0-95.0) [facility] [place] MCH 30.3 pg (27.0-32.0) [facility] [place] MCHC 34.4 g/dL (32.0-36.0) [facility] [place] RDW 14.2 % (10.5-14.5) [facility] [place] PLT 247 10*3/uL (150-450) [facility] [place] MPV 7.8 fL (7.1-10.7) [facility] NEUT % 65.1 % (35.0-75.0) [facility] [place] LYMPH % 23.6 % (16.0-52.0) [facility] [place] MONO % 9.6 % (0.0-8.0) H [facility] EOS % 1.2 % (0.0-5.0) [facility] BASO % 0.5 % (0.0-4.0) [facility] NEUT # 3.4 10*3/uL (1.8-7.7) [facility] [place] LYMPH # 1.2 10*3/uL (1.2-4.8) [facility] [place] MONO # 0.5 10*3/uL (0.0-0.8) [facility] [place] Eosinophils [#/volume] in Blood by Automated count 0.1 10*3/uL (0.0-0 .5) [facility] BASO # 0.0 10*3/uL (0.0-0.2) [facility] [place] ID Date Data Source [id number] 11/25/2020 07:24:04 PM EST [facility] [place] Name Value Range Interpretation Code Description Data Blanca rce(s) Supporting Document(s) SODIUM 139 mmol/L (136-145) [facility] POTASSIUM 3.2 mmol/L (3.6-5.2) L [facility] CHLORIDE 103 mmol/L (100-108) [facility] CO2 28 mmol/L (22-31) [facility] ANION GAP 8 mmol/L (7-16) [facility] UREA NITROGEN 20 mg/dL (7-24) [facility] CREATININE 0.86 mg/dL (0.60-1.00) [facility] BUN/CREAT RATIO 23.3 RATIO (10.0-20.0) H [facility] [place] GLUCOSE 114 mg/dL (70-99) H [facility] CALCIUM 9.5 mg/dL (8.4-10.2) [facility] TOTAL PROTEIN 7.5 g/dL (6.4-8.2) [facility] ALBUMIN 3.8 g/dL (3.2-4.5) [facility] GLOBULIN 3.7 g/dL (2.7-4.3) [facility] ALB/GLOB RATIO 1.0 RATIO [facility] ALKALINE PHOSPHATASE 79 U/L (45-117) [facility] nce [facility] [place] BILIRUBIN,TOTAL 0.4 mg/dL (0.0-1.0) [facility] [place] PLEASE NOTE:Total bilirubin results may be falselyelevated in patients taking Eltrombopag. AST (SGOT) 13 U/L (11-39) [facility] ALT (SGPT) 14 U/L (12-78) [facility] of Y GFR >60 ml/min/1.73m2 (>59) [facility] GFR ( AMER) >60 ml/min/1.73m2 (>59) [facility] GFR INTERPRETATION Lab [facility]ela e of [place] --NORMAL KIDNEY FUNCTION OR MILD DISEASE - GFR >OR= 60CHRONIC KIDNEY DISEASE - GFR 15 - 59RENAL FAILURE - GFR <15 Est. GFR calculation based on the MDRDstudy equation, which assumes a steadystate for creatinine. Est. GFR should notbe used for medication dosing. ID Date Data Source [id number] 08/16/2020 04:49:00 PM EDT [facility] ([facility] Name Value Range Interpretation Code Description Data Blanca e(s) Supporting Document(s) Thyrotropin [Units/volume] in Serum or Plasma 1.045 ulU/mL 0.60-4.8 [facility] ([facility] ID Date Data Source [id number] 08/16/2020 04:49:00 PM EDT [facility] ([facility] Name Value Range Interpretation Code Description Data Blanca e(s) Supporting Document(s) Chol 162 mg/dL 0-200 [facility] ([facility] NORMAL RANGES Age WBC RBC HGB HCT [...] HCT IS 5% LESS SOURCE FOR DATA: GüvenRehberi 1800 OPERATION MANUAL( AUTOMATED BLOOD COUNTS AND [...] DESIRABLE: <130 MG/DL <110 MG/DL BORDERLINE-HIGH RISK: 130- 159 MG/DL 110-129 MG/DL HIGH RISK: >160 MG/DL >130 MG/DL *CHILDREN AND ADOLESCENTS REPRESENTS INDIVIDUALA AGED 2-19 YEARS EXCLUSIVE. Cholesterol in HDL [Mass/volume] in Serum or Plasma 49 mg/dL 45-65 [facility] ([facility] NORMAL RANGES Age WBC RBC HGB HCT [...] HCT IS 5% LESS SOURCE FOR DATA: GüvenRehberi 1800 OPERATION MANUAL( AUTOMATED BLOOD COUNTS AND [...] DESIRABLE: <130 MG/DL <110 MG/DL BORDERLINE-HIGH RISK: 130- 159 MG/DL 110-129 MG/DL HIGH RISK: >160 MG/DL >130 MG/DL *CHILDREN AND ADOLESCENTS REPRESENTS INDIVIDUALA AGED 2-19 YEARS EXCLUSIVE. Trig 163 mg/dL 40-200 [facility] NORMAL RANGES Age WBC RBC HGB HCT [...] HCT IS 5% LESS SOURCE FOR DATA: GüvenRehberi 1800 OPERATION MANUAL( AUTOMATED BLOOD COUNTS AND [...] DESIRABLE: <130 MG/DL <110 MG/DL BORDERLINE-HIGH RISK: 130- 159 MG/DL 110-129 MG/DL HIGH RISK: >160 MG/DL >130 MG/DL *CHILDREN AND ADOLESCENTS REPRESENTS INDIVIDUALA AGED 2-19 YEARS EXCLUSIVE. Cho/HDL Ratio 3.3 CALC [facility] ([facility] NORMAL RANGES Age WBC RBC HGB HCT [...] HCT IS 5% LESS SOURCE FOR DATA: GüvenRehberi 1800 OPERATION MANUAL( AUTOMATED BLOOD COUNTS AND [...] DESIRABLE: <130 MG/DL <110 MG/DL BORDERLINE-HIGH RISK: 130- 159 MG/DL 110-129 MG/DL HIGH RISK: >160 MG/DL >130 MG/DL *CHILDREN AND ADOLESCENTS REPRESENTS INDIVIDUALA AGED 2-19 YEARS EXCLUSIVE. LDL_C 80 Calc 75-129 [facility] NORMAL RANGES Age WBC RBC HGB HCT [...] HCT IS 5% LESS SOURCE FOR DATA: GüvenRehberi 1800 OPERATION MANUAL( AUTOMATED BLOOD COUNTS AND [...] DESIRABLE: <130 MG/DL <110 MG/DL BORDERLINE-HIGH RISK: 130- 159 MG/DL 110-129 MG/DL HIGH RISK: >160 MG/DL >130 MG/DL *CHILDREN AND ADOLESCENTS REPRESENTS INDIVIDUALA AGED 2-19 YEARS EXCLUSIVE. ID Date Data Source [id number] 08/16/2020 04:49:00 PM EDT [facility] ([facility] Name Value Range Interpretation Code Description Data Blanca rce(s) Supporting Document(s) Glu 94 mg/dL 70-110 [facility] ([facility] NORMAL RANGES Age WBC RBC HGB HCT [...] HCT IS 5% LESS SOURCE FOR DATA: GüvenRehberi 1800 OPERATION MANUAL( AUTOMATED BLOOD COUNTS AND [...] DESIRABLE: <130 MG/DL <110 MG/DL BORDERLINE-HIGH RISK: 130- 159 MG/DL 110-129 MG/DL HIGH RISK: >160 MG/DL >130 MG/DL *CHILDREN AND ADOLESCENTS REPRESENTS INDIVIDUALA AGED 2-19 YEARS EXCLUSIVE. BUN 15 mg/dL 8-23 [facility] ([facility] NORMAL RANGES Age WBC RBC HGB HCT [...] HCT IS 5% LESS SOURCE FOR DATA: GüvenRehberi 1800 OPERATION MANUAL( AUTOMATED BLOOD COUNTS AND [...] DESIRABLE: <130 MG/DL <110 MG/DL BORDERLINE-HIGH RISK: 130- 159 MG/DL 110-129 MG/DL HIGH RISK: >160 MG/DL >130 MG/DL *CHILDREN AND ADOLESCENTS REPRESENTS INDIVIDUALA AGED 2-19 YEARS EXCLUSIVE. Creat 0.7 mg/dL 0.5-1.0 [facility] NORMAL RANGES Age WBC RBC HGB HCT [...] HCT IS 5% LESS SOURCE FOR DATA: [employer] DYN 1800 OPERATION MANUAL( AUTOMATED BLOOD COUNTS [...] DESIRABLE: <130 MG/DL <110 MG/DL BORDERLINE-HIGH RISK: 130- 159 MG/DL 110-129 MG/DL HIGH RISK: >160 MG/DL >130 MG/DL *CHILDREN AND ADOLESCENTS REPRESENTS INDIVIDUALA AGED 2-19 YEARS EXCLUSIVE. BUN/Creatinine Ratio 20.9 CALC [facility] ([facility] NORMAL RANGES Age WBC RBC HGB HCT [...] HCT IS 5% LESS SOURCE FOR DATA: GüvenRehberi 1800 OPERATION MANUAL( AUTOMATED BLOOD COUNTS AND [...] DESIRABLE: <130 MG/DL <110 MG/DL BORDERLINE-HIGH RISK: 130- 159 MG/DL 110-129 MG/DL HIGH RISK: >160 MG/DL >130 MG/DL *CHILDREN AND ADOLESCENTS REPRESENTS INDIVIDUALA AGED 2-19 YEARS EXCLUSIVE. Na 136 mmol/L 136-145 [facility] ([facility] NORMAL RANGES Age WBC RBC HGB HCT [...] HCT IS 5% LESS SOURCE FOR DATA: GüvenRehberi 1800 OPERATION MANUAL( AUTOMATED BLOOD COUNTS AND [...] DESIRABLE: <130 MG/DL <110 MG/DL BORDERLINE-HIGH RISK: 130- 159 MG/DL 110-129 MG/DL HIGH RISK: >160 MG/DL >130 MG/DL *CHILDREN AND ADOLESCENTS REPRESENTS INDIVIDUALA AGED 2-19 YEARS EXCLUSIVE. K 3.7 mmol/L 3.5-5.1 [facility] ([facility] NORMAL RANGES Age WBC RBC HGB HCT [...] HCT IS 5% LESS SOURCE FOR DATA: [employer] DYN 1800 OPERATION MANUAL( AUTOMATED BLOOD COUNTS [...] DESIRABLE: <130 MG/DL <110 MG/DL BORDERLINE-HIGH RISK: 130- 159 MG/DL 110-129 MG/DL HIGH RISK: >160 MG/DL >130 MG/DL *CHILDREN AND ADOLESCENTS REPRESENTS INDIVIDUALA AGED 2-19 YEARS EXCLUSIVE. CL 99.1 mmol/L 98.0-107.0 [facility] ([facility] NORMAL RANGES Age WBC RBC HGB HCT [...] HCT IS 5% LESS SOURCE FOR DATA: GüvenRehberi 1800 OPERATION MANUAL( AUTOMATED BLOOD COUNTS AND [...] DESIRABLE: <130 MG/DL <110 MG/DL BORDERLINE-HIGH RISK: 130- 159 MG/DL 110-129 MG/DL HIGH RISK: >160 MG/DL >130 MG/DL *CHILDREN AND ADOLESCENTS REPRESENTS INDIVIDUALA AGED 2-19 YEARS EXCLUSIVE. Co2 24.4 mmol/L 22.0-29.0 [facility] ([facility] NORMAL RANGES Age WBC RBC HGB HCT [...] HCT IS 5% LESS SOURCE FOR DATA: GüvenRehberi 1800 OPERATION MANUAL( AUTOMATED BLOOD COUNTS AND [...] DESIRABLE: <130 MG/DL <110 MG/DL BORDERLINE-HIGH RISK: 130- 159 MG/DL 110-129 MG/DL HIGH RISK: >160 MG/DL >130 MG/DL *CHILDREN AND ADOLESCENTS REPRESENTS INDIVIDUALA AGED 2-19 YEARS EXCLUSIVE. CA 10.0 mg/dL 8.6-10.2 [facility] ([facility] NORMAL RANGES Age WBC RBC HGB HCT [...] HCT IS 5% LESS SOURCE FOR DATA: GüvenRehberi 1800 OPERATION MANUAL( AUTOMATED BLOOD COUNTS AND [...] DESIRABLE: <130 MG/DL <110 MG/DL BORDERLINE-HIGH RISK: 130- 159 MG/DL 110-129 MG/DL HIGH RISK: >160 MG/DL >130 MG/DL *CHILDREN AND ADOLESCENTS REPRESENTS INDIVIDUALA AGED 2-19 YEARS EXCLUSIVE. TP 6.4 g/dL 6.6-8.7 Below low normal [facility] ( [facility] NORMAL RANGES Age WBC RBC HGB HCT [...] HCT IS 5% LESS SOURCE FOR DATA: GüvenRehberi 1800 OPERATION MANUAL( AUTOMATED BLOOD COUNTS AND [...] DESIRABLE: <130 MG/DL <110 MG/DL BORDERLINE-HIGH RISK: 130- 159 MG/DL 110-129 MG/DL HIGH RISK: >160 MG/DL >130 MG/DL *CHILDREN AND ADOLESCENTS REPRESENTS INDIVIDUALA AGED 2-19 YEARS EXCLUSIVE. Alb 4.3 g/dL 3.4-4.8 [facility] ([facility] NORMAL RANGES Age WBC RBC HGB HCT [...] HCT IS 5% LESS SOURCE FOR DATA: GüvenRehberi 1800 OPERATION MANUAL( AUTOMATED BLOOD COUNTS AND [...] DESIRABLE: <130 MG/DL <110 MG/DL BORDERLINE-HIGH RISK: 130- 159 MG/DL 110-129 MG/DL HIGH RISK: >160 MG/DL >130 MG/DL *CHILDREN AND ADOLESCENTS REPRESENTS INDIVIDUALA AGED 2-19 YEARS EXCLUSIVE. A/G Ratio 2.1 CALC [employer] [facility] ([facility] NORMAL RANGES Age WBC RBC HGB HCT [...] HCT IS 5% LESS SOURCE FOR DATA: GüvenRehberi 1800 OPERATION MANUAL( AUTOMATED BLOOD COUNTS AND [...] DESIRABLE: <130 MG/DL <110 MG/DL BORDERLINE-HIGH RISK: 130- 159 MG/DL 110-129 MG/DL HIGH RISK: >160 MG/DL >130 MG/DL *CHILDREN AND ADOLESCENTS REPRESENTS INDIVIDUALA AGED 2-19 YEARS EXCLUSIVE. Globulin 2.1 CALC [facility] ([facility] NORMAL RANGES Age WBC RBC HGB HCT [...] HCT IS 5% LESS SOURCE FOR DATA: GüvenRehberi 1800 OPERATION MANUAL( AUTOMATED BLOOD COUNTS AND [...] DESIRABLE: <130 MG/DL <110 MG/DL BORDERLINE-HIGH RISK: 130- 159 MG/DL 110-129 MG/DL HIGH RISK: >160 MG/DL >130 MG/DL *CHILDREN AND ADOLESCENTS REPRESENTS INDIVIDUALA AGED 2-19 YEARS EXCLUSIVE. Alp 79.6 U/L 35-129 [facility] NORMAL RANGES Age WBC RBC HGB HCT [...] HCT IS 5% LESS SOURCE FOR DATA: GüvenRehberi 1800 OPERATION MANUAL( AUTOMATED BLOOD COUNTS AND [...] DESIRABLE: <130 MG/DL <110 MG/DL BORDERLINE-HIGH RISK: 130- 159 MG/DL 110-129 MG/DL HIGH RISK: >160 MG/DL >130 MG/DL *CHILDREN AND ADOLESCENTS REPRESENTS INDIVIDUALA AGED 2-19 YEARS EXCLUSIVE. Alt (SGPT) 10 U/L 0-41 [facility] ([facility] NORMAL RANGES Age WBC RBC HGB HCT [...] HCT IS 5% LESS SOURCE FOR DATA: GüvenRehberi 1800 OPERATION MANUAL( AUTOMATED BLOOD COUNTS AND [...] DESIRABLE: <130 MG/DL <110 MG/DL BORDERLINE-HIGH RISK: 130- 159 MG/DL 110-129 MG/DL HIGH RISK: >160 MG/DL >130 MG/DL *CHILDREN AND ADOLESCENTS REPRESENTS INDIVIDUALA AGED 2-19 YEARS EXCLUSIVE. Ast (Sgot) 17 U/L 0-40 [facility] ([facility] NORMAL RANGES Age WBC RBC HGB HCT [...] HCT IS 5% LESS SOURCE FOR DATA: GüvenRehberi 1800 OPERATION MANUAL( AUTOMATED BLOOD COUNTS AND [...] DESIRABLE: <130 MG/DL <110 MG/DL BORDERLINE-HIGH RISK: 130- 159 MG/DL 110-129 MG/DL HIGH RISK: >160 MG/DL >130 MG/DL *CHILDREN AND ADOLESCENTS REPRESENTS INDIVIDUALA AGED 2-19 YEARS EXCLUSIVE. Tbili 0.38 mg/dL 0.0-1.2 [facility] NORMAL RANGES Age WBC RBC HGB HCT [...] HCT IS 5% LESS SOURCE FOR DATA: GüvenRehberi 1800 OPERATION MANUAL( AUTOMATED BLOOD COUNTS AND [...] DESIRABLE: <130 MG/DL <110 MG/DL BORDERLINE-HIGH RISK: 130- 159 MG/DL 110-129 MG/DL HIGH RISK: >160 MG/DL >130 MG/DL *CHILDREN AND ADOLESCENTS REPRESENTS INDIVIDUALA AGED 2-19 YEARS EXCLUSIVE. Osmolality-Calculated 272.6 CALC [facility] ([facility] NORMAL RANGES Age WBC RBC HGB HCT [...] HCT IS 5% LESS SOURCE FOR DATA: GüvenRehberi 1800 OPERATION MANUAL( AUTOMATED BLOOD COUNTS AND [...] DESIRABLE: <130 MG/DL <110 MG/DL BORDERLINE-HIGH RISK: 130- 159 MG/DL 110-129 MG/DL HIGH RISK: >160 MG/DL >130 MG/DL *CHILDREN AND ADOLESCENTS REPRESENTS INDIVIDUALA AGED 2-19 YEARS EXCLUSIVE. Anion Gap 16 mmol/L [facility] ([facility] NORMAL RANGES Age WBC RBC HGB HCT [...] HCT IS 5% LESS SOURCE FOR DATA: GüvenRehberi 1800 OPERATION MANUAL( AUTOMATED BLOOD COUNTS AND [...] DESIRABLE: <130 MG/DL <110 MG/DL BORDERLINE-HIGH RISK: 130- 159 MG/DL 110-129 MG/DL HIGH RISK: >160 MG/DL >130 MG/DL *CHILDREN AND ADOLESCENTS REPRESENTS INDIVIDUALA AGED 2-19 YEARS EXCLUSIVE. eGFR 90 # [facility] ( [facility] NORMAL RANGES Age WBC RBC HGB HCT [...] HCT IS 5% LESS SOURCE FOR DATA: GüvenRehberi 1800 OPERATION MANUAL( AUTOMATED BLOOD COUNTS AND [...] DESIRABLE: <130 MG/DL <110 MG/DL BORDERLINE-HIGH RISK: 130- 159 MG/DL 110-129 MG/DL HIGH RISK: >160 MG/DL >130 MG/DL *CHILDREN AND ADOLESCENTS REPRESENTS INDIVIDUALA AGED 2-19 YEARS EXCLUSIVE. eGFR Non-Afr. Kittitian 78 # [facility] ([facility] NORMAL RANGES Age WBC RBC HGB HCT [...] HCT IS 5% LESS SOURCE FOR DATA: GüvenRehberi 1800 OPERATION MANUAL( AUTOMATED BLOOD COUNTS AND [...] DESIRABLE: <130 MG/DL <110 MG/DL BORDERLINE-HIGH RISK: 130- 159 MG/DL 110-129 MG/DL HIGH RISK: >160 MG/DL >130 MG/DL *CHILDREN AND ADOLESCENTS REPRESENTS INDIVIDUALA AGED 2-19 YEARS EXCLUSIVE. ID Date Data Source [id number] 08/16/2020 04:49:00 PM EDT [facility] ([facility] Name Value Range Interpretation Code Description Data Blanca rce(s) Supporting Document(s) WBC 4.6 10E3/uL 4.1-10.9 [facility] ([facility] NORMAL RANGES Age WBC RBC HGB HCT [...] HCT IS 5% LESS SOURCE FOR DATA: GüvenRehberi 1800 OPERATION MANUAL( AUTOMATED BLOOD COUNTS AND [...] DESIRABLE: <130 MG/DL <110 MG/DL BORDERLINE-HIGH RISK: 130- 159 MG/DL 110-129 MG/DL HIGH RISK: >160 MG/DL >130 MG/DL *CHILDREN AND ADOLESCENTS REPRESENTS INDIVIDUALA AGED 2-19 YEARS EXCLUSIVE. RBC 4.36 10E6/uL 4.-630 [facility] [employer] ([facility] NORMAL RANGES Age WBC RBC HGB HCT [...] HCT IS 5% LESS SOURCE FOR DATA: [employer] DYN 1800 OPERATION MANUAL( AUTOMATED BLOOD COUNTS [...] DESIRABLE: <130 MG/DL <110 MG/DL BORDERLINE-HIGH RISK: 130- 159 MG/DL 110-129 MG/DL HIGH RISK: >160 MG/DL >130 MG/DL *CHILDREN AND ADOLESCENTS REPRESENTS INDIVIDUALA AGED 2-19 YEARS EXCLUSIVE. HCT 39.6 % 37.0-51.0 [facility] ([facility] NORMAL RANGES Age WBC RBC HGB HCT [...] HCT IS 5% LESS SOURCE FOR DATA: GüvenRehberi 1800 OPERATION MANUAL( AUTOMATED BLOOD COUNTS AND [...] DESIRABLE: <130 MG/DL <110 MG/DL BORDERLINE-HIGH RISK: 130- 159 MG/DL 110-129 MG/DL HIGH RISK: >160 MG/DL >130 MG/DL *CHILDREN AND ADOLESCENTS REPRESENTS INDIVIDUALA AGED 2-19 YEARS EXCLUSIVE. HGB 13.1 g/dL 12.0-18.0 [facility] ([facility] NORMAL RANGES Age WBC RBC HGB HCT [...] HCT IS 5% LESS SOURCE FOR DATA: GüvenRehberi 1800 OPERATION MANUAL( AUTOMATED BLOOD COUNTS AND [...] DESIRABLE: <130 MG/DL <110 MG/DL BORDERLINE-HIGH RISK: 130- 159 MG/DL 110-129 MG/DL HIGH RISK: >160 MG/DL >130 MG/DL *CHILDREN AND ADOLESCENTS REPRESENTS INDIVIDUALA AGED 2-19 YEARS EXCLUSIVE. MCV 90.8 fL 80.0-97.0 [facility] ([facility] NORMAL RANGES Age WBC RBC HGB HCT [...] HCT IS 5% LESS SOURCE FOR DATA: [employer] 1800 OPERATION MANUAL( AUTOMATED BLOOD COUNTS AND [...] DESIRABLE: <130 MG/DL <110 MG/DL BORDERLINE-HIGH RISK: 130- 159 MG/DL 110-129 MG/DL HIGH RISK: >160 MG/DL >130 MG/DL *CHILDREN AND ADOLESCENTS REPRESENTS INDIVIDUALA AGED 2-19 YEARS EXCLUSIVE. MCHC 33.1 g/dL 31.0-36.0 [facility] ([facility] NORMAL RANGES Age WBC RBC HGB HCT [...] HCT IS 5% LESS SOURCE FOR DATA: [employer] 1800 OPERATION MANUAL( AUTOMATED BLOOD COUNTS AND [...] DESIRABLE: <130 MG/DL <110 MG/DL BORDERLINE-HIGH RISK: 130- 159 MG/DL 110-129 MG/DL HIGH RISK: >160 MG/DL >130 MG/DL *CHILDREN AND ADOLESCENTS REPRESENTS INDIVIDUALA AGED 2-19 YEARS EXCLUSIVE. MCH 30.0 pg 26.0-32.0 [facility] ([facility] NORMAL RANGES Age WBC RBC HGB HCT [...] HCT IS 5% LESS SOURCE FOR DATA: [employer] 1800 OPERATION MANUAL( AUTOMATED BLOOD COUNTS AND [...] DESIRABLE: <130 MG/DL <110 MG/DL BORDERLINE-HIGH RISK: 130- 159 MG/DL 110-129 MG/DL HIGH RISK: >160 MG/DL >130 MG/DL *CHILDREN AND ADOLESCENTS REPRESENTS INDIVIDUALA AGED 2-19 YEARS EXCLUSIVE. PLT 239 10E3/uL 140-440 [facility] NORMAL RANGES Age WBC RBC HGB HCT [...] HCT IS 5% LESS SOURCE FOR DATA: [employer] DYN 1800 OPERATION MANUAL( AUTOMATED BLOOD COUNTS [...] DESIRABLE: <130 MG/DL <110 MG/DL BORDERLINE-HIGH RISK: 130- 159 MG/DL 110-129 MG/DL HIGH RISK: >160 MG/DL >130 MG/DL *CHILDREN AND ADOLESCENTS REPRESENTS INDIVIDUALA AGED 2-19 YEARS EXCLUSIVE. Lym% 30.7 % 10.0-58.5 [facility] ([facility] NORMAL RANGES Age WBC RBC HGB HCT [...] HCT IS 5% LESS SOURCE FOR DATA: [employer] 1800 OPERATION MANUAL( AUTOMATED BLOOD COUNTS AND [...] DESIRABLE: <130 MG/DL <110 MG/DL BORDERLINE-HIGH RISK: 130- 159 MG/DL 110-129 MG/DL HIGH RISK: >160 MG/DL >130 MG/DL *CHILDREN AND ADOLESCENTS REPRESENTS INDIVIDUALA AGED 2-19 YEARS EXCLUSIVE. RDW-CV 14.1 % 11.5-14.5 [facility] ([facility] NORMAL RANGES Age WBC RBC HGB HCT [...] HCT IS 5% LESS SOURCE FOR DATA: [employer] 1800 OPERATION MANUAL( AUTOMATED BLOOD COUNTS AND [...] DESIRABLE: <130 MG/DL <110 MG/DL BORDERLINE-HIGH RISK: 130- 159 MG/DL 110-129 MG/DL HIGH RISK: >160 MG/DL >130 MG/DL *CHILDREN AND ADOLESCENTS REPRESENTS INDIVIDUALA AGED 2-19 YEARS EXCLUSIVE. Neut% 62.4 % 37.0-92.0 [facility] ([facility] NORMAL RANGES Age WBC RBC HGB HCT [...] HCT IS 5% LESS SOURCE FOR DATA: [employer] 1800 OPERATION MANUAL( AUTOMATED BLOOD COUNTS AND [...] DESIRABLE: <130 MG/DL <110 MG/DL BORDERLINE-HIGH RISK: 130- 159 MG/DL 110-129 MG/DL HIGH RISK: >160 MG/DL >130 MG/DL *CHILDREN AND ADOLESCENTS REPRESENTS INDIVIDUALA AGED 2-19 YEARS EXCLUSIVE. Lym# 1.4 10E3/uL 0.6-4.1 [facility] ([facility] NORMAL RANGES Age WBC RBC HGB HCT [...] HCT IS 5% LESS SOURCE FOR DATA: [employer] 1800 OPERATION MANUAL( AUTOMATED BLOOD COUNTS AND [...] DESIRABLE: <130 MG/DL <110 MG/DL BORDERLINE-HIGH RISK: 130- 159 MG/DL 110-129 MG/DL HIGH RISK: >160 MG/DL >130 MG/DL *CHILDREN AND ADOLESCENTS REPRESENTS INDIVIDUALA AGED 2-19 YEARS EXCLUSIVE. MXD% 6.9 % 0.1-24.0 [facility] NORMAL RANGES Age WBC RBC HGB HCT [...] HCT IS 5% LESS SOURCE FOR DATA: [employer] 1800 OPERATION MANUAL( AUTOMATED BLOOD COUNTS AND [...] DESIRABLE: <130 MG/DL <110 MG/DL BORDERLINE-HIGH RISK: 130- 159 MG/DL 110-129 MG/DL HIGH RISK: >160 MG/DL >130 MG/DL *CHILDREN AND ADOLESCENTS REPRESENTS INDIVIDUALA AGED 2-19 YEARS EXCLUSIVE. Neut# 2.9 % 2.0-7.8 [facility] ([facility] NORMAL RANGES Age WBC RBC HGB HCT [...] HCT IS 5% LESS SOURCE FOR DATA: [employer] 1800 OPERATION MANUAL( AUTOMATED BLOOD COUNTS AND [...] DESIRABLE: <130 MG/DL <110 MG/DL BORDERLINE-HIGH RISK: 130- 159 MG/DL 110-129 MG/DL HIGH RISK: >160 MG/DL >130 MG/DL *CHILDREN AND ADOLESCENTS REPRESENTS INDIVIDUALA AGED 2-19 YEARS EXCLUSIVE. MXD# 0.3 10E3/uL 0.0-1.8 [facility] ([facility] NORMAL RANGES Age WBC RBC HGB HCT [...] HCT IS 5% LESS SOURCE FOR DATA: [employer] 1800 OPERATION MANUAL( AUTOMATED BLOOD COUNTS AND [...] DESIRABLE: <130 MG/DL <110 MG/DL BORDERLINE-HIGH RISK: 130- 159 MG/DL 110-129 MG/DL HIGH RISK: >160 MG/DL >130 MG/DL *CHILDREN AND ADOLESCENTS REPRESENTS INDIVIDUALA AGED 2-19 YEARS EXCLUSIVE. MPV 10.7 fL 9.0-13.0 [facility] ([facility] NORMAL RANGES Age WBC RBC HGB HCT [...] HCT IS 5% LESS SOURCE FOR DATA: [employer]YN 1800 OPERATION MANUAL( AUTOMATED BLOOD COUNTS [...] DESIRABLE: <130 MG/DL <110 MG/DL BORDERLINE-HIGH RISK: 130- 159 MG/DL 110-129 MG/DL HIGH RISK: >160 MG/DL >130 MG/DL *CHILDREN AND ADOLESCENTS REPRESENTS INDIVIDUALA AGED 2-19 YEARS EXCLUSIVE. ID Date Data Source [id number] 08/16/2020 11:02:00 AM EDT [facility] ([facility] Name Value Range Interpretation Code Description Data Blanca rce(s) Supporting Document(s) Albumin [Mass/volume] in Serum or Plasma 4.3 [facility] ([facility]) Alanine aminotransferase [Enzymatic activity/volume] in Serum or Pl asma 10 [facility] ([facility]) Calcium [Mass/volume] in Serum or Plasma 10.0 [facility] ([facility]) Chloride [Moles/volume] in Serum or Plasma 99.1 [facility] ([facility]) Alkaline phosphatase [Enzymatic activity/volume] in Serum or Plasma 7 9.6 [facility] ([facility]) Carbon dioxide, total [Moles/volume] in Serum or Plasma 24.4 [facility] ([facility]) Sodium 136 [facility] ([facility] Potassium [Moles/volume] in Serum or Plasma 3.7 [facility] ([facility]) Protein [Mass/volume] in Serum or Plasma 6.4 [facility] ([facility]) Aspartate aminotransferase [Enzymatic activity/volume] in Serum or Plasma 17 [facility] ([facility]) Urea nitrogen [Mass/volume] in Serum or Plasma 15 [facility] ([facility]) Glucose 94 70-110 [facility] ([facility]) Creatinine For GFR 0.7 [facility] ([facility]) ID Date Data Source [id number] 08/16/2020 11:02:00 AM EDT [facility] ([facility]) Name Value Range Interpretation Code Description Data Blanca rce(s) Supporting Document(s) Red Blood Count 4.36 4.20-6.30 [facility] White Blood Count 4.6 4.1-10.9 [facility] ([facility]) Hemoglobin 13.1 12.0-18.0 [facility] ([facility]) Hematocrit 39.6 37.0-51.0 [facility] ([facility]) Platelets 239 140-440 [facility] ([facility]) ID Date Data Source [id number] 08/16/2020 11:02:00 AM EDT [facility] ([facility]) Name Value Range Interpretation Code Description Data Blanca rce(s) Supporting Document(s) Triglycerides 163 [facility] ([facility] Chol/HDL Ratio 3.3 [facility] ([facility] Cholesterol 162 0-200 [facility] ([facility]) HDL 49 45-65 [facility] ([facility] Cholesterol in LDL [Mass/volume] in Serum or Plasma by calculation 80 [facility] ([facility]) ID Date Data Source [id number] 08/09/2020 07:03:21 PM EDT [facility] Name Value Range Interpretation Code Description Data Blanca rce(s) Supporting Document(s) &PDF [facility] XQWSOz9vFlEDOhAr25/FQRyxOLXwv6CmHKerNSl3DSshCRUgQ6HxtJynQMeOPLPEIZQEY3CLFvIXJT0x oRX [file] ICAgICAgICAgICAgICAgICAgICAgICAgICAgICAgIC AgICAgICAgICAgICAgICAgICAgICAgICAgICAgICAgICAgICAgICAgICAgICAgICAgICAgICAgICAgIC AgICANCiAgICAgICAgICAgICAgICAgICAgICAgICAgICAgICAgICAgICAgICAgICAgICAgICAgICAgIC AgICAgICAgICAgICAgICAgICAgICAgICAgICAgICAg ICAgICAgICAgICAgICANCiAgICAgICAgICAgICAgICAgICAgICAgICAgICAgICAgICAgICAgICAgICAg ICAgICAgICAgICAgICAgICAgICAgICAgICAgICAgICAgICAgICAgICAgICAgICAgICAgICAgICANCiAg ICAgICAgICAgICAgICAgICAgICAgICAgICAgICAgIC AgICAgICAgICAgICAgICAgICAgICAgICAgICAgICAgICAgICAgICAgICAgICAgICAgICAgICAgICAgIC AgICAgICANCiAgICAgICAgICAgICAgICAgICAgICAgICAgICAgICAgICAgICAgICAgICAgICAgICAgIC AgICAgICAgICAgICAgICAgICAgICAgICAgICAgICAg ICAgICAgICAgICAgICAgICANCiAgICAgICAgICAgICAgICAgICAgICAgICAgICAgICAgICAgICAgICAg ICAgICAgICAgICAgICAgICAgICAgICAgICAgICAgICAgICAgICAgICAgICAgICAgICAgICAgICAgICAN CiAgICAgICAgICAgICAgICAgICAgICAgICAgICAgIC AgICAgICAgICAgICAgICAgICAgICAgICAgICAgICAgICAgICAgICAgICAgICAgICAgICAgICAgICAgIC AgICAgICAgICANCiAgICAgICAgICAgICAgICAgICAgICAgICAgICAgICAgICAgICAgICAgICAgICAgIC AgICAgICAgICAgICAgICAgICAgICAgICAgICAgICAg ICAgICAgICAgICAgICAgICAgICANCiAgICAgICAgICAgICAgICAgICAgICAgICAgICAgICAgICAgICAg ICAgICAgICAgICAgICAgICAgICAgICAgICAgICAgICAgICAgICAgICAgICAgICAgICAgICAgICAgICAg ICANCiAgICAgICAgICAgICAgICAgICAgICAgICAgIC AgICAgICAgICAgICAgICAgICAgICAgICAgICAgICAgICAgICAgICAgICAgICAgICAgICAgICAgICAgIC AgICAgICAgICAgICANCjw/pXYgQ5jrtKFpqiT0C6wqIp5VGq8QWI2ot7MpOEDzQIbazfViJmsDByScJL XrQaoLMho9WQgbZQ1OsJScC2HwF5ZqSBdmQR0THPRr NOMvqKPmJCItSCFbSyL2DZHmEMutUE9KpUArMSnrOUCtDYUyXeVeUJGxRLIvYOTuVL4REIKnZ843gsCw Dy6YUk1JLsLcBD7emf1YYcEzCJHlUpoWEfv2CShyUN0XePRyL4WyeXGqo2pXFpMgC8KPLGQyNUUzIf4E NMRcRaQfLXBcHWddQI0pNCXhIRFTvUjbovV3GH0MXL 1iwjVfLP2TUzOrGn8bGr5IMkRoO5UvW1DrJPDqBJIVEJhdIM6ANMAoIUR1ORInCmUcGCPZSfUjU20dRU 9MQ7Cgi44tLzR7MNWaYrSzEFsdYB30fCycioYfjLHhqMjpOM8POc2+DQplbmRvYmoNCnhyZWYNCjAgMj TQQaVxMHOyFHVoDASkHlI1NqGfJe4FSATnAUChEUDs FpGwGBHjNOMhYGtpLRNgAFAuXeV9KHGsMMVkNX7JGyCaISPhCnMpFApuIBPcHSXfxt1IMSTnCIAaPRQ9 PJUhOCVwJISnTFkyKEMcYEFeWzR3BDZzKARuFG1LEaWsULJfQHV5SVAyNEPhAEGpsg9FPMLdNWQkAoL3 KFHvEUFjIWYyTCwfAVDrZTN7Icn0ISWyOKVjYQ8GUz HlDBBxDMv2TmuoFBZiPSVlfv3UVJSzBRMdEjy8BxHiYNZtRUQtXHoyNEXrUEE2HMXmBLNuZZVfXF8QRa RjXQGqRSacOiDwXHBlPYSoha2AIZTtZRTjTYNyPcKgWBIkMKHrHPiyZDWfOXLzXOsqZASsGCYaUX0GJh KlUVMsIMLsDsJlCNQfZRMfkb9KJUSaLYAsTXH6CvHb UBHgIQHwGXfpRRAoHSQlTLUzVSZyVYUkWM1XTbAoBGMaMKS8KuJvWNNjSJAsdg8MKQGtLXLnGVcqEaNf JSAiCAZwRTszAMCcPGA3OVl7YUMgXUTmHX4ZUrIsCOSeDqK1LGCxQYYrKANkdg9MOKWjRDLmRTL6ZaCn PHCrLZIxWEimHNMhJTFwGCc7MJRqCPMrAS1AAyYfYW jrBUGAAmr1HWryK3j5IFDfCV6AR6Rue2PiAnBkEOTQFYojPB2pipQxWFXjKh1PQ1jQXubeACD9GjA8Kr u0CPMiQJHbOUK8BierRhZyICN4KUBhVC5fFEMdCsTcOJMeMhI6PhU8OAGkWTyfC2XmXwRaFLp3S5A7Jp HnEU1GJp4WGtL6URB1vJVpTb4QXdX0YXIATcDeME9WQZu= ID Date Data Source [id number] 06/03/2020 08:19:00 PM EDT [facility] ([facility] Name Value Range Interpretation Code Description Data Blanca rce(s) Supporting Document(s) Glucose, Fasting 122 mg/dL 70-100 Above high normal M EDALYSIA ([facility] Glomerular Filtration Rate Laboratory test result Normal (applies to non- numeric results) [facility] ) <content>Units are mL/min/1.73 m2</content>
<content></content>
<content>Chronic Kidney Disease Staging per NKF:</content>
<content></content>
<content>Stage I & II GFR >=60 Normal to Mildly Decreased</content>
<content>Stage III GFR 30- 59 Moderately Decreased</content>
<content>Stage IV GFR 15-29 Severely Decreased</content>
<content>Stage V GFR <15 Very Little GFR Left</content>
<content>ESRD GFR <15 on HOP WORKER</content>
<content></content> Blood Urea Nitrogen 18 mg/dL 7-18 Normal (applies to non-nume pam results) [facility] ([facility] Creatinine For GFR 0.88 mg/dL 0.55-1.30 Normal (applies to non -numeric results) [facility] ([facility] Sodium Level 142 meq/L 136-145 Normal (applies to non-numeric res ults) [facility] Potassium Serum 3.4 meq/L 3.5-5.1 Below low normal [facility] ([facility] Chloride Level 107 meq/L 98-107 Normal (applies to non-numeric r esults) [facility] ([facility] Calcium Level 9.1 mg/dL 8.8-10.2 Normal (applies to non-numeric re sults) [facility] ([facility] Anion Gap 8 meq/L 8-16 Normal (applies to non-numeric resul ts) [facility] Carbon Dioxide Level 27 meq/L 21-32 Normal (applies to non-num layo results) [facility] ([facility] ID Date Data Source [id number] 06/03/2020 08:19:00 PM EDT [facility] ([facility] Name Value Range Interpretation Code Description Data Blanca rce(s) Supporting Document(s) Ast/Sgot 19 U/L 7-37 Normal (applies to non-numeric resul ts) [facility] Bilirubin,Total 0.4 mg/dL 0.2-1.0 Normal (applies to non-numeric results) [facility] ([facility] Alt/SGPT 23 U/L 12-78 Normal (applies to non-numeric resul ts) [facility] Alkaline Phosphatase 78 U/L 45-117 Normal (applies to non-num layo results) [facility] ([facility] Total Protein 6.9 GM/DL 6.4-8.2 Normal (applies to non-numeric re sults) [facility] ([facility] Bilirubin,Direct 0.1 mg/dL 0.0-0.2 Normal (applies to non-numeric results) [facility] ([facility] Albumin 3.5 GM/DL 3.2-5.2 Normal (applies to non-numeric resul ts) [facility] Albumin/Globulin Ratio 1.0 1.2-2.2 Below low normal [facility] ([facility] ID Date Data Source [id number] 06/03/2020 08:19:00 PM EDT [facility] ([facility] Name Value Range Interpretation Code Description Data Blanca rce(s) Supporting Document(s) White Blood Count 4.9 10 4.0-10.0 Normal (applies to non-numeri c results) [facility] ([facility] Hemoglobin 13.1 g/dL 12.0-15.5 Normal (applies to non-numeric resul ts) [facility] Red Blood Count 4.41 10 4.00-5.40 Normal (applies to non-numeric results) [facility] ([facility] Mean Corpuscular Hemoglobin 29.7 pg 27.0-33.0 Norm al (applies to non-numeric results) [facility] ([facility] ) Mean Corpuscular HGB Conc 33.0 g/dL 32.0-36.5 Normal (applies to non-numeric results) [facility] Hematocrit 39.7 % 36.0-47.0 Normal (applies to non-numeric resul ts) [facility] ([facility] Mean Corpuscular Volume 90.0 fl 80.0-96.0 Normal ( applies to non-numeric results) [facility] ([facility] Red Cell Distribution Width 13.3 % 11.5-14.5 Norm al (applies to non-numeric results) [facility] ([facility] Neutrophils % 61.6 % 36.0-66.0 Normal (applies to non-numeric re sults) [facility] ([facility] Platelet Count, Automated 219 10 150-450 Normal (applies to non-numeric results) [facility] ([facility] ) Lymph % 26.0 % 24.0-44.0 Normal (applies to non-numeric resul ts) [facility] ([facility] Baso % 0.2 % 0.0-1.0 Normal (applies to non-numeric resul ts) [facility] ([facility] Lane % 10.3 % 0.0-5.0 Above high normal [facility] ([facility] Eos % 1.9 % 0.0-3.0 Normal (applies to non-numeric resul ts) [facility] Nucleated Red Blood Cell % 0.0 % 0-0 Normal (applies to n on-numeric results) [facility] ([facility] Immature Granulocyte % 0.0 % 0-3.0 Normal (applies to non-n umeric results) [facility] ([facility] Neutrophils # 3.0 10 1.5-8.5 Normal (applies to non-numeric re sults) [facility] ([facility] Lymph # 1.3 10 1.5-5.0 Below low normal [facility] ( [facility] Lane # 0.5 10 0.0-0.8 Normal (applies to non-numeric resul ts) [facility] ([facility] Eos # 0.1 10 0.0-0.5 Normal (applies to non-numeric resul ts) [facility] ([facility] Baso # 0.0 10 0.0-0.2 Normal (applies to non-numeric resul ts) [facility] ([facility] ID Date Data Source [id number] 06/03/2020 08:18:00 PM EDT [facility] ([facility] Name Value Range Interpretation Code Description Data Blanca rce(s) Supporting Document(s) Laboratory test finding (navigational concept) 0.01 ng/mL 0 .00-0.08 Normal (applies to non-numeric results) [facility] ([facility] ID Date Data Source [id number] 01/08/2020 08:59:00 AM EST [facility] ([facility] Name Value Range Interpretation Code Description Data Blanca rce(s) Supporting Document(s) Prostate specific Ag [Mass/volume] in Serum or Plasma 46 mg/dL 45-6 5 [facility] ([facility] CLASSIFICATION CHOLESTEROL FO R ADULTS CHILDREN/ADOLESCENTS* DESIRABLE: <200 MG/DL <170 MG/DL BORDER-LINE HIGH RISK: 200-239 MG/DL 170-199 MG/DL HIGH RISK: >240 MG/DL >200 MG/DL CLASS. FOR PRIMARY LDL CHOL PREVENTION: LDL CHOL-CHILD/ADOLESCENTS* DESIRABLE: <130 MG/DL <110 MG/DL BORDERLINE-HIGH RISK: 130-159 MG/DL 110-129 MG/DL HIGH RISK: >160 MG/DL >130 MG/DL *CHILDREN AND ADOLESCENTS REPRESENTS INDIVIDUALA AGED 2-19 YEARS EXCLUSIVE. CHRONIC KIDNEY DISEASE STAGING PER NKF: MALE [...] Normal 80 and above >32 mL/min Normal Trig 135 mg/dL 40-200 [facility] ([facility] CLASSIFICATION CHOLESTEROL FO R ADULTS CHILDREN/ADOLESCENTS* DESIRABLE: <200 MG/DL <170 MG/DL BORDER-LINE HIGH RISK: 200-239 MG/DL 170-199 MG/DL HIGH RISK: >240 MG/DL >200 MG/DL CLASS. FOR PRIMARY LDL CHOL PREVENTION: LDL CHOL-CHILD/ADOLESCENTS* DESIRABLE: <130 MG/DL <110 MG/DL BORDERLINE-HIGH RISK: 130-159 MG/DL 110-129 MG/DL HIGH RISK: >160 MG/DL >130 MG/DL *CHILDREN AND ADOLESCENTS REPRESENTS INDIVIDUALA AGED 2-19 YEARS EXCLUSIVE. CHRONIC KIDNEY DISEASE STAGING PER NKF: MALE [...] Normal 80 and above >32 mL/min Normal Chol 220 mg/dL 0-200 Above high normal [facility] ([facility] CLASSIFICATION CHOLESTEROL FO R ADULTS CHILDREN/ADOLESCENTS* DESIRABLE: <200 MG/DL <170 MG/DL BORDER-LINE HIGH RISK: 200-239 MG/DL 170-199 MG/DL HIGH RISK: >240 MG/DL >200 MG/DL CLASS. FOR PRIMARY LDL CHOL PREVENTION: LDL CHOL-CHILD/ADOLESCENTS* DESIRABLE: <130 MG/DL <110 MG/DL BORDERLINE-HIGH RISK: 130-159 MG/DL 110-129 MG/DL HIGH RISK: >160 MG/DL >130 MG/DL *CHILDREN AND ADOLESCENTS REPRESENTS INDIVIDUALA AGED 2-19 YEARS EXCLUSIVE. CHRONIC KIDNEY DISEASE STAGING PER NKF: MALE [...] Normal 80 and above >32 mL/min Normal LDL_C 148 Calc 75-129 Above high normal [facility] ([facility] CLASSIFICATION CHOLESTEROL FO R ADULTS CHILDREN/ADOLESCENTS* DESIRABLE: <200 MG/DL <170 MG/DL BORDER-LINE HIGH RISK: 200-239 MG/DL 170-199 MG/DL HIGH RISK: >240 MG/DL >200 MG/DL CLASS. FOR PRIMARY LDL CHOL PREVENTION: LDL CHOL-CHILD/ADOLESCENTS* DESIRABLE: <130 MG/DL <110 MG/DL BORDERLINE-HIGH RISK: 130-159 MG/DL 110-129 MG/DL HIGH RISK: >160 MG/DL >130 MG/DL *CHILDREN AND ADOLESCENTS REPRESENTS INDIVIDUALA AGED 2-19 YEARS EXCLUSIVE. CHRONIC KIDNEY DISEASE STAGING PER NKF: MALE [...] Normal 80 and above >32 mL/min Normal Cho/HDL Ratio 4.8 Calc [facility] ([facility] CLASSIFICATION CHOLESTEROL FO R ADULTS CHILDREN/ADOLESCENTS* DESIRABLE: <200 MG/DL <170 MG/DL BORDER-LINE HIGH RISK: 200-239 MG/DL 170-199 MG/DL HIGH RISK: >240 MG/DL >200 MG/DL CLASS. FOR PRIMARY LDL CHOL PREVENTION: LDL CHOL-CHILD/ADOLESCENTS* DESIRABLE: <130 MG/DL <110 MG/DL BORDERLINE-HIGH RISK: 130-159 MG/DL 110-129 MG/DL HIGH RISK: >160 MG/DL >130 MG/DL *CHILDREN AND ADOLESCENTS REPRESENTS INDIVIDUALA AGED 2-19 YEARS EXCLUSIVE. CHRONIC KIDNEY DISEASE STAGING PER NKF: MALE [...] Normal 80 and above >32 mL/min Normal ID Date Data Source [id number] 01/08/2020 08:59:00 AM EST [facility] ([facility] Name Value Range Interpretation Code Description Data Blanca rce(s) Supporting Document(s) Glu 102 mg/dL 70-110 [facility] CLASSIFICATION CHOLESTEROL FO R ADULTS CHILDREN/ADOLESCENTS* DESIRABLE: <200 MG/DL <170 MG/DL BORDER-LINE HIGH RISK: 200-239 MG/DL 170-199 MG/DL HIGH RISK: >240 MG/DL >200 MG/DL CLASS. FOR PRIMARY LDL CHOL PREVENTION: LDL CHOL-CHILD/ADOLESCENTS* DESIRABLE: <130 MG/DL <110 MG/DL BORDERLINE-HIGH RISK: 130-159 MG/DL 110-129 MG/DL HIGH RISK: >160 MG/DL >130 MG/DL *CHILDREN AND ADOLESCENTS REPRESENTS INDIVIDUALA AGED 2-19 YEARS EXCLUSIVE. CHRONIC KIDNEY DISEASE STAGING PER NKF: MALE [...] Normal 80 and above >32 mL/min Normal BUN 14 mg/dL 8-23 [facility] ([facility] CLASSIFICATION CHOLESTEROL FO R ADULTS CHILDREN/ADOLESCENTS* DESIRABLE: <200 MG/DL <170 MG/DL BORDER-LINE HIGH RISK: 200-239 MG/DL 170-199 MG/DL HIGH RISK: >240 MG/DL >200 MG/DL CLASS. FOR PRIMARY LDL CHOL PREVENTION: LDL CHOL-CHILD/ADOLESCENTS* DESIRABLE: <130 MG/DL <110 MG/DL BORDERLINE-HIGH RISK: 130-159 MG/DL 110-129 MG/DL HIGH RISK: >160 MG/DL >130 MG/DL *CHILDREN AND ADOLESCENTS REPRESENTS INDIVIDUALA AGED 2-19 YEARS EXCLUSIVE. CHRONIC KIDNEY DISEASE STAGING PER NKF: MALE [...] Normal 80 and above >32 mL/min Normal BUN/Creatinine Ratio 16.1 CALC [facility] ([facility] CLASSIFICATION CHOLESTEROL FO R ADULTS CHILDREN/ADOLESCENTS* DESIRABLE: <200 MG/DL <170 MG/DL BORDER-LINE HIGH RISK: 200-239 MG/DL 170-199 MG/DL HIGH RISK: >240 MG/DL >200 MG/DL CLASS. FOR PRIMARY LDL CHOL PREVENTION: LDL CHOL-CHILD/ADOLESCENTS* DESIRABLE: <130 MG/DL <110 MG/DL BORDERLINE-HIGH RISK: 130-159 MG/DL 110-129 MG/DL HIGH RISK: >160 MG/DL >130 MG/DL *CHILDREN AND ADOLESCENTS REPRESENTS INDIVIDUALA AGED 2-19 YEARS EXCLUSIVE. CHRONIC KIDNEY DISEASE STAGING PER NKF: MALE [...] Normal 80 and above >32 mL/min Normal Creat 0.9 mg/dL 0.5-1.0 [facility] CLASSIFICATION CHOLESTEROL FO R ADULTS CHILDREN/ADOLESCENTS* DESIRABLE: <200 MG/DL <170 MG/DL BORDER-LINE HIGH RISK: 200-239 MG/DL 170-199 MG/DL HIGH RISK: >240 MG/DL >200 MG/DL CLASS. FOR PRIMARY LDL CHOL PREVENTION: LDL CHOL-CHILD/ADOLESCENTS* DESIRABLE: <130 MG/DL <110 MG/DL BORDERLINE-HIGH RISK: 130-159 MG/DL 110-129 MG/DL HIGH RISK: >160 MG/DL >130 MG/DL *CHILDREN AND ADOLESCENTS REPRESENTS INDIVIDUALA AGED 2-19 YEARS EXCLUSIVE. CHRONIC KIDNEY DISEASE STAGING PER NKF: MALE [...] Normal 80 and above >32 mL/min Normal K 3.8 mmol/L 3.5-5.1 [facility] ([facility] CLASSIFICATION CHOLESTEROL FO R ADULTS CHILDREN/ADOLESCENTS* DESIRABLE: <200 MG/DL <170 MG/DL BORDER-LINE HIGH RISK: 200-239 MG/DL 170-199 MG/DL HIGH RISK: >240 MG/DL >200 MG/DL CLASS. FOR PRIMARY LDL CHOL PREVENTION: LDL CHOL-CHILD/ADOLESCENTS* DESIRABLE: <130 MG/DL <110 MG/DL BORDERLINE-HIGH RISK: 130-159 MG/DL 110-129 MG/DL HIGH RISK: >160 MG/DL >130 MG/DL *CHILDREN AND ADOLESCENTS REPRESENTS INDIVIDUALA AGED 2-19 YEARS EXCLUSIVE. CHRONIC KIDNEY DISEASE STAGING PER NKF: MALE [...] Normal 80 and above >32 mL/min Normal CL 104.9 mmol/L 98.0-107.0 [facility] ([facility] CLASSIFICATION CHOLESTEROL FO R ADULTS CHILDREN/ADOLESCENTS* DESIRABLE: <200 MG/DL <170 MG/DL BORDER-LINE HIGH RISK: 200-239 MG/DL 170-199 MG/DL HIGH RISK: >240 MG/DL >200 MG/DL CLASS. FOR PRIMARY LDL CHOL PREVENTION: LDL CHOL-CHILD/ADOLESCENTS* DESIRABLE: <130 MG/DL <110 MG/DL BORDERLINE-HIGH RISK: 130-159 MG/DL 110-129 MG/DL HIGH RISK: >160 MG/DL >130 MG/DL *CHILDREN AND ADOLESCENTS REPRESENTS INDIVIDUALA AGED 2-19 YEARS EXCLUSIVE. CHRONIC KIDNEY DISEASE STAGING PER NKF: MALE [...] Normal 80 and above >32 mL/min Normal Na 141 mmol/L 136-145 [facility] ([facility] CLASSIFICATION CHOLESTEROL FO R ADULTS CHILDREN/ADOLESCENTS* DESIRABLE: <200 MG/DL <170 MG/DL BORDER-LINE HIGH RISK: 200-239 MG/DL 170-199 MG/DL HIGH RISK: >240 MG/DL >200 MG/DL CLASS. FOR PRIMARY LDL CHOL PREVENTION: LDL CHOL-CHILD/ADOLESCENTS* DESIRABLE: <130 MG/DL <110 MG/DL BORDERLINE-HIGH RISK: 130-159 MG/DL 110-129 MG/DL HIGH RISK: >160 MG/DL >130 MG/DL *CHILDREN AND ADOLESCENTS REPRESENTS INDIVIDUALA AGED 2-19 YEARS EXCLUSIVE. CHRONIC KIDNEY DISEASE STAGING PER NKF: MALE [...] Normal 80 and above >32 mL/min Normal TP 6.4 g/dL 6.6-8.7 Below low normal [facility] ( [facility] CLASSIFICATION CHOLESTEROL FO R ADULTS CHILDREN/ADOLESCENTS* DESIRABLE: <200 MG/DL <170 MG/DL BORDER-LINE HIGH RISK: 200-239 MG/DL 170-199 MG/DL HIGH RISK: >240 MG/DL >200 MG/DL CLASS. FOR PRIMARY LDL CHOL PREVENTION: LDL CHOL-CHILD/ADOLESCENTS* DESIRABLE: <130 MG/DL <110 MG/DL BORDERLINE-HIGH RISK: 130-159 MG/DL 110-129 MG/DL HIGH RISK: >160 MG/DL >130 MG/DL *CHILDREN AND ADOLESCENTS REPRESENTS INDIVIDUALA AGED 2-19 YEARS EXCLUSIVE. CHRONIC KIDNEY DISEASE STAGING PER NKF: MALE [...] Normal 80 and above >32 mL/min Normal CA 9.8 mg/dL 8.6-10.2 [facility] [facility] CLASSIFICATION CHOLESTEROL FO R ADULTS CHILDREN/ADOLESCENTS* DESIRABLE: <200 MG/DL <170 MG/DL BORDER-LINE HIGH RISK: 200-239 MG/DL 170-199 MG/DL HIGH RISK: >240 MG/DL >200 MG/DL CLASS. FOR PRIMARY LDL CHOL PREVENTION: LDL CHOL-CHILD/ADOLESCENTS* DESIRABLE: <130 MG/DL <110 MG/DL BORDERLINE-HIGH RISK: 130-159 MG/DL 110-129 MG/DL HIGH RISK: >160 MG/DL >130 MG/DL *CHILDREN AND ADOLESCENTS REPRESENTS INDIVIDUALA AGED 2-19 YEARS EXCLUSIVE. CHRONIC KIDNEY DISEASE STAGING PER NKF: MALE [...] Normal 80 and above >32 mL/min Normal Co2 23.8 mmol/L 22.0-29.0 MEDENT ([facility] CLASSIFICATION CHOLESTEROL FO R ADULTS CHILDREN/ADOLESCENTS* DESIRABLE: <200 MG/DL <170 MG/DL BORDER-LINE HIGH RISK: 200-239 MG/DL 170-199 MG/DL HIGH RISK: >240 MG/DL >200 MG/DL CLASS. FOR PRIMARY LDL CHOL PREVENTION: LDL CHOL-CHILD/ADOLESCENTS* DESIRABLE: <130 MG/DL <110 MG/DL BORDERLINE-HIGH RISK: 130-159 MG/DL 110-129 MG/DL HIGH RISK: >160 MG/DL >130 MG/DL *CHILDREN AND ADOLESCENTS REPRESENTS INDIVIDUALA AGED 2-19 YEARS EXCLUSIVE. CHRONIC KIDNEY DISEASE STAGING PER NKF: MALE [...] Normal 80 and above >32 mL/min Normal Alb 4.1 g/dL 3.4-4.8 MEDENT ([facility] CLASSIFICATION CHOLESTEROL FO R ADULTS CHILDREN/ADOLESCENTS* DESIRABLE: <200 MG/DL <170 MG/DL BORDER-LINE HIGH RISK: 200-239 MG/DL 170-199 MG/DL HIGH RISK: >240 MG/DL >200 MG/DL CLASS. FOR PRIMARY LDL CHOL PREVENTION: LDL CHOL-CHILD/ADOLESCENTS* DESIRABLE: <130 MG/DL <110 MG/DL BORDERLINE-HIGH RISK: 130-159 MG/DL 110-129 MG/DL HIGH RISK: >160 MG/DL >130 MG/DL *CHILDREN AND ADOLESCENTS REPRESENTS INDIVIDUALA AGED 2-19 YEARS EXCLUSIVE. CHRONIC KIDNEY DISEASE STAGING PER NKF: MALE [...] Normal 80 and above >32 mL/min Normal A/G Ratio 1.8 CALC [facility] ([facility] CLASSIFICATION CHOLESTEROL FO R ADULTS CHILDREN/ADOLESCENTS* DESIRABLE: <200 MG/DL <170 MG/DL BORDER-LINE HIGH RISK: 200-239 MG/DL 170-199 MG/DL HIGH RISK: >240 MG/DL >200 MG/DL CLASS. FOR PRIMARY LDL CHOL PREVENTION: LDL CHOL-CHILD/ADOLESCENTS* DESIRABLE: <130 MG/DL <110 MG/DL BORDERLINE-HIGH RISK: 130-159 MG/DL 110-129 MG/DL HIGH RISK: >160 MG/DL >130 MG/DL *CHILDREN AND ADOLESCENTS REPRESENTS INDIVIDUALA AGED 2-19 YEARS EXCLUSIVE. CHRONIC KIDNEY DISEASE STAGING PER NKF: MALE [...] Normal 80 and above >32 mL/min Normal Alp 63.4 U/L 35-129 [facility] ([facility] CLASSIFICATION CHOLESTEROL FO R ADULTS CHILDREN/ADOLESCENTS* DESIRABLE: <200 MG/DL <170 MG/DL BORDER-LINE HIGH RISK: 200-239 MG/DL 170-199 MG/DL HIGH RISK: >240 MG/DL >200 MG/DL CLASS. FOR PRIMARY LDL CHOL PREVENTION: LDL CHOL-CHILD/ADOLESCENTS* DESIRABLE: <130 MG/DL <110 MG/DL BORDERLINE-HIGH RISK: 130-159 MG/DL 110-129 MG/DL HIGH RISK: >160 MG/DL >130 MG/DL *CHILDREN AND ADOLESCENTS REPRESENTS INDIVIDUALA AGED 2-19 YEARS EXCLUSIVE. CHRONIC KIDNEY DISEASE STAGING PER NKF: MALE [...] Normal 80 and above >32 mL/min Normal Globulin 2.3 CALC MEDENT ([facility] CLASSIFICATION CHOLESTEROL FO R ADULTS CHILDREN/ADOLESCENTS* DESIRABLE: <200 MG/DL <170 MG/DL BORDER-LINE HIGH RISK: 200-239 MG/DL 170-199 MG/DL HIGH RISK: >240 MG/DL >200 MG/DL CLASS. FOR PRIMARY LDL CHOL PREVENTION: LDL CHOL-CHILD/ADOLESCENTS* DESIRABLE: <130 MG/DL <110 MG/DL BORDERLINE-HIGH RISK: 130-159 MG/DL 110-129 MG/DL HIGH RISK: >160 MG/DL >130 MG/DL *CHILDREN AND ADOLESCENTS REPRESENTS INDIVIDUALA AGED 2-19 YEARS EXCLUSIVE. CHRONIC KIDNEY DISEASE STAGING PER NKF: MALE [...] Normal 80 and above >32 mL/min Normal Ast (Sgot) 18 U/L 0-40 [facility] ([facility] CLASSIFICATION CHOLESTEROL FO R ADULTS CHILDREN/ADOLESCENTS* DESIRABLE: <200 MG/DL <170 MG/DL BORDER-LINE HIGH RISK: 200-239 MG/DL 170-199 MG/DL HIGH RISK: >240 MG/DL >200 MG/DL CLASS. FOR PRIMARY LDL CHOL PREVENTION: LDL CHOL-CHILD/ADOLESCENTS* DESIRABLE: <130 MG/DL <110 MG/DL BORDERLINE-HIGH RISK: 130-159 MG/DL 110-129 MG/DL HIGH RISK: >160 MG/DL >130 MG/DL *CHILDREN AND ADOLESCENTS REPRESENTS INDIVIDUALA AGED 2-19 YEARS EXCLUSIVE. CHRONIC KIDNEY DISEASE STAGING PER NKF: MALE [...] Normal 80 and above >32 mL/min Normal Tbili 0.55 mg/dL 0.0-1.2 [facility] ([facility] CLASSIFICATION CHOLESTEROL FO R ADULTS CHILDREN/ADOLESCENTS* DESIRABLE: <200 MG/DL <170 MG/DL BORDER-LINE HIGH RISK: 200-239 MG/DL 170-199 MG/DL HIGH RISK: >240 MG/DL >200 MG/DL CLASS. FOR PRIMARY LDL CHOL PREVENTION: LDL CHOL-CHILD/ADOLESCENTS* DESIRABLE: <130 MG/DL <110 MG/DL BORDERLINE-HIGH RISK: 130-159 MG/DL 110-129 MG/DL HIGH RISK: >160 MG/DL >130 MG/DL *CHILDREN AND ADOLESCENTS REPRESENTS INDIVIDUALA AGED 2-19 YEARS EXCLUSIVE. CHRONIC KIDNEY DISEASE STAGING PER NKF: MALE [...] Normal 80 and above >32 mL/min Normal Alt (SGPT) 11 U/L 0-41 [facility] ([facility] CLASSIFICATION CHOLESTEROL FO R ADULTS CHILDREN/ADOLESCENTS* DESIRABLE: <200 MG/DL <170 MG/DL BORDER-LINE HIGH RISK: 200-239 MG/DL 170-199 MG/DL HIGH RISK: >240 MG/DL >200 MG/DL CLASS. FOR PRIMARY LDL CHOL PREVENTION: LDL CHOL-CHILD/ADOLESCENTS* DESIRABLE: <130 MG/DL <110 MG/DL BORDERLINE-HIGH RISK: 130-159 MG/DL 110-129 MG/DL HIGH RISK: >160 MG/DL >130 MG/DL *CHILDREN AND ADOLESCENTS REPRESENTS INDIVIDUALA AGED 2-19 YEARS EXCLUSIVE. CHRONIC KIDNEY DISEASE STAGING PER NKF: MALE [...] Normal 80 and above >32 mL/min Normal Osmolality-Calculated 281.1 CALC MED ENT ([facility] CLASSIFICATION CHOLESTEROL FO R ADULTS CHILDREN/ADOLESCENTS* DESIRABLE: <200 MG/DL <170 MG/DL BORDER-LINE HIGH RISK: 200-239 MG/DL 170-199 MG/DL HIGH RISK: >240 MG/DL >200 MG/DL CLASS. FOR PRIMARY LDL CHOL PREVENTION: LDL CHOL-CHILD/ADOLESCENTS* DESIRABLE: <130 MG/DL <110 MG/DL BORDERLINE-HIGH RISK: 130-159 MG/DL 110-129 MG/DL HIGH RISK: >160 MG/DL >130 MG/DL *CHILDREN AND ADOLESCENTS REPRESENTS INDIVIDUALA AGED 2-19 YEARS EXCLUSIVE. CHRONIC KIDNEY DISEASE STAGING PER NKF: MALE [...] Normal 80 and above >32 mL/min Normal Anion Gap 16 mmol/L [facility] ([facility] CLASSIFICATION CHOLESTEROL FO R ADULTS CHILDREN/ADOLESCENTS* DESIRABLE: <200 MG/DL <170 MG/DL BORDER-LINE HIGH RISK: 200-239 MG/DL 170-199 MG/DL HIGH RISK: >240 MG/DL >200 MG/DL CLASS. FOR PRIMARY LDL CHOL PREVENTION: LDL CHOL-CHILD/ADOLESCENTS* DESIRABLE: <130 MG/DL <110 MG/DL BORDERLINE-HIGH RISK: 130-159 MG/DL 110-129 MG/DL HIGH RISK: >160 MG/DL >130 MG/DL *CHILDREN AND ADOLESCENTS REPRESENTS INDIVIDUALA AGED 2-19 YEARS EXCLUSIVE. CHRONIC KIDNEY DISEASE STAGING PER NKF: MALE [...] Normal 80 and above >32 mL/min Normal eGFR 67 # MEDENT ( [facility] CLASSIFICATION CHOLESTEROL FO R ADULTS CHILDREN/ADOLESCENTS* DESIRABLE: <200 MG/DL <170 MG/DL BORDER-LINE HIGH RISK: 200-239 MG/DL 170-199 MG/DL HIGH RISK: >240 MG/DL >200 MG/DL CLASS. FOR PRIMARY LDL CHOL PREVENTION: LDL CHOL-CHILD/ADOLESCENTS* DESIRABLE: <130 MG/DL <110 MG/DL BORDERLINE-HIGH RISK: 130-159 MG/DL 110-129 MG/DL HIGH RISK: >160 MG/DL >130 MG/DL *CHILDREN AND ADOLESCENTS REPRESENTS INDIVIDUALA AGED 2-19 YEARS EXCLUSIVE. CHRONIC KIDNEY DISEASE STAGING PER NKF: MALE [...] Normal 80 and above >32 mL/min Normal eGFR Non-Afr. Kitt[place] 57 # MEDENT ([facility] CLASSIFICATION CHOLESTEROL FO R ADULTS CHILDREN/ADOLESCENTS* DESIRABLE: <200 MG/DL <170 MG/DL BORDER-LINE HIGH RISK: 200-239 MG/DL 170-199 MG/DL HIGH RISK: >240 MG/DL >200 MG/DL CLASS. FOR PRIMARY LDL CHOL PREVENTION: LDL CHOL-CHILD/ADOLESCENTS* DESIRABLE: <130 MG/DL <110 MG/DL BORDERLINE-HIGH RISK: 130-159 MG/DL 110-129 MG/DL HIGH RISK: >160 MG/DL >130 MG/DL *CHILDREN AND ADOLESCENTS REPRESENTS INDIVIDUALA AGED 2-19 YEARS EXCLUSIVE. CHRONIC KIDNEY DISEASE STAGING PER NKF: MALE [...] Normal 80 and above >32 mL/min Normal ID Date Data Source [id number] 01/08/2020 08:59:00 AM WINTER BALDERRAMA ([facility] Name Value Range Interpretation Code Description Data Blanca rce(s) Supporting Document(s) Glu 102 mg/dL 70-110 TACOS ([facility] CLASSIFICATION CHOLESTEROL FO R ADULTS CHILDREN/ADOLESCENTS* DESIRABLE: <200 MG/DL <170 MG/DL BORDER-LINE HIGH RISK: 200-239 MG/DL 170-199 MG/DL HIGH RISK: >240 MG/DL >200 MG/DL CLASS. FOR PRIMARY LDL CHOL PREVENTION: LDL CHOL-CHILD/ADOLESCENTS* DESIRABLE: <130 MG/DL <110 MG/DL BORDERLINE-HIGH RISK: 130-159 MG/DL 110-129 MG/DL HIGH RISK: >160 MG/DL >130 MG/DL *CHILDREN AND ADOLESCENTS REPRESENTS INDIVIDUALA AGED 2-19 YEARS EXCLUSIVE. CHRONIC KIDNEY DISEASE STAGING PER NKF: MALE [...] Normal 80 and above >32 mL/min Normal Creat 0.9 mg/dL 0.5-1.0 MEDENT ([facility] CLASSIFICATION CHOLESTEROL FO R ADULTS CHILDREN/ADOLESCENTS* DESIRABLE: <200 MG/DL <170 MG/DL BORDER-LINE HIGH RISK: 200-239 MG/DL 170-199 MG/DL HIGH RISK: >240 MG/DL >200 MG/DL CLASS. FOR PRIMARY LDL CHOL PREVENTION: LDL CHOL-CHILD/ADOLESCENTS* DESIRABLE: <130 MG/DL <110 MG/DL BORDERLINE-HIGH RISK: 130-159 MG/DL 110-129 MG/DL HIGH RISK: >160 MG/DL >130 MG/DL *CHILDREN AND ADOLESCENTS REPRESENTS INDIVIDUALA AGED 2-19 YEARS EXCLUSIVE. CHRONIC KIDNEY DISEASE STAGING PER NKF: MALE [...] Normal 80 and above >32 mL/min Normal BUN 14 mg/dL 8-23 MEDENT ([facility] CLASSIFICATION CHOLESTEROL FO R ADULTS CHILDREN/ADOLESCENTS* DESIRABLE: <200 MG/DL <170 MG/DL BORDER-LINE HIGH RISK: 200-239 MG/DL 170-199 MG/DL HIGH RISK: >240 MG/DL >200 MG/DL CLASS. FOR PRIMARY LDL CHOL PREVENTION: LDL CHOL-CHILD/ADOLESCENTS* DESIRABLE: <130 MG/DL <110 MG/DL BORDERLINE-HIGH RISK: 130-159 MG/DL 110-129 MG/DL HIGH RISK: >160 MG/DL >130 MG/DL *CHILDREN AND ADOLESCENTS REPRESENTS INDIVIDUALA AGED 2-19 YEARS EXCLUSIVE. CHRONIC KIDNEY DISEASE STAGING PER NKF: MALE [...] Normal 80 and above >32 mL/min Normal Na 141 mmol/L 136-145 MEDENT ([facility]) CLASSIFICATION CHOLESTEROL FO R ADULTS CHILDREN/ADOLESCENTS* DESIRABLE: <200 MG/DL <170 MG/DL BORDER-LINE HIGH RISK: 200-239 MG/DL 170-199 MG/DL HIGH RISK: >240 MG/DL >200 MG/DL CLASS. FOR PRIMARY LDL CHOL PREVENTION: LDL CHOL-CHILD/ADOLESCENTS* DESIRABLE: <130 MG/DL <110 MG/DL BORDERLINE-HIGH RISK: 130-159 MG/DL 110-129 MG/DL HIGH RISK: >160 MG/DL >130 MG/DL *CHILDREN AND ADOLESCENTS REPRESENTS INDIVIDUALA AGED 2-19 YEARS EXCLUSIVE. CHRONIC KIDNEY DISEASE STAGING PER NKF: MALE [...] Normal 80 and above >32 mL/min Normal K 3.8 mmol/L 3.5-5.1 MEDENT ([facility]) CLASSIFICATION CHOLESTEROL FO R ADULTS CHILDREN/ADOLESCENTS* DESIRABLE: <200 MG/DL <170 MG/DL BORDER-LINE HIGH RISK: 200-239 MG/DL 170-199 MG/DL HIGH RISK: >240 MG/DL >200 MG/DL CLASS. FOR PRIMARY LDL CHOL PREVENTION: LDL CHOL-CHILD/ADOLESCENTS* DESIRABLE: <130 MG/DL <110 MG/DL BORDERLINE-HIGH RISK: 130-159 MG/DL 110-129 MG/DL HIGH RISK: >160 MG/DL >130 MG/DL *CHILDREN AND ADOLESCENTS REPRESENTS INDIVIDUALA AGED 2-19 YEARS EXCLUSIVE. CHRONIC KIDNEY DISEASE STAGING PER NKF: MALE [...] Normal 80 and above >32 mL/min Normal Urea nitrogen/Creatinine [Mass Ratio] in Serum or Plasma 16.1 CALC MEDENT ([facility]) CLASSIFICATION CHOLESTEROL FO R ADULTS CHILDREN/ADOLESCENTS* DESIRABLE: <200 MG/DL <170 MG/DL BORDER-LINE HIGH RISK: 200-239 MG/DL 170-199 MG/DL HIGH RISK: >240 MG/DL >200 MG/DL CLASS. FOR PRIMARY LDL CHOL PREVENTION: LDL CHOL-CHILD/ADOLESCENTS* DESIRABLE: <130 MG/DL <110 MG/DL BORDERLINE-HIGH RISK: 130-159 MG/DL 110-129 MG/DL HIGH RISK: >160 MG/DL >130 MG/DL *CHILDREN AND ADOLESCENTS REPRESENTS INDIVIDUALA AGED 2-19 YEARS EXCLUSIVE. CHRONIC KIDNEY DISEASE STAGING PER NKF: MALE [...] Normal 80 and above >32 mL/min Normal CL 104.9 mmol/L 98.0-107.0 MEDENT ([facility]) CLASSIFICATION CHOLESTEROL FO R ADULTS CHILDREN/ADOLESCENTS* DESIRABLE: <200 MG/DL <170 MG/DL BORDER-LINE HIGH RISK: 200-239 MG/DL 170-199 MG/DL HIGH RISK: >240 MG/DL >200 MG/DL CLASS. FOR PRIMARY LDL CHOL PREVENTION: LDL CHOL-CHILD/ADOLESCENTS* DESIRABLE: <130 MG/DL <110 MG/DL BORDERLINE-HIGH RISK: 130-159 MG/DL 110-129 MG/DL HIGH RISK: >160 MG/DL >130 MG/DL *CHILDREN AND ADOLESCENTS REPRESENTS INDIVIDUALA AGED 2-19 YEARS EXCLUSIVE. CHRONIC KIDNEY DISEASE STAGING PER NKF: MALE [...] Normal 80 and above >32 mL/min Normal CA 9.8 mg/dL 8.6-10.2 MEDENT ([facility] CLASSIFICATION CHOLESTEROL FO R ADULTS CHILDREN/ADOLESCENTS* DESIRABLE: <200 MG/DL <170 MG/DL BORDER-LINE HIGH RISK: 200-239 MG/DL 170-199 MG/DL HIGH RISK: >240 MG/DL >200 MG/DL CLASS. FOR PRIMARY LDL CHOL PREVENTION: LDL CHOL-CHILD/ADOLESCENTS* DESIRABLE: <130 MG/DL <110 MG/DL BORDERLINE-HIGH RISK: 130-159 MG/DL 110-129 MG/DL HIGH RISK: >160 MG/DL >130 MG/DL *CHILDREN AND ADOLESCENTS REPRESENTS INDIVIDUALA AGED 2-19 YEARS EXCLUSIVE. CHRONIC KIDNEY DISEASE STAGING PER NKF: MALE [...] Normal 80 and above >32 mL/min Normal Co2 23.8 mmol/L 22.0-29.0 MEDENT ([facility]) CLASSIFICATION CHOLESTEROL FO R ADULTS CHILDREN/ADOLESCENTS* DESIRABLE: <200 MG/DL <170 MG/DL BORDER-LINE HIGH RISK: 200-239 MG/DL 170-199 MG/DL HIGH RISK: >240 MG/DL >200 MG/DL CLASS. FOR PRIMARY LDL CHOL PREVENTION: LDL CHOL-CHILD/ADOLESCENTS* DESIRABLE: <130 MG/DL <110 MG/DL BORDERLINE-HIGH RISK: 130-159 MG/DL 110-129 MG/DL HIGH RISK: >160 MG/DL >130 MG/DL *CHILDREN AND ADOLESCENTS REPRESENTS INDIVIDUALA AGED 2-19 YEARS EXCLUSIVE. CHRONIC KIDNEY DISEASE STAGING PER NKF: MALE [...] Normal 80 and above >32 mL/min Normal TP 6.4 g/dL 6.6-8.7 MEDENT ([facility] CLASSIFICATION CHOLESTEROL FO R ADULTS CHILDREN/ADOLESCENTS* DESIRABLE: <200 MG/DL <170 MG/DL BORDER-LINE HIGH RISK: 200-239 MG/DL 170-199 MG/DL HIGH RISK: >240 MG/DL >200 MG/DL CLASS. FOR PRIMARY LDL CHOL PREVENTION: LDL CHOL-CHILD/ADOLESCENTS* DESIRABLE: <130 MG/DL <110 MG/DL BORDERLINE-HIGH RISK: 130-159 MG/DL 110-129 MG/DL HIGH RISK: >160 MG/DL >130 MG/DL *CHILDREN AND ADOLESCENTS REPRESENTS INDIVIDUALA AGED 2-19 YEARS EXCLUSIVE. CHRONIC KIDNEY DISEASE STAGING PER NKF: MALE [...] Normal 80 and above >32 mL/min Normal Alb 4.1 g/dL 3.4-4.8 MEDENT ([facility] CLASSIFICATION CHOLESTEROL FO R ADULTS CHILDREN/ADOLESCENTS* DESIRABLE: <200 MG/DL <170 MG/DL BORDER-LINE HIGH RISK: 200-239 MG/DL 170-199 MG/DL HIGH RISK: >240 MG/DL >200 MG/DL CLASS. FOR PRIMARY LDL CHOL PREVENTION: LDL CHOL-CHILD/ADOLESCENTS* DESIRABLE: <130 MG/DL <110 MG/DL BORDERLINE-HIGH RISK: 130-159 MG/DL 110-129 MG/DL HIGH RISK: >160 MG/DL >130 MG/DL *CHILDREN AND ADOLESCENTS REPRESENTS INDIVIDUALA AGED 2-19 YEARS EXCLUSIVE. CHRONIC KIDNEY DISEASE STAGING PER NKF: MALE [...] Normal 80 and above >32 mL/min Normal A/G Ratio 1.8 CALC MEDENT ([facility]) CLASSIFICATION CHOLESTEROL FO R ADULTS CHILDREN/ADOLESCENTS* DESIRABLE: <200 MG/DL <170 MG/DL BORDER-LINE HIGH RISK: 200-239 MG/DL 170-199 MG/DL HIGH RISK: >240 MG/DL >200 MG/DL CLASS. FOR PRIMARY LDL CHOL PREVENTION: LDL CHOL-CHILD/ADOLESCENTS* DESIRABLE: <130 MG/DL <110 MG/DL BORDERLINE-HIGH RISK: 130-159 MG/DL 110-129 MG/DL HIGH RISK: >160 MG/DL >130 MG/DL *CHILDREN AND ADOLESCENTS REPRESENTS INDIVIDUALA AGED 2-19 YEARS EXCLUSIVE. CHRONIC KIDNEY DISEASE STAGING PER NKF: MALE [...] Normal 80 and above >32 mL/min Normal Alanine aminotransferase [Enzymatic activity/volume] in Seru m or Plasma 11 U/L 0-41 MEDENT ([facility]) CLASSIFICATION CHOLESTEROL FO R ADULTS CHILDREN/ADOLESCENTS* DESIRABLE: <200 MG/DL <170 MG/DL BORDER-LINE HIGH RISK: 200-239 MG/DL 170-199 MG/DL HIGH RISK: >240 MG/DL >200 MG/DL CLASS. FOR PRIMARY LDL CHOL PREVENTION: LDL CHOL-CHILD/ADOLESCENTS* DESIRABLE: <130 MG/DL <110 MG/DL BORDERLINE-HIGH RISK: 130-159 MG/DL 110-129 MG/DL HIGH RISK: >160 MG/DL >130 MG/DL *CHILDREN AND ADOLESCENTS REPRESENTS INDIVIDUALA AGED 2-19 YEARS EXCLUSIVE. CHRONIC KIDNEY DISEASE STAGING PER NKF: MALE [...] Normal 80 and above >32 mL/min Normal Alp 63.4 U/L 35-129 MEDENT ([facility] CLASSIFICATION CHOLESTEROL FO R ADULTS CHILDREN/ADOLESCENTS* DESIRABLE: <200 MG/DL <170 MG/DL BORDER-LINE HIGH RISK: 200-239 MG/DL 170-199 MG/DL HIGH RISK: >240 MG/DL >200 MG/DL CLASS. FOR PRIMARY LDL CHOL PREVENTION: LDL CHOL-CHILD/ADOLESCENTS* DESIRABLE: <130 MG/DL <110 MG/DL BORDERLINE-HIGH RISK: 130-159 MG/DL 110-129 MG/DL HIGH RISK: >160 MG/DL >130 MG/DL *CHILDREN AND ADOLESCENTS REPRESENTS INDIVIDUALA AGED 2-19 YEARS EXCLUSIVE. CHRONIC KIDNEY DISEASE STAGING PER NKF: MALE [...] Normal 80 and above >32 mL/min Normal Globulin [Mass/volume] in Serum by calculation 2.3 CALC MEDENT ([facility]) CLASSIFICATION CHOLESTEROL FO R ADULTS CHILDREN/ADOLESCENTS* DESIRABLE: <200 MG/DL <170 MG/DL BORDER-LINE HIGH RISK: 200-239 MG/DL 170-199 MG/DL HIGH RISK: >240 MG/DL >200 MG/DL CLASS. FOR PRIMARY LDL CHOL PREVENTION: LDL CHOL-CHILD/ADOLESCENTS* DESIRABLE: <130 MG/DL <110 MG/DL BORDERLINE-HIGH RISK: 130-159 MG/DL 110-129 MG/DL HIGH RISK: >160 MG/DL >130 MG/DL *CHILDREN AND ADOLESCENTS REPRESENTS INDIVIDUALA AGED 2-19 YEARS EXCLUSIVE. CHRONIC KIDNEY DISEASE STAGING PER NKF: MALE [...] Normal 80 and above >32 mL/min Normal Tbili 0.55 mg/dL 0.0-1.2 MEDENT ([facility]) CLASSIFICATION CHOLESTEROL FO R ADULTS CHILDREN/ADOLESCENTS* DESIRABLE: <200 MG/DL <170 MG/DL BORDER-LINE HIGH RISK: 200-239 MG/DL 170-199 MG/DL HIGH RISK: >240 MG/DL >200 MG/DL CLASS. FOR PRIMARY LDL CHOL PREVENTION: LDL CHOL-CHILD/ADOLESCENTS* DESIRABLE: <130 MG/DL <110 MG/DL BORDERLINE-HIGH RISK: 130-159 MG/DL 110-129 MG/DL HIGH RISK: >160 MG/DL >130 MG/DL *CHILDREN AND ADOLESCENTS REPRESENTS INDIVIDUALA AGED 2-19 YEARS EXCLUSIVE. CHRONIC KIDNEY DISEASE STAGING PER NKF: MALE [...] Normal 80 and above >32 mL/min Normal Osmolality-Calculated 281.1 CALC MEDENT ([facility]) CLASSIFICATION CHOLESTEROL FO R ADULTS CHILDREN/ADOLESCENTS* DESIRABLE: <200 MG/DL <170 MG/DL BORDER-LINE HIGH RISK: 200-239 MG/DL 170-199 MG/DL HIGH RISK: >240 MG/DL >200 MG/DL CLASS. FOR PRIMARY LDL CHOL PREVENTION: LDL CHOL-CHILD/ADOLESCENTS* DESIRABLE: <130 MG/DL <110 MG/DL BORDERLINE-HIGH RISK: 130-159 MG/DL 110-129 MG/DL HIGH RISK: >160 MG/DL >130 MG/DL *CHILDREN AND ADOLESCENTS REPRESENTS INDIVIDUALA AGED 2-19 YEARS EXCLUSIVE. CHRONIC KIDNEY DISEASE STAGING PER NKF: MALE [...] Normal 80 and above >32 mL/min Normal Aspartate aminotransferase [Enzymatic activity/volume] in Serum or Plasma 18 U/L 0-40 MEDENT ([facility] CLASSIFICATION CHOLESTEROL FO R ADULTS CHILDREN/ADOLESCENTS* DESIRABLE: <200 MG/DL <170 MG/DL BORDER-LINE HIGH RISK: 200-239 MG/DL 170-199 MG/DL HIGH RISK: >240 MG/DL >200 MG/DL CLASS. FOR PRIMARY LDL CHOL PREVENTION: LDL CHOL-CHILD/ADOLESCENTS* DESIRABLE: <130 MG/DL <110 MG/DL BORDERLINE-HIGH RISK: 130-159 MG/DL 110-129 MG/DL HIGH RISK: >160 MG/DL >130 MG/DL *CHILDREN AND ADOLESCENTS REPRESENTS INDIVIDUALA AGED 2-19 YEARS EXCLUSIVE. CHRONIC KIDNEY DISEASE STAGING PER NKF: MALE [...] Normal 80 and above >32 mL/min Normal eGFR 67 # MEDENT ( [facility]) CLASSIFICATION CHOLESTEROL FO R ADULTS CHILDREN/ADOLESCENTS* DESIRABLE: <200 MG/DL <170 MG/DL BORDER-LINE HIGH RISK: 200-239 MG/DL 170-199 MG/DL HIGH RISK: >240 MG/DL >200 MG/DL CLASS. FOR PRIMARY LDL CHOL PREVENTION: LDL CHOL-CHILD/ADOLESCENTS* DESIRABLE: <130 MG/DL <110 MG/DL BORDERLINE-HIGH RISK: 130-159 MG/DL 110-129 MG/DL HIGH RISK: >160 MG/DL >130 MG/DL *CHILDREN AND ADOLESCENTS REPRESENTS INDIVIDUALA AGED 2-19 YEARS EXCLUSIVE. CHRONIC KIDNEY DISEASE STAGING PER NKF: MALE [...] Normal 80 and above >32 mL/min Normal Anion gap in Serum or Plasma 16 mmol/L MEDENT ([facility]) CLASSIFICATION CHOLESTEROL FO R ADULTS CHILDREN/ADOLESCENTS* DESIRABLE: <200 MG/DL <170 MG/DL BORDER-LINE HIGH RISK: 200-239 MG/DL 170-199 MG/DL HIGH RISK: >240 MG/DL >200 MG/DL CLASS. FOR PRIMARY LDL CHOL PREVENTION: LDL CHOL-CHILD/ADOLESCENTS* DESIRABLE: <130 MG/DL <110 MG/DL BORDERLINE-HIGH RISK: 130-159 MG/DL 110-129 MG/DL HIGH RISK: >160 MG/DL >130 MG/DL *CHILDREN AND ADOLESCENTS REPRESENTS INDIVIDUALA AGED 2-19 YEARS EXCLUSIVE. CHRONIC KIDNEY DISEASE STAGING PER NKF: MALE [...] Normal 80 and above >32 mL/min Normal Trig 135 mg/dL 40-200 MEDENT ([facility] CLASSIFICATION CHOLESTEROL FO R ADULTS CHILDREN/ADOLESCENTS* DESIRABLE: <200 MG/DL <170 MG/DL BORDER-LINE HIGH RISK: 200-239 MG/DL 170-199 MG/DL HIGH RISK: >240 MG/DL >200 MG/DL CLASS. FOR PRIMARY LDL CHOL PREVENTION: LDL CHOL-CHILD/ADOLESCENTS* DESIRABLE: <130 MG/DL <110 MG/DL BORDERLINE-HIGH RISK: 130-159 MG/DL 110-129 MG/DL HIGH RISK: >160 MG/DL >130 MG/DL *CHILDREN AND ADOLESCENTS REPRESENTS INDIVIDUALA AGED 2-19 YEARS EXCLUSIVE. CHRONIC KIDNEY DISEASE STAGING PER NKF: MALE [...] Normal 80 and above >32 mL/min Normal Chol 220 mg/dL 0-200 [facility] CLASSIFICATION CHOLESTEROL FO R ADULTS CHILDREN/ADOLESCENTS* DESIRABLE: <200 MG/DL <170 MG/DL BORDER-LINE HIGH RISK: 200-239 MG/DL 170-199 MG/DL HIGH RISK: >240 MG/DL >200 MG/DL CLASS. FOR PRIMARY LDL CHOL PREVENTION: LDL CHOL-CHILD/ADOLESCENTS* DESIRABLE: <130 MG/DL <110 MG/DL BORDERLINE-HIGH RISK: 130-159 MG/DL 110-129 MG/DL HIGH RISK: >160 MG/DL >130 MG/DL *CHILDREN AND ADOLESCENTS REPRESENTS INDIVIDUALA AGED 2-19 YEARS EXCLUSIVE. CHRONIC KIDNEY DISEASE STAGING PER NKF: MALE [...] Normal 80 and above >32 mL/min Normal eGFR Non-Afr. [place] 57 # [facility] ([facility]) CLASSIFICATION CHOLESTEROL FO R ADULTS CHILDREN/ADOLESCENTS* DESIRABLE: <200 MG/DL <170 MG/DL BORDER-LINE HIGH RISK: 200-239 MG/DL 170-199 MG/DL HIGH RISK: >240 MG/DL >200 MG/DL CLASS. FOR PRIMARY LDL CHOL PREVENTION: LDL CHOL-CHILD/ADOLESCENTS* DESIRABLE: <130 MG/DL <110 MG/DL BORDERLINE-HIGH RISK: 130-159 MG/DL 110-129 MG/DL HIGH RISK: >160 MG/DL >130 MG/DL *CHILDREN AND ADOLESCENTS REPRESENTS INDIVIDUALA AGED 2-19 YEARS EXCLUSIVE. CHRONIC KIDNEY DISEASE STAGING PER NKF: MALE [...] Normal 80 and above >32 mL/min Normal LDL_C 148 Calc 75-129 [facility] ([facility] CLASSIFICATION CHOLESTEROL FO R ADULTS CHILDREN/ADOLESCENTS* DESIRABLE: <200 MG/DL <170 MG/DL BORDER-LINE HIGH RISK: 200-239 MG/DL 170-199 MG/DL HIGH RISK: >240 MG/DL >200 MG/DL CLASS. FOR PRIMARY LDL CHOL PREVENTION: LDL CHOL-CHILD/ADOLESCENTS* DESIRABLE: <130 MG/DL <110 MG/DL BORDERLINE-HIGH RISK: 130-159 MG/DL 110-129 MG/DL HIGH RISK: >160 MG/DL >130 MG/DL *CHILDREN AND ADOLESCENTS REPRESENTS INDIVIDUALA AGED 2-19 YEARS EXCLUSIVE. CHRONIC KIDNEY DISEASE STAGING PER NKF: MALE [...] Normal 80 and above >32 mL/min Normal Prostate specific Ag [Mass/volume] in Serum or Plasma 46 mg/dL 45-6 5 [facility] ([facility]) CLASSIFICATION CHOLESTEROL FO R ADULTS CHILDREN/ADOLESCENTS* DESIRABLE: <200 MG/DL <170 MG/DL BORDER-LINE HIGH RISK: 200-239 MG/DL 170-199 MG/DL HIGH RISK: >240 MG/DL >200 MG/DL CLASS. FOR PRIMARY LDL CHOL PREVENTION: LDL CHOL-CHILD/ADOLESCENTS* DESIRABLE: <130 MG/DL <110 MG/DL BORDERLINE-HIGH RISK: 130-159 MG/DL 110-129 MG/DL HIGH RISK: >160 MG/DL >130 MG/DL *CHILDREN AND ADOLESCENTS REPRESENTS INDIVIDUALA AGED 2-19 YEARS EXCLUSIVE. CHRONIC KIDNEY DISEASE STAGING PER NKF: MALE [...] Normal 80 and above >32 mL/min Normal Cho/HDL Ratio 4.8 Calc [facility] ([facility]) CLASSIFICATION CHOLESTEROL FO R ADULTS CHILDREN/ADOLESCENTS* DESIRABLE: <200 MG/DL <170 MG/DL BORDER-LINE HIGH RISK: 200-239 MG/DL 170-199 MG/DL HIGH RISK: >240 MG/DL >200 MG/DL CLASS. FOR PRIMARY LDL CHOL PREVENTION: LDL CHOL-CHILD/ADOLESCENTS* DESIRABLE: <130 MG/DL <110 MG/DL BORDERLINE-HIGH RISK: 130-159 MG/DL 110-129 MG/DL HIGH RISK: >160 MG/DL >130 MG/DL *CHILDREN AND ADOLESCENTS REPRESENTS INDIVIDUALA AGED 2-19 YEARS EXCLUSIVE. CHRONIC KIDNEY DISEASE STAGING PER NKF: MALE [...] Normal 80 and above >32 mL/min Normal Procedure Social History Code Duration Value Status Description Data Source(s ) Alcohol intake 11/26/2020 12:00:00 AM EST Never completed [facility] Smoking 11/26/2020 12:00:00 AM EST Never smoker completed Never s moker [facility] Smoking 08/30/2020 12:00:00 AM EDT Patient has never smoked co mpleted Patient has never smoked [facility] ([facility]) Vital Signs ID Date Data Source UNK Name Value Range Interpretation Code Description Data Source(s) Oxygen saturation in Arterial blood by Pulse oximetry 97 % 97 % [facility] ([facility] Body mass index (BMI) [Ratio] 29.3 kg/m2 29.3 k g/m2 [facility] ([facility] [place] body weight 120 [lb_av] 120 [lb_av] MEDEN T ([facility] Body weight 171.00 [lb_av] 171.00 [lb_av] MEDEN T ([facility] Body height 64 [in_i] 64 [in_i] [facility] ([facility] 5'4" Respiratory rate 18 /min 18 /min [facility] ( [facility] Heart rate 88 /min 88 /min [facility] ([facility] Body temperature 98.3 [degF] 98.3 [degF] [facility] ([facility] Diastolic blood pressure 76 mm[Hg] 76 mm[Hg] [facility] ([facility] Systolic blood pressure 136 mm[Hg] 136 mm[Hg] M EDENT ([facility] Heart rate 94 /min 94 /min [facility] Diastolic blood pressure 70 mm[Hg] 70 mm[Hg] [facility] Systolic blood pressure 154 mm[Hg] 154 mm[Hg] [facility] Oxygen saturation in Arterial blood by Pulse oximetry 97 % 97 % [facility] Respiratory rate 18 /min 18 /min [facility] Body temperature 36.78 [place] 36.78 [place] [facility] Body mass index (BMI) [Ratio] 28.29 kg/m2 28.29 kg/m2 [facility] Body weight 77.111 kg 77.111 kg [facility] Body height 165.1 cm 165.1 cm [facility] Respiratory rate 16 /min 16 /min [facility] ( [facility] Heart rate 86 /min 86 /min [facility] ([facility] Body temperature 97.8 [degF] 97.8 [degF] [facility] ([facility] Diastolic blood pressure 68 mm[Hg] 68 mm[Hg] [facility] ([facility] Systolic blood pressure 138 mm[Hg] 138 mm[Hg] M EDENT ([facility] Oxygen saturation in Arterial blood by Pulse oximetry 94 % 94 % DANIELENT ([facility] Body mass index (BMI) [Ratio] 30.0 kg/m2 30.0 k g/m2 [facility] ([facility] [place] body weight 120 [lb_av] 120 [lb_av] MEDEN T ([facility] Body weight 175.00 [lb_av] 175.00 [lb_av] MEDEN T ([facility] Body height 64 [in_i] 64 [in_i] [facility] ([facility] 5'4" [place] body weight 125 [lb_av] 125 [lb_av] MEDEN T ([facility], ) Body mass index (BMI) [Ratio] 28.6 kg/m2 28.6 k g/m2 [facility] ([facility], ) Body weight 172.00 [lb_av] 172.00 [lb_av] MEDEN T ([facility], ) Body height 65 [in_i] 65 [in_i] [facility] ([facility], ) 5'5" Respiratory rate 12 /min 12 /min [facility] ( [facility]) Diastolic blood pressure 76 mm[Hg] 76 mm[Hg] [facility] ([facility]) sitting, large cuff Systolic blood pressure 128 mm[Hg] 128 mm[Hg] M EDENT ([facility]) sitting, large cuff Respiratory rate 16 /min 16 /min [facility] ( [facility]) Heart rate 68 /min 68 /min [facility] ([facility] Regular Body mass index (BMI) [Ratio] 29.4 kg/m2 29.4 k g/m2 [facility] ([facility]) Body height 64.5 [in_i] 64.5 [in_i] [facility] ([facility] 5'4.50" Body weight 174.00 [lb_av] 174.00 [lb_av] MEDEN T ([facility]) Oxygen saturation in Arterial blood by Pulse oximetry 94 % 94 % [facility] ([facility] Body mass index (BMI) [Ratio] 30.0 kg/m2 30.0 k g/m2 [facility] ([facility] [place] body weight 120 [lb_av] 120 [lb_av] MEDEN T ([facility] Body weight 175.00 [lb_av] 175.00 [lb_av] MEDEN T ([facility] Body height 64 [in_i] 64 [in_i] [facility] ([facility] 5'4" Respiratory rate 14 /min 14 /min [facility] ( [facility] Heart rate 70 /min 70 /min [facility] ([facility] Body temperature 97.6 [degF] 97.6 [degF] [facility] ([facility] Diastolic blood pressure 74 mm[Hg] 74 mm[Hg] [facility] ([facility] Systolic blood pressure 128 mm[Hg] 128 mm[Hg] M EDENT ([facility] [place] body weight 125 [lb_av] 125 [lb_av] MEDEN T ([facility], ) Body mass index (BMI) [Ratio] 29.6 kg/m2 29.6 k g/m2 [facility] ([facility], ) Body weight 178.00 [lb_av] 178.00 [lb_av] MEDEN T ([facility], ) Body height 65 [in_i] 65 [in_i] [facility] ([facility], ) 5'5" Respiratory rate 12 /min 12 /min [facility] ( [facility], ) Oxygen saturation in Arterial blood by Pulse oximetry 97 % 97 % [facility] ([facility] Body mass index (BMI) [Ratio] 30.2 kg/m2 30.2 k g/m2 [facility] ([facility] [place] body weight 120 [lb_av] 120 [lb_av] MEDEN T ([facility] Body weight 176.00 [lb_av] 176.00 [lb_av] MEDEN T ([facility] Body height 64 [in_i] 64 [in_i] [facility] ([facility] 5'4" Respiratory rate 16 /min 16 /min [facility] ( [facility] Heart rate 76 /min 76 /min [facility] ([facility] Body temperature 98.3 [degF] 98.3 [degF] [facility] ([facility] Diastolic blood pressure 68 mm[Hg] 68 mm[Hg] [facility] ([facility] Systolic blood pressure 124 mm[Hg] 124 mm[Hg] M EDENT ([facility] Body temperature 98.6 [degF] 98.6 [degF] [facility] ([facility]) Oxygen saturation in Arterial blood by Pulse oximetry 98 % 98 % [facility] ([facility], [facility]) 98 ra Heart rate 99 /min 99 /min [facility] ([facility], [facility]) 80 Diastolic blood pressure 90 mm[Hg] 90 mm[Hg] [facility] ([facility], [facility]) 220\\92 Systolic blood pressure 200 mm[Hg] 200 mm[Hg] M EDENT ([facility], [facility]) 220\\92 Body mass index (BMI) [Ratio] 29.6 kg/m2 29.6 k g/m2 [facility] ([facility], ) Body weight 178.00 [lb_av] 178.00 [lb_av] MEDEN T ([facility], ) Body height 65 [in_i] 65 [in_i] [facility] ([facility], ) 5'5" Respiratory rate 12 /min 12 /min [facility] ( [facility], ) Oxygen saturation in Arterial blood by Pulse oximetry 96 % 96 % [facility] ([facility] Body mass index (BMI) [Ratio] 30.0 kg/m2 30.0 k g/m2 [facility] ([facility] [place] body weight 120 [lb_av] 120 [lb_av] MEDEN T ([facility] Body weight 175.00 [lb_av] 175.00 [lb_av] MEDEN T ([facility] Body height 64 [in_i] 64 [in_i] [facility] ([facility] 5'4" Respiratory rate 16 /min 16 /min [facility] ( [facility] Heart rate 84 /min 84 /min [facility] ([facility] Body temperature 97.5 [degF] 97.5 [degF] [facility] ([facility] Diastolic blood pressure 74 mm[Hg] 74 mm[Hg] [facility] ([facility] Systolic blood pressure 142 mm[Hg] 142 mm[Hg] M EDENT ([facility] Diastolic blood pressure--sitting 78 mm[Hg] 78 mm[Hg] [facility] ([facility]) large cuff, Ra Systolic blood pressure--sitting 138 mm[Hg] 138 mm[Hg] [facility] ([facility]) large cuff, Ra Heart rate 74 /min 74 /min [facility] ([facility]) Body mass index (BMI) [Ratio] 29.6 kg/m2 29.6 k g/m2 [facility] ([facility]) Body height 64.5 [in_i] 64.5 [in_i] [facility]) 5'4.50" Body weight 175.00 [lb_av] 175.00 [lb_av] MEDEN T ([facility]) Oxygen saturation in Arterial blood by Pulse oximetry 97 % 97 % [facility] ([facility] Body mass index (BMI) [Ratio] 30.2 kg/m2 30.2 k g/m2 [facility] ([facility] Body weight 176.00 [lb_av] 176.00 [lb_av] MEDEN T ([facility] Body height 64 [in_i] 64 [in_i] [facility] ([facility] 5'4" Respiratory rate 16 /min 16 /min [facility] ( [facility] Heart rate 78 /min 78 /min [facility] ([facility] Body temperature 98.4 [degF] 98.4 [degF] [facility] ([facility] Diastolic blood pressure 74 mm[Hg] 74 mm[Hg] [facility] ([facility] Systolic blood pressure 124 mm[Hg] 124 mm[Hg] M WANDA ([facility]
--- NOTE | 2021-01-14 06:44 | REPVR ---
PROCEDURE INFORMATION: Exam: XR Chest Exam date and time: 01/14/21 (5:44am) Age: 89 years old Clinical indication: SOB TECHNIQUE: Imaging protocol: XR of the chest Views: 2 views COMPARISON: Chest films of 01/12/21 (8:48am) FINDINGS: Comparison is made with chest films done on the morning of 01/12/21. The current frontal film is overpenetrated and difficult to fully evaluate. Stable heart size. Bilateral pleural effusions remain. The mid and upper lung zones most likely remain clear. IMPRESSION: The current frontal CXR is of suboptimal quality. In general, no significant interval change is evident over the past 2 days. Bilateral pleural effusions remain. Electronically signed by: Rachel Larson On 01/14/2021 06:44:21 AM
[2021-01-14 06:46] LABS: BLOOD UREA NITROGEN 17 MG/DL (7-18); CALCIUM LEVEL 8.6 MG/DL (8.8-10.2); CARBON DIOXIDE LEVEL 28 MEQ/L (21-32); CHLORIDE LEVEL 105 MEQ/L (98-107); CREATININE FOR GFR 0.68 MG/DL (0.55-1.30); GLOMERULAR FILTRATION RATE > 60.0 (>32); GLUCOSE, FASTING 113 MG/DL (70-100); POTASSIUM SERUM 3.3 MEQ/L (3.5-5.1); SODIUM LEVEL 140 MEQ/L (136-145)
[2021-01-14 07:13] LABS: BASO % 0.1 % (0.0-1.0); EOS # 0.1 10^3/uL (0.0-0.5); HEMATOCRIT 36.7 % (36.0-47.0); LYMPH # 0.8 10^3/uL (1.5-5.0); LYMPH % 11.1 % (24.0-44.0); MEAN CORPUSCULAR HEMOGLOBIN 28.8 pg (27.0-33.0); MEAN CORPUSCULAR HGB CONC 32.7 g/dl (32.0-36.5); MONO # 0.7 10^3/uL (0.0-0.8); MONO % 9.4 % (2.0-8.0); NEUTROPHILS # 5.4 10^3/uL (1.5-8.5); NEUTROPHILS % 78.1 % (36.0-66.0); PLATELET COUNT, AUTOMATED 291 10^3/uL (150-450); RED BLOOD COUNT 4.17 10^6/uL (4.00-5.40); WHITE BLOOD COUNT 6.9 10^3/uL (4.0-10.0)
--- OUTSIDE RECORDS SUMMARY | 2021-01-14 07:16 | CCD ---
Author Author [facility] Organization [facility] Address Unknown Phone Unavailable Care Team Providers Care Tape Edge Machine Operator Name Role Phone Kristal Davila MD Unavailable [...] Jenny CHIANG MD Unavailable Unavailable ANTECOL, Jenny CIHANG MD Unavailable Unavailable ANTECOL, Jenny CHIANG MD [...] Unavailable Unavailable Jenny OLIVER MD Unavailable Unavailable Jenyn OLIVER MD Unavailable Unavailable Jenny OLIVER MD [...] VASQUEZNICK WORTHY Unavailable Unavailable OVALLES, M ROSLYN BULK COOLERS INSTALLER Unavailable Unavailable OVALLES, M ROSLYN BULK COOLERS INSTALLER Unavailable Unavailable OVALLES, M ROSLYN BULK COOLERS INSTALLER Unavailable Unavailable OVALLES, M ROSLYN BULK COOLERS INSTALLER Unavailable Unavailable OVALLES, M ROSLYN BULK COOLERS INSTALLER Unavailable Unavailable OVALLES, M ROSLYN BULK COOLERS INSTALLER Unavailable Unavailable OVALLES, M ROSLYN BULK COOLERS INSTALLER Unavailable Unavailable OVALLES, M ROSLYN BULK COOLERS INSTALLER Unavailable Unavailable OVALLES, M ROSLYN BULK COOLERS INSTALLER Unavailable Unavailable OVALLES, M ROSLYN BULK COOLERS INSTALLER Unavailable Unavailable OVALLES, M ROSLYN BULK COOLERS INSTALLER Unavailable Unavailable OVALLES, M ROSLYN BULK COOLERS INSTALLER Unavailable Unavailable OVALLES, M ROSLYN BULK COOLERS INSTALLER Unavailable Unavailable OVALLES, M ROSLYN BULK COOLERS INSTALLER Unavailable Unavailable OVALLES, M ROSLYN BULK COOLERS INSTALLER Unavailable Unavailable OVALLES, M ROSLYN BULK COOLERS INSTALLER Unavailable Unavailable OVALLES, M ROSLYN BULK COOLERS INSTALLER Unavailable Unavailable OVALLES, M ROSLYN BULK COOLERS INSTALLER Unavailable Unavailable OVALLES, M ROSLYN BULK COOLERS INSTALLER Unavailable Unavailable OVALLES, M ROSLYN BULK COOLERS INSTALLER Unavailable Unavailable OVALLES, M ROSLYN BULK COOLERS INSTALLER Unavailable Unavailable OVALLES, M ROSLYN BULK COOLERS INSTALLER Unavailable Unavailable OVALLES, M ROSLYN BULK COOLERS INSTALLER Unavailable Unavailable OVALLES, M ROSLYN BULK COOLERS INSTALLER Unavailable Unavailable OVALLES, M ROSLYN BULK COOLERS INSTALLER Unavailable Unavailable OVALLES, M ROSLYN BULK COOLERS INSTALLER Unavailable Unavailable OVALLES, M ROSLYN BULK COOLERS INSTALLER Unavailable Unavailable OVALLES, M ROSLYN BULK COOLERS INSTALLER Unavailable Unavailable OVALLES, M ROSLYN BULK COOLERS INSTALLER Unavailable Unavailable OVALLES, M ROSLYN BULK COOLERS INSTALLER Unavailable Unavailable OVALLES, M ROSLYN BULK COOLERS INSTALLER Unavailable Unavailable OVALLES, M ROSLYN BULK COOLERS INSTALLER Unavailable Unavailable OVALLES, M ROSLYN BULK COOLERS INSTALLER Unavailable Unavailable OVALLES, M ROSLYN BULK COOLERS INSTALLER Unavailable Unavailable OVALLES, M ROSLYN BULK COOLERS INSTALLER Unavailable Unavailable OVALLES, M ROSLYN BULK COOLERS INSTALLER Unavailable Unavailable OVALLES, M ROSLYN BULK COOLERS INSTALLER Unavailable Unavailable OVALLES, M ROSLYN BULK COOLERS INSTALLER Unavailable Unavailable OVALLES, M ROSLYN BULK COOLERS INSTALLER Unavailable Unavailable OVALLES, M ROSLYN BULK COOLERS INSTALLER Unavailable Unavailable OVALLES, M ROSLYN BULK COOLERS INSTALLER Unavailable Unavailable OVALLES, M ROSLYN BULK COOLERS INSTALLER Unavailable Unavailable OVALLES, M ROSLYN BULK COOLERS INSTALLER Unavailable Unavailable OVALLES, M ROSLYN BULK COOLERS INSTALLER Unavailable Unavailable OVALLES, M ROSLYN BULK COOLERS INSTALLER Unavailable Unavailable OVALLES, M ROSLYN BULK COOLERS INSTALLER Unavailable Unavailable OVALLES, M ROSLYN BULK COOLERS INSTALLER Unavailable Unavailable OVALLES, M ROSLYN BULK COOLERS INSTALLER Unavailable Unavailable OVALLES, M ROSLYN BULK COOLERS INSTALLER Unavailable Unavailable OVALLES, M ROSLYN BULK COOLERS INSTALLER Unavailable Unavailable OVALLES, M ROSLYN BULK COOLERS INSTALLER Unavailable Unavailable OVALLES, M ROSLYN BULK COOLERS INSTALLER Unavailable Unavailable OVALLES, M ROSLYN BULK COOLERS INSTALLER Unavailable Unavailable OVALLES, M ROSLYN BULK COOLERS INSTALLER Unavailable Unavailable OVALLES, M ROSLYN BULK COOLERS INSTALLER Unavailable Unavailable OVALLES, M ROSLYN BULK COOLERS INSTALLER Unavailable Unavailable OVALLES, M ROSLYN BULK COOLERS INSTALLER Unavailable Unavailable OVALLES, M ROSLYN BULK COOLERS INSTALLER Unavailable Unavailable GarciaNinilyn PA Unavailable Unavailable GarciaNinin [...] law may result in a fine or long-term sentence or both. A general authorization for the release of medical or other information is NOT sufficient authorization for further disc losure. Allergies and Adverse Reactions Type Description Substance Reaction Status Data Source(s ) Propensity to adverse reactions OXYCODONE Oxycodone Acti ve [facility] Propensity to adverse reactions ATORVASTATIN Atorvastatin Active [facility] Propensity to adverse reactions HYDROCODONE Hydrocodone Ac tive [facility] Propensity to adverse reactions ANTIHISTAMINES, DIPHENHYDRAM INE-TYPE Antihistamines, Diphenhydramine-Type Palpitations Low Active [facility] Low Drug allergy Drug allergy NKDA [facility] (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 - Unknown Female Problem [facility] ([facility]) Unknown Unknown Problem [facility] Encounters Encounter Providers Location Date Indications Data Source(s ) Outpatient Attender: STEFFEN OLIVER MD [place] [facility] 02:00:00 PM EST [facility] ([facility] Inpatient Attender: NICK Caruso : NICK Caruso: YUAN THOMAS MDAttender: RICK PARMARAttender: RICK PARMARAdmitter: YUAN THOMAS MDConsultant: Kristal Davila MD [id number] 11/25/2020 11:51:56 PM EST - 11/27/2020 04:59:00 PM EST [facility] Patient discharged. Outpatient Attender: STEFFEN OLIVER MD [place] [facility] 10:15:00 AM EST [facility] Office Visit Attender: MARIIA CORNELL MD Main Office 11/02/2020 10: 59:00 AM EST [facility] ([facility] Office Visit Attender: MARIIA CORNELL MD Main Office 10/11/2020 07: 45:00 AM EST [facility] ([facility]) Outpatient Attender: Efrain Forbes MD Main office - [facility] 09/22/2020 01:45:00 PM EST [facility] ([facility] Office Visit Attender: MARIIA CORNELL MD Main Office 09/08/2020 09: 16:00 AM EDT [facility] ([facility]) Outpatient Attender: Anne Marie MASON Main Office 08/30/2020 02:30:00 PM EDT [facility] ([facility]) Outpatient Attender: STEFFEN [place] [facility] 01:30:00 PM EDT [facility] ([facility] Outpatient KASH 08/09/2020 07:07:46 PM EDT [facility] Outpatient Referrer: STEFFEN GARZA 07/20 12:00:00 AM EDT [facility] Office Visit Attender: MARIIA CORNELL MD Main Office 08/05/2020 11: 18:00 AM EDT [facility] ([facility]) Office Visit Attender: MARIIA CORNELL MD Main Office 07/14/2020 04: 12:00 PM EDT [facility] ([facility]) Outpatient Attender: Efrain Forbes MD Main office - [facility] 06/16/2020 02:00:00 PM EDT [facility] ([facility] Outpatient Attender: STEFFEN OLIVER MD [place] [facility] 02:00:00 PM EDT [facility] ([facility] Outpatient Attender: Nasrin Serrano nikole 06/03/2020 06:15:00 PM EDT [facility] ([facility] Office Visit Attender: MARIIA CORNELL MD Main Office 05/31/2020 10: 44:00 AM EDT [facility] ([facility]) Office Visit Attender: MARIIA CORNELL MD Main Office 04/29/2020 02: 27:00 PM EDT [facility] ([facility]) Office Visit Attender: MARIIA CORNELL MD Main Office 03/25/2020 02: 15:00 PM EDT [facility] ([facility]) Office Visit Attender: MARIIA CORNELL MD Main Office 02/23/2020 07: 22:00 AM EDT [facility] ([facility]) Outpatient Attender: ROSLYN OVALLES NP [place] [facility] 01/25 11:00:00 AM EDT [facility] ([facility] Outpatient Attender: Jenna MASON Main Office 01/20/2020 07:15:0 0 AM EST [facility] ([facility]) Outpatient Attender: STEFFEN OLIVER MD [place] [facility] 09:40:00 AM EST [facility] ([facility] [...] Once, 11/26/20 at 1900, For 1 dose [facility] Medication administered onsite Magnesium Oxide (MAG-OX) tablet 400 mg [id number] 10:00:00 AM EST 400 mg Oral active 400 mg, Oral, Da raffi, First dose on 11/26/20 at 1000 [facility] Medication administered onsite Aspirin 81 MG Delayed Release Oral Tablet aspirin EC t ablet 81 mg aspirin EC tablet 81 mg 11/26/2020 10:00:00 AM EST 81 mg Oral activ e 81 mg, Oral, Daily, First dose on 11/26/20 at 1000
Hold if bleeding or platelets < 100 and call
[facility] Medication administered onsite Hydrochlorothiazide 25 MG / Lisinopril 2 0 MG Oral Tablet lisinopril- hydrochlorothiazide (PRINZIDE,ZESTORETIC) 20-25 MG per tablet 1 tablet lisinopril-hydrochlorothiazide (PRINZIDE,ZESTORETIC) 20-25 MG per tablet 1 tablet 11/26/2020 10:00:00 AM EST 1 {tbl} Oral active 1 tablet, Oral, Daily, First dose on 11/26/20 at 1000
Hold if SBP < 130 or DBP < 70 and call if held
[facility] Medication administered onsite Rosuvastatin calcium 5 MG Oral Tablet rosuvastatin (CR ESTOR) tablet 5 mg rosuvastatin (CRESTOR) tablet 5 mg 11/26/2020 10:00:00 AM EST 5 mg Oral active 5 mg, Oral, Daily, First dose on 11/26/20 at 1000 [facility] Medication administered onsite pantoprazole 40 MG Delayed Release Oral Tablet pantoprazole (PROTONIX) EC tablet 40 mg pantoprazole (PROTONIX) EC tablet 40 mg 11/26/2020 10:00:[address] 40 mg Oral active Gastroesophageal Reflux Diseas e 40 mg, Oral, Daily, Indications: Gastroesophageal Reflux Disease, First dose on 11/26/20 at 1000 [facility] Gastroesophageal Reflux Disease Medication administered onsite heparin (porcine) injection 5,000 Units 10750-619-40 11/26/19 10:00:00 AM EST 5000 U Subcutaneous [...] call if bleeding or other obvious concerns.
[facility] Medication administered onsite Polyvinyl Alcohol 0.014 ML/ML Ophthalmic Solution polyvinyl alcohol (LIQUIFILM TEARS) 1.4 % ophthalmic solution 1 drop polyvinyl alcohol (LIQUIFILM TEARS) 1.4 % ophthalmic solution 1 drop 11/26/2020 09:28:56 AM EST 1 [drp] active 1 drop, Both Eyes, As needed, dry eyes, Starting 11/26/20 at 0928 [facility] Medication administered onsite Aspirin 81 MG Chewable Tablet aspirin chewable tablet 162 mg aspirin chewable tablet 162 mg 11/25/2020 10:45:00 PM EST 162 mg Oral comp leted 162 mg, Oral, Once, 11/25/20 at 2245, For 1 dose [facility] Medication administered onsite Omeprazole 20 MG Delayed Release Oral Capsule Omeprazole 11/16/2020 12:00:00 AM EST ORAL active [facility] ([facility] Ascorbic Acid 60 MG / Beta Carotene 5000 UNT / Copper Sulfate 40 MG / dl-alpha tocopheryl acetate 30 UNT / Sodium Selenite 0.04 MG / Zinc Oxide 40 MG Oral Tablet Eye Multivitamin/Lutein 08/29/2020 12:00:00 AM EDT ORAL active [facility] ([facility]) Amlodipine 10 MG Oral Tablet Amlodipine Besylate 08/29/2020 12:00:00 AM EDT ORAL active [facility] ([facility] coenzyme Q10 200 MG Oral Capsule Co-Enzyme Q10 01/19/2020 12:00:00 AM EST ORAL active [facility] ([facility]) [place] 11/02/2019 12:00:00 AM EST ORAL completed [facility] ([facility]) Insurance Providers Payer name Policy type / Coverage type Policy ID Covered republican ID Covered republican's relationship to qureshi Policy Qureshi Plan Information MEDICARE [id number] SP [id number] [employer] OPTIONS [id number] SP [id number] INSURANCE COVID-19 COVID Karma C OVID [facility] [id number] Karma [id number] MEDICARE [id number] Karma [id number] F23 [facility] [id number] MEDICARE [id number] MEDICARE A [id number] Self [id number] A MEDICARE C [id number] S [id number] F23 AARP O [id number] S [id number] 211 MEDICARE C [id number] S [id number] [id number] [employer] Medigap Part B [id number] Self [id number] Medicare (Part B) Medicare Primary [id number] Self [id number] [place] Medigap Part B [id number] Self [id number] [employer] Medigap Part B [id number] Self [id number] Medicare (Part B) Medicare Primary [id number] Self [id number] MEDICARE [id number] SP [id number] A [employer] Medigap Part B [id number] Self [id number] Medicare (Part B) Medicare Primary [id number] Self [id number] [employer] Medigap Part B [id number] Self [id number] Medicare (Part B) Medicare Primary [id number] Self [id number] MEDICARE C [id number] S [id number] A [employer] Medigap Part B [id number] Self [id number] Medicare (Part B) Medicare Primary [id number] Self [id number] MEDICARE [id number] SP [id number] A [employer] Med[employer] Part B F Self F [place] Primary Self [facility] Medigap Part B Self Medicare [place] [employer] [employer] Primary Self MEDICARE [id number] SP [id number] A [id number] A Problems, Conditions, and Diagnoses Code Display Name Description Problem Type Effective Dates Data Source(s) J90 Bilateral pleural effusion Bilateral pleural effusion [id number] 11/26/2020 12:00:00 AM EST [facility] R20.0 Numbness and tingling in left hand Numbness and tingling in left hand [id number] 11/26/2020 12:00:00 AM EST [facility] R29.898 Left hand weakness, acute on chronic x 3 days Left hand weakness, acute on chronic x 3 days [id number] 11/26/2020 12:00:00 AM [facility] R20.0 Left arm numbness, complete, acute on ch ronic x 3 days Left arm numbness, complete, acute on chronic x 3 days [id number] 11/26/2020 12:00:00 AM E [facility] R09.89 Suspected cerebrovascular accident (CVA) Suspected cerebrovascular accident (CVA) [id number] 11/26/2020 12:00:00 AM EST [facility] [id number] Personal history of primary malignant ne oplasm of breast Personal history of primary malignant neoplasm of breast Problem 2019 12:00:00 AM EDT [facility] ([facility] [id number] Hyperlipidemia Hyperlipidemia Problem 01/13/2020 12:00: 00 AM EST [facility] ([facility] R07.9 Chest pain, unspecified Chest pain, unspecified Diagno sis 11/25/2020 11:51:56 PM [facility] R20.2 Paresthesia of skin Paresthesia of skin Diagnosis 0 11/25/2020 11:51:56 PM [facility] R20.0 Anesthesia of skin Anesthesia of skin Diagnosis 06/2021 11:51:56 PM [facility] Surgeries/Procedures Procedure Description Date Indications Data Source(s) NT PRO BNP NT PRO BNP Routine 11/27/2020 11:01 AM EST 11/27/2020 04:01:00 PM [facility] BLOOD COUNT COMPLETE AUTOMATED CBC Timed 11/27/2020 11:01 A M EST 11/27/2020 04:01:00 PM [facility] MAGNESIUM MAGNESIUM Routine 11/27/2020 11:01 AM EST 11/27/2020 04:01:00 PM [facility] BASIC METABOLIC PANEL CALCIUM TOTAL BASIC METABOLIC PANEL Timed 11/27/2020 11:01 AM EST 11/27/2020 04:01:00 PM [facility] PLEURAL FLUID CELL COUNT PLEURAL FLUID CELL COUNT Routine 11/27/2020 10:15 AM EST 11/27/2020 03:15:00 PM EST [facility] PLEURAL FLD PH PLEURAL FLD PH Routine 11/27/2020 10:15 AM EST 11/27/2020 03:15:00 PM EST [facility] FLUID SOURCE FLUID SOURCE Routine 11/27/2020 10:15 AM EST 11/27/2020 03:15:00 PM EST [facility] SPECIFIC GRAVITY EXCEPT URINE SPECIFIC GRAVITY, BODY FLUID Rout ine 11/27/2020 10:15 AM EST 11/27/2020 03:15:00 PM [facility] PROTEIN TOTAL XCPT REFRACTOMETRY OTH SRC PROTEIN, BODY FLUID Ro utine 11/27/2020 10:15 AM EST 11/27/2020 03:15:00 PM EST [facility] LACTATE DEHYDROGENASE LDH LACTATE DEHYDROGENASE, BODY FLUID Rou alfonzo 11/27/2020 10:15 AM EST 11/27/2020 03:15:00 PM EST [facility] GLUCOSE BODY FLUID OTHER THAN BLOOD GLUCOSE, BODY FLUID Routine 11/27/2020 10:15 AM EST 11/27/2020 03:15:00 PM [facility] AMYLASE AMYLASE, BODY FLUID Routine 11/27/2020 10:15 AM EST 11/27/2020 03:15:00 PM EST [facility] ECHO TTHRC R-T 2D W/WOM-MODE COMPL SPEC&COLR DOP ECHOCARDIO GRAM TRANSTHORACIC Pending Discharge 11/27/2020 8:18 AM EST 11/27/2020 01:18 :39 PM EST [facility] CT THORAX W/O CONTRAST MATERIAL CT CHEST WO CONTRAST STAT 11/26/2020 1:10 PM EST 11/26/2020 06:10:35 PM [facility] MRA NECK W/O CONTRST MATERIAL MRA NECK WO CONTRAST STAT 11/26/2020 10:13 AM EST 11/26/2020 03:13:27 PM [facility] MRI BRAIN BRAIN STEM W/O CONTRAST MATERIAL MRI BRAIN WO CONTRAS T STAT 11/26/2020 10:03 AM EST 11/26/2020 03:03:58 PM EST [facility] MRA HEAD W/O CONTRST MATERIAL MRA BRAIN WO CONTRAST Routine 11/26/2020 9:52 AM EST 11/26/2020 02:52:36 PM [facility] COVID/FLU AB/RSV PCR COVID/FLU AB/RSV PCR STAT 11/26/2020 4:55 AM EST 11/26/2020 09:55:00 AM EST [facility] CT HEAD/BRAIN W/O CONTRAST MATERIAL CT HEAD WO CONTRAST STAT 11/26/2020 2:08 AM EST 11/26/2020 07:08:26 AM [facility] TROPONIN QUANTITATIVE POCT TROPONIN Routine 11/26/2020 12:57 AM EST 11/26/2020 05:57:00 AM EST [facility] NT PRO BNP NT PRO BNP STAT 11/26/2020 12:09 AM EST 11/26/2020 05:09:00 AM EST [facility] TROPONIN QUANTITATIVE TROPONIN I Routine 11/26/2020 12:09 AM EST 11/26/2020 05:09:00 AM [facility] PROTEIN XCPT REFRACTOMETRY SERUM PLASMA/WHL BLD PROTEIN, TOTAL Add-On 11/26/2020 12:09 AM EST 11/26/2020 05:09:00 AM EST [facility] LACTATE DEHYDROGENASE LDH LACTATE DEHYDROGENASE Add-On 11/26 12:09 AM EST 11/26/2020 05:09:00 AM EST [facility] XR CHEST PORTABLE XR CHEST PORTABLE STAT 11/25/2020 7:08 PM EST 11/26/2020 12:08:46 AM [facility] TROPONIN QUANTITATIVE POCT TROPONIN Routine 11/25/2020 6:28 PM EST 11/25/2020 11:28:00 PM [facility] THROMBOPLASTIN TIME PARTIAL PLASMA/WHOLE BLOOD APTT STAT 11/25/2020 6:11 PM EST 11/25/2020 11:11:00 PM EST [facility] PROTHROMBIN TIME PROTIME-INR STAT 11/25/2020 6:11 PM EST 11/25/2020 11:11:00 PM EST [facility] BLOOD COUNT COMPLETE AUTO&AUTO DIFRNTL WBC COUNT CBC AND DIFFER ENTIAL STAT 11/25/2020 6:11 PM EST 11/25/2020 11:11:00 PM EST [facility] HEMOGLOBIN GLYCOSYLATED A1C HEMOGLOBIN A1C Add-On 11/25/2020 6:11 PM EST 11/25/2020 11:11:00 PM EST [facility] COMPREHENSIVE METABOLIC PANEL COMPREHENSIVE METABOLIC PANEL STA T 11/25/2020 6:11 PM EST 11/25/2020 11:11:00 PM EST [facility] ECG ROUTINE ECG W/LEAST 12 LDS W/I&R ECG 12-LEAD STAT 06/2021 6:10 PM EST 11/25/2020 11:10:06 PM EST [facility] ECG ROUTINE ECG W/LEAST 12 LDS W/I&R 08/30/2020 12:00: 00 AM EDT [facility] ([facility]) TSTG ANS FUNCJ CARDIOVAGAL INNERVAJ PARASYMP 0 12:00:00 AM EDT [facility] ([facility]) TSTG ANS FUNCJ CARDIOVAGAL INNERVAJ PARASYMP 0 12:00:00 AM EDT [facility] ([facility] ) TESTING AUTONOMIC NERVOUS SYSTEM FUNCTION 05/11/2020 1 2:00:00 AM EDT [facility] ([facility]) TESTING AUTONOMIC NERVOUS SYSTEM FUNCTION 05/11/2020 1 2:00:00 AM EDT [facility] ([facility]) Results ID Date Data Source [id number] 12/30/2020 12:36:00 PM EST [facility] Name Value Range Interpretation Code Description Data Blanca rce(s) Supporting Document(s) Laboratory test finding (navigational concept) 7.674 units Normal (applies to non-numeric results) [facility] ([facility] Laboratory test finding (navigational concept) Laboratory test r esult Normal (applies to non-numeric results) [facility] ID Date Data Source [id number] 12/30/2020 12:36:00 PM EST [facility] ([facility] Name Value Range Interpretation Code Description Data Blanca rce(s) Supporting Document(s) Glucose, Body Fluid 105 mg/dL Normal (applies to non-nume pam results) [facility] ([facility] Source, Body Fluid Glucose Laboratory test result Normal (applies to non- numeric results) [facility] ([facility] ) ID Date Data Source [id number] 12/30/2020 12:36:00 PM EST [facility] ([facility] Name Value Range Interpretation Code Description Data Blanca rce(s) Supporting Document(s) Source, Body Fluid LDH Laboratory test result No rmal (applies to non-numeric results) [facility] ([facility] ) LDH, Body Fluid 129 U/L Normal (applies to non-numeric results) [facility] ([facility] ID Date Data Source [id number] 12/30/2020 12:36:00 PM EST [facility] ([facility] Name Value Range Interpretation Code Description Data Blanca rce(s) Supporting Document(s) Total Protein, Body Fluid 4.3 g/dL Normal (applies to no n-numeric results) [facility] ([facility] Source, Body Fluid Tot Protein Laboratory test result Normal (applies to non- numeric results) [facility] ([facility] ) ID Date Data Source [id number] 12/30/2020 12:36:00 PM EST [facility] ([facility] Name Value Range Interpretation Code Description Data Blanca rce(s) Supporting Document(s) Laboratory test finding (navigational concept) Laboratory test r esult Normal (applies to non-numeric results) [facility] Laboratory test finding (navigational concept) Laboratory test r esult Normal (applies to non-numeric results) [facility] Laboratory test finding (navigational concept) Laboratory test r esult Normal (applies to non-numeric results) [facility] Laboratory test finding (navigational concept) 1623 /uL 0-10 Above high normal [facility] ([facility] Laboratory test finding (navigational concept) 22 10 Normal (applies to non- numeric results) [facility] ([facility] Laboratory test finding (navigational concept) 96.1 % 0-0 Above high normal [facility] ([facility] Laboratory test finding (navigational concept) 3.9 % 0-0 Above high normal [facility] ([facility] ID Date Data Source [id number] 12/30/2020 10:40:00 AM EST [facility] ([facility] Name Value Range Interpretation Code Description Data Blanca rce(s) Supporting Document(s) Prothrombin Time 12.6 s 12.5-14.3 Normal (applies to non-numeric results) [facility] ([facility] Inr 0.92 Normal (applies to non-numeric resul ts) [facility] ([facility] THERAPUTIC HUMAN INR VALUES INDICATIONS NORMAL RANGES PROPHYLAXIS/TREATMENT OF: VENOUS THROMBOSIS 2.0-3.0 PULMONARY EMBOLISM 2.0-3.0 PREVENTION OF SYSTEMIC EMBOLISM FROM: TISSUE HEART VALVES 2.0-3.0 ACUTE MYOCARDIAL INFARCTION 2.0-3.0 VALVULAR HEART DISEASE 2.0-3.0 ATRIAL FIBRILLATION 2.0-3.0 MECHANICAL VALVES(HIGH RISK) 2.5-3.5 RECURRENT MYOCARDIAL INFARCTION 2.5-3.5 ID Date Data Source [id number] 12/28/2020 10:30:00 AM EST [facility] ([facility] Name Value Range Interpretation Code Description Data Blanca rce(s) Supporting Document(s) Cancer Ag 15-3 [Units/volume] in Serum or Plasma 44.0 U/ML Above high normal [facility] ([facility] THE CA 15-3 ASSAY IS PERFORMED ON THE To8to BY CHEMILUMINESCENCE AND SHOULD NOT BE COMPARED INTERCHANGEABLY WITH OTHER METHODS. IT SHOULD NOT BE USED ALONE A SCREENING TEST OR DIAGNOSIS FOR THE PRESENCE OR ABSENCE OF MALIGNANT DISEASE. PREDICTIONS OF DISEASE RECURRENCE SHOULD NOT BE BASED SOLELY ON VALUES OBTAINED FROM SERIAL PATIENT SERUM VALUES. Cancer Ag 27-29 [Units/volume] in Serum or Plasma 59.8 U/mL 0.0-38.6 Above high normal [facility] ([facility] ) Siemens Centaur Immunochemiluminometric Methodology (ICMA) . Values obtained with different assay methods or kits cannot be used interchangeably. Results cannot be interpreted as absolute evidence of the presence or absence of malignant disease. Performed at: [facility] [address] [id number] Radio Officer: Mervat Huffman MD, Phone: [phone] ID Date Data Source [id number] 12/28/2020 10:30:00 AM EST [facility] ([facility] Name Value Range Interpretation Code Description Data Blanca rce(s) Supporting Document(s) Glucose, Fasting 129 mg/dL 70-100 Above high normal M [facility] ([facility] Blood Urea Nitrogen 15 mg/dL 7-18 Normal (applies to non-nume pam results) [facility] ([facility] Creatinine For GFR 0.88 mg/dL 0.55-1.30 Normal (applies to non -numeric results) [facility] ([facility] Glomerular Filtration Rate Laboratory test result Normal (applies to non- numeric results) [facility] ([facility] ) <content>Units are mL/min/1.73 m2</content>
<content></content>
<content>Chronic Kidney Disease Staging per NKF:</content>
<content></content>
<content>Stage I & II GFR >=60 Normal to Mildly Decreased</content>
<content>Stage III GFR 30- 59 Moderately Decreased</content>
<content>Stage IV GFR 15-29 Severely Decreased</content>
<content>Stage V GFR <15 Very Little GFR Left</content>
<content>ESRD GFR <15 on CAR BRACER</content>
<content></content> Potassium Serum 3.7 meq/L 3.5-5.1 Normal (applies to non-numeric results) [facility] ([facility] Sodium Level 137 meq/L 136-145 Normal (applies to non-numeric res ults) [facility] ([facility] Carbon Dioxide Level 27 meq/L 21-32 Normal (applies to non-num layo results) [facility] ([facility] Chloride Level 102 meq/L 98-107 Normal (applies to non-numeric r esults) [facility] ([facility] Anion Gap 8 meq/L 8-16 Normal (applies to non-numeric resul ts) [facility] ([facility] Calcium Level 9.4 mg/dL 8.8-10.2 Normal (applies to non-numeric re sults) [facility] ([facility] Ast/Sgot 11 U/L 7-37 Normal (applies to non-numeric resul ts) [facility] ([facility] Alkaline Phosphatase 77 U/L 45-117 Normal (applies to non-num layo results) [facility] ([facility] Alt/SGPT 14 U/L 12-78 Normal (applies to non-numeric resul ts) [facility] ([facility] Bilirubin,Total 0.6 mg/dL 0.2-1.0 Normal (applies to non-numeric results) [facility] ([facility] Total Protein 6.8 GM/DL 6.4-8.2 Normal (applies to non-numeric re sults) [facility] ([facility] Albumin 3.6 GM/DL 3.2-5.2 Normal (applies to non-numeric resul ts) [facility] ([facility] Albumin/Globulin Ratio 1.1 1.2-2.2 Below low normal [facility] ([facility] ID Date Data Source [id number] 12/28/2020 10:30:00 AM EST [facility] ([facility] Name Value Range [...] 32.0-36.5 Normal (applies to non-numeric results) [facility] ([facility] ) Mean Corpuscular [...] normal [facility] ( [facility] [place] % 11.8 % 0.0-5.0 Above high normal [facility] ([facility] Eos % 1.7 % 0.0-3.0 Normal (applies to non-numeric resul ts) [facility] ([facility] Immature Granulocyte % 0.2 % 0-3.0 Normal (applies to non-n umeric results) [facility] ([facility] Baso % 0.5 % 0.0-1.0 Normal (applies to non-numeric resul ts) [facility] ([facility] Nucleated Red Blood Cell % 0.0 % 0-0 Normal (applies to n on-numeric results) [facility] ([facility] Lymph # 0.9 10 1.5-5.0 Below low normal [facility] ( [facility] Neutrophils # 2.7 10 1.5-8.5 Normal (applies to non-numeric re sults) [facility] ([facility] Eos # 0.1 10 0.0-0.5 Normal (applies to non-numeric resul ts) [facility] ([facility] [place] # 0.5 10 0.0-0.8 Normal (applies to non-numeric resul ts) [facility] ([facility] Baso # 0.0 10 0.0-0.2 Normal (applies to non-numeric resul ts) [facility] ([facility] ID Date Data Source [id number] 12/07/2020 03:32:00 PM EST [facility] ([facility] Name Value Range Interpretation Code Description Data Blanca rce(s) Supporting Document(s) Glu 127 mg/dL 70-110 Above high normal [facility] ([facility] NORMAL RANGES Age WBC [...] HCT IS 5% LESS SOURCE FOR DATA: [employer] 1800 OPERATION MANUAL( AUTOMATED BLOOD COUNTS AND [...] >32 mL/min Normal Creat 0.8 mg/dL 0.5-1.0 [facility] ([facility] NORMAL [...] HCT IS 5% LESS SOURCE FOR DATA: [employer] 1800 OPERATION MANUAL( AUTOMATED BLOOD COUNTS AND [...] >32 mL/min Normal BUN 18 mg/dL 8-23 [facility] ([facility] NORMAL [...] HCT IS 5% LESS SOURCE FOR DATA: [employer]ru 1800 OPERATION MANUAL( AUTOMATED BLOOD COUNTS AND [...] >32 mL/min Normal BUN/Creatinine Ratio 21.0 Calc [facility] ([facility] NORMAL RANGES Age [...] HCT IS 5% LESS SOURCE FOR DATA: [employer] 1800 OPERATION MANUAL( AUTOMATED BLOOD COUNTS AND [...] >32 mL/min Normal K 3.7 mmol/L 3.5-5.1 [facility] ([facility] NORMAL RANGES [...] HCT IS 5% LESS SOURCE FOR DATA: [employer]ru 1800 OPERATION MANUAL( AUTOMATED BLOOD COUNTS AND [...] Na 135 mmol/L 136-145 Below low normal [facility] ( [facility] NORMAL RANGES Age [...] HCT IS 5% LESS SOURCE FOR DATA: [employer]ru 1800 OPERATION MANUAL( AUTOMATED BLOOD COUNTS AND [...] >32 mL/min Normal CL 101.6 mmol/L 98.0-107.0 [facility] ([facility] NORMAL RANGES Age WBC RBC [...] HCT IS 5% LESS SOURCE FOR DATA: [employer]ru 1800 OPERATION MANUAL( AUTOMATED BLOOD COUNTS AND [...] HCT IS 5% LESS SOURCE FOR DATA: Hi[employer]ru 1800 OPERATION MANUAL( AUTOMATED BLOOD COUNTS AND [...] >32 mL/min Normal CA 10.0 mg/dL 8.6-10.2 [facility] ([facility] NORMAL RANGES Age WBC [...] HCT IS 5% LESS SOURCE FOR DATA: [employer]ru 1800 OPERATION MANUAL( AUTOMATED BLOOD COUNTS AND [...] >32 mL/min Normal TP 6.6 g/dL 6.6-8.7 [facility] ([facility] NORMAL [...] HCT IS 5% LESS SOURCE FOR DATA: [employer]ru 1800 OPERATION MANUAL( AUTOMATED BLOOD COUNTS AND [...] >32 mL/min Normal Alb 4.2 g/dL 3.4-4.8 [facility] ([facility] NORMAL RANGES Age WBC [...] HCT IS 5% LESS SOURCE FOR DATA: Hi[employer]ru 1800 OPERATION MANUAL( AUTOMATED BLOOD COUNTS AND [...] >32 mL/min Normal A/G Ratio 1.7 Calc [facility] ([facility] NORMAL [...] HCT IS 5% LESS SOURCE FOR DATA: HiConversion[employer]ru 1800 OPERATION MANUAL( AUTOMATED BLOOD COUNTS AND [...] HCT IS 5% LESS SOURCE FOR DATA: HiConversion[employer]ru 1800 OPERATION MANUAL( AUTOMATED BLOOD COUNTS AND [...] mL/min Normal Alt (SGPT) 8 U/L 0-41 [facility] ([facility] NORMAL RANGES Age WBC [...] HCT IS 5% LESS SOURCE FOR DATA: Hi[employer]ru 1800 OPERATION MANUAL( AUTOMATED BLOOD COUNTS AND [...] mL/min Normal Alp 87.2 U/L 35-129 [facility] NORMAL RANGES Age WBC RBC [...] HCT IS 5% LESS SOURCE FOR DATA: HiConversion[employer]ru 1800 OPERATION MANUAL( AUTOMATED BLOOD COUNTS AND [...] mL/min Normal Ast (Sgot) 14 U/L 0-40 [facility] ([facility] NORMAL RANGES Age WBC RBC HGB [...] HCT IS 5% LESS SOURCE FOR DATA: Hi[employer]ru 1800 OPERATION MANUAL( AUTOMATED BLOOD COUNTS AND [...] mL/min Normal Osmolality-Calculated 274.3 Calc MED [facility] ([facility] NORMAL RANGES Age [...] HCT IS 5% LESS SOURCE FOR DATA: HiConversion[employer]ru 1800 OPERATION MANUAL( AUTOMATED BLOOD COUNTS AND [...] >32 mL/min Normal Tbili 0.36 mg/dL 0.0-1.2 [facility] ([facility] NORMAL RANGES Age WBC [...] >32 mL/min Normal Anion Gap 17 mmol/L [facility] NORMAL RANGES Age WBC RBC [...] HCT IS 5% LESS SOURCE FOR DATA: HiCon[employer]ru 1800 OPERATION MANUAL( AUTOMATED BLOOD COUNTS AND [...] and above >32 mL/min Normal eGFR Non-Afr. Macedonian 66 # [facility] ([facility] [...] HCT IS 5% LESS SOURCE FOR DATA: Hi[employer]ru 1800 OPERATION MANUAL( AUTOMATED BLOOD COUNTS AND [...] HCT IS 5% LESS SOURCE FOR DATA: Hi[employer]ru 1800 OPERATION MANUAL( AUTOMATED BLOOD COUNTS AND [...] >32 mL/min Normal ID Date Data Source [id number] 12/07/2020 03:32:00 PM EST [facility] ([facility] Name Value Range Interpretation Code Description Data Blanca rce(s) Supporting Document(s) WBC 4.6 10E3/uL 4.1-10.9 [facility] ([facility] NORMAL RANGES Age WBC [...] HCT IS 5% LESS SOURCE FOR DATA: HiConversion[employer]ru 1800 OPERATION MANUAL( AUTOMATED BLOOD COUNTS AND [...] >32 mL/min Normal HGB 13.7 g/dL 12.0-18.0 [facility] NORMAL [...] HCT IS 5% LESS SOURCE FOR DATA: Hi[employer]ru 1800 OPERATION MANUAL( AUTOMATED BLOOD COUNTS AND [...] HCT IS 5% LESS SOURCE FOR DATA: HiConversion[employer]ru 1800 OPERATION MANUAL( AUTOMATED BLOOD COUNTS AND [...] mL/min Normal HCT 40.8 % 37.0-51.0 [facility] NORMAL RANGES Age WBC RBC [...] HCT IS 5% LESS SOURCE FOR DATA: HiConversion[employer]ru 1800 OPERATION MANUAL( AUTOMATED BLOOD COUNTS AND [...] >32 mL/min Normal MCV 90.1 fL 80.0-97.0 [facility] ([facility] NORMAL RANGES Age WBC [...] IS 5% LESS SOURCE FOR DATA: [facility] DYN 1800 OPERATION MANUAL( AUTOMATED BLOOD COUNTS [...] >32 mL/min Normal MCH 30.2 pg 26.0-32.0 [facility] ([facility] NORMAL RANGES [...] HCT IS 5% LESS SOURCE FOR DATA: [employer] DYN 1800 OPERATION MANUAL( AUTOMATED BLOOD COUNTS [...] >32 mL/min Normal MCHC 33.6 g/dL 31.0-36.0 [facility] ([facility] NORMAL RANGES [...] HCT IS 5% LESS SOURCE FOR DATA: [employer]ru 1800 OPERATION MANUAL( AUTOMATED BLOOD COUNTS AND [...] >32 mL/min Normal PLT 273 10E3/uL 140-440 [facility] ([facility] NORMAL RANGES Age WBC [...] HCT IS 5% LESS SOURCE FOR DATA: [employer]ru 1800 OPERATION MANUAL( AUTOMATED BLOOD COUNTS AND [...] >32 mL/min Normal RDW-CV 13.3 % 11.5-14.5 [facility] ([facility] NORMAL RANGES Age WBC RBC [...] HCT IS 5% LESS SOURCE FOR DATA: HiConversion[employer]ru 1800 OPERATION MANUAL( AUTOMATED BLOOD COUNTS AND [...] HCT IS 5% LESS SOURCE FOR DATA: Hi[employer]ru 1800 OPERATION MANUAL( AUTOMATED BLOOD COUNTS AND [...] HCT IS 5% LESS SOURCE FOR DATA: Hi[employer]ru 1800 OPERATION MANUAL( AUTOMATED BLOOD COUNTS AND [...] >32 mL/min Normal Neut% 66.5 % 37.0-92.0 [facility] ([facility] NORMAL [...] HCT IS 5% LESS SOURCE FOR DATA: Hi[employer]ru 1800 OPERATION MANUAL( AUTOMATED BLOOD COUNTS AND [...] >32 mL/min Normal Lym# 1.0 10E3/uL 0.6-4.1 [facility] ([facility] NORMAL RANGES Age WBC RBC HGB [...] HCT IS 5% LESS SOURCE FOR DATA: Hi[employer]ru 1800 OPERATION MANUAL( AUTOMATED BLOOD COUNTS AND [...] >32 mL/min Normal Neut# 3.1 % 2.0-7.8 [facility] ([facility] NORMAL RANGES Age WBC [...] HCT IS 5% LESS SOURCE FOR DATA: Hi[employer]ru 1800 OPERATION MANUAL( AUTOMATED BLOOD COUNTS AND [...] >32 mL/min Normal MXD# 0.5 10E3/uL 0.0-1.8 [employer] ([facility] NORMAL RANGES Age WBC [...] >32 mL/min Normal MPV 10.4 fL 9.0-13.0 [facility] NORMAL RANGES Age WBC RBC [...] >32 mL/min Normal ID Date Data Source [id number] 11/28/2020 12:05:51 AM EST [address] [id number] Name: SUGEY MARIEB: 1930Sex: FOrdering Provider: JORDAN Greene Prov: JORDAN Boyce Provider: Procedure Performed: IR THORACENTESIS LOCALIZATION RIGHTExam Date: 11/27/2020 10:14MRN: [id number] Number: [id number] Class: InpatientAccount #: [id number] Exam: Pleural effusionTechnique: Real-time sonographic images [...] Under ultrasound guidance with image documentation, a 5-Angolan catheter was inserted into the right pleural [...] JORDAN TREJO On 11/28/2020 12:05 AMWorkstation ID: [id number] Name Value Range Interpretation Code Description Data Blanca rce(s) Supporting Document(s) ID Date Data Source [id number] 11/27/2020 11:59:19 PM EST [facility] INFORMATIONPatient MRN Name Date of Age Gend*PT [id number] Sugey Joaquin 1930 89 years F IPPT Location Admission Date/Time Visit ID Attending [id number] 11/25/20 2351 --- --- EPI ID CSN Admitting Provider [id number] Yuan Thomas MD([id number]) Attestation signed by Jordan Trejo MD at 11/27/2020 11:59 PMProcedure performed under my supervision, I agree with above report.Jordan Trejo MD 11/27/2020 11:59 PMDepartment of Interventional Radiology ---------Brief Operative/Invasive Procedure NoteFlorence WhiteDATE OF : 1930MRN # [id number] DATE: 11/27/2020ROVIDER:Rox Narayanan NP 11/27/2020 10:23 AMASSISTANCE(S): [...] rce(s) Supporting Document(s) ID Date Data Source [id number] 11/27/2020 03:43:04 PM EST [facility] Hospital[facility] NT INFORMATIONPatient MRN Name Date of Age Gend*PT [id number] Sugey Joaquin 1930 89 years F IPPT Location Admission Date/Time Visit ID Attending [id number] 11/25/201 --- Nick Vasquez MD([id number]) EPI ID CSN Admitting Provider [id number] Yuan Thomas MD([id number]) Attestation signed by Nick Vasquez MD at 11/27/2020 3:43 PMI discussed case and reviewed MARLON Monsalve 's note. I agree with thehistory, physical and medical decision making. ------- DISCHARGE SUMMARYFlorenctrice [id number]/dmit date: 11/25/2020dmitting Physician: Yuan Thomas MDDischarge date [...] her left arm numbness as well asdecreased employee relations director strength. She also reported some brief left-sided [...] and cytology are currently pending. Patient and [facility], were both extensively counseled on need for [...] Shewas advised to follow-up closely with her stave log ripsaw operator in [place] to discussfurther cardiac work-up and management. Patient is feeling well and isagreeable to discharge. All findings and recommendations were relayed to [facility]. All questions have been answered to their satisfaction.Consultations:Neurology Dr. Rawls discharge instructions:1. Follow-up with PCP in 7-10 days for results of pleural fluid analysis2. Discuss work-up of spiculated right lung nodule pending pleural fluidcytology3. Discuss referral to [facility] for nerve conduction study4. Follow-up [...] and time.LUE strength 4/5, RUE strength 5/5. Print Line Supervisor strength diminished on left.No facial droop and [...] is apparent stenosis of the more superior O8tyctvy of the left middle cerebral artery on [...] rce(s) Supporting Document(s) ID Date Data Source [id number] 11/28/2020 09:31:33 AM EST [facility] Name Value Range Interpretation Code Description Data Blanca rce(s) Supporting Document(s) CHOLESTEROL @ 152 mg/dL (0-200) [facility] TRIGLYCERIDE @ 92 mg/dL (30-200) [facility] HDL CHOLESTEROL @ 55 mg/dL (>40) [facility] PER NCEP ATP III GUIDELINES:RESULTS LOWE R THAN 40 MG/DL ARE SUGGESTIVEOF INCREASED RISK FOR CORONARY ARTERYDISEASE. RESULTS > OR = TO 60 MG/DL ARECONSIDERED A NEGATIVE RISK FACTOR. CHOL/HDL RATIO 2.8 RATIO [facility] INTERPRETATION OF CHOL-HDL RATIO CHD RISK FEMALE MALEVERY HIGH >8.3 >14.3HIGH 5.6- 8.3 6.7- 14.3AVERAGE 3.7- 5.6 4.0- 6.7BELOW AVERAGE 2.5- 3.7 2.7- 4.0PROTECTED <2.5 <2.7 LDL CHOL (CALC) 79 mg/dL (<130) [facility] PER NCEP ATP III GUIDELINES: OPTIMAL < 100 NEAR OPTIMAL 100 - 129BORDERLINE HIGH 130 - 159 HIGH 160 - 189 VERY HIGH > 189 ID Date Data Source [id number] 11/27/2020 12:31:38 PM EST [facility] Name Value Range Interpretation Code Description Data Blanca rce(s) Supporting Document(s) NT PRO BNP 228 pg/mL (0-450) [facility] ID Date Data Source [id number] 11/27/2020 12:31:38 PM EST [facility] Name Value Range Interpretation Code Description Data Blanca rce(s) Supporting Document(s) MAGNESIUM 2.0 mg/dL (1.7-2.4) [facility] ID Date Data Source [id number] 11/27/2020 12:31:38 PM EST [facility] Name Value Range Interpretation Code Description Data Blanca rce(s) Supporting Document(s) SODIUM 141 mmol/L (136-145) [facility] POTASSIUM 3.9 mmol/L (3.6-5.2) [facility] CHLORIDE 105 mmol/L (100-108) [facility] CO2 27 mmol/L (22-31) [facility] ANION GAP 9 mmol/L (7-16) [facility] UREA NITROGEN 22 mg/dL (7-24) [facility] CREATININE 0.76 mg/dL (0.60-1.00) [facility] BUN/CREAT RATIO 28.9 RATIO (10.0-20.0) H [facility] GLUCOSE 94 mg/dL (70-99) [facility] CALCIUM 9.2 mg/dL (8.4-10.2) [facility] GFR >60 ml/min/1.73m2 (>59) [facility] GFR ( AMER) >60 ml/min/1.73m2 (>59) [facility] GFR INTERPRETATION [facility] --NORMAL KIDNEY FUNCTION OR MILD DISEASE - GFR >OR= 60CHRONIC KIDNEY DISEASE - GFR 15 - 59RENAL FAILURE - GFR <15 Est. GFR calculation based on the MDRDstudy equation, which assumes a steadystate for creatinine. Est. GFR should notbe used for medication dosing. ID Date Data Source [id number] 11/27/2020 12:00:41 PM EST [facility] Name Value Range Interpretation Code Description Data Blanca rce(s) Supporting Document(s) WBC 3.7 10*3/uL (4.1-11.0) L [facility] RBC 4.31 10*6/uL (4.00-5.40) [facility] HGB 13.0 g/dL (12.0-16.0) [facility] HCT 37.5 % (36.0-47.0) [facility] MCV 86.9 fL (80.0-95.0) [facility] MCH 30.1 pg (27.0-32.0) [facility] MCHC 34.7 g/dL (32.0-36.0) [facility] RDW 14.5 % (10.5-14.5) [facility] PLT 224 10*3/uL (150-450) [facility] MPV 8.0 fL (7.1-10.7) [facility] ID Date Data Source [id number] 11/27/2020 10:29:16 AM EST [facility] Name Value Range Interpretation Code Description Data Blanca rce(s) Supporting Document(s) &PDF [facility] QRWOTy8oXgVBTcQw18/CDWkcVDVcl8RfLGxpSZy7UXriULGsY4XpuWggVJzVSIBYUEJYT1JFPeXDUX3z oRX XkUwYJaKS1YN3pFPTteoTeogZ5dC2cEK8UVRO+Wv7NZR9im4ZlJVl3LZJrn1AgXNkwGPa0B2OzqENqqd IcVvuctEIWJTQaDSLkZ7hxtsc7iLItYBYgRw2CGpGud1ZkUEWnAGbWkr3xL3/bRhZ+X2D/O7ZEBbhnvm F4GydRnYKzN4dqaRINHW7bMUbP3BESY8Ta39+/FIe0 6I7Cm2kLNJBfMK/WKWfO/IsfYsOi8D+/AfbtmENq6g/oYgmj26hTiC//k4mh6wk6p+4/toENw6QutL2r v3ApjIyEPZiU9RrJW3t0kFidgKXqFfNeVmPQ8/01cs7q9vhItyyrz0iIGJp9MKy5gm7oi8JHO9f0/rXT +7FqeutUCqtq7Z32xCpCciuvA6JfkvfxANrkxov3Bl [file] P1xTKtKm6OPeF9BQORPwLuNN4GQZo= ID Date Data Source [id number] 01/01/2021 12:08:37 PM EST [facility] SPECIMEN DESCRIPTION PLEURAL FLUI D RSPECIAL REQUESTS NONECULTURE RESULTS NO FUNGUS ISOLATED AFTER 5 WEEKSREPORT STATUS FINAL 01/01/2021 Name Value Range Interpretation Code Description Data Blanca rce(s) Supporting Document(s) ID Date Data Source [id number] 12/05/2020 03:51:18 PM EST [facility] Name Value Range Interpretation Code Description Data Balnca rce(s) Supporting Document(s) COLOR [facility] APPEAR [facility] RBC (0) [facility] TOTAL NUCLEATED CNT 1718 /uL (0-1000) H [facility] NEUT % 1 % (0-25) [facility] LYMPH % 68 % [facility] MONO/HISTIO % 23 % [facility] MESOTHELIAL CELLS % 5 % [facility] OTHER % 3 % [facility] COMMENT [facility] SCATTERED CELLS SUSPICIOUS FOR MALIGNANC Y. SEE CYTOLOGY CASE NUMBER [id number] [address] .. PERFORMED AT [address] [place] [id number] ID Date Data Source [id number] 12/02/2020 08:53:55 AM EST [facility] SPECIMEN DESCRIPTION PLEURAL FLUI D RSPECIAL REQUESTS NONECULTURE RESULTS NO ANAEROBES ISOLATED AFTER 5 DAYSREPORT STATUS FINAL 12/02/2020 Name Value Range Interpretation Code Description Data Blanca rce(s) Supporting Document(s) ID Date Data Source [id number] 12/02/2020 08:53:40 AM EST [facility] SPECIMEN DESCRIPTION PLEURAL FLUI D RSPECIAL REQUESTS NONEGRAM STAIN FEW (<10/LPF) WHITE BLOOD CELLS NO BACTERIACULTURE RESULTS NO GROWTH 5 DAYSREPORT STATUS FINAL 12/02/2020 Name Value Range Interpretation Code Description Data Blanca rce(s) Supporting Document(s) ID Date Data Source [id number] 11/27/2020 12:53:50 PM EST [facility] Name Value Range Interpretation Code Description Data Blanca rce(s) Supporting Document(s) FLUID TOTAL PROTEIN 4.2 g/dL [facility] FOR PLEURAL AND PERCARDIAL FLUID: <50% O F SERUM PROTEIN INDICATES TRANSUDATE >50% OF SERUM PROTEIN INDICATES EXUDATE ID Date Data Source [id number] 11/27/2020 12:53:50 PM EST [facility] Name Value Range Interpretation Code Description Data Blanca rce(s) Supporting Document(s) FLUID AMYLASE 34 U/L [facility] ID Date Data Source [id number] 11/27/2020 12:53:50 PM EST [facility] Name Value Range Interpretation Code Description Data Blanca rce(s) Supporting Document(s) FLUID GLUCOSE 97 mg/dL [facility] ID Date Data Source [id number] 11/27/2020 12:53:50 PM EST [facility] Name Value Range Interpretation Code Description Data Blanca rce(s) Supporting Document(s) FLUID LDH 123 U/L [facility] FOR PLEURAL AND PERICARDIAL FLUID:<60% O F SERUM LD REPRESENTS TRANSUDATE>60% OF SERUM LD REPRESENTS EXUDATE ID Date Data Source [id number] 11/27/2020 12:49:20 PM EST [facility] Name Value Range Interpretation Code Description Data Blanca rce(s) Supporting Document(s) FLUID SG 1.025 [facility] ID Date Data Source [id number] 11/27/2020 12:02:30 PM EST [facility] Name Value Range Interpretation Code Description Data Blanca rce(s) Supporting Document(s) FLUID SOURCE [facility] [place] R ID Date Data Source [id number] 11/27/2020 10:33:19 AM EST [facility] [place] lissette ROD Name Value Range Interpretation Code Description Data Blanca rce(s) Supporting Document(s) PLEURAL FLD PH 7.52 [facility] ID Date Data Source [id number] 12/02/2020 06:45:59 PM EST [place], [place] [address]Tel# MISCELLANEOUS CYTOLOGY REPORTAccession Number: [id number] Specimen(s): A: Pleural Fluid RightClinical Diagnosis [...] and calretinin. Iliana positive (90%, strong staining), HI is positive (40%, strong staining),and HER2 is negative (score 0). The morphology and immunoprofile areconsistent with a breast primary. One other pathologist reviewed thiscase and concurs with the diagnosis. The findings were discussed with Dr.Scott Oliver on December 02, at 0945 hours.Processed and screened at [facility],Cytology, [address] [place] [address], [id number].As applicable, positive and negative controls for all immunohistochemicaland/or special stains were reviewed and considered appropriate. Reported: 12/02/2020Electronically Signed Out By Samy Landa MDRichmond University [facility] Center PatholoCytotechnologist: Isaura Wagner CT(ASCP)[facility]bcICD code: J90CPT code: A: 99000B, 17005I, 02574y, 39954(6), 18589P, 84963C, 50788K Name Value Range Interpretation Code Description Data Blanca rce(s) Supporting Document(s) ID Date Data Source [id number] 11/26/2020 02:26:25 PM EST [facility] NT INFORMATIONPatient MRN Name Date of Age Gend*PT [id number] Sugey Joaquin 1930 89 years F OBSPT Location Admission Date/Time Visit ID Attending [id number] 11/25/20 2351 --- Nick Vasquez MD([id number]) EPI ID CSN Admitting Provider [id number] Yuan Thomas MD([id number])NeurologyInpatient Consult NoteFlorence EmaniMRN: [id number] of stay: 0Reason for consult: Neurology was [...] ofupper back pain, she was concerned about VA. Patient states that in February 2020she had a CVA and [place] went to [place] diagnosed with ischemicinfarct. 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 Currently patient onaspirin and statin therapy.Labs, Imaging and Other Diagnostics:IMAGING:MRI brain on my review it looks like chronic lacunar infarct in the rightcoronary radiata hypoattenuation seen on CAT scan at same location. 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 [...] file Gets together: Not on file Attends uatsdin service: Not on file Active member of [...] aspirin and statin therapyCheck lipid panel and Y5cMkcxddqcqhl per protocolNCS/EMG as outpatientDVT prophylaxisNeurology signing off call us if you have any questionSKRISTINA Dykesate: November 26, 2020Time: 2:14 PM Name Value Range Interpretation Code Description Data Blanca rce(s) Supporting Document(s) ID Date Data Source [id number] 11/26/2020 01:19:[address] [address]Kzhuire Name: SUGEY JOAQUINB: 1930Sex: FOrdering Provider: YUAN Villanueva Prov: YUAN Kapoor Provider: Procedure Performed: CT CHEST WO CONTRASTExam Date: 11/26/2020 13:10MRN: [id number] Number: [id number] Class: OutpatientAccount #: [id number] for Exam: new unexplained pleural effusionTechnique: Helical [...] JIN COVINGTON On 11/26/2020 1:19 PMWorkstation ID: [id number] Name Value Range Interpretation Code Description Data Blanca rce(s) Supporting Document(s) ID Date Data Source [id number] 11/26/2020 11:46:25 AM EST [facility] Name Value Range Interpretation Code Description Data Blanca rce(s) Supporting Document(s) EKG [facility] [id number] jb2 [file] [facility]/[id number]+ZZ9rVDHJZF3UuxZfnLDTNjlQl [file] VWAMnP3QJV4y96VP04txX897bm6ixHi7iadk915m/BOOSTER PUMP OPERATOR+SEOP08rmhcrNRh3hoRK9YqHWQE7nvZ7cuJAC [file] [id number]V7S ID Date Data Source [id number] 11/26/2020 10:25:48 AM EST [address] [address]Lusueeb Name: Sugey MarieB: 1930Sex: FOrdering Provider: YUAN Navazing Prov: YUAN Kapoor Provider: Procedure Performed: MRA NECK WO CONTRASTExam Date: 11/26/2020 09:34MRN: [id number] Number: [id number] Class: INFORMATION: Exam: MR Angiography Neck Without [...] rce(s) Supporting Document(s) ID Date Data Source [id number] 11/26/2020 10:23:08 AM EST [address] [address]Clqmfif Name: Sugey MarieB: 1930Sex: FOrdering Provider: RICK Ramesh Prov: RICK Sen Provider: Procedure Performed: MRI BRAIN WO CONTRASTExam Date: 11/26/2020 09:34MRN: [id number] Number: [id number] Class: INFORMATION: Exam: MR Head Without Contrast [...] rce(s) Supporting Document(s) ID Date Data Source [id number] 11/26/2020 10:18:[address] [address]Fdmdytt Name: Sugey MarieB: 1930Sex: FOrdering Provider: RICK PARMARAuthorinelda Prov: RICK Sen Provider: Procedure Performed: MRA BRAIN WO CONTRASTExam Date: 11/26/2020 09:34MRN: [id number] Number: [id number] Class: INFORMATION: Exam: MR Angiogram Head Without [...] rce(s) Supporting Document(s) ID Date Data Source [id number] 11/26/2020 09:24:52 AM EST [facility] HospitalPATI NT INFORMATIONPatient MRN Name Date of Age Gend*PT [id number] Sugey Joaquin 1930 89 years F OBSPT Location Admission Date/Time Visit ID Attending [id number] 11/25/20 2351 --- Nick Vasquez MD([id number]) EPI ID CSN Admitting Provider [id number] Yuan Thomas MD([id number])Inpatient History & PhysicalFlorence WhiteMRN: [id number] and Plan:Principal Problem: Suspected cerebrovascular accident (CVA)Active Problems: Left arm numbness, complete, acute on chronic x 3 days Left hand weakness, acute on chronic x 3 days Essential hypertension Aortic valve disorder Coronary arteriosclerosis Obesity Pure hypercholesterolemia Hypertensive heart disease without heart failure1. 3 days of left arm numbness acute on chronic and left hand employee relations director weaknessMri brain recommendedMra head and neckASA and STATIN continueTeleNeuro checks2. Essential HTN continue her usual medsRelative permissive HTN but give 3 days out start to reduce 10% per shiftapproximately3. Atypical left under breath chest discomfortNo evidence of VA so farStress test and Echo 07/2020 with [...] she said in February of lastye2019 in [place]. She is on aspirin therapy for that [...] heartattack. 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 She does notethe year note does know the president's term is up this next week. [facility] and speaks about her recent doctor's visits.Skin: [...] Name Value Range Interpretation Code Description Data Herrick Campuse(s) Supporting Document(s) ID Date Data Source [id number] 11/26/2020 04:55:00 AM EST [facility] Name Value Range Interpretation Code Description Data Blanca rce(s) Supporting Document(s) SARS coronavirus 2 RNA [Presence] in Res piratory specimen by ROSE with probe detection NOT DETECTED [facility] This lab was reported by [facility]. ID Date Data Source [id number] 11/26/2020 07:26:59 AM EST [facility] Name Value Range Interpretation Code Description Data Blanca rce(s) Supporting Document(s) SPECIMEN DESCRIPTION [facility] [place] INFLUENZA A (NEG) [facility] [place] INFLUENZA B (NEG) [facility] RSV (NEG) [facility] COMMENT [facility] UNDER AN EMERGENCY USE AUTHORIZATION(EUA ) FOR THE DETECTION AND/OR DIAGNOSISOF THE VIRUS THAT CAUSES COVID-19.PERFORMED AT [address] [place] [address] COVID19 RESULT (NDET) [facility] THIS ASSAY AMPLIFIES AND DETECTSTHE TARG ET RNA USING REAL-TIME PCR.NEGATIVE 2019_NCOV RT-PCR RESULTS DONOT PRECLUDE 2019_NCOV INFECTION ANDSHOULD NOT BE USED THE SOLE BASISFOR PATIENT MANAGEMENT DECISIONS. FIRST TEST [facility] EMPLOYED IN HLTHCARE [facility] [place] SYMPTOMATIC [facility] [place] Gan DATE OF SYMPT ONSET [facility] [place] HOSPITALIZED [facility] ICU [facility] CONGREGATE CARE SET [facility] [place] [facility] ID Date Data Source [id number] 11/26/2020 04:06:50 AM EST [facility] HospitalPATIE NT INFORMATIONPatient MRN Name Date of Age Gend*PT [id number] Sugey Joaquin 1930 89 years F EDPT Location Admission Date/Time Visit ID Attending [id number] 11/25/20 2351 --- Rick Parmar MD([id number]) EPI ID CSN Admitting Provider [id number] ---Provider in Triage NotesED Provider in Triage NotePatient Name: Sugey Chappell and Time of Assessment: 11/25/20, 6:02 PMNo chief complaint on file.Brief HPI: 89 years female, patient thinks she had a heart attack last nightHad L rib pain yesterday-continued back pain todayHad VA in the past, no stents or bypass+SOB, no nauseaPhysical exam:Hypertensive and slightly tachyAmbulatoryNontoxPreliminary Plan:Labs, EKG, CXRThis note was electronically signed by MARLON Ramos, 11/25/20, 6:02 PM.ED CourseMARLON Ramos11/25/20 1805Josimone Blair MD11/25/20 1959Attestation signed by Ryne Blair MD at 11/25/2020 7:59 PM:I was the attending physician on duty at the time the patient visited the ED.The patient was evaluated by the PA/MAINTENANCE SERVICE SUPERVISOR. 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: yesPrevious ECG: Previous ECG: UnavailableInterpretation: Interpretation: normalRate: ECG rate: 86 ECG rate assessment: normalRhythm: Rhythm: sinus rhythmEctopy: Ectopy: noneQRS: QRS axis: Normal QRS intervals: NormalConduction: Conduction: abnormal Abnormal conduction: 1st degreeST segments: ST segments: NormalT waves: T waves: non- specificMDMNumber of Diagnoses or Management OptionsDiagnosis management comments: + Chest pain, right-sided back pain consistentwith prior VA; worsening left upper extremity numbnessACS versus pneumonia [...] rce(s) Supporting Document(s) ID Date Data Source [id number] 11/26/2020 02:19:[address] [address]Neotdts Name: Sugey MarieB: 1930Sex: FOrdering Provider: RICK PARMARAuthorizing Prov: RICK PARMARReferrramos Provider: Procedure Performed: CT HEAD WO CONTRASTExam Date: 11/26/2020 01:53MRN: [id number] Number: [id number] Class: INFORMATION: Exam: CT Head Without Contrast [...] rce(s) Supporting Document(s) ID Date Data Source [id number] 11/26/2020 01:09:13 AM EST [facility] Name Value Range Interpretation Code Description Data Blanca rce(s) Supporting Document(s) POC CTNI 0.01 ng/mL (0.01-0.07) [facility] [place] Less than 0.08: Myocardial injury unlike lyGreater than or equal to 0.08: Highlysuggestive of myocardial injuryCorrelation with rise and/or fall ofserial troponins, clinical symptoms,and ECG changes is necessary.PERFORMED BY [facility] CLINICAL STAFF ID Date Data Source [id number] 11/27/2020 11:40:38 AM EST [facility] Name Value Range Interpretation Code Description Data Blanca rce(s) Supporting Document(s) TOTAL PROTEIN 7.2 g/dL (6.4-8.2) [facility] ID Date Data Source [id number] 11/27/2020 11:40:38 AM EST [facility] Name Value Range Interpretation Code Description Data Blanca rce(s) Supporting Document(s) LDH 189 U/L (84-246) [facility] ID Date Data Source [id number] 11/26/2020 07:25:32 PM EST [facility] Name Value Range Interpretation Code Description Data Blanca rce(s) Supporting Document(s) NT PRO BNP 256 pg/mL (0-450) [facility] ID Date Data Source [id number] 11/26/2020 02:07:06 AM EST [facility] Name Value Range Interpretation Code Description Data Blanca rce(s) Supporting Document(s) TROPONIN I <0.05 ng/mL (<0.05) [facility] [place] Less than 0.05: Myocardial injury unlike lyGreater than or equal to 0.05: Highly suggestive of myocardial injuryCorrelation with rise and/or fall ofserial troponins, clinical symptomsand ECG changes is necessary. ID Date Data Source [id number] 11/25/2020 08:36:03 PM EST [address] [address]Vpflxsr Name: Sugey Schreiber: 1930Sex: FOrdering Provider: KARIME TORRESAuthorinelda Prov: KARIME TORRESReferrramos Provider: Procedure Performed: XR CHEST PORTABLEExam Date: 11/25/2020 19:06MRN: [id number] Number: [id number] Class: INFORMATION: Exam: XR Chest, 1 View [...] Name Value Range Interpretation Code Description Data Blacna rce(s) Supporting Document(s) ID Date Data Source [id number] 11/25/2020 07:59:55 PM EST [facility] HospitalPAT[facility] NT INFORMATIONPatient MRN Name Date of Age Gend*PT [id number] Sugey Joaquin 1930 89 years F EDPT Location Admission Date/Time Visit ID Attending Provider --- --- --- --- EPI ID CSN Admitting Provider [id number] ---Attestation signed by Ryne Blair MD at 11/25/2020 7:59 PMI was the attending physician on duty at the time the patient visited the ED.The patient was evaluated by the PA/MAINTENANCE SERVICE SUPERVISOR. I was personally available forconsultation; however, I [...] L rib pain yesterday-continued back pain todayHad VA in the past, no stents or bypass+SOB, no nauseaPhysical exam:Hypertensive and slightly tachyAmbulatoryNontoxPreliminary Plan:Labs, EKG, CXRThis note was electronically signed by MARLON Ramos, 11/25/20, 6:02 PM.ED CourseMARLON Ramos11/25/20 180Joseondina Blair MD11/25/201958 Name Value Range Interpretation Code Description Data Blanca rce(s) Supporting Document(s) ID Date Data Source [id number] 11/25/2020 06:39:40 PM EST [facility] Name Value Range Interpretation Code Description Data Blanca rce(s) Supporting Document(s) POC CTNI <0.01 ng/mL (0.01-0.07) L [facility] Less than 0.08: Myocardial injury unlike lyGreater than or equal to 0.08: Highlysuggestive of myocardial injuryCorrelation with rise and/or fall ofserial troponins, clinical symptoms,and ECG changes is necessary.PERFORMED BY [facility] CLINICAL STAFF ID Date Data Source [id number] 11/26/2020 03:45:33 PM EST [facility] [place] Name Value Range Interpretation Code Description Data Blanca rce(s) Supporting Document(s) HEMOGLOBIN A1C @ 5.6 % (4.0-6.0) [facility] Performed using Siemens Bradford immunoassa y.Care must be taken when interpreting IjM5kddkidnu in patients with a hemoglobin variantor decreased erythrocyte lifespan. Values 5.7 - 6.4% suggest prediabetes.Values >=6.5% are diagnostic for diabetes.REFERENCE: DIABETES CARE 2018: 41(S13-S27).PERFORMED AT [address] [place] [address] EST AVERAGE GLUCOSE 114 mg/dL [facility] ID Date Data Source [id number] 11/25/2020 07:16:41 PM EST [facility] Name Value Range Interpretation Code Description Data Blanca rce(s) Supporting Document(s) APTT 24.6 s (22.0-34.3) [facility] ID Date Data Source [id number] 11/25/2020 07:16:41 PM EST [facility] Name Value Range Interpretation Code Description Data Blanca rce(s) Supporting Document(s) PT 9.9 s (9.2-11.9) [facility] INR 0.94 [facility] SUGGESTED THERAPEUTIC RANGES USING INR F ORSTABILIZED ANTICOAGULATED PATIENTS:STANDARD DOSE THERAPY INR 2.0-3.0 DVT, PE, PREVENT DVT OR EMBOLISMHIGH DOSE THERAPY INR 2.5-3.5 PREVENT EMBOLISM FROM MECHANICAL HEART VALVE ID Date Data Source [id number] 11/25/2020 07:06:20 PM EST [facility] Name Value Range Interpretation Code Description Data Blanca rce(s) Supporting Document(s) WBC 5.2 10*3/uL (4.1-11.0) [facility] [place] RBC 4.61 10*6/uL (4.00-5.40) [facility] HGB 14.0 g/dL (12.0-16.0) [facility] HCT 40.7 % (36.0-47.0) [facility] MCV 88.3 fL (80.0-95.0) [facility] MCH 30.3 pg (27.0-32.0) [facility] MCHC 34.4 g/dL (32.0-36.0) [facility] RDW 14.2 % (10.5-14.5) [facility] PLT 247 10*3/uL (150-450) [facility] MPV 7.8 fL (7.1-10.7) [facility] NEUT % 65.1 % (35.0-75.0) [facility] LYMPH % 23.6 % (16.0-52.0) [facility] MONO % 9.6 % (0.0-8.0) H [facility] EOS % 1.2 % (0.0-5.0) [facility] BASO % 0.5 % (0.0-4.0) [facility] NEUT # 3.4 10*3/uL (1.8-7.7) [facility] LYMPH # 1.2 10*3/uL (1.2-4.8) [facility] MONO # 0.5 10*3/uL (0.0-0.8) [facility] Eosinophils [#/volume] in Blood by Automated count 0.1 10*3/uL (0.0-0 .5) [facility] BASO # 0.0 10*3/uL (0.0-0.2) [facility] ID Date Data Source [id number] 11/25/2020 07:24:04 PM EST [facility] Name Value Range Interpretation Code Description Data Blanca rce(s) Supporting Document(s) SODIUM 139 mmol/L (136-145) [facility] POTASSIUM 3.2 mmol/L (3.6-5.2) L [facility] CHLORIDE 103 mmol/L (100-108) [facility] CO2 28 mmol/L (22-31) [facility] ANION GAP 8 mmol/L (7-16) [facility] UREA NITROGEN 20 mg/dL (7-24) [facility] CREATININE 0.86 mg/dL (0.60-1.00) [facility] BUN/CREAT RATIO 23.3 RATIO (10.0-20.0) H [facility] GLUCOSE 114 mg/dL (70-99) H [facility] CALCIUM 9.5 mg/dL (8.4-10.2) [facility] TOTAL PROTEIN 7.5 g/dL (6.4-8.2) [facility] ALBUMIN 3.8 g/dL (3.2-4.5) [facility] GLOBULIN 3.7 g/dL (2.7-4.3) [facility] ALB/GLOB RATIO 1.0 RATIO [facility] ALKALINE PHOSPHATASE 79 U/L (45-117) [facility] BILIRUBIN,TOTAL 0.4 mg/dL (0.0-1.0) [facility] PLEASE NOTE:Total bilirubin results may be falselyelevated in patients taking Eltrombopag. AST (SGOT) 13 U/L (11-39) [facility] ALT (SGPT) 14 U/L (12-78) [facility] GFR >60 ml/min/1.73m2 (>59) [facility] GFR ( AMER) >60 ml/min/1.73m2 (>59) [facility] GFR INTERPRETATION [facility] --NORMAL KIDNEY FUNCTION OR MILD DISEASE - GFR >OR= 60CHRONIC KIDNEY DISEASE - GFR 15 - 59RENAL FAILURE - GFR <15 Est. GFR calculation based on the MDRDstudy equation, which assumes a steadystate for creatinine. Est. GFR should notbe used for medication dosing. ID Date Data Source [id number] 08/16/2020 04:49:00 PM EDT [facility] ([facility] Name Value Range Interpretation Code Description Data Blanca e(s) Supporting Document(s) Thyrotropin [Units/volume] in Serum or Plasma 1.045 ulU/mL 0.60-4.8 [facility] ([facility] ID Date Data Source [id number] 08/16/2020 04:49:00 PM EDT [facility] ([facility] Name Value Range Interpretation Code Description Data Blanca e(s) Supporting Document(s) Chol 162 mg/dL 0-200 [facility] ([employer] [facility] NORMAL RANGES Age WBC [...] HCT IS 5% LESS SOURCE FOR DATA: [employer] 1800 OPERATION MANUAL( AUTOMATED BLOOD COUNTS AND [...] in Serum or Plasma 49 mg/dL 45-65 [facility] ([facility] NORMAL RANGES Age [...] HCT IS 5% LESS SOURCE FOR DATA: [employer] 1800 OPERATION MANUAL( AUTOMATED BLOOD COUNTS AND [...] 2-19 YEARS EXCLUSIVE. Trig 163 mg/dL 40-200 [facility] ([facility] NORMAL [...] HCT IS 5% LESS SOURCE FOR DATA: [employer] 1800 OPERATION MANUAL( AUTOMATED BLOOD COUNTS AND [...] 2-19 YEARS EXCLUSIVE. Cho/HDL Ratio 3.3 CALC [facility] ([facility] NORMAL RANGES Age WBC RBC [...] HCT IS 5% LESS SOURCE FOR DATA: [employer] 1800 OPERATION MANUAL( AUTOMATED BLOOD COUNTS AND [...] 2-19 YEARS EXCLUSIVE. LDL_C 80 Calc 75-129 [facility] ([facility] NORMAL RANGES Age WBC [...] HCT IS 5% LESS SOURCE FOR DATA: [employer] 1800 OPERATION MANUAL( AUTOMATED BLOOD COUNTS AND [...] 2-19 YEARS EXCLUSIVE. ID Date Data Source [id number] 08/16/2020 04:49:00 PM EDT [facility] (Famil y [...] HCT IS 5% LESS SOURCE FOR DATA: [employer] 1800 OPERATION MANUAL( AUTOMATED BLOOD COUNTS AND [...] HCT IS 5% LESS SOURCE FOR DATA: [employer] 1800 OPERATION MANUAL( AUTOMATED BLOOD COUNTS AND [...] 2-19 YEARS EXCLUSIVE. Creat 0.7 mg/dL 0.5-1.0 [facility] ([facility] NORMAL [...] HCT IS 5% LESS SOURCE FOR DATA: [employer] [place] DYN 1800 OPERATION MANUAL( AUTOMATED BLOOD COUNTS [...] 2-19 YEARS EXCLUSIVE. BUN/Creatinine Ratio 20.9 CALC [facility] ([facility] NORMAL RANGES Age [...] HCT IS 5% LESS SOURCE FOR DATA: [employer] 1800 OPERATION MANUAL( AUTOMATED BLOOD COUNTS AND [...] HCT IS 5% LESS SOURCE FOR DATA: [employer] 1800 OPERATION MANUAL( AUTOMATED BLOOD COUNTS AND [...] 2-19 YEARS EXCLUSIVE. K 3.7 mmol/L 3.5-5.1 [facility] ([facility] NORMAL RANGES Age WBC [...] HCT IS 5% LESS SOURCE FOR DATA: [employer] [place] DYN 1800 OPERATION MANUAL( AUTOMATED BLOOD COUNTS [...] EXCLUSIVE. CL 99.1 mmol/L 98.0-107.0 [facility] ([facility] NORMAL RANGES Age WBC [...] HCT IS 5% LESS SOURCE FOR DATA: [employer] 1800 OPERATION MANUAL( AUTOMATED BLOOD COUNTS AND [...] HCT IS 5% LESS SOURCE FOR DATA: [employer] 1800 OPERATION MANUAL( AUTOMATED BLOOD COUNTS AND [...] 2-19 YEARS EXCLUSIVE. CA 10.0 mg/dL 8.6-10.2 [facility] ([facility] NORMAL RANGES Age WBC RBC [...] HCT IS 5% LESS SOURCE FOR DATA: [employer] 1800 OPERATION MANUAL( AUTOMATED BLOOD COUNTS AND [...] HCT IS 5% LESS SOURCE FOR DATA: [employer] 1800 OPERATION MANUAL( AUTOMATED BLOOD COUNTS AND [...] HCT IS 5% LESS SOURCE FOR DATA: [employer] 1800 OPERATION MANUAL( AUTOMATED BLOOD COUNTS AND [...] 2-19 YEARS EXCLUSIVE. A/G Ratio 2.1 CALC [facility] ([facility] NORMAL RANGES [...] HCT IS 5% LESS SOURCE FOR DATA: [employer] 1800 OPERATION MANUAL( AUTOMATED BLOOD COUNTS AND [...] HCT IS 5% LESS SOURCE FOR DATA: [employer] 1800 OPERATION MANUAL( AUTOMATED BLOOD COUNTS AND [...] 2-19 YEARS EXCLUSIVE. Alp 79.6 U/L 35-129 [facility] ([facility] NORMAL RANGES Age WBC [...] HCT IS 5% LESS SOURCE FOR DATA: [employer] 1800 OPERATION MANUAL( AUTOMATED BLOOD COUNTS AND [...] YEARS EXCLUSIVE. Alt (SGPT) 10 U/L 0-41 [facility] ([facility] NORMAL RANGES [...] HCT IS 5% LESS SOURCE FOR DATA: [employer] 1800 OPERATION MANUAL( AUTOMATED BLOOD COUNTS AND [...] HCT IS 5% LESS SOURCE FOR DATA: [employer] 1800 OPERATION MANUAL( AUTOMATED BLOOD COUNTS AND [...] 2-19 YEARS EXCLUSIVE. Tbili 0.38 mg/dL 0.0-1.2 [facility] NORMAL RANGES Age WBC RBC HGB [...] HCT IS 5% LESS SOURCE FOR DATA: [email or web address] 1800 OPERATION MANUAL( AUTOMATED BLOOD COUNTS AND [...] HCT IS 5% LESS SOURCE FOR DATA: [email or web address] 1800 OPERATION MANUAL( AUTOMATED BLOOD COUNTS AND [...] HCT IS 5% LESS SOURCE FOR DATA: [email or web address] 1800 OPERATION MANUAL( AUTOMATED BLOOD COUNTS AND [...] YEARS EXCLUSIVE. eGFR 90 # [facility] ( [facility] NORMAL RANGES Age [...] HCT IS 5% LESS SOURCE FOR DATA: [email or web address] 1800 OPERATION MANUAL( AUTOMATED BLOOD COUNTS AND [...] INDIVIDUALA AGED 2-19 YEARS EXCLUSIVE. eGFR Non-Afr. Macedonian 78 # [facility] ([facility] [...] HCT IS 5% LESS SOURCE FOR DATA: [email or web address] 1800 OPERATION MANUAL( AUTOMATED BLOOD COUNTS AND [...] 2-19 YEARS EXCLUSIVE. ID Date Data Source [id number] 08/16/2020 04:49:00 PM EDT [facility] ([facility] Name Value Range Interpretation Code Description Data Blanca rce(s) Supporting Document(s) WBC 4.6 10E3/uL 4.1-10.9 [facility] ([facility] NORMAL RANGES Age WBC [...] HCT IS 5% LESS SOURCE FOR DATA: [email or web address] 1800 OPERATION MANUAL( AUTOMATED BLOOD COUNTS AND [...] 2-19 YEARS EXCLUSIVE. RBC 4.36 10E6/uL 4.-630 [employer] ([facility] NORMAL RANGES [...] HCT IS 5% LESS SOURCE FOR DATA: [employer] [place] DYN 1800 OPERATION MANUAL( AUTOMATED BLOOD COUNTS [...] HCT IS 5% LESS SOURCE FOR DATA: [employer] 1800 OPERATION MANUAL( AUTOMATED BLOOD COUNTS AND [...] 2-19 YEARS EXCLUSIVE. HGB 13.1 g/dL 12.0-18.0 [facility] NORMAL RANGES Age WBC RBC [...] HCT IS 5% LESS SOURCE FOR DATA: [email or web address] 1800 OPERATION MANUAL( AUTOMATED BLOOD COUNTS AND [...] HCT IS 5% LESS SOURCE FOR DATA: [employer] 1800 OPERATION MANUAL( AUTOMATED BLOOD COUNTS AND [...] HCT IS 5% LESS SOURCE FOR DATA: [employer] 1800 OPERATION MANUAL( AUTOMATED BLOOD COUNTS AND [...] HCT IS 5% LESS SOURCE FOR DATA: [employer] 1800 OPERATION MANUAL( AUTOMATED BLOOD COUNTS AND [...] 2-19 YEARS EXCLUSIVE. PLT 239 10E3/uL 140-440 [facility] NORMAL RANGES Age WBC [...] HCT IS 5% LESS SOURCE FOR DATA: [employer] [place] DYN 1800 OPERATION MANUAL( AUTOMATED BLOOD COUNTS [...] HCT IS 5% LESS SOURCE FOR DATA: [employer] 1800 OPERATION MANUAL( AUTOMATED BLOOD COUNTS AND [...] YEARS EXCLUSIVE. RDW-CV 14.1 % 11.5-14.5 [facility] ([facility] NORMAL RANGES Age WBC RBC [...] HCT IS 5% LESS SOURCE FOR DATA: [employer] 1800 OPERATION MANUAL( AUTOMATED BLOOD COUNTS AND [...] 2-19 YEARS EXCLUSIVE. Neut% 62.4 % 37.0-92.0 [facility] ([facility] NORMAL [...] HCT IS 5% LESS SOURCE FOR DATA: [employer] 1800 OPERATION MANUAL( AUTOMATED BLOOD COUNTS AND [...] YEARS EXCLUSIVE. Lym# 1.4 10E3/uL 0.6-4.1 [facility] ([facility] NORMAL RANGES Age WBC [...] HCT IS 5% LESS SOURCE FOR DATA: [employer] 1800 OPERATION MANUAL( AUTOMATED BLOOD COUNTS AND [...] 2-19 YEARS EXCLUSIVE. MXD% 6.9 % 0.1-24.0 [facility] ([facility] NORMAL [...] HCT IS 5% LESS SOURCE FOR DATA: [employer] 1800 OPERATION MANUAL( AUTOMATED BLOOD COUNTS AND [...] 2-19 YEARS EXCLUSIVE. Neut# 2.9 % 2.0-7.8 [facility] ([facility] NORMAL [...] HCT IS 5% LESS SOURCE FOR DATA: [employer] 1800 OPERATION MANUAL( AUTOMATED BLOOD COUNTS AND [...] YEARS EXCLUSIVE. MXD# 0.3 10E3/uL 0.0-1.8 [facility] ([facility] NORMAL RANGES Age WBC [...] HCT IS 5% LESS SOURCE FOR DATA: [employer] 1800 OPERATION MANUAL( AUTOMATED BLOOD COUNTS AND [...] 2-19 YEARS EXCLUSIVE. MPV 10.7 fL 9.0-13.0 [facility] ([facility] NORMAL [...] HCT IS 5% LESS SOURCE FOR DATA: [employer] [place] DYN 1800 OPERATION MANUAL( AUTOMATED BLOOD COUNTS [...] 2-19 YEARS EXCLUSIVE. ID Date Data Source [id number] 08/16/2020 11:02:00 AM EDT [facility] ([facility]) Name Value Range Interpretation Code Description Data Blanca rce(s) Supporting Document(s) Albumin [Mass/volume] in Serum or Plasma 4.3 [facility] ([facility]) Alanine aminotransferase [Enzymatic activity/volume] in Serum or Pl asma 10 [facility] ([facility]) Calcium [Mass/volume] in Serum or Plasma 10.0 [facility] ([facility]) Chloride [Moles/volume] in Serum or Plasma 99.1 [facility] ([facility]) Alkaline phosphatase [Enzymatic activity/volume] in Serum or Plasma 7 9.6 [facility] ([facility]) Carbon dioxide, total [Moles/volume] in Serum or Plasma 24.4 [facility] ([facility]) Sodium 136 [facility] ([facility]) Potassium [Moles/volume] in Serum or Plasma 3.7 [facility] ([facility] [place]) Protein [Mass/volume] in Serum or Plasma 6.4 [facility] ([facility] [place]) Aspartate aminotransferase [Enzymatic activity/volume] in Serum or Plasma 17 [facility] ([facility] [place]) Urea nitrogen [Mass/volume] in Serum or Plasma 15 [facility] ([facility]) Glucose 94 70-110 [facility] ([facility]) Creatinine For GFR 0.7 [facility] ([facility]) ID Date Data Source [id number] 08/16/2020 11:02:00 AM EDT [facility] ([facility]i [facility]) Name Value Range Interpretation Code Description Data Blanca rce(s) Supporting Document(s) Red Blood Count 4.36 4.20-6.30 [facility] ([facility] White Blood Count 4.6 4.1-10.9 [facility] ([facility]) Hemoglobin 13.1 12.0-18.0 [facility] ([facility]) Hematocrit 39.6 37.0-51.0 [facility] ([facility]) Platelets 239 140-440 [facility] ([facility]) ID Date Data Source [id number] 08/16/2020 11:02:00 AM EDT [facility] ([facility]i [facility]y [facility]) Name Value Range Interpretation Code Description Data Blanca rce(s) Supporting Document(s) Triglycerides 163 [facility] ([facility]) Chol/HDL Ratio 3.3 [facility] ([facility] Cholesterol 162 0-200 [facility] ([facility]) HDL 49 45-65 [facility] ([facility]) Cholesterol in LDL [Mass/volume] in Serum or Plasma by calculation 80 [facility] ([facility]) ID Date Data Source [id number] 08/09/2020 07:03:21 PM EDT [facility] Name Value Range Interpretation Code Description Data Blanca rce(s) Supporting Document(s) &PDF [facility] [id number] oRX [file] [id number] ID Date Data Source [id number] 06/03/2020 08:19:00 PM EDT [facility] ([facility] Name Value Range Interpretation Code Description Data Blanca rce(s) Supporting Document(s) Glucose, Fasting 122 mg/dL 70-100 Above high normal M EDALYSIA ([facility] Glomerular Filtration Rate Laboratory test result Normal (applies to non- numeric results) [facility] ([facility] ) <content>Units are mL/min/1.73 m2</content>
<content></content>
<content>Chronic Kidney Disease Staging per NKF:</content>
<content></content>
<content>Stage I & II GFR >=60 Normal to Mildly Decreased</content>
<content>Stage III GFR 30- 59 Moderately Decreased</content>
<content>Stage IV GFR 15-29 Severely Decreased</content>
<content>Stage V GFR <15 Very Little GFR Left</content>
<content>ESRD GFR <15 on CAR BRACER</content>
<content></content> Blood Urea Nitrogen 18 mg/dL 7-18 Normal (applies to non-nume pam results) [facility] ([facility] Creatinine For GFR 0.88 mg/dL 0.55-1.30 Normal (applies to non -numeric results) [facility] ([facility] Sodium Level 142 meq/L 136-145 Normal (applies to non-numeric res ults) [facility] Potassium Serum 3.4 meq/L 3.5-5.1 Below low normal MED ENT ([facility] Chloride Level 107 meq/L 98-107 Normal (applies to non-numeric r esults) [facility] ([facility] Calcium Level 9.1 mg/dL 8.8-10.2 Normal (applies to non-numeric re sults) [facility] ([facility] Anion Gap 8 meq/L 8-16 Normal (applies to non-numeric resul ts) [facility] Carbon Dioxide Level 27 meq/L 21-32 Normal (applies to non-num layo results) [facility] ([facility] ID Date Data Source [id number] 06/03/2020 08:19:00 PM EDT [facility] ([facility] Name Value Range Interpretation Code Description Data Blanca rce(s) Supporting Document(s) Ast/Sgot 19 U/L 7-37 Normal (applies to non-numeric resul ts) [facility] ([facility] Bilirubin,Total 0.4 mg/dL 0.2-1.0 Normal (applies to non-numeric results) [facility] ([facility] Alt/SGPT 23 U/L 12-78 Normal (applies to non-numeric resul ts) [facility] Alkaline Phosphatase 78 U/L 45-117 Normal (applies to non-num layo results) [facility] ([facility] Total Protein 6.9 GM/DL 6.4-8.2 Normal (applies to non-numeric re sults) [facility] ([facility] Bilirubin,Direct 0.1 mg/dL 0.0-0.2 Normal (applies to non-numeric results) [facility] ([facility] Albumin 3.5 GM/DL 3.2-5.2 Normal (applies to non-numeric resul ts) [facility] Albumin/Globulin Ratio 1.0 1.2-2.2 Below low normal [facility] ([facility] ID Date Data Source [id number] 06/03/2020 08:19:00 PM EDT [facility] ([facility] Name Value Range Interpretation Code Description Data Blanca rce(s) Supporting Document(s) White Blood Count 4.9 10 4.0-10.0 Normal (applies to non-numeri c results) [facility] ([facility] Hemoglobin 13.1 g/dL 12.0-15.5 Normal (applies to non-numeric resul ts) [facility] Red Blood Count 4.41 10 4.00-5.40 Normal (applies to non-numeric results) [facility] ([facility] Mean Corpuscular Hemoglobin 29.7 pg 27.0-33.0 Norm al (applies to non-numeric results) [facility] ([facility] ) Mean Corpuscular HGB Conc 33.0 g/dL 32.0-36.5 Normal (applies to non-numeric results) [facility] ([facility] ) Hematocrit 39.7 % 36.0-47.0 Normal (applies to non-numeric resul ts) [facility] ([facility] Mean Corpuscular Volume 90.0 fl 80.0-96.0 Normal ( applies to non-numeric results) [facility] ([facility] ) Red Cell Distribution Width 13.3 % 11.5-14.5 Norm al (applies to non-numeric results) [facility] ([facility] ) Neutrophils % 61.6 % 36.0-66.0 Normal (applies to non-numeric re sults) [facility] ([facility] Platelet Count, Automated 219 10 150-450 Normal (applies to non-numeric results) [facility] ([facility] ) Lymph % 26.0 % 24.0-44.0 Normal (applies to non-numeric resul ts) [facility] ([facility] Baso % 0.2 % 0.0-1.0 Normal (applies to non-numeric resul ts) [facility] ([facility] [place] % 10.3 % 0.0-5.0 Above high normal [facility] ([facility] Eos % 1.9 % 0.0-3.0 Normal (applies to non-numeric resul ts) [facility] ([facility] Nucleated Red Blood Cell % 0.0 % 0-0 Normal (applies to n on-numeric results) [facility] ([facility] Immature Granulocyte % 0.0 % 0-3.0 Normal (applies to non-n umeric results) [facility] ([facility] Neutrophils # 3.0 10 1.5-8.5 Normal (applies to non-numeric re sults) [facility] ([facility] Lymph # 1.3 10 1.5-5.0 Below low normal [facility] ( [facility] [place] # 0.5 10 0.0-0.8 Normal (applies to non-numeric resul ts) [facility] ([facility] Eos # 0.1 10 0.0-0.5 Normal (applies to non-numeric resul ts) [facility] ([facility] Baso # 0.0 10 0.0-0.2 Normal (applies to non-numeric resul ts) [facility] ([facility] ID Date Data Source [id number] 06/03/2020 08:18:00 PM EDT [facility] ([facility] Name Value Range Interpretation Code Description Data Blanca rce(s) Supporting Document(s) Laboratory test finding (navigational concept) 0.01 ng/mL 0 .00-0.08 Normal (applies to non-numeric results) [facility] ([facility] ID Date Data Source [id number] 01/08/2020 08:59:00 AM EST [facility] ([facility] Name Value Range Interpretation Code Description Data Blanca rce(s) Supporting Document(s) Prostate specific Ag [Mass/volume] in Serum or Plasma 46 mg/dL 45-6 5 MEDALYSIA ([facility] CLASSIFICATION CHOLESTEROL FO [...] mL/min Normal Trig 135 mg/dL 40-200 [facility] ([facility] CLASSIFICATION CHOLESTEROL FO R [...] Cho/HDL Ratio 4.8 Calc [facility] ([facility] CLASSIFICATION CHOLESTEROL FO R ADULTS [...] >32 mL/min Normal ID Date Data Source [id number] 01/08/2020 08:59:00 AM EST [facility] ([facility] Name Value Range Interpretation Code Description Data Blanca rce(s) Supporting Document(s) Glu 102 mg/dL 70-110 [facility] ([facility] CLASSIFICATION CHOLESTEROL FO R [...] mL/min Normal BUN/Creatinine Ratio 16.1 CALC [facility] ([facility] CLASSIFICATION CHOLESTEROL FO [...] mL/min Normal Creat 0.9 mg/dL 0.5-1.0 [facility] ([facility] CLASSIFICATION CHOLESTEROL FO R [...] mL/min Normal K 3.8 mmol/L 3.5-5.1 [facility] ([facility] CLASSIFICATION CHOLESTEROL FO R [...] mL/min Normal CL 104.9 mmol/L 98.0-107.0 [facility] CLASSIFICATION CHOLESTEROL FO R [...] >32 mL/min Normal CA 9.8 mg/dL 8.6-10.2 [facility] ([facility] CLASSIFICATION [...] mL/min Normal Co2 23.8 mmol/L 22.0-29.0 [facility] ([facility] CLASSIFICATION CHOLESTEROL FO R [...] mL/min Normal Alb 4.1 g/dL 3.4-4.8 [facility] ([facility] CLASSIFICATION CHOLESTEROL FO R ADULTS [...] >32 mL/min Normal Globulin 2.3 CALC [facility] ([facility] CLASSIFICATION CHOLESTEROL [...] Alt (SGPT) 11 U/L 0-41 [facility] ([facility] CLASSIFICATION CHOLESTEROL FO R ADULTS [...] and above >32 mL/min Normal eGFR Non-Afr. Macedonian 57 # [facility] ([facility] [...] >32 mL/min Normal ID Date Data Source [id number] 01/08/2020 08:59:00 AM [place] ([facility]) Name Value Range Interpretation Code Description Data Blanca rce(s) Supporting Document(s) Glu 102 mg/dL 70-110 [facility] ([facility]) CLASSIFICATION CHOLESTEROL FO R ADULTS CHILDREN/ADOLESCENTS* DESIRABLE: [...] mg/dL 0.5-1.0 [facility] ([facility]) CLASSIFICATION CHOLESTEROL FO R ADULTS CHILDREN/ADOLESCENTS* DESIRABLE: [...] mg/dL 8-23 [facility] ([facility]) CLASSIFICATION CHOLESTEROL FO R ADULTS CHILDREN/ADOLESCENTS* DESIRABLE: [...] Na 141 mmol/L 136-145 [facility] ([facility]) CLASSIFICATION CHOLESTEROL FO R ADULTS CHILDREN/ADOLESCENTS* DESIRABLE: [...] K 3.8 mmol/L 3.5-5.1 [facility] ([facility]) CLASSIFICATION CHOLESTEROL FO R ADULTS CHILDREN/ADOLESCENTS* DESIRABLE: [...] or Plasma 16.1 CALC [facility] ([facility]) CLASSIFICATION CHOLESTEROL FO R ADULTS CHILDREN/ADOLESCENTS* DESIRABLE: [...] mmol/L 98.0-107.0 [facility] ([facility]iol[facility]) CLASSIFICATION CHOLESTEROL FO R ADULTS CHILDREN/ADOLESCENTS* DESIRABLE: [...] mg/dL 8.6-10.2 [facility] ([facility]) CLASSIFICATION CHOLESTEROL FO R ADULTS CHILDREN/ADOLESCENTS* DESIRABLE: [...] 23.8 mmol/L 22.0-29.0 [facility] ([facility]) CLASSIFICATION CHOLESTEROL FO R ADULTS CHILDREN/ADOLESCENTS* DESIRABLE: [...] g/dL 6.6-8.7 [facility] ([facility]) CLASSIFICATION CHOLESTEROL FO R ADULTS CHILDREN/ADOLESCENTS* DESIRABLE: [...] g/dL 3.4-4.8 [facility] ([facility]) CLASSIFICATION CHOLESTEROL FO R ADULTS CHILDREN/ADOLESCENTS* DESIRABLE: [...] Ratio 1.8 CALC [facility] ([facility]) CLASSIFICATION CHOLESTEROL FO R ADULTS CHILDREN/ADOLESCENTS* DESIRABLE: [...] 11 U/L 0-41 [facility] ([facility]) CLASSIFICATION CHOLESTEROL FO R ADULTS CHILDREN/ADOLESCENTS* DESIRABLE: [...] U/L 35-129 [facility] ([facility]) CLASSIFICATION CHOLESTEROL FO R ADULTS CHILDREN/ADOLESCENTS* DESIRABLE: [...] calculation 2.3 CALC [facility] ([facility]) CLASSIFICATION CHOLESTEROL FO R ADULTS CHILDREN/ADOLESCENTS* DESIRABLE: [...] Tbili 0.55 mg/dL 0.0-1.2 [facility] ([facility]) CLASSIFICATION CHOLESTEROL FO R ADULTS CHILDREN/ADOLESCENTS* DESIRABLE: [...] Normal Osmolality-Calculated 281.1 CALC [facility] ([facility]) CLASSIFICATION CHOLESTEROL FO R ADULTS CHILDREN/ADOLESCENTS* DESIRABLE: [...] Serum or Plasma 18 U/L 0-40 [facility] ([employer] [facility]) CLASSIFICATION CHOLESTEROL FO R ADULTS CHILDREN/ADOLESCENTS* DESIRABLE: [...] eGFR 67 # [facility] ( [facility]) CLASSIFICATION CHOLESTEROL FO R ADULTS CHILDREN/ADOLESCENTS* DESIRABLE: [...] or Plasma 16 mmol/L [facility] ([facility]) CLASSIFICATION CHOLESTEROL FO R ADULTS CHILDREN/ADOLESCENTS* DESIRABLE: [...] mg/dL 40-200 [facility] ([facility]) CLASSIFICATION CHOLESTEROL FO R ADULTS CHILDREN/ADOLESCENTS* DESIRABLE: [...] mg/dL 0-200 [facility] ([facility]) CLASSIFICATION CHOLESTEROL FO R ADULTS CHILDREN/ADOLESCENTS* DESIRABLE: [...] and above >32 mL/min Normal eGFR Non-Afr. Macedonian 57 # [facility] ([facility]) CLASSIFICATION CHOLESTEROL FO R ADULTS CHILDREN/ADOLESCENTS* DESIRABLE: [...] Calc 75-129 [facility] ([facility]) CLASSIFICATION CHOLESTEROL FO R ADULTS CHILDREN/ADOLESCENTS* DESIRABLE: [...] mg/dL 45-6 5 [facility] ([facility]) CLASSIFICATION CHOLESTEROL FO R ADULTS CHILDREN/ADOLESCENTS* DESIRABLE: [...] 4.8 Calc [facility] ([facility]iol[facility]) CLASSIFICATION CHOLESTEROL FO R ADULTS CHILDREN/ADOLESCENTS* DESIRABLE: [...] intake 11/26/2020 12:00:00 AM EST Never completed [facility] Smoking 11/26/2020 12:00:00 AM EST Never smoker completed Never s moker [facility] Smoking 08/30/2020 12:00:00 AM EDT Patient has never smoked co mpleted Patient has never smoked [facility] ([facility]) Vital Signs ID Date Data Source UNK Name Value Range Interpretation Code Description Data Source(s) Oxygen saturation in Arterial blood by Pulse oximetry 97 % 97 % [facility] ([facility] Body mass index (BMI) [Ratio] 29.3 kg/m2 29.3 k g/m2 [facility] ([facility] [place] body weight 120 [lb_av] 120 [lb_av] MEDEN T ([facility] Body weight 171.00 [lb_av] 171.00 [lb_av] MED[facility] T ([facility] Body height 64 [in_i] 64 [in_i] [facility] ([facility] 5'4" Respiratory rate 18 [...] P.C.) Heart rate 94 /min 94 /min [facility] Diastolic blood pressure 70 mm[Hg] 70 mm[Hg] [facility] Systolic blood pressure 154 mm[Hg] 154 mm[Hg] [facility] Oxygen saturation in Arterial blood by Pulse oximetry 97 % 97 % [facility] Respiratory rate 18 /min 18 /min [facility] Body temperature 36.78 Hakeem 36.78 [place]em [facility] Body mass index (BMI) [Ratio] 28.29 kg/m2 28.29 kg/m2 [facility] Body weight 77.111 kg 77.111 kg [facility] Body height 165.1 cm 165.1 cm [facility] Respiratory rate 16 /min 16 /min [...] k g/m2 [facility] ([facility] [place] body weight 120 [lb_av] 120 [lb_av] MED[facility] T ([facility] Body weight 175.00 [lb_av] 175.00 [lb_av] MED[facility] T ([facility] Body height 64 [in_i] 64 [in_i] [facility] ([facility] 5'4" [place] body weight 125 [lb_av] 125 [lb_av] MEDEN T ([facility], ) Body mass index (BMI) [Ratio] 28.6 kg/m2 28.6 k g/m2 [facility] ([facility], ) Body weight 172.00 [lb_av] 172.00 [lb_av] MEDEN T ([facility], ) Body height 65 [in_i] 65 [in_i] [facility] ([facility], ) 5'5" Respiratory rate 12 /min 12 /min MEDENT ( [facility]) Diastolic blood pressure 76 mm[Hg] 76 mm[Hg] MED[facility] ([facility]) sitting, large cuff Systolic blood pressure 128 mm[Hg] 128 mm[Hg] M EDENT ([facility]) sitting, large cuff Respiratory rate 16 /min 16 /min MED[facility] ( [facility] Heart rate 68 /min 68 /min [facility] ([facility] Regular Body mass index (BMI) [Ratio] 29.4 kg/m2 29.4 k g/m2 [facility] ([facility]) Body height 64.5 [in_i] 64.5 [in_i] [facility] ([facility]) 5'4.50" Body weight 174.00 [lb_av] 174.00 [lb_av] MEDEN T ([facility]) Oxygen saturation in Arterial blood by Pulse oximetry 94 % 94 % MEDENT ([facility] Body mass index (BMI) [Ratio] 30.0 kg/m2 30.0 k g/m2 MED[facility] ([facility] [place] body weight 120 [lb_av] 120 [lb_av] MEDEN T ([facility] Body weight 175.00 [lb_av] 175.00 [lb_av] MEDEN T ([facility] Body height 64 [in_i] 64 [in_i] [facility] ([facility] 5'4" Respiratory rate [...] mm[Hg] M EDENT ([facility] [place] body weight 125 [lb_av] 125 [lb_av] MEDEN T ([facility], ) Body mass index (BMI) [Ratio] 29.6 kg/m2 29.6 k g/m2 MEDENT ([facility], ) Body weight 178.00 [lb_av] 178.00 [lb_av] MEDEN T ([facility], ) Body height 65 [in_i] 65 [in_i] MEDENT ([facility], ) 5'5" Respiratory rate 12 /min 12 /min MEDENT ( [facility], ) Oxygen saturation in Arterial blood by Pulse oximetry 97 % 97 % MED[facility] ([facility] Body mass index (BMI) [Ratio] 30.2 kg/m2 30.2 k g/m2 MED[facility] ([facility] [place] body weight 120 [lb_av] 120 [lb_av] MEDEN T ([facility] Body weight 176.00 [lb_av] 176.00 [lb_av] MEDEN T ([facility] Body height 64 [in_i] 64 [in_i] MED[facility] ([facility] 5'4" Respiratory rate 16 /min 16 /min MED[facility] ( [facility] Heart rate 76 /min 76 /min MED[facility] ([facility] Body temperature 98.3 [degF] 98.3 [degF] MED[facility] ([facility] Diastolic blood pressure 68 mm[Hg] 68 mm[Hg] MEDENT ([facility] Systolic blood pressure 124 mm[Hg] 124 mm[Hg] M EDENT ([facility] Body temperature 98.6 [degF] 98.6 [degF] MEDENT ([facility]) Oxygen saturation in Arterial blood by Pulse oximetry 98 % 98 % MEDENT ([facility], [facility]) 98 ra Heart rate 99 /min 99 /min MEDENT ([facility]) 80 Diastolic blood pressure 90 mm[Hg] 90 mm[Hg] MEDENT ([facility], [facility]) 220\\92 Systolic blood pressure 200 mm[Hg] 200 mm[Hg] M EDENT ([facility], [facility]) 220\\92 Body mass index (BMI) [Ratio] 29.6 kg/m2 29.6 k g/m2 MEDENT ([facility], ) Body weight 178.00 [lb_av] 178.00 [lb_av] MEDEN T ([facility], ) Body height 65 [in_i] 65 [in_i] MEDENT ([facility], ) 5'5" Respiratory rate 12 /min 12 /min MEDENT ( [facility], ) Oxygen saturation in Arterial blood by Pulse oximetry 96 % 96 % MED[facility] ([facility] Body mass index (BMI) [Ratio] 30.0 kg/m2 30.0 k g/m2 MED[facility] ([facility] [place] body weight 120 [lb_av] 120 [lb_av] MEDEN T ([facility] Body weight 175.00 [lb_av] 175.00 [lb_av] MEDEN T ([facility] Body height 64 [in_i] 64 [in_i] MEDENT ([facility] 5'4" Respiratory rate 16 /min 16 /min MED[facility] ( [facility] Heart rate 84 /min 84 /min MED[facility] ([facility] Body temperature 97.5 [degF] 97.5 [degF] MEDENT ([facility] Diastolic blood pressure 74 mm[Hg] 74 mm[Hg] MEDENT ([facility] Systolic blood pressure 142 mm[Hg] 142 mm[Hg] M EDENT ([facility] Diastolic blood pressure--sitting 78 mm[Hg] 78 mm[Hg] MED[facility] ([facility]) large cuff, Ra Systolic blood pressure--sitting 138 mm[Hg] 138 mm[Hg] MEDENT ([facility]) large cuff, Ra Heart rate 74 /min 74 /min [facility] ([facility]) Body mass index (BMI) [Ratio] 29.6 kg/m2 29.6 k g/m2 MED[facility] ([facility]) Body height 64.5 [in_i] 64.5 [in_i] [facility] ([facility]) 5'4.50" Body weight 175.00 [lb_av] 175.00 [lb_av] MEDEN T ([facility]) Oxygen saturation in Arterial blood by Pulse oximetry 97 % 97 % MED[facility] ([facility] Body mass index (BMI) [Ratio] 30.2 kg/m2 30.2 k g/m2 MED[facility] ([facility] Body weight 176.00 [lb_av] 176.00 [lb_av] MEDEN T ([facility] Body height 64 [in_i] 64 [in_i] MEDENT ([facility] 5'4" Respiratory rate 16 [...]
--- NOTE | 2021-01-14 07:26 | REPVR ---
PROCEDURE INFORMATION: Exam: CT Chest Without Contrast; Diagnostic Exam date and time: 01/14/2021 6:31 AM Age: 89 years old Clinical indication: Cough; Additional info: Pleural effusions TECHNIQUE: Imaging protocol: Diagnostic computed tomography of the chest without contrast. 3D rendering (Not supervised by radiologist): MIP and/or 3D reconstructed images were created by the technologist. Radiation optimization: All CT scans at this facility use at least one of these dose optimization techniques: automated exposure control; mA and/or kV adjustment per patient size (includes targeted exams where dose is matched to clinical indication); or iterative reconstruction. COMPARISON: 1. PT PET/CT Skull/mid thigh 01/09/2021 1:[address] CHEST W/O CONTRAST - OUTSIDE PRIOR 11/26/2020 1:03:21 PM FINDINGS: Lungs: There is volume loss and consolidation in both lungs, involving the bilateral lower lobes, the right middle lobe, and the lingula, likely due to compressive atelectasis. Small focal calcifications consistent with granulomata are seen within the consolidated left lower lobe. Other underlying processes could be obscured. There are multiple scattered solid pulmonary nodules in both lungs measuring up to 5 mm, and unchanged from the prior exam of November 26, 2020. Pleural spaces: There are moderate sized, layering bilateral pleural effusions, which measure simple fluid density. The effusions are similar in size to the prior PET-CT scan, and increased in size from the prior chest CT scan of November 26, 2020. Heart: The heart is normal in size. There are calcifications at the level of the aortic valve and at the mitral annulus. Mediastinal space: A small hiatal hernia is present. Aorta: There is ectasia of the ascending aorta, measuring 4.0 cm in diameter. The aorta demonstrates moderate atherosclerotic calcification. Lymph nodes: There are calcified right hilar lymph nodes and several mildly enlarged mediastinal and hilar lymph nodes, unchanged from the recent prior PET-CT scan and the chest CT scan. Liver: The liver demonstrates punctate calcifications, consistent with remote granulomatous organism exposure. Spleen: The spleen demonstrates punctate calcifications, consistent with remote granulomatous organism exposure. Bones/joints: Degenerative endplate changes are seen at multiple levels in the visualized spine. No suspicious osseous lesions. No acute fractures. Soft tissues: The soft tissues appear unremarkable. IMPRESSION: 1. Moderate-sized, layering bilateral pleural effusions, similar in size to the recent prior PET-CT scan. 2. Volume loss and consolidation in the bilateral lung bases, likely due to compressive atelectasis. Underlying pathology could be obscured. 3. Scattered pulmonary nodules measuring up to 5 mm, unchanged compared to November,. A history of breast cancer was given on a prior report. Fleischner Society follow up recommendations for incidental nodules are not indicated. Follow up per the patient's medical condition. Electronically signed by: Sonya Smith On 01/14/2021 07:26:59 AM
[2021-01-14] MEDS ORDERED: BISACODYL 10 MG SUPP PR PRN (08:10)
[2021-01-14] MEDS ORDERED: ACETAMINOPHEN TAB 650MG DOSE (2X325MG) PO PRN (08:10)
[2021-01-14] MEDS ORDERED: ONDANSETRON 4MG/2ML VIAL IV PRN (08:10)
[2021-01-14] MEDS ORDERED: LEVALBUTEROL 1.25 MG/0.5 ML CONCENTRATE NEB NEB PRN (08:10)
[2021-01-14] MEDS ORDERED: LIDOCAINE 1% MDV 20ML VIAL As Ordered ONE (08:41)
[2021-01-14] MEDS ORDERED: flumazeniL 0.5 MG/5 ML VIAL As Ordered ONE (08:42)
[2021-01-14] MEDS ORDERED: MIDAZOLAM INJ 2MG/2ML VIAL (J2250 PER 1MG) As Ordered ONE (08:42)
[2021-01-14] MEDS ORDERED: ceFAZolin SOD 2 GM in IV 1 EA IV ONE (09:00)
[2021-01-14] MEDS ORDERED: MIDAZOLAM INJ 2MG/2ML VIAL (J2250 PER 1MG) IV ONE (09:00)
[2021-01-14] MEDS ORDERED: MUPIROCIN 2% OINT 22 GM TUBE TOP ONE (09:00)
[2021-01-14] MEDS ORDERED: KCL 20MEQ IN D5/NS 1000ML 1,000 ML IV SCH (09:00)
--- OUTSIDE RECORDS SUMMARY | 2021-01-14 09:05 | CCD ---
Author Author [facility] Organization [facility] Address Unknown Phone Unavailable Care Team Providers Care Hospitalist Nocturnist Physician Name Role Phone Kristal Davila MD Unavailable [...] Anne Marie PA Unavailable Unavailable Symenow, Rere Annem Arie PA Unavailable Unavailable Symenow, Rere Anne Marie [...] VASQUEZNICK WORTHY Unavailable Unavailable OVALLES, M ROSLYN SOFTWARE CLIENT ARCHITECT Unavailable Unavailable OVALLES, M ROSLYN SOFTWARE CLIENT ARCHITECT Unavailable Unavailable OVALLES, M ROSLYN SOFTWARE CLIENT ARCHITECT Unavailable Unavailable OVALLES, M ROSLYN SOFTWARE CLIENT ARCHITECT Unavailable Unavailable OVALLES, M ROSLYN SOFTWARE CLIENT ARCHITECT Unavailable Unavailable OVALLES, M ROSLYN SOFTWARE CLIENT ARCHITECT Unavailable Unavailable OVALLES, M ROSLYN SOFTWARE CLIENT ARCHITECT Unavailable Unavailable OVALLES, M ROSLYN SOFTWARE CLIENT ARCHITECT Unavailable Unavailable OVALLES, M ROSLYN SOFTWARE CLIENT ARCHITECT Unavailable Unavailable OVALLES, M ROSLYN SOFTWARE CLIENT ARCHITECT Unavailable Unavailable OVALLES, M ROSLYN SOFTWARE CLIENT ARCHITECT Unavailable Unavailable OVALLES, M ROSLYN SOFTWARE CLIENT ARCHITECT Unavailable Unavailable OVALLES, M ROSLYN SOFTWARE CLIENT ARCHITECT Unavailable Unavailable OVALLES, M ROSLYN SOFTWARE CLIENT ARCHITECT Unavailable Unavailable OVALLES, M ROSLYN SOFTWARE CLIENT ARCHITECT Unavailable Unavailable OVALLES, M ROSLYN SOFTWARE CLIENT ARCHITECT Unavailable Unavailable OVALLES, M ROSLYN SOFTWARE CLIENT ARCHITECT Unavailable Unavailable OVALLES, M ROSLYN SOFTWARE CLIENT ARCHITECT Unavailable Unavailable OVALLES, M ROSLYN SOFTWARE CLIENT ARCHITECT Unavailable Unavailable OVALLES, M ROSLYN SOFTWARE CLIENT ARCHITECT Unavailable Unavailable OVALLES, M ROSLYN SOFTWARE CLIENT ARCHITECT Unavailable Unavailable OVALLES, M ROSLYN SOFTWARE CLIENT ARCHITECT Unavailable Unavailable OVALLES, M ROSLYN SOFTWARE CLIENT ARCHITECT Unavailable Unavailable OVALLES, M ROSLYN SOFTWARE CLIENT ARCHITECT Unavailable Unavailable OVALLES, M ROSLYN SOFTWARE CLIENT ARCHITECT Unavailable Unavailable OVALLES, M ROSLYN SOFTWARE CLIENT ARCHITECT Unavailable Unavailable OVALLES, M ROSLYN SOFTWARE CLIENT ARCHITECT Unavailable Unavailable OVALLES, M ROSLYN SOFTWARE CLIENT ARCHITECT Unavailable Unavailable OVALLES, M ROSLYN SOFTWARE CLIENT ARCHITECT Unavailable Unavailable OVALLES, M ROSLYN SOFTWARE CLIENT ARCHITECT Unavailable Unavailable OVALLES, M ROSLYN SOFTWARE CLIENT ARCHITECT Unavailable Unavailable OVALLES, M ROSLYN SOFTWARE CLIENT ARCHITECT Unavailable Unavailable OVALLES, M ROSLYN SOFTWARE CLIENT ARCHITECT Unavailable Unavailable OVALLES, M ROSLYN SOFTWARE CLIENT ARCHITECT Unavailable Unavailable OVALLES, M ROSLYN SOFTWARE CLIENT ARCHITECT Unavailable Unavailable OVALLES, M ROSLYN SOFTWARE CLIENT ARCHITECT Unavailable Unavailable OVALLES, M ROSLYN SOFTWARE CLIENT ARCHITECT Unavailable Unavailable OVALLES, M ROSLYN SOFTWARE CLIENT ARCHITECT Unavailable Unavailable OVALLES, M ROSLYN SOFTWARE CLIENT ARCHITECT Unavailable Unavailable OVALLES, M ROSLYN SOFTWARE CLIENT ARCHITECT Unavailable Unavailable OVALLES, M ROSLYN SOFTWARE CLIENT ARCHITECT Unavailable Unavailable OVALLES, M ROSLYN SOFTWARE CLIENT ARCHITECT Unavailable Unavailable OVALLES, M ROSLYN SOFTWARE CLIENT ARCHITECT Unavailable Unavailable OVALLES, M ROSLYN SOFTWARE CLIENT ARCHITECT Unavailable Unavailable OVALLES, M ROSLYN SOFTWARE CLIENT ARCHITECT Unavailable Unavailable OVALLES, M ROSLYN SOFTWARE CLIENT ARCHITECT Unavailable Unavailable OVALLES, M ROSLYN SOFTWARE CLIENT ARCHITECT Unavailable Unavailable OVALLES, M ROSLYN SOFTWARE CLIENT ARCHITECT Unavailable Unavailable OVALLES, M ROSLYN SOFTWARE CLIENT ARCHITECT Unavailable Unavailable OVALLES, M ROSLYN SOFTWARE CLIENT ARCHITECT Unavailable Unavailable OVALLES, M ROSLYN SOFTWARE CLIENT ARCHITECT Unavailable Unavailable OVALLES, M ROSLYN SOFTWARE CLIENT ARCHITECT Unavailable Unavailable OVALLES, M ROSLYN SOFTWARE CLIENT ARCHITECT Unavailable Unavailable OVALLES, M ROSLNY SOFTWARE CLIENT ARCHITECT Unavailable Unavailable OVALLES, M ROSLYN SOFTWARE CLIENT ARCHITECT Unavailable Unavailable OVALLES, M ROSLYN SOFTWARE CLIENT ARCHITECT Unavailable Unavailable OVALLES, M ROSLYN SOFTWARE CLIENT ARCHITECT Unavailable Unavailable OVALLES, M ROSLYN SOFTWARE CLIENT ARCHITECT Unavailable Unavailable GarciaNinilyn PA Unavailable Unavailable GarciaNinin [...] Unavailable Unavailable Tutu Forbes MD Unavailable Unavailable Ttuu Forbes MD Unavailable Unavailable Tutu Forbes MD [...] Unavailable WILLIAM, B YUAN MD Unavailable Unavailable WILLIMA, B YUAN MD Unavailable Unavailable WILLIAM, B [...] is protected by Article 27-F of the [facility] Public Health law. If you continue you may have access to information: Regarding HIV / AIDS; Provided by facilities licensed or operated by the [facility] Office of Mental Health; or Provided by the [facility] Office for People With Developmental Disabilities. If such information is present, then the following [facility] mandated warning applies: This information has been [...] law may result in a fine or skilled nursing sentence or both. A general authorization for the release of medical or other information is NOT sufficient authorization for further disc losure. Allergies and Adverse Reactions Type Description Substance Reaction Status Data Source(s ) Propensity to adverse reactions OXYCODONE Oxycodone Acti ve [facility] Propensity to adverse reactions ATORVASTATIN Atorvastatin Active [facility] Propensity to adverse reactions HYDROCODONE Hydrocodone Ac tive [facility] Propensity to adverse reactions ANTIHISTAMINES, DIPHENHYDRAM INE-TYPE Antihistamines, Diphenhydramine-Type Palpitations Low Active [facility] Low Drug allergy Drug allergy NKDA [facility] ([facility]) Family History Family Member Name Family Member Gender Family Member Status Date o f Status Description Data Source(s) Unknown Male 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 Encounters Encounter Providers Location Date Indications Data Source(s ) Outpatient Attender: STEFFEN OLIVER MD [facility] 02:00:00 PM EST [facility] ([facility] Inpatient Attender: NICK Caruso : NICK Caruso: YUAN THOMAS MDAttender: RICK PARMARAttender: RICK PARMARAdmitter: YUAN THOMAS MDConsultant: Kristal Davila MD [id number] 11/25/2020 11:51:56 PM EST - 11/27/2020 04:59:00 PM EST [facility] Patient discharged. Outpatient Attender: STEFFEN OLIVER MD [facility] 10:15:00 AM EST [facility] Office Visit Attender: MARIIA CORNELL MD Main Office 11/02/2020 10: 59:00 AM EST [facility] ([facility]) Office Visit Attender: MARIIA CORNELL MD Main Office 10/11/2020 07: 45:00 AM EST [facility] ([facility]) Outpatient Attender: Efrain Forbes MD Main office - [facility] 09/22/2020 01:45:00 PM EST [facility] ([facility]) Office Visit Attender: MARIIA CORNELL MD Main Office 09/08/2020 09: 16:00 AM EDT [facility] ([facility]) Outpatient Attender: Anne Marie MASON Main Office 08/30/2020 02:30:00 PM EDT [facility] ([facility]) Outpatient Att[place]: [place] 01:30:00 PM EDT [facility] ([facility] Outpatient KASH 08/09/2020 07:07:46 PM EDT [facility] Outpatient Referrer: STEFFEN GARZA 07/20 12:00:00 AM EDT [facility] Office Visit Attender: MARIIA CORNELL MD Main Office 08/05/2020 11: 18:00 AM EDT [facility] ([facility]) Office Visit Attender: MARIIA CORNELL MD Main Office 07/14/2020 04: 12:00 PM EDT [facility] ([facility]) Outpatient Attender: Efrain Forbes MD Main office - [facility] 06/16/2020 02:00:00 PM EDT [facility] ([facility]) Outpatient Attender: STEFFEN OLIVER MD [place] [facility] 02:00:00 PM EDT [facility] ([facility] Outpatient Attender: Nasrin Serrano nikole 06/03/2020 06:15:00 PM EDT [facility] ([facility] Office Visit Attender: MARIIA CORNELL MD Main Office 05/31/2020 10: 44:00 AM EDT [facility] ([facility]) Office Visit Attender: MARIIA CORNELL MD Main Office 04/29/2020 02: 27:00 PM EDT [facility] ([facility]) Office Visit Attender: MARIIA CORNELL MD Main Office 03/25/2020 02: 15:00 PM EDT [facility] ([facility]) Office Visit Attender: MARIIA CORNELL MD Main Office 02/23/2020 07: 22:00 AM EDT [facility] ([facility]) Outpatient Attender: ROSLYN OVALLES NP [facility] 01/25 11:00:00 AM EDT [facility] ([facility] Outpatient Attender: Jenna MASON Main Office 01/20/2020 07:15:0 0 AM EST [facility] ([facility]) Outpatient Attender: STEFFEN OLIVER MD [facility] 09:40:00 AM EST [facility] ([facility] [...] Once, 11/26/20 at 1900, For 1 dose [facility] Medication administered onsite Magnesium Oxide (MAG-OX) tablet 400 mg [id number] 10:00:00 AM EST 400 mg Oral active 400 mg, Oral, Da raffi, First dose on 11/26/20 at 1000 [facility] Medication administered onsite Aspirin 81 MG Delayed Release Oral Tablet aspirin EC t ablet 81 mg aspirin EC tablet 81 mg 11/26/2020 10:00:00 AM EST 81 mg Oral activ e 81 mg, Oral, Daily, First dose on 11/26/20 at 1000
Hold if bleeding or platelets < 100 and call
[facility] Medication administered onsite Hydrochlorothiazide 25 MG / Lisinopril 2 0 MG Oral Tablet lisinopril- hydrochlorothiazide (PRINZIDE,ZESTORETIC) 20-25 MG per tablet 1 tablet lisinopril-hydrochlorothiazide (PRINZIDE,ZESTORETIC) 20-25 MG per tablet 1 tablet 11/26/2020 10:00:00 AM EST 1 {tbl} Oral active 1 tablet, Oral, Daily, First dose on 11/26/20 at 1000
Hold if SBP < 130 or DBP < 70 and call if held
[facility] Medication administered onsite Rosuvastatin calcium 5 MG Oral Tablet rosuvastatin (CR ESTOR) tablet 5 mg rosuvastatin (CRESTOR) tablet 5 mg 11/26/2020 10:00:00 AM EST 5 mg Oral active 5 mg, Oral, Daily, First dose on 11/26/20 at 1000 [facility] Medication administered onsite pantoprazole 40 MG Delayed Release Oral Tablet pantoprazole (PROTONIX) EC tablet 40 mg pantoprazole (PROTONIX) EC tablet 40 mg 11/26/2020 10:00:[address] 40 mg Oral active Gastroesophageal Reflux Diseas e 40 mg, Oral, Daily, Indications: Gastroesophageal Reflux Disease, First dose on 11/26/20 at 1000 [facility] Gastroesophageal Reflux Disease Medication administered onsite heparin (porcine) injection 5,000 Units [id number] 11/26/19 10:00:00 AM EST 5000 U Subcutaneous [...] call if bleeding or other obvious concerns.
[facility] Medication administered onsite Polyvinyl Alcohol 0.014 ML/ML Ophthalmic Solution polyvinyl alcohol (LIQUIFILM TEARS) 1.4 % ophthalmic solution 1 drop polyvinyl alcohol (LIQUIFILM TEARS) 1.4 % ophthalmic solution 1 drop 11/26/2020 09:28:56 AM EST 1 [drp] active 1 drop, Both Eyes, As needed, dry eyes, Starting 11/26/20 at 0928 [facility] Medication administered onsite Aspirin 81 MG Chewable Tablet aspirin chewable tablet 162 mg aspirin chewable tablet 162 mg 11/25/2020 10:45:00 PM EST 162 mg Oral comp leted 162 mg, Oral, Once, 11/25/20 at 2245, For 1 dose [facility] Medication administered onsite Omeprazole 20 MG Delayed Release Oral Capsule Omeprazole 11/16/2020 12:00:00 AM EST ORAL active [facility] ([facility] Ascorbic Acid 60 MG / Beta Carotene 5000 UNT / Copper Sulfate 40 MG / dl-alpha tocopheryl acetate 30 UNT / Sodium Selenite 0.04 MG / Zinc Oxide 40 MG Oral Tablet Eye Multivitamin/Lutein 08/29/2020 12:00:00 AM EDT ORAL active [facility] ([facility]) Amlodipine 10 MG Oral Tablet Amlodipine Besylate 08/29/2020 12:00:00 AM EDT ORAL active [facility] ([facility]) coenzyme Q10 200 MG Oral Capsule Co-Enzyme Q10 01/19/2020 12:00:00 AM EST ORAL active [facility] ([facility]) [place] 11/02/2019 12:00:00 AM EST ORAL completed [facility] ([facility]) Insurance Providers Payer name Policy type / Coverage type Policy ID Covered constitution party ID Covered constitution party's relationship to qureshi Policy Qureshi Plan Information MEDICARE [id number] SP [id number] [employer] HE[employer] CARE OPTIONS [id number] SP [id number] INSURANCE COVID-19 COVID Karma C OVID [facility] [id number] Karma [id number] MEDICARE [id number] Karma [id number] [facility] [id number] MEDICARE [id number] MEDICARE A [id number] Self [id number] A MEDICARE C [id number] S [id number] [id number] AARP O [id number] S [id number] MEDICARE C [id number] S [id number] [id number] [employer] Medigap Part B [id number] Self [id number] Medicare (Part B) Medicare Primary [id number] Self [id number] [place] Medigap Part B [id number] Self [id number] [employer] Medigap Part B [id number] Self [id number] Medicare (Part B) Medicare Primary [id number] Self [id number] MEDICARE [id number] SP [id number] A [employer] Medigap Part B [id number] Self [id number] Medicare (Part B) Medicare Primary [id number] Self [id number] [employer] Medigap Part B [id number] Self [id number] Medicare (Part B) Medicare Primary [id number] Self [id number] MEDICARE C [id number] S [id number] A [employer] Medigap Part B [id number] Self [id number] Medicare (Part B) Medicare Primary [id number] Self [id number] MEDICARE [id number] SP [id number] A [employer] Medigap Part B F Self F [place] Medicare Primary Self [employer] Medigap Part B Self Medicare [place] [employer] Medicare Primary Self MEDICARE [id number] SP [id number] A [id number] A Problems, Conditions, and Diagnoses Code Display Name Description Problem Type Effective Dates Data Source(s) J90 Bilateral pleural effusion Bilateral pleural effusion [id number] 11/26/2020 12:00:00 AM EST [facility] R20.0 Numbness and tingling in left hand Numbness and tingling in left hand [id number] 11/26/2020 12:00:00 AM EST [facility] R29.898 Left hand weakness, acute on chronic x 3 days Left hand weakness, acute on chronic x 3 days [id number] 11/26/2020 12:00:00 AM [facility] R20.0 Left arm numbness, complete, acute on ch ronic x 3 days Left arm numbness, complete, acute on chronic x 3 days [id number] 11/26/2020 12:00:00 AM E [facility] R09.89 Suspected cerebrovascular accident (CVA) Suspected cerebrovascular accident (CVA) [id number] 11/26/2020 12:00:00 AM EST [facility] [id number] Personal history of primary malignant ne oplasm of breast Personal history of primary malignant neoplasm of breast Problem 2019 12:00:00 AM EDT [facility] ([facility] [id number] Hyperlipidemia Hyperlipidemia Problem 01/13/2020 12:00: 00 AM EST [facility] ([facility] R07.9 Chest pain, unspecified Chest pain, unspecified Diagno sis 11/25/2020 11:51:56 PM [facility] R20.2 Paresthesia of skin Paresthesia of skin Diagnosis 0 11/25/2020 11:51:56 PM [facility] R20.0 Anesthesia of skin Anesthesia of skin Diagnosis 06/2021 11:51:56 PM [facility] Surgeries/Procedures Procedure Description Date Indications Data Source(s) NT PRO BNP NT PRO BNP Routine 11/27/2020 11:01 AM EST 11/27/2020 04:01:00 PM [facility] BLOOD COUNT COMPLETE AUTOMATED CBC Timed 11/27/2020 11:01 A M EST 11/27/2020 04:01:00 PM [facility] MAGNESIUM MAGNESIUM Routine 11/27/2020 11:01 AM EST 11/27/2020 04:01:00 PM [facility] BASIC METABOLIC PANEL CALCIUM TOTAL BASIC METABOLIC PANEL Timed 11/27/2020 11:01 AM EST 11/27/2020 04:01:00 PM [facility] PLEURAL FLUID CELL COUNT PLEURAL FLUID CELL COUNT Routine 11/27/2020 10:15 AM EST 11/27/2020 03:15:00 PM EST [facility] PLEURAL FLD PH PLEURAL FLD PH Routine 11/27/2020 10:15 AM EST 11/27/2020 03:15:00 PM EST [facility] FLUID SOURCE FLUID SOURCE Routine 11/27/2020 10:15 AM EST 11/27/2020 03:15:00 PM EST [facility] SPECIFIC GRAVITY EXCEPT URINE SPECIFIC GRAVITY, BODY FLUID Rout ine 11/27/2020 10:15 AM EST 11/27/2020 03:15:00 PM [facility] PROTEIN TOTAL XCPT REFRACTOMETRY OTH SRC PROTEIN, BODY FLUID Ro utine 11/27/2020 10:15 AM EST 11/27/2020 03:15:00 PM EST [facility] LACTATE DEHYDROGENASE LDH LACTATE DEHYDROGENASE, BODY FLUID Rou alfonzo 11/27/2020 10:15 AM EST 11/27/2020 03:15:00 PM EST [facility] GLUCOSE BODY FLUID OTHER THAN BLOOD GLUCOSE, BODY FLUID Routine 11/27/2020 10:15 AM EST 11/27/2020 03:15:00 PM [facility] AMYLASE AMYLASE, BODY FLUID Routine 11/27/2020 10:15 AM EST 11/27/2020 03:15:00 PM EST [facility] ECHO TTHRC R-T 2D W/WOM-MODE COMPL SPEC&COLR DOP ECHOCARDIO GRAM TRANSTHORACIC Pending Discharge 11/27/2020 8:18 AM EST 11/27/2020 01:18 :39 PM EST [facility] CT THORAX W/O CONTRAST MATERIAL CT CHEST WO CONTRAST STAT 11/26/2020 1:10 PM EST 11/26/2020 06:10:35 PM [facility] MRA NECK W/O CONTRST MATERIAL MRA NECK WO CONTRAST STAT 11/26/2020 10:13 AM EST 11/26/2020 03:13:27 PM [facility] MRI BRAIN BRAIN STEM W/O CONTRAST MATERIAL MRI BRAIN WO CONTRAS T STAT 11/26/2020 10:03 AM EST 11/26/2020 03:03:58 PM EST [facility] MRA HEAD W/O CONTRST MATERIAL MRA BRAIN WO CONTRAST Routine 11/26/2020 9:52 AM EST 11/26/2020 02:52:36 PM [facility] COVID/FLU AB/RSV PCR COVID/FLU AB/RSV PCR STAT 11/26/2020 4:55 AM EST 11/26/2020 09:55:00 AM EST [facility] CT HEAD/BRAIN W/O CONTRAST MATERIAL CT HEAD WO CONTRAST STAT 11/26/2020 2:08 AM EST 11/26/2020 07:08:26 AM [facility] TROPONIN QUANTITATIVE POCT TROPONIN Routine 11/26/2020 12:57 AM EST 11/26/2020 05:57:00 AM EST [facility] NT PRO BNP NT PRO BNP STAT 11/26/2020 12:09 AM EST 11/26/2020 05:09:00 AM EST [facility] TROPONIN QUANTITATIVE TROPONIN I Routine 11/26/2020 12:09 AM EST 11/26/2020 05:09:00 AM [facility] PROTEIN XCPT REFRACTOMETRY SERUM PLASMA/WHL BLD PROTEIN, TOTAL Add-On 11/26/2020 12:09 AM EST 11/26/2020 05:09:00 AM EST [facility] LACTATE DEHYDROGENASE LDH LACTATE DEHYDROGENASE Add-On 11/26 12:09 AM EST 11/26/2020 05:09:00 AM EST [facility] XR CHEST PORTABLE XR CHEST PORTABLE STAT 11/25/2020 7:08 PM EST 11/26/2020 12:08:46 AM [facility] TROPONIN QUANTITATIVE POCT TROPONIN Routine 11/25/2020 6:28 PM EST 11/25/2020 11:28:00 PM [facility] THROMBOPLASTIN TIME PARTIAL PLASMA/WHOLE BLOOD APTT STAT 11/25/2020 6:11 PM EST 11/25/2020 11:11:00 PM EST [facility] PROTHROMBIN TIME PROTIME-INR STAT 11/25/2020 6:11 PM EST 11/25/2020 11:11:00 PM EST [facility] BLOOD COUNT COMPLETE AUTO&AUTO DIFRNTL WBC COUNT CBC AND DIFFER ENTIAL STAT 11/25/2020 6:11 PM EST 11/25/2020 11:11:00 PM EST [facility] HEMOGLOBIN GLYCOSYLATED A1C HEMOGLOBIN A1C Add-On 11/25/2020 6:11 PM EST 11/25/2020 11:11:00 PM EST [facility] COMPREHENSIVE METABOLIC PANEL COMPREHENSIVE METABOLIC PANEL STA T 11/25/2020 6:11 PM EST 11/25/2020 11:11:00 PM EST [facility] ECG ROUTINE ECG W/LEAST 12 LDS W/I&R ECG 12-LEAD STAT 06/2021 6:10 PM EST 11/25/2020 11:10:06 PM EST [facility] ECG ROUTINE ECG W/LEAST 12 LDS W/I&R 08/30/2020 12:00: 00 AM EDT [facility] ([facility]) TSTG ANS FUNCJ CARDIOVAGAL INNERVAJ PARASYMP [...] [facility]) Results ID Date Data Source [id number] 12/30/2020 12:36:00 PM EST [facility] ([facility] Name Value Range Interpretation Code Description Data Blanca rce(s) Supporting Document(s) Laboratory test finding (navigational concept) 7.674 units Normal (applies to non-numeric results) [facility] ([facility] Laboratory test finding (navigational concept) Laboratory test r esult Normal (applies to non-numeric results) [facility] ([facility] ID Date Data Source [id number] 12/30/2020 12:36:00 PM EST [facility] ([facility] Name Value Range Interpretation Code Description Data Blanca rce(s) Supporting Document(s) Glucose, Body Fluid 105 mg/dL Normal (applies to non-nume pam results) [facility] ([facility] Source, Body Fluid Glucose Laboratory test result Normal (applies to non- numeric results) [facility] ([facility] ) ID Date Data Source [id number] 12/30/2020 12:36:00 PM EST [facility] ([facility] Name Value Range Interpretation Code Description Data Blanca rce(s) Supporting Document(s) Source, Body Fluid LDH Laboratory test result No rmal (applies to non-numeric results) [facility] ([facility] ) LDH, Body Fluid 129 U/L Normal (applies to non-numeric results) [facility] ([facility] ID Date Data Source [id number] 12/30/2020 12:36:00 PM EST [facility] ([facility] Name Value Range Interpretation Code Description Data Blanca rce(s) Supporting Document(s) Total Protein, Body Fluid 4.3 g/dL Normal (applies to no n-numeric results) [facility] ([facility] Source, Body Fluid Tot Protein Laboratory test result Normal (applies to non- numeric results) [facility] ([facility] ) ID Date Data Source [id number] 12/30/2020 12:36:00 PM EST [facility] ([facility] Name Value Range Interpretation Code Description Data Blanca rce(s) Supporting Document(s) Laboratory test finding (navigational concept) Laboratory test r esult Normal (applies to non-numeric results) [facility] ([facility] Laboratory test finding (navigational concept) Laboratory test r esult Normal (applies to non-numeric results) [facility] Laboratory test finding (navigational concept) Laboratory test r esult Normal (applies to non-numeric results) [facility] ([facility] Laboratory test finding (navigational concept) 1623 /uL 0-10 Above high normal [facility] ([facility] Laboratory test finding (navigational concept) 22 10 Normal (applies to non- numeric results) [facility] ([facility] Laboratory test finding (navigational concept) 96.1 % 0-0 Above high normal [facility] ([facility] Laboratory test finding (navigational concept) 3.9 % 0-0 Above high normal [facility] ([facility] ID Date Data Source [id number] 12/30/2020 10:40:00 AM EST [facility] ([facility] Name Value Range Interpretation Code Description Data Blanca rce(s) Supporting Document(s) Prothrombin Time 12.6 s 12.5-14.3 Normal (applies to non-numeric results) [facility] ([facility] Inr 0.92 Normal (applies to non-numeric resul ts) [facility] ([facility] THERAPUTIC HUMAN INR VALUES INDICATIONS NORMAL RANGES PROPHYLAXIS/TREATMENT OF: VENOUS THROMBOSIS 2.0-3.0 PULMONARY EMBOLISM 2.0-3.0 PREVENTION OF SYSTEMIC EMBOLISM FROM: TISSUE HEART VALVES 2.0-3.0 ACUTE MYOCARDIAL INFARCTION 2.0-3.0 VALVULAR HEART DISEASE 2.0-3.0 ATRIAL FIBRILLATION 2.0-3.0 MECHANICAL VALVES(HIGH RISK) 2.5-3.5 RECURRENT MYOCARDIAL INFARCTION 2.5-3.5 ID Date Data Source [id number] 12/28/2020 10:30:00 AM EST [facility] ([facility] Name Value Range Interpretation Code Description Data Blanca rce(s) Supporting Document(s) Cancer Ag 15-3 [Units/volume] in Serum or Plasma 44.0 U/ML Above high normal [facility] ([facility] THE CA 15-3 ASSAY IS PERFORMED ON THE [employer] BY CHEMILUMINESCENCE AND SHOULD NOT BE COMPARED INTERCHANGEABLY WITH OTHER METHODS. IT SHOULD NOT BE USED ALONE A SCREENING TEST OR DIAGNOSIS FOR THE PRESENCE OR ABSENCE OF MALIGNANT DISEASE. PREDICTIONS OF DISEASE RECURRENCE SHOULD NOT BE BASED SOLELY ON VALUES OBTAINED FROM SERIAL PATIENT SERUM VALUES. Cancer Ag 27-29 [Units/volume] in Serum or Plasma 59.8 U/mL 0.0-38.6 Above high normal [facility] ([facility] ) Siemens Centaur Immunochemiluminometric Methodology (ICMA) . Values obtained with different assay methods or kits cannot be used interchangeably. Results cannot be interpreted as absolute evidence of the presence or absence of malignant disease. Performed at: [facility] [id number] Logging Equipment Operator: Mervat Huffman MD, Phone: [phone] ID Date Data Source [id number] 12/28/2020 10:30:00 AM EST [facility] ([facility] Name Value Range Interpretation Code Description Data Blanca rce(s) Supporting Document(s) Glucose, Fasting 129 mg/dL 70-100 Above high normal M EDENT ([facility] Blood Urea Nitrogen 15 mg/dL 7-18 Normal (applies to non-nume pam results) [facility] Creatinine For GFR 0.88 mg/dL 0.55-1.30 Normal (applies to non -numeric results) [facility] ([facility] Glomerular Filtration Rate Laboratory test result Normal (applies to non- numeric results) [facility] ([facility] ) <content>Units are mL/min/1.73 m2</content>
<content></content>
<content>Chronic Kidney Disease Staging per NKF:</content>
<content></content>
<content>Stage I & II GFR >=60 Normal to Mildly Decreased</content>
<content>Stage III GFR 30- 59 Moderately Decreased</content>
<content>Stage IV GFR 15-29 Severely Decreased</content>
<content>Stage V GFR <15 Very Little GFR Left</content>
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
<content></content> Potassium Serum 3.7 meq/L 3.5-5.1 Normal (applies to non-numeric results) [facility] ([facility] Sodium Level 137 meq/L 136-145 Normal (applies to non-numeric res ults) [facility] ([facility] Carbon Dioxide Level 27 meq/L 21-32 Normal (applies to non-num layo results) [facility] ([facility] Chloride Level 102 meq/L 98-107 Normal (applies to non-numeric r esults) [facility] ([facility] Anion Gap 8 meq/L 8-16 Normal (applies to non-numeric resul ts) [facility] ([facility] Calcium Level 9.4 mg/dL 8.8-10.2 Normal (applies to non-numeric re sults) [facility] ([facility] Ast/Sgot 11 U/L 7-37 Normal (applies to non-numeric resul ts) [facility] ([facility] Alkaline Phosphatase 77 U/L 45-117 Normal (applies to non-num layo results) [facility] ([facility] Alt/SGPT 14 U/L 12-78 Normal (applies to non-numeric resul ts) [facility] ([facility] Bilirubin,Total 0.6 mg/dL 0.2-1.0 Normal (applies to non-numeric results) [facility] ([facility] Total Protein 6.8 GM/DL 6.4-8.2 Normal (applies to non-numeric re sults) [facility] ([facility] Albumin 3.6 GM/DL 3.2-5.2 Normal (applies to non-numeric resul ts) [facility] ([facility] Albumin/Globulin Ratio 1.1 1.2-2.2 Below low normal [facility] ([facility] ID Date Data Source [id number] 12/28/2020 10:30:00 AM EST [facility] ([facility] Name Value Range [...] 32.0-36.5 Normal (applies to non-numeric results) [facility] ([facility] ) Mean Corpuscular [...] normal [facility] ( [facility] [place] % 11.8 % 0.0-5.0 Above high normal [facility] ([facility] Eos % 1.7 % 0.0-3.0 Normal (applies to non-numeric resul ts) [facility] ([facility] Immature Granulocyte % 0.2 % 0-3.0 Normal (applies to non-n umeric results) [facility] ([facility] Baso % 0.5 % 0.0-1.0 Normal (applies to non-numeric resul ts) [facility] ([facility] Nucleated Red Blood Cell % 0.0 % 0-0 Normal (applies to n on-numeric results) [facility] ([facility] Lymph # 0.9 10 1.5-5.0 Below low normal [facility] ( [facility] Neutrophils # 2.7 10 1.5-8.5 Normal (applies to non-numeric re sults) [facility] ([facility] Eos # 0.1 10 0.0-0.5 Normal (applies to non-numeric resul ts) [facility] ([facility] [place] # 0.5 10 0.0-0.8 Normal (applies to non-numeric resul ts) [facility] ([facility] Baso # 0.0 10 0.0-0.2 Normal (applies to non-numeric resul ts) [facility] ([facility] ID Date Data Source [id number] 12/07/2020 03:32:00 PM EST [facility] ([facility] Name Value Range Interpretation Code Description Data Blanca rce(s) Supporting Document(s) Glu 127 mg/dL 70-110 Above high normal [facility] ([facility] NORMAL RANGES Age WBC [...] HCT IS 5% LESS SOURCE FOR DATA: [employer]ute 1800 OPERATION MANUAL( AUTOMATED BLOOD COUNTS AND [...] >32 mL/min Normal Creat 0.8 mg/dL 0.5-1.0 [facility] NORMAL RANGES [...] HCT IS 5% LESS SOURCE FOR DATA: [employer] 1800 OPERATION MANUAL( AUTOMATED BLOOD COUNTS AND [...] >32 mL/min Normal BUN 18 mg/dL 8-23 [facility] ([facility] NORMAL [...] HCT IS 5% LESS SOURCE FOR DATA: [employer]ute 1800 OPERATION MANUAL( AUTOMATED BLOOD COUNTS AND [...] >32 mL/min Normal BUN/Creatinine Ratio 21.0 Calc [facility] ([facility] NORMAL RANGES Age WBC [...] HCT IS 5% LESS SOURCE FOR DATA: [employer] Mute 1800 OPERATION MANUAL( AUTOMATED BLOOD COUNTS AND [...] >32 mL/min Normal K 3.7 mmol/L 3.5-5.1 [employer] ([facility] NORMAL RANGES [...] HCT IS 5% LESS SOURCE FOR DATA: [employer]ute 1800 OPERATION MANUAL( AUTOMATED BLOOD COUNTS AND [...] Na 135 mmol/L 136-[address] [facility] ( [facility] NORMAL RANGES Age [...] HCT IS 5% LESS SOURCE FOR DATA: [employer]ute 1800 OPERATION MANUAL( AUTOMATED BLOOD COUNTS AND [...] >32 mL/min Normal CL 101.6 mmol/L 98.0-107.0 [facility] ([facility] NORMAL RANGES Age WBC [...] HCT IS 5% LESS SOURCE FOR DATA: [employer]ute 1800 OPERATION MANUAL( AUTOMATED BLOOD COUNTS AND [...] HCT IS 5% LESS SOURCE FOR DATA: [employer]ute 1800 OPERATION MANUAL( AUTOMATED BLOOD COUNTS AND [...] >32 mL/min Normal CA 10.0 mg/dL 8.6-10.2 [facility] ([facility] NORMAL RANGES Age WBC RBC [...] HCT IS 5% LESS SOURCE FOR DATA: [employer] Mute 1800 OPERATION MANUAL( AUTOMATED BLOOD COUNTS AND [...] >32 mL/min Normal TP 6.6 g/dL 6.6-8.7 [facility] ([facility] NORMAL [...] HCT IS 5% LESS SOURCE FOR DATA: Auto Mute 1800 OPERATION MANUAL( AUTOMATED BLOOD COUNTS AND [...] >32 mL/min Normal Alb 4.2 g/dL 3.4-4.8 [facility] ([facility] NORMAL RANGES Age [...] HCT IS 5% LESS SOURCE FOR DATA: Auto Mute 1800 OPERATION MANUAL( AUTOMATED BLOOD COUNTS AND [...] >32 mL/min Normal A/G Ratio 1.[address] [facility] ([facility] NORMAL [...] HCT IS 5% LESS SOURCE FOR DATA: [employer] Mute 1800 OPERATION MANUAL( AUTOMATED BLOOD COUNTS AND [...] HCT IS 5% LESS SOURCE FOR DATA: [employer] Mute 1800 OPERATION MANUAL( AUTOMATED BLOOD COUNTS AND [...] mL/min Normal Alt (SGPT) 8 U/L 0-41 [facility] ([facility] NORMAL RANGES Age WBC RBC [...] HCT IS 5% LESS SOURCE FOR DATA: [employer]ute 1800 OPERATION MANUAL( AUTOMATED BLOOD COUNTS AND [...] mL/min Normal Alp 87.2 U/L 35-129 [facility] NORMAL [...] HCT IS 5% LESS SOURCE FOR DATA: [employer] Mute 1800 OPERATION MANUAL( AUTOMATED BLOOD COUNTS AND [...] mL/min Normal Ast (Sgot) 14 U/L 0-40 [facility] ([facility] NORMAL RANGES Age WBC RBC HGB [...] HCT IS 5% LESS SOURCE FOR DATA: [employer]ute 1800 OPERATION MANUAL( AUTOMATED BLOOD COUNTS AND [...] mL/min Normal Osmolality-Calculated 274.3 Calc MED ENT ([facility] NORMAL RANGES Age [...] HCT IS 5% LESS SOURCE FOR DATA: Auto Mute 1800 OPERATION MANUAL( AUTOMATED BLOOD COUNTS AND [...] >32 mL/min Normal Tbili 0.36 mg/dL 0.0-1.2 [facility] ([facility] NORMAL RANGES Age WBC RBC [...] >32 mL/min Normal Anion Gap 17 mmol/L [facility] ([facility] NORMAL [...] HCT IS 5% LESS SOURCE FOR DATA: Auto Mute 1800 OPERATION MANUAL( AUTOMATED BLOOD COUNTS AND [...] and above >32 mL/min Normal eGFR Non-Afr. [place] 66 # [facility] ([facility] [...] HCT IS 5% LESS SOURCE FOR DATA: Auto Mute 1800 OPERATION MANUAL( AUTOMATED BLOOD COUNTS AND [...] HCT IS 5% LESS SOURCE FOR DATA: Auto Mute 1800 OPERATION MANUAL( AUTOMATED BLOOD COUNTS AND [...] >32 mL/min Normal ID Date Data Source [id number] 12/07/2020 03:32:00 PM EST [facility] ([facility] Name Value Range Interpretation Code Description Data Blanca rce(s) Supporting Document(s) WBC 4.6 10E3/uL 4.1-10.9 [facility] ([facility] NORMAL RANGES Age WBC [...] HCT IS 5% LESS SOURCE FOR DATA: Auto Mute 1800 OPERATION MANUAL( AUTOMATED BLOOD COUNTS AND [...] >32 mL/min Normal HGB 13.7 g/dL 12.0-18.0 [facility] NORMAL RANGES [...] HCT IS 5% LESS SOURCE FOR DATA: Auto Mute 1800 OPERATION MANUAL( AUTOMATED BLOOD COUNTS AND [...] HCT IS 5% LESS SOURCE FOR DATA: Auto Mute 1800 OPERATION MANUAL( AUTOMATED BLOOD COUNTS AND [...] mL/min Normal HCT 40.8 % 37.0-51.0 [facility] NORMAL [...] HCT IS 5% LESS SOURCE FOR DATA: Auto Mute 1800 OPERATION MANUAL( AUTOMATED BLOOD COUNTS AND [...] >32 mL/min Normal MCV 90.1 fL 80.0-97.0 [facility] ([facility] NORMAL RANGES Age [...] HCT IS 5% LESS SOURCE FOR DATA: [facility] DYN 1800 OPERATION MANUAL( AUTOMATED BLOOD COUNTS [...] >32 mL/min Normal MCH 30.2 pg 26.0-32.0 [facility] ([facility] NORMAL RANGES [...] HCT IS 5% LESS SOURCE FOR DATA: [employer] DYN 1800 OPERATION MANUAL( AUTOMATED BLOOD COUNTS [...] >32 mL/min Normal MCHC 33.6 g/dL 31.0-36.0 [facility] ([facility] NORMAL RANGES [...] HCT IS 5% LESS SOURCE FOR DATA: Auto Mute 1800 OPERATION MANUAL( AUTOMATED BLOOD COUNTS AND [...] >32 mL/min Normal PLT 273 10E3/uL 140-440 [facility] ([facility] NORMAL RANGES Age WBC [...] HCT IS 5% LESS SOURCE FOR DATA: Auto Mute 1800 OPERATION MANUAL( AUTOMATED BLOOD COUNTS AND [...] >32 mL/min Normal RDW-CV 13.3 % 11.5-14.5 [facility] ([facility] NORMAL [...] HCT IS 5% LESS SOURCE FOR DATA: Auto Mute 1800 OPERATION MANUAL( AUTOMATED BLOOD COUNTS AND [...] HCT IS 5% LESS SOURCE FOR DATA: [employer] Mute 1800 OPERATION MANUAL( AUTOMATED BLOOD COUNTS AND [...] HCT IS 5% LESS SOURCE FOR DATA: [employer] Mute 1800 OPERATION MANUAL( AUTOMATED BLOOD COUNTS AND [...] >32 mL/min Normal Neut% 66.5 % 37.0-92.0 [facility] NORMAL RANGES [...] HCT IS 5% LESS SOURCE FOR DATA: Auto Mute 1800 OPERATION MANUAL( AUTOMATED BLOOD COUNTS AND [...] >32 mL/min Normal Lym# 1.0 10E3/uL 0.6-4.1 [facility] ([facility] NORMAL RANGES Age WBC RBC HGB [...] HCT IS 5% LESS SOURCE FOR DATA: Auto Mute 1800 OPERATION MANUAL( AUTOMATED BLOOD COUNTS AND [...] >32 mL/min Normal Neut# 3.1 % 2.0-7.8 [facility] ([facility] NORMAL RANGES Age WBC RBC [...] HCT IS 5% LESS SOURCE FOR DATA: Auto Mute 1800 OPERATION MANUAL( AUTOMATED BLOOD COUNTS AND [...] >32 mL/min Normal MXD# 0.5 10E3/uL 0.0-1.8 [facility] ([facility] NORMAL RANGES Age WBC [...] >32 mL/min Normal MPV 10.4 fL 9.0-13.0 [facility] ([facility] NORMAL [...] >32 mL/min Normal ID Date Data Source [id number] 11/28/2020 12:05:51 AM EST [address] [id number] Name: SUGEY MARIEB: 1930Sex: FOrdering Provider: JORDAN Greene Prov: JORDAN Boyce Provider: Procedure Performed: IR THORACENTESIS LOCALIZATION RIGHTExam Date: 11/27/2020 10:14MRN: [id number] Number: [id number] Class: InpatientAccount #: [id number] for Exam: Pleural effusionTechnique: Real-time sonographic images [...] Under ultrasound guidance with image documentation, a 5-[place] Citizen catheter was inserted into the right pleural [...] JORDAN TREJO On 11/28/2020 12:05 AMWorkstation ID: [id number] Name Value Range Interpretation Code Description Data Blanca rce(s) Supporting Document(s) ID Date Data Source [id number] 11/27/2020 11:59:19 PM EST [facility]FORMATIONPatient MRN Name Date of Age Gend*PT [id number] Sugey Joaquin 1930 89 years F IPPT Location Admission Date/Time Visit ID Attending [id number] 11/25/20 2351 --- --- EPI ID CSN Admitting Provider [id number] Yuan Thomas MD([id number]) Attestation signed by Jordan Trejo MD at 11/27/2020 11:59 PMProcedure performed under my supervision, I agree with above report.Jordan Trejo MD 11/27/2020 11:59 PMDepartment of Interventional Radiology ---------Brief Operative/Invasive Procedure NoteFlorence WhiteDATE OF : 1930MRN # [id number] DATE: 11/27/2020ROVIDER:Rox Narayanan NP 11/27/2020 10:23 AMASSISTANCE(S): [...] rce(s) Supporting Document(s) ID Date Data Source [id number] 11/27/2020 03:43:04 PM EST [facility] INFORMATIONPatient MRN Name Date of Age Gend*PT [id number] Sugey Joaquin 1930 89 years F IPPT Location Admission Date/Time Visit ID Attending [id number] 11/25/201 --- Nick Vasquez MD([id number]) EPI ID CSN Admitting Provider [id number] Yuan Thomas MD([id number]) Attestation signed by Nick Vasquez MD at 11/27/2020 3:43 PMI discussed case and reviewed MARLON Monsalve 's note. I agree with thehistory, physical and medical decision making. 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 She also reported some brief left-sided [...] and cytology are currently pending. [facility] and [facility], were both extensively counseled on need for [...] Shewas advised to follow-up closely with her pipeman in [place] to discussfurther cardiac work-up and management. Patient is feeling well and isagreeable to discharge. All findings and recommendations were relayed to [facility]. All questions have been answered to their satisfaction.Consultations:Neurology Dr. Rawls discharge instructions:1. Follow-up with PCP in 7-10 days for results of pleural fluid analysis2. Discuss work-up of spiculated right lung nodule pending pleural fluidcytology3. Discuss referral to [facility] for nerve conduction study4. [...] and time.LUE strength 4/5, RUE strength 5/5. 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 RESULTS > OR = TO 60 MG/DL ARECONSIDERED A NEGATIVE RISK FACTOR. CHOL/HDL RATIO 2.8 RATIO [facility] INTERPRETATION OF CHOL-HDL RATIO CHD RISK FEMALE MALEVERY HIGH >8.3 >14.3HIGH 5.6- 8.3 6.7- 14.3AVERAGE 3.7- 5.6 4.0- 6.7BELOW AVERAGE 2.5- 3.7 2.7- 4.0PROTECTED <2.5 <2.7 LDL CHOL (CALC) 79 mg/dL (<130) [facility] PER NCEP ATP III GUIDELINES: OPTIMAL < 100 NEAR OPTIMAL 100 - 129BORDERLINE HIGH 130 - 159 HIGH 160 - 189 VERY HIGH > 189 ID Date Data Source [id number] 11/27/2020 12:31:38 PM EST [facility] Name Value Range Interpretation Code Description Data Blanca rce(s) Supporting Document(s) NT PRO BNP 228 pg/mL (0-450) [facility] ID Date Data Source [id number] 11/27/2020 12:31:38 PM EST [facility] Name Value Range Interpretation Code Description Data Blanca rce(s) Supporting Document(s) MAGNESIUM 2.0 mg/dL (1.7-2.4) [facility] ID Date Data Source [id number] 11/27/2020 12:31:38 PM EST [facility] Name Value Range Interpretation Code Description Data Blanca rce(s) Supporting Document(s) SODIUM 141 mmol/L (136-145) [facility] POTASSIUM 3.9 mmol/L (3.6-5.2) [facility] CHLORIDE 105 mmol/L (100-108) [facility] CO2 27 mmol/L (22-31) [facility] ANION GAP 9 mmol/L (7-16) [facility] UREA NITROGEN 22 mg/dL (7-24) [facility] CREATININE 0.76 mg/dL (0.60-1.00) [facility] BUN/CREAT RATIO 28.9 RATIO (10.0-20.0) H [facility] GLUCOSE 94 mg/dL (70-99) [facility] CALCIUM 9.2 mg/dL (8.4-10.2) [facility] GFR >60 ml/min/1.73m2 (>59) [facility] GFR ( AMER) >60 ml/min/1.73m2 (>59) [facility] GFR INTERPRETATION [facility] --NORMAL KIDNEY FUNCTION OR MILD DISEASE - GFR >OR= 60CHRONIC KIDNEY DISEASE - GFR 15 - 59RENAL FAILURE - GFR <15 Est. GFR calculation based on the MDRDstudy equation, which assumes a steadystate for creatinine. Est. GFR should notbe used for medication dosing. ID Date Data Source [id number] 11/27/2020 12:00:41 PM EST [facility] Name Value Range Interpretation Code Description Data Blanca rce(s) Supporting Document(s) WBC 3.7 10*3/uL (4.1-11.0) L [facility] [place] RBC 4.31 10*6/uL (4.00-5.40) [facility] HGB 13.0 g/dL (12.0-16.0) [facility] HCT 37.5 % (36.0-47.0) [facility] MCV 86.9 fL (80.0-95.0) [facility] MCH 30.1 pg (27.0-32.0) [facility] MCHC 34.7 g/dL (32.0-36.0) [facility] RDW 14.5 % (10.5-14.5) [facility] PLT 224 10*3/uL (150-450) [facility] MPV 8.0 fL (7.1-10.7) [facility] ID Date Data Source [id number] 11/27/2020 10:29:16 AM EST [facility] Name Value Range Interpretation Code Description Data Blanca rce(s) Supporting Document(s) &PDF [facility] SOSYRc7bYfJGGzBr57/UVWthLSGju7CtACfcZGv4ANghFKDrR4SczWlcNYjPCVNVIIPIW5LDPnJSDK4n oRX XeMzAJdZR8PB0iWEOghvJuonT0cP3xLT5GAWC+Ma0SQV2uw6UwTSd8OMTbh0GkWNwnTIj8D9PnbPBrly PtBocwvCUORKJqPJHdS5gocpk1wOBlBTCyOp0BMlBfq7CeMWIqMShVeu7qD0/bRhZ+X2D/B4USLxaqdd U3UqwFbRIxN2pfrODSRB1zZSpE2JRBE8Ty15+/FIe0 5C5Sa1dOGOVqSP/WKWfO/IglQySb3K+/ZqouaTLy3f/cRyem12wZbB//p6kv5tq1w+4/irPWu7RsbM4p q3ZtvHbYOLbR9PkXT0v2tXclcXJjIeRjEyOC6/63ot5h1agLlpavi3aWFBh0MTm6mt2ci3ZOJ7p6/rXT +0QznihPQhkd0W64dWdZxqznJ8HoaermMAzcabk5Sf [file] ICAgICAgICAgICAgICAgICAgICAgICAgICAgICAgICAgICAgICAgICAgICAgICAgICAgICAgICAgICAg ICAgICAgICAgICAgICAgICAgICAgICANCiAgICAgIC AgICAgICAgICAgICAgICAgICAgICAgICAgICAgICAgICAgICAgICAgICAgICAgICAgICAgICAgICAgIC AgICAgICAgICAgICAgICAgICAgICAgICAgICAgICAgICANCiAgICAgICAgICAgICAgICAgICAgICAgIC AgICAgICAgICAgICAgICAgICAgICAgICAgICAgICAg ICAgICAgICAgICAgICAgICAgICAgICAgICAgICAgICAgICAgICAgICAgICANCiAgICAgICAgICAgICAg ICAgICAgICAgICAgICAgICAgICAgICAgICAgICAgICAgICAgICAgICAgICAgICAgICAgICAgICAgICAg ICAgICAgICAgICAgICAgICAgICAgICAgICANCiAgIC AgICAgICAgICAgICAgICAgICAgICAgICAgICAgICAgICAgICAgICAgICAgICAgICAgICAgICAgICAgIC AgICAgICAgICAgICAgICAgICAgICAgICAgICAgICAgICAgICANCiAgICAgICAgICAgICAgICAgICAgIC AgICAgICAgICAgICAgICAgICAgICAgICAgICAgICAg ICAgICAgICAgICAgICAgICAgICAgICAgICAgICAgICAgICAgICAgICAgICAgICANCiAgICAgICAgICAg ICAgICAgICAgICAgICAgICAgICAgICAgICAgICAgICAgICAgICAgICAgICAgICAgICAgICAgICAgICAg ICAgICAgICAgICAgICAgICAgICAgICAgICAgICANCi AgICAgICAgICAgICAgICAgICAgICAgICAgICAgICAgICAgICAgICAgICAgICAgICAgICAgICAgICAgIC AgICAgICAgICAgICAgICAgICAgICAgICAgICAgICAgICAgICAgICANCiAgICAgICAgICAgICAgICAgIC AgICAgICAgICAgICAgICAgICAgICAgICAgICAgICAg ICAgICAgICAgICAgICAgICAgICAgICAgICAgICAgICAgICAgICAgICAgICAgICAgICANCiAgICAgICAg ICAgICAgICAgICAgICAgICAgICAgICAgICAgICAgICAgICAgICAgICAgICAgICAgICAgICAgICAgICAg ICAgICAgICAgICAgICAgICAgICAgICAgICAgICAgIC ANCjw/lZFaX4jwfTLkwkD8L6cvHu4GJh4QLY8ep7ZdDTQaGWnqadBmZeaAJlLaAOUbNuoVRhs2SQflND 7TgUHuH5FuZ3LrOJctKW2GKQWjXHJacFYaNYVcTFIcNpD5COLtNWbkNO0BhCZbOZmkNXBvZJTeElTtEC KjIAInOWQuUI2UVWYeQ487nwGqRm0RYn6KRoEuEA1t nb3YXcXmDWYtLoaHSab7VHtxCV4XsSGdI7MllXUgp3qWCkDxJ7MMNBPiIGVaZa6FGGJaXfLyJGJcMRym LD8lNQNgZSNJgVseplH4ZC1ULH6gutFcFG9ISaUkEq7dWv8LYtFjD3RtR6YhGBHmPFVTCQdiVJ6ZQOSw CPP8WEFuOzZmZIMHBoSwF80fPF8AI2Avu82qIxG2QR PaCfHpDGfrPJ55fAasglHzvIOcgXfcBK6VDq6+DQplbmRvYmoNCnhyZWYNCjAgMjQNCjAwMDAwMDAwMD KvPaB2LtLsFz0MMFIrWSKzCZMnQmOcERTvANIgYVwkCMUxIUYjFII8GVNbZCElMA2ZCnIpNHGwTvH9FZ nkMORyYZYxay4ASTCeRMFkHCP9YHWjYRPjVLZbDFve PNVjIEOtRMN6ZHWoSHLlXH9JZaTzALSpPYQ2NTywUJQwCRZuxa6KDKUzDRIrKwH5PZQyDIPtWPTnCDep QJIaNUT6BtZ3KRAbIOUcGU8TWpSyKDXhZRlqKeWdDGSdZQIndb9GYBAfZVNxHwR3TJCkJSKpTXOsVNqv SSFcPQN2OwW5TZVfIYBiCR6XDtHdPPRoHHz2FoVgHA AoCRXsxj8WQTFcHMThTGmgHPHoIJHqFEFmCChpJSIwSDN9WjthVDMwGRTpAT0SEkTjRVWeQFx2UrRcTJ DqBJChlj9YIVAbIOWnOEQ0ZiQvDGKlDQXaBEdiRXRkULTfOOFhFKPlVSNlGO3DViRxXCVwLBRcMnGkAT QsMILazf0KDDTnARKmJOIiWjRdURVfYMCuEJsfTACq IAE7MWHrTQVmQLLoNQ5CCbCqOULsOiX5VSdnCLNfLGAhjm7VBVQdLOCnFXM4BPNoROCiWKVzIFmvWWYb MGDnGcX5ISQzXKVdEJ1BVmCaPEsfPLYTJol5HLjpR6n6YACtZQ4LW3Ahh4FqJgBeVLWMIJtxYN1bamFo FLVpJo2GP4vNUwupPoH4YSHqJCNeJ1AhJqI7D4KkVU hfKcT1Z4ZhSwB1TV5hITWxCuXjHKFeSHGaEJGhKLN5GdJxNvKaAIEaXEPyHex1UkSzVQ9SMq6KNwP7CX K5cNLyFc9HPeK3AKVVLjXvLH5ZBZo= ID Date Data Source [id number] 01/01/2021 12:08:37 PM EST [facility] SPECIMEN DESCRIPTION PLEURAL FLUI D RSPECIAL REQUESTS NONECULTURE RESULTS NO FUNGUS ISOLATED AFTER 5 WEEKSREPORT STATUS FINAL 01/01/2021 Name Value Range Interpretation Code Description Data Blanca rce(s) Supporting Document(s) ID Date Data Source [id number] 12/05/2020 03:51:18 PM EST [facility] Name Value Range Interpretation Code Description Data Blanca rce(s) Supporting Document(s) COLOR [facility] APPEAR [facility] RBC (0) [facility] TOTAL NUCLEATED CNT 1718 /uL (0-1000) H [facility] NEUT % 1 % (0-25) [facility] LYMPH % 68 % [facility] MONO/HISTIO % 23 % [facility] MESOTHELIAL CELLS % 5 % [facility] OTHER % 3 % [facility] COMMENT [facility] SCATTERED CELLS SUSPICIOUS FOR MALIGNANC Y. SEE CYTOLOGY CASE NUMBER [id number] 62. [address]. COBANOV .. PERFORMED AT [address] [place] [address] ID Date Data Source [id number] 12/02/2020 08:53:55 AM EST [facility] SPECIMEN DESCRIPTION PLEURAL FLUI D RSPECIAL REQUESTS NONECULTURE RESULTS NO ANAEROBES ISOLATED AFTER 5 DAYSREPORT STATUS FINAL 12/02/2020 Name Value Range Interpretation Code Description Data Blanca rce(s) Supporting Document(s) ID Date Data Source [id number] 12/02/2020 08:53:40 AM EST [facility] SPECIMEN DESCRIPTION PLEURAL FLUI D RSPECIAL REQUESTS NONEGRAM STAIN FEW (<10/LPF) WHITE BLOOD CELLS NO BACTERIACULTURE RESULTS NO GROWTH 5 DAYSREPORT STATUS FINAL 12/02/2020 Name Value Range Interpretation Code Description Data Blanca rce(s) Supporting Document(s) ID Date Data Source [id number] 11/27/2020 12:53:50 PM EST [facility] Name Value Range Interpretation Code Description Data Blanca rce(s) Supporting Document(s) FLUID TOTAL PROTEIN 4.2 g/dL [facility] FOR PLEURAL AND PERCARDIAL FLUID: <50% O F SERUM PROTEIN INDICATES TRANSUDATE >50% OF SERUM PROTEIN INDICATES EXUDATE ID Date Data Source [id number] 11/27/2020 12:53:50 PM EST [facility] Name Value Range Interpretation Code Description Data Blanca rce(s) Supporting Document(s) FLUID AMYLASE 34 U/L [facility] ID Date Data Source [id number] 11/27/2020 12:53:50 PM EST [facility] Name Value Range Interpretation Code Description Data Blanca rce(s) Supporting Document(s) FLUID GLUCOSE 97 mg/dL [facility] ID Date Data Source [id number] 11/27/2020 12:53:50 PM EST [facility] Name Value Range Interpretation Code Description Data Blanca rce(s) Supporting Document(s) FLUID LDH 123 U/L [facility] FOR PLEURAL AND PERICARDIAL FLUID:<60% O F SERUM LD REPRESENTS TRANSUDATE>60% OF SERUM LD REPRESENTS EXUDATE ID Date Data Source [id number] 11/27/2020 12:49:20 PM EST [facility] Name Value Range Interpretation Code Description Data Blanca rce(s) Supporting Document(s) FLUID SG 1.025 [facility] ID Date Data Source [id number] 11/27/2020 12:02:30 PM EST [facility] Name Value Range Interpretation Code Description Data Blanca rce(s) Supporting Document(s) FLUID SOURCE [facility] [place] R ID Date Data Source [id number] 11/27/2020 10:33:19 AM EST [facility] Name Value Range Interpretation Code Description Data Blanca rce(s) Supporting Document(s) PLEURAL FLD PH 7.52 [facility] ID Date Data Source [id number] 12/02/2020 06:45:59 PM EST [place], [place] [address]Tel# MISCELLANEOUS CYTOLOGY REPORTAccession Number: [id number] Specimen(s): A: Pleural Fluid RightClinical Diagnosis [...] and calretinin. Iliana positive (90%, strong staining), NE is positive (40%, strong staining),and HER2 is negative (score 0). The morphology and immunoprofile areconsistent with a breast primary. One other pathologist reviewed thiscase and concurs with the diagnosis. The findings were discussed with Dr.Scott Oliver on December 02, at 0945 hours.Processed and screened at [facility],Cytology, [address] [place] [address], [address].As applicable, positive and negative controls for all immunohistochemicaland/or special stains were reviewed and considered appropriate. Reported: 12/02/2020Electronically Signed Out By Samy Landa MDUtica Psych[facility] Center PatholoCytotechnologist: Isaura Wagner CT(ASCP)[facility]bcICD code: J90CPT code: A: 22137C, 37939P, 69750f, 99549(6), 12744L, 18625J, 14921T Name Value Range Interpretation Code Description Data Blanca rce(s) Supporting Document(s) ID Date Data Source [id number] 11/26/2020 02:26:25 PM EST [facility] NT INFORMATIONPatient MRN Name Date of Age Gend*PT [id number] Sugey Joaquin 1930 89 years F OBSPT Location Admission Date/Time Visit ID Attending [id number] 11/25/20 2351 --- Nick Vasquez MD([id number]) EPI ID CSN Admitting Provider [id number] Yuan Thomas MD([id number])NeurologyInpatient Consult NoteFlorence EmaniMRN: [id number] of stay: 0Reason for consult: Neurology was [...] ofupper back pain, she was concerned about [place]. Patient states that in February 2020she had a CVA and he went to hospital in [place] diagnosed with ischemicinfarct. 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 Currently patient onaspirin and statin therapy.Labs, Imaging and Other Diagnostics:IMAGING:MRI brain on my review it looks like chronic lacunar infarct in the rightcoronary radiata hypoattenuation seen on CAT scan at same location. MRangiogram head and neck reported as a bilateral origin personalized living assistant, there is astenosis at superior M2 branch [...] file Gets together: Not on file Attends moravian service: Not on file Active member of [...] aspirin and statin therapyCheck lipid panel and O9aQwuxdnndpvu per protocolNCS/EMG as outpatientDVT prophylaxisNeurology signing off call us if you have any questionSKRISTINA Dykesate: November 26, 2020Time: 2:14 PM Name Value Range Interpretation Code Description Data Blanca rce(s) Supporting Document(s) ID Date Data Source [id number] 11/26/2020 01:19:[address] [address]Iwspgds Name: SUGEY JOAQUINB: 1930Sex: FOrdering Provider: YUAN Villanueva Prov: YUAN Kapoor Provider: Procedure Performed: CT CHEST WO CONTRASTExam Date: 11/26/2020 13:10MRN: [id number] Number: [id number] Class: OutpatientAccount #: [id number] for Exam: new unexplained pleural effusionTechnique: Helical [...] JIN COVINGTON On 11/26/2020 1:19 PMWorkstation ID: [id number] Name Value Range Interpretation Code Description Data Blanca rce(s) Supporting Document(s) ID Date Data Source [id number] 11/26/2020 11:46:25 AM EST [facility] Name Value Range Interpretation Code Description Data Blanca rce(s) Supporting Document(s) EKG [facility] AKJHUz9hCvLLKrRrl5ZpAzFgPPLvBY0znqf1R9V9vCVdJ6CjaLUra8ydG6RrE9RzNVCcSTERKI1CdWTx jb2 [file] [facility]/wnK075iC8vqG+MM5oPPTQPO6GysPgfXLSExeSg [file] FfEwnEBc5Sn5PkdvU8vaLfWqB2SIu4MnStBL7X ID Date Data Source [id number] 11/26/2020 10:25:48 AM EST [address] [address]Fjjfsip Name: Sugey MarieB: 1930Sex: FOrdering Provider: YUAN Navazing Prov: YUAN Kapoor Provider: Procedure Performed: MRA NECK WO CONTRASTExam Date: 11/26/2020 09:34MRN: [id number] Number: [id number] Class: INFORMATION: Exam: MR Angiography Neck Without [...] rce(s) Supporting Document(s) ID Date Data Source [id number] 11/26/2020 10:23:08 AM EST [address] [address]Nbjuman Name: Sugey MarieB: 1930Sex: FOrdering Provider: RICK Ramesh Prov: RICK Sen Provider: Procedure Performed: MRI BRAIN WO CONTRASTExam Date: 11/26/2020 09:34MRN: [id number] Number: [id number] Class: INFORMATION: Exam: MR Head Without Contrast [...] rce(s) Supporting Document(s) ID Date Data Source [id number] 11/26/2020 10:18:[address] [address]Gtnokuy Name: Sugey MarieB: 1930Sex: FOrdering Provider: RICK PARMARAuthorinelda Prov: RICK Sen Provider: Procedure Performed: MRA BRAIN WO CONTRASTExam Date: 11/26/2020 09:34MRN: [id number] Number: [id number] Class: INFORMATION: Exam: MR Angiogram Head Without [...] rce(s) Supporting Document(s) ID Date Data Source [id number] 11/26/2020 09:24:52 AM EST [facility]PATI NT INFORMATIONPatient MRN Name Date of Age Gend*PT [id number] Sugey Joaquin 1930 89 years F OBSPT Location Admission Date/Time Visit ID Attending [id number] 11/25/20 2351 --- Nick Vasquez MD([id number]) EPI ID CSN Admitting Provider [id number] Yuan Thomas MD([id number])Inpatient History & PhysicalFlorence WhiteMRN: [id number] and Plan:Principal Problem: Suspected cerebrovascular accident (CVA)Active Problems: Left arm numbness, complete, acute on chronic x 3 days Left hand weakness, acute on chronic x 3 days Essential hypertension Aortic valve disorder Coronary arteriosclerosis Obesity Pure hypercholesterolemia Hypertensive heart disease without heart failure1. 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 Essential HTN continue her usual medsRelative permissive HTN but give 3 days out start to reduce 10% per shiftapproximately3. Atypical left under breath chest discomfortNo evidence of WV so farStress test and Echo 07/2020 with [...] she said in February of lastye2019 in [place]. She is on aspirin therapy for that [...] heartattack. She has been evaluated by a pipeman in [place] before. 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 She does notethe year note does know the president's term is up this next week. [facility] and speaks about her recent doctor's visits.Skin: [...] Name Value Range Interpretation Code Description Data [facility] Supporting Document(s) ID Date Data Source [id number] 11/26/2020 04:55:00 AM EST [facility] Name Value Range Interpretation Code Description Data Blanca rce(s) Supporting Document(s) SARS coronavirus 2 RNA [Presence] in Res piratory specimen by ROSE with probe detection NOT DETECTED [facility] This lab was reported by [facility]. ID Date Data Source [id number] 11/26/2020 07:26:59 AM EST [facility] Name Value Range Interpretation Code Description Data Blanca rce(s) Supporting Document(s) SPECIMEN DESCRIPTION [facility] [place] INFLUENZA A (NEG) [facility] [place] INFLUENZA B (NEG) [facility] RSV (NEG) [facility] COMMENT [facility] [place] UNDER AN EMERGENCY USE AUTHORIZATION(EUA ) FOR THE DETECTION AND/OR DIAGNOSISOF THE VIRUS THAT CAUSES COVID-19.PERFORMED AT [address] [place] [address] COVID19 RESULT (NDET) [facility] THIS ASSAY AMPLIFIES AND DETECTSTHE TARG ET RNA USING REAL-TIME PCR.NEGATIVE 2019_NCOV RT-PCR RESULTS DONOT PRECLUDE 2019_NCOV INFECTION ANDSHOULD NOT BE USED THE SOLE BASISFOR PATIENT MANAGEMENT DECISIONS. FIRST TEST [facility] [place] EMPL[employer]ED IN HLTHCARE [facility] [place] SYMPTOMATIC [facility] [place] Gan DATE OF SYMPT ONSET [facility] [place] HOSPITALIZED [facility] [facility] ICU [facility] [place] CONGREGATE CARE SET [facility] [place] [place] ID Date Data Source [id number] 11/26/2020 04:06:50 AM EST [facility]PAT[facility] NT INFORMATIONPatient MRN Name Date of Age Gend*PT [id number] Sugey Joaquin 1930 89 years F EDPT Location Admission Date/Time Visit ID Attending [id number] 11/25/20 2351 --- Rick Parmar MD([id number]) EPI ID CSN Admitting Provider [id number] ---Provider in Triage NotesED Provider in Triage NotePatient Name: Sugey Chappell and Time of Assessment: 11/25/20, 6:02 PMNo chief complaint on file.Brief HPI: 89 years female, patient thinks she had a heart attack last nightHad L rib pain yesterday-continued back pain todayHad WV in the past, no stents or bypass+SOB, no nauseaPhysical exam:Hypertensive and slightly tachyAmbulatoryNontoxPreliminary Plan:Labs, EKG, CXRThis note was electronically signed by MARLON Ramos, 11/25/20, 6:02 PM.ED CourseMARLON Ramos11/25/20 1805Josimone Blair MD11/25/20 1959Attestation signed by Ryne Blair MD at 11/25/2020 7:59 PM:I was the attending physician on duty at the time the patient visited the ED.The patient was evaluated by the PA/SUPERVISOR HOUSECLEANER. 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 She states that sheis concerned that she [...] by: Rick Parmar MDAuthorized by: Karime Torres [facility] interpreted by ED Physician in the absence of a pipeman: yesPrevious ECG: Previous ECG: UnavailableInterpretation: Interpretation: normalRate: ECG rate: 86 ECG rate assessment: normalRhythm: Rhythm: sinus rhythmEctopy: Ectopy: noneQRS: QRS axis: Normal QRS intervals: NormalConduction: Conduction: abnormal Abnormal conduction: 1st degreeST segments: ST segments: NormalT waves: T waves: non- specificMDMNumber of Diagnoses or Management OptionsDiagnosis management comments: + Chest pain, right-sided back pain consistentwith prior WV; worsening left upper extremity numbnessACS versus pneumonia [...] rce(s) Supporting Document(s) ID Date Data Source [id number] 11/26/2020 02:19:[address] [address]Sgyojnj Name: Sugey MarieB: 1930Sex: FOrdering Provider: RICK PARMARAuthorizing Prov: RICK PARMARReferrramos Provider: Procedure Performed: CT HEAD WO CONTRASTExam Date: 11/26/2020 01:53MRN: [id number] Number: [id number] Class: INFORMATION: Exam: CT Head Without Contrast [...] rce(s) Supporting Document(s) ID Date Data Source [id number] 11/26/2020 01:09:13 AM EST [facility] Name Value Range Interpretation Code Description Data Blanca rce(s) Supporting Document(s) POC CTNI 0.01 ng/mL (0.01-0.07) [facility] [place] Less than 0.08: Myocardial injury unlike lyGreater than or equal to 0.08: Highlysuggestive of myocardial injuryCorrelation with rise and/or fall ofserial troponins, clinical symptoms,and ECG changes is necessary.PERFORMED BY [facility] STAFF ID Date Data Source [id number] 11/27/2020 11:40:38 AM EST [facility] Name Value Range Interpretation Code Description Data Blanca rce(s) Supporting Document(s) TOTAL PROTEIN 7.2 g/dL (6.4-8.2) [facility] ID Date Data Source [id number] 11/27/2020 11:40:38 AM EST [facility] Name Value Range Interpretation Code Description Data Blanca rce(s) Supporting Document(s) LDH 189 U/L (84-246) [facility] ID Date Data Source [id number] 11/26/2020 07:25:32 PM EST [facility] Name Value Range Interpretation Code Description Data Blanca rce(s) Supporting Document(s) NT PRO BNP 256 pg/mL (0-450) [facility] [facility] ID Date Data Source [id number] 11/26/2020 02:07:06 AM EST [facility] Name Value Range Interpretation Code Description Data Blanca rce(s) Supporting Document(s) TROPONIN I <0.05 ng/mL (<0.05) [facility] [place] [facility] [place] Less than 0.05: Myocardial injury unlike lyGreater than or equal to 0.05: Highly suggestive of myocardial injuryCorrelation with rise and/or fall ofserial troponins, clinical symptomsand ECG changes is necessary. ID Date Data Source [id number] 11/25/2020 08:36:03 PM EST [address] [address]Wfmwnmw Name: Sugey Schreiber: 1930Sex: FOrdering Provider: KARIME TORRESAuthorinelda Prov: KARIME TORRESReferrramos Provider: Procedure Performed: XR CHEST PORTABLEExam Date: 11/25/2020 19:06MRN: [id number] Number: [id number] Class: INFORMATION: Exam: XR Chest, 1 View [...] rce(s) Supporting Document(s) ID Date Data Source [id number] 11/25/2020 07:59:55 PM EST [facility] NT INFORMATIONPatient MRN Name Date of Age Gend*PT [id number] Sugey Joaquin 1930 89 years F EDPT Location Admission Date/Time Visit ID Attending Provider --- --- --- --- EPI ID CSN Admitting Provider [id number] ---Attestation signed by Ryne Blair MD at 11/25/2020 7:59 PMI was the attending physician on duty at the time the patient visited the ED.The patient was evaluated by the PA/SUPERVISOR HOUSECLEANER. I was personally available forconsultation; however, I [...] L rib pain yesterday-continued back pain todayHad WV in the past, no stents or bypass+SOB, no nauseaPhysical exam:Hypertensive and slightly tachyAmbulatoryNontoxPreliminary Plan:Labs, EKG, CXRThis note was electronically signed by MARLON Ramos, 11/25/20, 6:02 PM.ED CourseMARLON Ramos11/25/20 180Joseondina Blair MD11/25/201958 Name Value Range Interpretation Code Description Data Blanca rce(s) Supporting Document(s) ID Date Data Source [id number] 11/25/2020 06:39:40 PM EST [facility] [place] Name Value Range Interpretation Code Description Data Blanca rce(s) Supporting Document(s) POC CTNI <0.01 ng/mL (0.01-0.07) L [facility] [place] [facility] Less than 0.08: Myocardial injury unlike lyGreater than or equal to 0.08: Highlysuggestive of myocardial injuryCorrelation with rise and/or fall ofserial troponins, clinical symptoms,and ECG changes is necessary.PERFORMED BY [facility] ID Date Data Source [id number] 11/26/2020 03:45:33 PM EST [facility] [place] Name Value Range Interpretation Code Description Data Blanca rce(s) Supporting Document(s) HEMOGLOBIN A1C @ 5.6 % (4.0-6.0) [facility] Performed using Siemens [place] immunoassa y.Care must be taken when interpreting ZrG5kkkxvjbp in patients with a hemoglobin variantor decreased erythrocyte lifespan. Values 5.7 - 6.4% suggest prediabetes.Values >=6.5% are diagnostic for diabetes.REFERENCE: DIABETES CARE 2018: 41(S13-S27).PERFORMED AT [address] [place] [address] EST AVERAGE GLUCOSE 114 mg/dL [facility] ID Date Data Source [id number] 11/25/2020 07:16:41 PM EST [facility] [place] Name Value Range Interpretation Code Description Data Blanca rce(s) Supporting Document(s) APTT 24.6 s (22.0-34.3) [facility] [place] ID Date Data Source [id number] 11/25/2020 07:16:41 PM EST [facility] Name Value Range Interpretation Code Description Data Blanca rce(s) Supporting Document(s) PT 9.9 s (9.2-11.9) [facility] INR 0.94 [facility] SUGGESTED THERAPEUTIC RANGES USING INR F ORSTABILIZED ANTICOAGULATED PATIENTS:STANDARD DOSE THERAPY INR 2.0-3.0 DVT, PE, PREVENT DVT OR EMBOLISMHIGH DOSE THERAPY INR 2.5-3.5 PREVENT EMBOLISM FROM MECHANICAL HEART VALVE ID Date Data Source [id number] 11/25/2020 07:06:20 PM EST [facility] Name Value Range Interpretation Code Description Data Blanca rce(s) Supporting Document(s) WBC 5.2 10*3/uL (4.1-11.0) [facility] [place] [facility] [place] RBC 4.61 10*6/uL (4.00-5.40) [facility] HGB 14.0 g/dL (12.0-16.0) [facility] HCT 40.7 % (36.0-47.0) [facility] MCV 88.3 fL (80.0-95.0) [facility] MCH 30.3 pg (27.0-32.0) [facility] MCHC 34.4 g/dL (32.0-36.0) [facility] RDW 14.2 % (10.5-14.5) [facility] PLT 247 10*3/uL (150-450) [facility] MPV 7.8 fL (7.1-10.7) [facility] NEUT % 65.1 % (35.0-75.0) [facility] LYMPH % 23.6 % (16.0-52.0) [facility] MONO % 9.6 % (0.0-8.0) H [facility] [facility] EOS % 1.2 % (0.0-5.0) [facility] BASO % 0.5 % (0.0-4.0) [facility] NEUT # 3.4 10*3/uL (1.8-7.7) [facility] LYMPH # 1.2 10*3/uL (1.2-4.8) [facility] MONO # 0.5 10*3/uL (0.0-0.8) [facility] [facility] Eosinophils [#/volume] in Blood by Automated count 0.1 10*3/uL (0.0-0 .5) [facility] BASO # 0.0 10*3/uL (0.0-0.2) [facility] ID Date Data Source [id number] 11/25/2020 07:24:04 PM EST [facility] Name Value Range Interpretation Code Description Data Blanca rce(s) Supporting Document(s) SODIUM 139 mmol/L (136-145) [facility] POTASSIUM 3.2 mmol/L (3.6-5.2) L [facility] CHLORIDE 103 mmol/L (100-108) [facility] CO2 28 mmol/L (22-31) [facility] ANION GAP 8 mmol/L (7-16) [facility] UREA NITROGEN 20 mg/dL (7-24) [facility] CREATININE 0.86 mg/dL (0.60-1.00) [facility] BUN/CREAT RATIO 23.3 RATIO (10.0-20.0) H [facility] GLUCOSE 114 mg/dL (70-99) H [facility] CALCIUM 9.5 mg/dL (8.4-10.2) [facility] TOTAL PROTEIN 7.5 g/dL (6.4-8.2) [facility] ALBUMIN 3.8 g/dL (3.2-4.5) [facility] GLOBULIN 3.7 g/dL (2.7-4.3) [facility] ALB/GLOB RATIO 1.0 RATIO [facility] ALKALINE PHOSPHATASE 79 U/L (45-117) [facility] BILIRUBIN,TOTAL 0.4 mg/dL (0.0-1.0) [facility] [facility] PLEASE NOTE:Total bilirubin results may be falselyelevated in patients taking Eltrombopag. AST (SGOT) 13 U/L (11-39) [facility] [facility] ALT (SGPT) 14 U/L (12-78) [facility] [place] [facility] GFR >60 ml/min/1.73m2 (>59) [facility] GFR ( AMER) >60 ml/min/1.73m2 (>59) [facility] GFR INTERPRETATION [facility] --NORMAL KIDNEY FUNCTION OR MILD DISEASE - GFR >OR= 60CHRONIC KIDNEY DISEASE - GFR 15 - 59RENAL FAILURE - GFR <15 Est. GFR calculation based on the MDRDstudy equation, which assumes a steadystate for creatinine. Est. GFR should notbe used for medication dosing. ID Date Data Source [id number] 08/16/2020 04:49:00 PM EDT [facility] ([facility] Name Value Range Interpretation Code Description Data Blanca e(s) Supporting Document(s) Thyrotropin [Units/volume] in Serum or Plasma 1.045 ulU/mL 0.60-4.8 [facility] ([facility] ID Date Data Source [id number] 08/16/2020 04:49:00 PM EDT [facility] ([facility] Name Value Range Interpretation Code Description Data Blanca e(s) Supporting Document(s) Chol 162 mg/dL 0-200 [facility] ([facility] NORMAL RANGES Age WBC [...] HCT IS 5% LESS SOURCE FOR DATA: Auto Mute 1800 OPERATION MANUAL( AUTOMATED BLOOD COUNTS AND [...] in Serum or Plasma 49 mg/dL 45-65 [facility] ([facility] NORMAL RANGES Age [...] HCT IS 5% LESS SOURCE FOR DATA: [employer] 1800 OPERATION MANUAL( AUTOMATED BLOOD COUNTS AND [...] 2-19 YEARS EXCLUSIVE. Trig 163 mg/dL 40-200 [facility] NORMAL RANGES [...] HCT IS 5% LESS SOURCE FOR DATA: Auto Mute 1800 OPERATION MANUAL( AUTOMATED BLOOD COUNTS AND [...] 2-19 YEARS EXCLUSIVE. Cho/HDL Ratio 3.[address] [facility] ([facility] NORMAL RANGES Age WBC [...] HCT IS 5% LESS SOURCE FOR DATA: Auto Mute 1800 OPERATION MANUAL( AUTOMATED BLOOD COUNTS AND [...] 2-19 YEARS EXCLUSIVE. LDL_C 80 Calc 75-129 [facility] NORMAL RANGES Age [...] HCT IS 5% LESS SOURCE FOR DATA: Auto Mute 1800 OPERATION MANUAL( AUTOMATED BLOOD COUNTS AND [...] 2-19 YEARS EXCLUSIVE. ID Date Data Source [id number] 08/16/2020 04:49:00 PM EDT [facility] (Famil y [...] HCT IS 5% LESS SOURCE FOR DATA: Auto Mute 1800 OPERATION MANUAL( AUTOMATED BLOOD COUNTS AND [...] HCT IS 5% LESS SOURCE FOR DATA: Auto Mute 1800 OPERATION MANUAL( AUTOMATED BLOOD COUNTS AND [...] 2-19 YEARS EXCLUSIVE. Creat 0.7 mg/dL 0.5-1.0 [facility] ([facility] NORMAL RANGES [...] HCT IS 5% LESS SOURCE FOR DATA: [employer] DYN 1800 OPERATION MANUAL( AUTOMATED BLOOD COUNTS [...] 2-19 YEARS EXCLUSIVE. BUN/Creatinine Ratio 20.9 CALC [facility] ([facility] NORMAL RANGES Age WBC [...] HCT IS 5% LESS SOURCE FOR DATA: Auto Mute 1800 OPERATION MANUAL( AUTOMATED BLOOD COUNTS AND [...] HCT IS 5% LESS SOURCE FOR DATA: [employer] 1800 OPERATION MANUAL( AUTOMATED BLOOD COUNTS AND [...] 2-19 YEARS EXCLUSIVE. K 3.7 mmol/L 3.5-5.1 [facility] ([facility] NORMAL RANGES Age WBC RBC [...] HCT IS 5% LESS SOURCE FOR DATA: [employer] DYN 1800 OPERATION MANUAL( AUTOMATED BLOOD COUNTS [...] EXCLUSIVE. CL 99.1 mmol/L 98.0-107.0 [facility] ([facility] NORMAL RANGES Age WBC [...] HCT IS 5% LESS SOURCE FOR DATA: [employer] 1800 OPERATION MANUAL( AUTOMATED BLOOD COUNTS AND [...] HCT IS 5% LESS SOURCE FOR DATA: [employer] 1800 OPERATION MANUAL( AUTOMATED BLOOD COUNTS AND [...] 2-19 YEARS EXCLUSIVE. CA 10.0 mg/dL 8.6-10.2 [facility] ([facility] NORMAL RANGES Age WBC RBC [...] HCT IS 5% LESS SOURCE FOR DATA: [employer]ute 1800 OPERATION MANUAL( AUTOMATED BLOOD COUNTS AND [...] HCT IS 5% LESS SOURCE FOR DATA: [employer]ute 1800 OPERATION MANUAL( AUTOMATED BLOOD COUNTS AND [...] HCT IS 5% LESS SOURCE FOR DATA: [employer]ute 1800 OPERATION MANUAL( AUTOMATED BLOOD COUNTS AND [...] 2-19 YEARS EXCLUSIVE. A/G Ratio 2.1 CALC [facility] ([facility] NORMAL RANGES [...] HCT IS 5% LESS SOURCE FOR DATA: [employer]ute 1800 OPERATION MANUAL( AUTOMATED BLOOD COUNTS AND [...] HCT IS 5% LESS SOURCE FOR DATA: [employer] 1800 OPERATION MANUAL( AUTOMATED BLOOD COUNTS AND [...] 2-19 YEARS EXCLUSIVE. Alp 79.6 U/L 35-129 [facility] ([facility] NORMAL RANGES Age [...] HCT IS 5% LESS SOURCE FOR DATA: Auto [employer]ute 1800 OPERATION MANUAL( AUTOMATED BLOOD COUNTS AND [...] YEARS EXCLUSIVE. Alt (SGPT) 10 U/L 0-41 [facility] ([facility] NORMAL RANGES [...] HCT IS 5% LESS SOURCE FOR DATA: Auto Mute 1800 OPERATION MANUAL( AUTOMATED BLOOD COUNTS AND [...] HCT IS 5% LESS SOURCE FOR DATA: Auto Mute 1800 OPERATION MANUAL( AUTOMATED BLOOD COUNTS AND [...] 2-19 YEARS EXCLUSIVE. Tbili 0.38 mg/dL 0.0-1.2 [facility] ([facility] NORMAL RANGES Age WBC RBC HGB [...] HCT IS 5% LESS SOURCE FOR DATA: Auto Mute 1800 OPERATION MANUAL( AUTOMATED BLOOD COUNTS AND [...] HCT IS 5% LESS SOURCE FOR DATA: Auto Mute 1800 OPERATION MANUAL( AUTOMATED BLOOD COUNTS AND [...] HCT IS 5% LESS SOURCE FOR DATA: Auto Mute 1800 OPERATION MANUAL( AUTOMATED BLOOD COUNTS AND [...] YEARS EXCLUSIVE. eGFR 90 # [facility] ( [facility] NORMAL RANGES Age [...] HCT IS 5% LESS SOURCE FOR DATA: [employer] 1800 OPERATION MANUAL( AUTOMATED BLOOD COUNTS AND [...] INDIVIDUALA AGED 2-19 YEARS EXCLUSIVE. eGFR Non-Afr. Central African 78 # [facility] ([facility] [...] HCT IS 5% LESS SOURCE FOR DATA: Auto Mute 1800 OPERATION MANUAL( AUTOMATED BLOOD COUNTS AND [...] 2-19 YEARS EXCLUSIVE. ID Date Data Source [id number] 08/16/2020 04:49:00 PM EDT [facility] ([facility] Name Value Range Interpretation Code Description Data Blanca rce(s) Supporting Document(s) WBC 4.6 10E3/uL 4.1-10.9 [facility] ([facility] NORMAL RANGES Age WBC RBC [...] HCT IS 5% LESS SOURCE FOR DATA: Auto Mute 1800 OPERATION MANUAL( AUTOMATED BLOOD COUNTS AND [...] 2-19 YEARS EXCLUSIVE. RBC 4.36 10E6/uL 4.-630 [facility] ([facility] NORMAL RANGES [...] HCT IS 5% LESS SOURCE FOR DATA: [employer] DYN 1800 OPERATION MANUAL( AUTOMATED BLOOD COUNTS [...] HCT IS 5% LESS SOURCE FOR DATA: Auto Mute 1800 OPERATION MANUAL( AUTOMATED BLOOD COUNTS AND [...] 2-19 YEARS EXCLUSIVE. HGB 13.1 g/dL 12.0-18.0 [facility] ([facility] NORMAL [...] HCT IS 5% LESS SOURCE FOR DATA: Auto Mute 1800 OPERATION MANUAL( AUTOMATED BLOOD COUNTS AND [...] HCT IS 5% LESS SOURCE FOR DATA: Auto Mute 1800 OPERATION MANUAL( AUTOMATED BLOOD COUNTS AND [...] HCT IS 5% LESS SOURCE FOR DATA: Auto Mute 1800 OPERATION MANUAL( AUTOMATED BLOOD COUNTS AND [...] HCT IS 5% LESS SOURCE FOR DATA: Auto Mute 1800 OPERATION MANUAL( AUTOMATED BLOOD COUNTS AND [...] 2-19 YEARS EXCLUSIVE. PLT 239 10E3/uL 140-440 [facility] ([facility] NORMAL RANGES Age WBC [...] HCT IS 5% LESS SOURCE FOR DATA: [employer] DYN 1800 OPERATION MANUAL( AUTOMATED BLOOD COUNTS [...] HCT IS 5% LESS SOURCE FOR DATA: Auto Mute 1800 OPERATION MANUAL( AUTOMATED BLOOD COUNTS AND [...] YEARS EXCLUSIVE. RDW-CV 14.1 % 11.5-14.5 [facility] ([facility] NORMAL [...] HCT IS 5% LESS SOURCE FOR DATA: Auto Mute 1800 OPERATION MANUAL( AUTOMATED BLOOD COUNTS AND [...] 2-19 YEARS EXCLUSIVE. Neut% 62.4 % 37.0-92.0 [facility] ([facility] NORMAL [...] HCT IS 5% LESS SOURCE FOR DATA: Auto Mute 1800 OPERATION MANUAL( AUTOMATED BLOOD COUNTS AND [...] YEARS EXCLUSIVE. Lym# 1.4 10E3/uL 0.6-4.1 [facility] ([facility] NORMAL RANGES Age WBC [...] HCT IS 5% LESS SOURCE FOR DATA: Auto Mute 1800 OPERATION MANUAL( AUTOMATED BLOOD COUNTS AND [...] 2-19 YEARS EXCLUSIVE. MXD% 6.9 % 0.1-24.0 [facility] ([facility] NORMAL RANGES [...] HCT IS 5% LESS SOURCE FOR DATA: Auto Mute 1800 OPERATION MANUAL( AUTOMATED BLOOD COUNTS AND [...] 2-19 YEARS EXCLUSIVE. Neut# 2.9 % 2.0-7.8 [facility] ([facility] NORMAL [...] HCT IS 5% LESS SOURCE FOR DATA: Auto Mute 1800 OPERATION MANUAL( AUTOMATED BLOOD COUNTS AND [...] YEARS EXCLUSIVE. MXD# 0.3 10E3/uL 0.0-1.8 [facility] ([facility] NORMAL RANGES Age WBC [...] HCT IS 5% LESS SOURCE FOR DATA: Auto Mute 1800 OPERATION MANUAL( AUTOMATED BLOOD COUNTS AND [...] 2-19 YEARS EXCLUSIVE. MPV 10.7 fL 9.0-13.0 [facility] ([facility] NORMAL [...] HCT IS 5% LESS SOURCE FOR DATA: [employer] DYN 1800 OPERATION MANUAL( AUTOMATED BLOOD COUNTS [...] 2-19 YEARS EXCLUSIVE. ID Date Data Source [id number] 08/16/2020 11:02:00 AM EDT [facility] ([facility]) Name Value Range Interpretation Code Description Data Blanca rce(s) Supporting Document(s) Albumin [Mass/volume] in Serum or Plasma 4.3 [facility] ([facility]) Alanine aminotransferase [Enzymatic activity/volume] in Serum or Pl asma 10 [facility] ([facility]) Calcium [Mass/volume] in Serum or Plasma 10.0 [facility] ([facility]) Chloride [Moles/volume] in Serum or Plasma 99.1 [facility] ([facility]) Alkaline phosphatase [Enzymatic activity/volume] in Serum or Plasma 7 9.6 [facility] ([facility]) Carbon dioxide, total [Moles/volume] in Serum or Plasma 24.4 [facility] ([facility]) Sodium 136 [facility] ([facility]) Potassium [Moles/volume] in Serum or Plasma 3.7 [facility] ([facility] [place]) Protein [Mass/volume] in Serum or Plasma 6.4 [facility] ([facility]) Aspartate aminotransferase [Enzymatic activity/volume] in Serum or Plasma 17 [facility] ([facility] [place]) Urea nitrogen [Mass/volume] in Serum or Plasma 15 [facility] ([facility]) Glucose 94 70-110 [facility] ([facility]) Creatinine For GFR 0.7 [facility] (Car [facility]) ID Date Data Source [id number] 08/16/2020 11:02:00 AM EDT [facility] ([facility]i [facility]) Name Value Range Interpretation Code Description Data Blanca rce(s) Supporting Document(s) Red Blood Count 4.36 4.20-6.30 [facility] ([facility] White Blood Count 4.6 4.1-10.9 [facility] ([facility]) Hemoglobin 13.1 12.0-18.0 [facility] ([facility]) Hematocrit 39.6 37.0-51.0 [facility] ([facility]) Platelets 239 140-440 [facility] ([facility] A [facility]) ID Date Data Source [id number] 08/16/2020 11:02:00 AM EDT [facility] ([facility]i [facility]) Name Value Range Interpretation Code Description Data Blanca rce(s) Supporting Document(s) Triglycerides 163 [facility] ([facility]) Chol/HDL Ratio 3.3 [facility] ([facility]) Cholesterol 162 0-200 [facility] ([facility]) HDL 49 45-65 [facility] ([facility]) Cholesterol in LDL [Mass/volume] in Serum or Plasma by calculation 80 [facility] ([facility]) ID Date Data Source [id number] 08/09/2020 07:03:21 PM EDT [facility] Name Value Range Interpretation Code Description Data Blanca rce(s) Supporting Document(s) &PDF [facility] [id number] oRX [file] [id number] ID Date Data Source [id number] 06/03/2020 08:19:00 PM EDT [facility] ([facility] Name Value Range Interpretation Code Description Data Blanca rce(s) Supporting Document(s) Glucose, Fasting 122 mg/dL 70-100 Above high normal M EDALYSIA ([facility] Glomerular Filtration Rate Laboratory test result Normal (applies to non- numeric results) [facility] ([facility] ) <content>Units are mL/min/1.73 m2</content>
<content></content>
<content>Chronic Kidney Disease Staging per NKF:</content>
<content></content>
<content>Stage I & II GFR >=60 Normal to Mildly Decreased</content>
<content>Stage III GFR 30- 59 Moderately Decreased</content>
<content>Stage IV GFR 15-29 Severely Decreased</content>
<content>Stage V GFR <15 Very Little GFR Left</content>
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
<content></content> Blood Urea Nitrogen 18 mg/dL 7-18 Normal (applies to non-nume pam results) [facility] ([facility] Creatinine For GFR 0.88 mg/dL 0.55-1.30 Normal (applies to non -numeric results) [facility] ([facility] Sodium Level 142 meq/L 136-145 Normal (applies to non-numeric res ults) [facility] ([facility] Potassium Serum 3.4 meq/L 3.5-5.1 Below low normal [facility] ([facility] Chloride Level 107 meq/L 98-107 Normal (applies to non-numeric r esults) [facility] ([facility] Calcium Level 9.1 mg/dL 8.8-10.2 Normal (applies to non-numeric re sults) [facility] ([facility] Anion Gap 8 meq/L 8-16 Normal (applies to non-numeric resul ts) [facility] ([facility] Carbon Dioxide Level 27 meq/L 21-32 Normal (applies to non-num layo results) [facility] ([facility] ID Date Data Source [id number] 06/03/2020 08:19:[address] [facility] ([facility] Name Value Range Interpretation Code Description Data Blanca rce(s) Supporting Document(s) Ast/Sgot 19 U/L 7-37 Normal (applies to non-numeric resul ts) [facility] ([facility] Bilirubin,Total 0.4 mg/dL 0.2-1.0 Normal (applies to non-numeric results) [facility] ([facility] Alt/SGPT 23 U/L 12-78 Normal (applies to non-numeric resul ts) [facility] ([facility] Alkaline Phosphatase 78 U/L 45-117 Normal (applies to non-num layo results) [facility] ([facility] Total Protein 6.9 GM/DL 6.4-8.2 Normal (applies to non-numeric re sults) [facility] ([facility] Bilirubin,Direct 0.1 mg/dL 0.0-0.2 Normal (applies to non-numeric results) [facility] ([facility] Albumin 3.5 GM/DL 3.2-5.2 Normal (applies to non-numeric resul ts) [facility] Albumin/Globulin Ratio 1.0 1.2-2.[address] [facility] ([facility] ID Date Data Source [id number] 06/03/2020 08:19:00 PM EDT [facility] ([facility] Name Value Range Interpretation Code Description Data Blanca rce(s) Supporting Document(s) White Blood Count 4.9 10 4.0-10.0 Normal (applies to non-numeri c results) [facility] ([facility] Hemoglobin 13.1 g/dL 12.0-15.5 Normal (applies to non-numeric resul ts) [facility] ([facility] Red Blood Count 4.41 10 4.00-5.40 Normal (applies to non-numeric results) [facility] ([facility] Mean Corpuscular Hemoglobin 29.7 pg 27.0-33.0 Norm al (applies to non-numeric results) [facility] ([facility] ) Mean Corpuscular HGB Conc 33.0 g/dL 32.0-36.5 Normal (applies to non-numeric results) [facility] ([facility] ) Hematocrit 39.7 % 36.0-47.0 Normal (applies to non-numeric resul ts) [facility] ([facility] Mean Corpuscular Volume 90.0 fl 80.0-96.0 Normal ( applies to non-numeric results) [facility] ([facility] ) Red Cell Distribution Width 13.3 % 11.5-14.5 Norm al (applies to non-numeric results) [facility] ([facility] ) Neutrophils % 61.6 % 36.0-66.0 Normal (applies to non-numeric re sults) [facility] ([facility] Platelet Count, Automated 219 10 150-450 Normal (applies to non-numeric results) [facility] ([facility] ) Lymph % 26.0 % 24.0-44.0 Normal (applies to non-numeric resul ts) [facility] ([facility] Baso % 0.2 % 0.0-1.0 Normal (applies to non-numeric resul ts) [facility] ([facility] [place] % 10.3 % 0.0-5.0 Above high normal [facility] ([facility] Eos % 1.9 % 0.0-3.0 Normal (applies to non-numeric resul ts) [facility] ([facility] Nucleated Red Blood Cell % 0.0 % 0-0 Normal (applies to n on-numeric results) [facility] ([facility] Immature Granulocyte % 0.0 % 0-3.0 Normal (applies to non-n umeric results) [facility] ([facility] Neutrophils # 3.0 10 1.5-8.5 Normal (applies to non-numeric re sults) [facility] ([facility] Lymph # 1.3 10 1.5-5.0 Below low normal [facility] ( [facility] [place] # 0.5 10 0.0-0.8 Normal (applies to non-numeric resul ts) [facility] ([facility] Eos # 0.1 10 0.0-0.5 Normal (applies to non-numeric resul ts) [facility] ([facility] Baso # 0.0 10 0.0-0.2 Normal (applies to non-numeric resul ts) [facility] ([facility] ID Date Data Source [id number] 06/03/2020 08:18:00 PM EDT [facility] ([facility] Name Value Range Interpretation Code Description Data Blanca rce(s) Supporting Document(s) Laboratory test finding (navigational concept) 0.01 ng/mL 0 .00-0.08 Normal (applies to non-numeric results) [facility] ([facility] ID Date Data Source [id number] 01/08/2020 08:59:00 AM EST [facility] ([facility] Name Value Range Interpretation Code Description Data Blanca rce(s) Supporting Document(s) Prostate specific Ag [Mass/volume] in Serum or Plasma 46 mg/dL 45-6 5 [facility] ([facility] CLASSIFICATION CHOLESTEROL FO [...] mL/min Normal Trig 135 mg/dL 40-200 [facility] ([facility] CLASSIFICATION CHOLESTEROL FO R [...] Cho/HDL Ratio 4.8 Calc [facility] ([facility] CLASSIFICATION CHOLESTEROL FO R [...] >32 mL/min Normal ID Date Data Source [id number] 01/08/2020 08:59:00 AM EST [facility] ([facility] Name Value Range Interpretation Code Description Data Blanca rce(s) Supporting Document(s) Glu 102 mg/dL 70-110 [facility] ([facility] CLASSIFICATION CHOLESTEROL FO [...] mL/min Normal BUN/Creatinine Ratio 16.1 CALC [facility] ([facility] CLASSIFICATION CHOLESTEROL FO R [...] mL/min Normal Creat 0.9 mg/dL 0.5-1.0 [facility] ([facility] CLASSIFICATION CHOLESTEROL FO [...] mL/min Normal K 3.8 mmol/L 3.5-5.1 [facility] ([facility] CLASSIFICATION CHOLESTEROL FO R ADULTS [...] mL/min Normal CL 104.9 mmol/L 98.0-107.0 [facility] CLASSIFICATION CHOLESTEROL FO R [...] >32 mL/min Normal CA 9.8 mg/dL 8.6-10.2 [facility] ([facility] CLASSIFICATION CHOLESTEROL [...] mL/min Normal Co2 23.8 mmol/L 22.0-29.0 [facility] ([facility] CLASSIFICATION CHOLESTEROL FO R [...] mL/min Normal Alb 4.1 g/dL 3.4-4.8 [facility] ([facility] CLASSIFICATION [...] >32 mL/min Normal Globulin 2.3 CALC [facility] ([facility] CLASSIFICATION CHOLESTEROL [...] Alt (SGPT) 11 U/L 0-41 [facility] CLASSIFICATION CHOLESTEROL FO R ADULTS [...] and above >32 mL/min Normal eGFR Non-Afr. Central African 57 # [facility] ([facility] [...] >32 mL/min Normal ID Date Data Source [id number] 01/08/2020 08:59:00 AM [facility] ([facility]) Name Value Range Interpretation Code Description Data Blanca rce(s) Supporting Document(s) Glu 102 mg/dL 70-110 [facility] ([facility]) CLASSIFICATION CHOLESTEROL FO R ADULTS CHILDREN/ADOLESCENTS* DESIRABLE: [...] mg/dL 0.5-1.0 [facility] ([facility]) CLASSIFICATION CHOLESTEROL FO R ADULTS CHILDREN/ADOLESCENTS* DESIRABLE: [...] mg/dL 8-23 [facility] ([facility]) CLASSIFICATION CHOLESTEROL FO R ADULTS CHILDREN/ADOLESCENTS* DESIRABLE: [...] Na 141 mmol/L 136-145 [facility] ([facility]) CLASSIFICATION CHOLESTEROL FO R ADULTS CHILDREN/ADOLESCENTS* [...] K 3.8 mmol/L 3.5-5.1 [facility] ([facility]) CLASSIFICATION CHOLESTEROL FO R ADULTS CHILDREN/ADOLESCENTS* [...] or Plasma 16.1 CALC [facility] ([facility]) CLASSIFICATION CHOLESTEROL FO R ADULTS CHILDREN/ADOLESCENTS* [...] mmol/L 98.0-107.0 [facility] ([facility]iolo gy [facility]) CLASSIFICATION CHOLESTEROL FO R ADULTS CHILDREN/ADOLESCENTS* DESIRABLE: [...] mg/dL 8.6-10.2 [facility] ([facility]) CLASSIFICATION CHOLESTEROL FO R ADULTS CHILDREN/ADOLESCENTS* DESIRABLE: [...] 23.8 mmol/L 22.0-29.0 [facility] ([facility]) CLASSIFICATION CHOLESTEROL FO R ADULTS CHILDREN/ADOLESCENTS* DESIRABLE: [...] g/dL 6.6-8.7 [facility] ([facility]) CLASSIFICATION CHOLESTEROL FO R ADULTS CHILDREN/ADOLESCENTS* DESIRABLE: [...] g/dL 3.4-4.8 [facility] ([facility]) CLASSIFICATION CHOLESTEROL FO R ADULTS CHILDREN/ADOLESCENTS* DESIRABLE: [...] Ratio 1.8 CALC [facility] ([facility]) CLASSIFICATION CHOLESTEROL FO R ADULTS CHILDREN/ADOLESCENTS* [...] 11 U/L 0-41 [facility] ([facility]) CLASSIFICATION CHOLESTEROL FO R ADULTS CHILDREN/ADOLESCENTS* DESIRABLE: [...] U/L 35-129 [facility] ([facility]) CLASSIFICATION CHOLESTEROL FO R ADULTS CHILDREN/ADOLESCENTS* DESIRABLE: [...] calculation 2.3 CALC [facility] ([facility]) CLASSIFICATION CHOLESTEROL FO R ADULTS CHILDREN/ADOLESCENTS* DESIRABLE: [...] Tbili 0.55 mg/dL 0.0-1.2 [facility] ([facility]) CLASSIFICATION CHOLESTEROL FO R ADULTS CHILDREN/ADOLESCENTS* [...] Normal Osmolality-Calculated 281.1 CALC [facility] ([facility]) CLASSIFICATION CHOLESTEROL FO R ADULTS CHILDREN/ADOLESCENTS* [...] Serum or Plasma 18 U/L 0-40 [facility] ([facility] [employer] [facility]) CLASSIFICATION CHOLESTEROL FO R ADULTS CHILDREN/ADOLESCENTS* DESIRABLE: [...] eGFR 67 # [facility] ( [facility]) CLASSIFICATION CHOLESTEROL FO R ADULTS CHILDREN/ADOLESCENTS* [...] or Plasma 16 mmol/L [facility] ([facility]) CLASSIFICATION CHOLESTEROL FO R ADULTS CHILDREN/ADOLESCENTS* [...] mg/dL 40-200 [facility] ([facility]) CLASSIFICATION CHOLESTEROL FO R ADULTS CHILDREN/ADOLESCENTS* DESIRABLE: [...] mg/dL 0-200 [facility] ([facility]) CLASSIFICATION CHOLESTEROL FO R ADULTS CHILDREN/ADOLESCENTS* DESIRABLE: [...] and above >32 mL/min Normal eGFR Non-Afr. [place] African 57 # [facility] ([facility]) CLASSIFICATION CHOLESTEROL FO R ADULTS CHILDREN/ADOLESCENTS* DESIRABLE: [...] Calc 75-129 [facility] ([facility]) CLASSIFICATION CHOLESTEROL FO R ADULTS CHILDREN/ADOLESCENTS* DESIRABLE: [...] mg/dL 45-6 5 [facility] ([facility]) CLASSIFICATION CHOLESTEROL FO R ADULTS CHILDREN/ADOLESCENTS* DESIRABLE: [...] 4.8 Calc [facility] ([facility]iolo gy [facility]) CLASSIFICATION CHOLESTEROL FO R ADULTS CHILDREN/ADOLESCENTS* DESIRABLE: [...] intake 11/26/2020 12:00:00 AM EST Never completed [facility] Smoking 11/26/2020 12:00:00 AM EST Never smoker completed Never s moker [facility] Smoking 08/30/2020 12:00:00 AM EDT Patient has never smoked co mpleted Patient has never smoked [facility] ([facility]) Vital Signs ID Date Data Source UNK Name Value Range Interpretation Code Description Data Source(s) Oxygen saturation in Arterial blood by Pulse oximetry 97 % 97 % [facility] ([facility] Body mass index (BMI) [Ratio] 29.3 kg/m2 29.3 k g/m2 [facility] ([facility] [place] body weight 120 [lb_av] 120 [lb_av] MEDEN T ([facility] Body weight 171.00 [lb_av] 171.00 [lb_av] MEDEN T ([facility] Body height 64 [in_i] 64 [in_i] [facility] ([facility] 5'4" Respiratory rate [...] [facility].) Heart rate 94 /min 94 /min [facility] Diastolic blood pressure 70 mm[Hg] 70 mm[Hg] [facility] Systolic blood pressure 154 mm[Hg] 154 mm[Hg] [facility] Oxygen saturation in Arterial blood by Pulse oximetry 97 % 97 % [facility] Respiratory rate 18 /min 18 /min [facility] Body temperature 36.78 [place] 36.78 [place] [facility] Body mass index (BMI) [Ratio] 28.29 kg/m2 28.29 kg/m2 [facility] Body weight 77.111 kg 77.111 kg [facility] Body height 165.1 cm 165.1 cm [facility] Respiratory rate 16 /min 16 /min MED[facility] [...] k g/m2 [facility] ([facility] [place] body weight 120 [lb_av] 120 [lb_av] MEDEN T ([facility] Body weight 175.00 [lb_av] 175.00 [lb_av] MEDEN T ([facility] Body height 64 [in_i] 64 [in_i] MED[facility] ([facility] 5'4" [place] body weight 125 [lb_av] 125 [lb_av] MEDEN T ([facility], ) Body mass index (BMI) [Ratio] 28.6 kg/m2 28.6 k g/m2 MEDENT ([facility], ) Body weight 172.00 [lb_av] 172.00 [lb_av] MEDEN T ([facility], ) Body height 65 [in_i] 65 [in_i] MED[facility] ([facility], ) 5'5" Respiratory rate 12 /min 12 /min [facility] ( [facility]) Diastolic blood pressure 76 mm[Hg] 76 mm[Hg] [facility] ([facility]) sitting, large cuff Systolic blood pressure 128 mm[Hg] 128 mm[Hg] M EDENT ([facility]) sitting, large cuff Respiratory rate 16 /min 16 /min [facility] ( [facility]) Heart rate 68 /min 68 /min [facility] ([facility] Regular Body mass index (BMI) [Ratio] 29.4 kg/m2 29.4 k g/m2 [facility] ([facility]) Body height 64.5 [in_i] 64.5 [in_i] [facility] ([facility]) 5'4.50" Body weight 174.00 [lb_av] 174.00 [lb_av] MEDEN T ([facility]) Oxygen saturation in Arterial blood by Pulse oximetry 94 % 94 % [facility] ([facility] Body mass index (BMI) [Ratio] 30.0 kg/m2 30.0 k g/m2 [facility] ([facility] [place] body weight 120 [lb_av] 120 [lb_av] MEDEN T ([facility] Body weight 175.00 [lb_av] 175.00 [lb_av] MEDEN T ([facility] Body height 64 [in_i] 64 [in_i] [facility] ([facility] 5'4" Respiratory rate [...] mm[Hg] M EDENT ([facility] [place] body weight 125 [lb_av] 125 [lb_av] MEDEN T ([facility], ) Body mass index (BMI) [Ratio] 29.6 kg/m2 29.6 k g/m2 MED[facility] ([facility], ) Body weight 178.00 [lb_av] 178.00 [lb_av] MEDEN T ([facility], ) Body height 65 [in_i] 65 [in_i] MED[facility] ([facility], ) 5'5" Respiratory rate 12 /min 12 /min MED[facility] ( [facility], ) Oxygen saturation in Arterial blood by Pulse oximetry 97 % 97 % [facility] ([facility] Body mass index (BMI) [Ratio] 30.2 kg/m2 30.2 k g/m2 [facility] ([facility] [place] body weight 120 [lb_av] 120 [lb_av] MEDEN T ([facility] Body weight 176.00 [lb_av] 176.00 [lb_av] MEDEN T ([facility] Body height 64 [in_i] 64 [in_i] [facility] ([facility] 5'4" Respiratory rate 16 /min 16 /min [facility] ( [facility] Heart rate 76 /min 76 /min [facility] ([facility] Body temperature 98.3 [degF] 98.3 [degF] [facility] ([facility] Diastolic blood pressure 68 mm[Hg] 68 mm[Hg] [facility] ([facility] Systolic blood pressure 124 mm[Hg] 124 mm[Hg] M EDENT ([facility] Body temperature 98.6 [degF] 98.6 [degF] MED[facility] ([facility]) Oxygen saturation in Arterial blood by Pulse oximetry 98 % 98 % [facility] ([facility], [facility]) 98 ra Heart rate 99 /min 99 /min [facility] ([facility], [facility]) 80 Diastolic blood pressure 90 mm[Hg] 90 mm[Hg] [facility] ([facility], [facility]) 220\\92 Systolic blood pressure 200 mm[Hg] 200 mm[Hg] M EDENT ([facility], [facility]) 220\\92 Body mass index (BMI) [Ratio] 29.6 kg/m2 29.6 k g/m2 MED[facility] ([facility], ) Body weight 178.00 [lb_av] 178.00 [lb_av] MEDEN T ([facility], ) Body height 65 [in_i] 65 [in_i] MED[facility] ([facility], ) 5'5" Respiratory rate 12 /min 12 /min MED[facility] ( [facility], ) Oxygen saturation in Arterial blood by Pulse oximetry 96 % 96 % [facility] ([facility] Body mass index (BMI) [Ratio] 30.0 kg/m2 30.0 k g/m2 [facility] ([facility] [place] body weight 120 [lb_av] 120 [lb_av] MEDEN T ([facility] Body weight 175.00 [lb_av] 175.00 [lb_av] MEDEN T ([facility] Body height 64 [in_i] 64 [in_i] MEDENT ([facility] 5'4" Respiratory rate 16 /min 16 /min [facility] ( [facility] Heart rate 84 /min 84 /min [facility] ([facility] Body temperature 97.5 [degF] 97.5 [degF] [facility] ([facility] Diastolic blood pressure 74 mm[Hg] 74 mm[Hg] [facility] ([facility] Systolic blood pressure 142 mm[Hg] 142 mm[Hg] M EDENT ([facility] Diastolic blood pressure--sitting 78 mm[Hg] 78 mm[Hg] [facility] ([facility]) large cuff, Ra Systolic blood pressure--sitting 138 mm[Hg] 138 mm[Hg] [facility] ([facility]) large cuff, Ra Heart rate 74 /min 74 /min [facility] ([facility]) Body mass index (BMI) [Ratio] 29.6 kg/m2 29.6 k g/m2 [facility] ([facility]) Body height 64.5 [in_i] 64.5 [in_i] [facility] ([facility]) 5'4.50" Body weight 175.00 [lb_av] 175.00 [lb_av] MEDEN T ([facility]) Oxygen saturation in Arterial blood by Pulse oximetry 97 % 97 % [facility] ([facility] Body mass index (BMI) [Ratio] 30.2 kg/m2 30.2 k g/m2 [facility] ([facility] Body weight 176.00 [lb_av] 176.00 [lb_av] MEDEN T ([facility] Body height 64 [in_i] 64 [in_i] [facility] ([facility] 5'4" Respiratory rate [...]
--- NOTE | 2021-01-14 09:14 | HPEPDOC ---
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 The patient states she woke at approximately 3 AM with acute onset of increased shortness of breath and cough. She denies chest pain, lightheadedness, dizziness, loss of consciousness, diaphoresis, nausea, vomiting, diarrhea. The patient states she has been increasingly short of breath, especially over the past several months. She was diagnosed with pleural effusion in November 2020 and taken to [place] to have pleural effusion drained. She stayed there for several days and the pleural catheter was removed and she was discharged home. 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 She also had a recent ultrasound guided right thoracentesis yielding 915 mL of low viscosity red colored fluid on 12/30/2020. She had met with Dr. Avila, cardiac thoracic surgery and plan was placing a Pleurx catheter as outpatient. This was supposed to take place 01/19/2002/04/2021: however, events of last night occurred and the patient was brought to the ER this morning not being able to wait further. In the emergency room, vital signs were: 96.6 temperature, pulse 89, respiratory rate 20, blood pressure [id number], saturated 94% on room air. CT chest without contrast: Moderate size, layering bilateral pleural effusions, similar in size to the recent prior PET scan. Volume loss and consolidation is seen in the bilateral lung bases likely due to compressive atelectasis. Scattered on RA nodules measuring up to 5 mm were unchanged when compared to the November 2020 scan. Labs were unremarkable. Dr. Avila with cardiothoracic surgery was called and suggested admission. The patient will be admitted for increased shortness of breath 2/2 to bilateral pleural effusions, recurrent right-sided pleural effusions requiring Pleurx catheter placement. REVIEW OF SYSTEMS: CONSTITUTIONAL: Denies unexplained weight gain or weight loss, loss of appetite, fever, night sweats EYES: Denies eye drainage, eye pain, visual changes, dry/irritated eye EARS, NOSE, MOUTH, THROAT: Denies difficulty hearing, ringing in ears, mouth sores, loose teeth, sore throat, facial numbness or pain NECK: Denies swollen glands CARDIOVASCULAR: Denies irregular heartbeat, racing heart, chest pains, swelling of feet or legs, pain in legs with walking RESPIRATORY: Denies night sweats, wheezing, sputum production, oxygen at home, coughing up blood GASTROINTESTINAL: Denies abdominal pain, constipation, bloody stool, diarrhea, heartburn, nausea, vomiting GENITOURINARY: Denies painful urination, bloody urine, frequent urination, urgency, leaking urine, impotence MUSCULOSKELETAL: Denies joint pain, muscle pain, leg swelling INTEGUMENTARY: Denies rash, itching, new skin lesion, change in existing skin lesion, hair loss or increase, breast changes. NEUROLOGICAL: Denies headaches, dizziness, difficulty walking, numbness or tingling PSYCHIATRIC: Denies depression, anxiety, recurrent bad thoughts, mood swings, hallucinations PAST MEDICAL HISTORY: Recurrent right side pleural effusion s/p multiple thoracenteses 2/ to metastatic breast cancer, metastatic ductal CA of R breast (ER positive, ME positive and HER-2 negative s/p radiation therapy, 4-5 years ago), HTN, Diast olic CHF, R lacunar CVA w/ residual LUE weakness (11/2020), DLP, OA PAST SURGICAL HISTORY: Hysterectomy Right breast lumpectomy Left knee laproscopy Bladder suspension surgery Multiple thoracentesis for recurrent right pleural effusion FAMILY HISTORY - Father with a history of kidney cancer SOCIAL HISTORY: - Denies the use of alcohol, tobacco or illicit drugs - Denies recent travel or sick contacts - Occupation; stopped working in 1980, but used to [employer] - Oncologist- Dr. Pasquale Correia - PCP- Dr. Oliver ALLERGIES: Please see below. HOME MEDICATIONS: Please see below. PHYSICAL EXAMINATION: VS: Please see below CONSTITUTIONAL: No acute distress, resting comfortably, AAO x 3 EYES: PERRLA, EOM intact HENT, MOUTH: Normocephalic, atraumatic, moist mucous membranes, NECK: SUPPLE, no JVD, no lymphadenopathy, no carotid bruit CV: Regular rate and rhythm, S1S2 normal, 3/6 aortic murmur appreciated. No rubs/gallops RESPIRATORY: Crackles in b/l lower posterior lungs,no rales/rhonchi/wheezes GI: BS positive in 4 quadrants, soft, nontender, nondistended, no rebound or guarding, no organomegaly : Deferred MUSCULOSKELETAL: Normal ROM. No cyanosis, clubbing, swelling, joint deformity, extremity edema INTEGUMENTARY: Intact, no rashes, no lesions, no erythema NEUROLOGIC: Left upper and lower ext weakness 4/5- chronic and unchanged . All other ext 5/5 strength. Cranial Nerves II-XII are intact, no focal deficits PSYCHIATRIC: Mood and affect are normal LABORATORY DATA: Please see below IMAGING: CT chest: 1. Moderate-sized, layering bilateral pleural effusions, similar in size to the recent prior PET-CT scan. 2. Volume loss and consolidation in the bilateral lung bases, likely due to compressive atelectasis. Underlying pathology could be obscured. 3. Scattered pulmonary nodules measuring up to 5 mm, unchanged compared to November,. A history of breast cancer was given on a prior report. Fleischner Society follow up recommendations for incidental nodules are not indicated. Follow up per the patient's medical condition. CXR: The current frontal CXR is of suboptimal quality. In general, no significant interval change is evident over the past 2 days. Bilateral pleural effusions remain. 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 PLAN: Recurrent right side pleural effusion/bilateral pleural effusions 2/2 metastatic breast cancer -S/p right pleural effusion drainage 11/2020 and again on 12/30/20 -CT chest above -Currently saturating well on RA -PleurX catheter to be placed today by CT surgery who is consulted. F/u fluid cx, studies to be sent. -Neb ATC and PRN HTN, uncontrolled -BP 180-200's in ER -Resume home meds, anxiety meds to calm patient down if needed -Can add hydralazine PRN Metastatic ductal CA of R breast (ER positive, ME positive and HER-2 negative s/p radiation therapy, 4-5 years ago) -F/u with Dr. Pasquale Correia as o/p Aortic stenosis -Murmur appreciated -No increased fluid retention -Last echo 05/2020: Grade 1 left vent. diastolic dysfunction, AV scloerosis , mild aortic stenosis -F/u o/p HFpEF, chronic and currently not in exacerbation -Echo 05/2020 -C/w home meds, f/u o/p with PCP Hx of R lacunar CVA with residual LUE weaknes -No worsened symptoms-at baseline -C/w home meds HLD -C/w statin DVT px -Heparin DISPOSITION: Admitted as acute inpatient, Dr. Avila (CT surgery) consulted. Plan is discharge home when medically improved. Vital Signs Vital Signs Date Time Temp Pulse Resp B/P (MAP) Pulse Ox O2 Delivery O2 Flow Rate FiO2 01/14/21 08:30 81 18 159/75 (103) 95 Room Air 01/14/21 04:44 96.6 Laboratory Data Labs 24H Laboratory Tests 2 01/14/21 05:24: Anion Gap 7L, Glomerular Filtration Rate > 60.0, Calcium Level 8.6L 01/14/21 07:08: Immature Granulocyte % (Auto) 0.3, Neutrophils (%) (Auto) 78.1H, Lymphocytes (%) (Auto) 11.1L, Monocytes (%) (Auto) 9.4H, Eosinophils (%) (Auto) 1.0, Basophils (%) (Auto) 0.1, Neutrophils # (Auto) 5.4, Lymphocytes # (Auto) 0.8L, Monocytes # (Auto) 0.7, Eosinophils # (Auto) 0.1, Basophils # (Auto) 0.0, Nucleated Red Blood Cells % (auto) 0.0 CBC/BMP Laboratory Tests 01/14/21 05:24 01/14/21 07:08 Microbiology Microbiology 01/14/21 Respiratory Virus Panel (PCR) (JIHAN) - Final, Complete Home Medications Scheduled Aspirin (Ecotrin) 81 Mg Tablet.dr, 81 MG PO DAILY Calcium Carbonate/Vitamin D3 (Calcium 600 + Vit D 400 Softgl) 1 Each Capsule, 1 CAP PO QHS Cholecalciferol (Vitamin D3) (Vitamin D3) 1,000 Unit Tablet, 1,000 UNITS PO DAILY Krill Oil (Krill Oil) 500 Mg Capsule, 500 MG PO DAILY Letrozole (Letrozole) 2.5 Mg Tablet, 1 TAB PO DAILY Lisinopril/Hydrochlorothiazide (Lisinopril-Hctz 20-25 mg Tab) 1 Each Tablet, 1 TAB PO DAILY Rosuvastatin Calcium (Rosuvastatin Calcium) 5 Mg Tablet, 5 MG PO DAILY Scheduled PRN Nitroglycerin (Nitroglycerin) 0.4 Mg Tab.subl, 0.4 MG SL NITRO PRN for CHEST PAIN Omeprazole (Omeprazole) 20 Mg Capsule.dr, 20 MG PO DAILY PRN for HEARTBURN/INDIGESTION Allergies Coded Allergies: Antihistamines - Alkylamine (Unverified Allergy, Unknown, UNKNOWN REACTION, 02/25/19) hydrocodone (Verified Allergy, Unknown, 02/26/19) oxycodone (Unverified Allergy, Unknown, UNKNOWN REACTION, 02/25/19) Wbthvei-Bib-Mnm Reductase Inhibitor (Verified Adverse Reaction, Intermediate, HEART RACES, 02/26/19) A-FIB/CHADSVASC A-FIB History Current/History of A-Fib/PAF?: No Current PO Anticoag Therapy: No Age/Risk Factor Scoring CHADSVASC: CHADSVASC Response (Comments) Value Age Risk Factor Age >/= 75 years old 2 Gender Risk Factor Female 1 Hx of CHF No 0 Hx of HTN Yes 1 Hx of Stroke/TIA/or VTE Yes 2 Hx of Diabetes No 0 Hx of Vascular Disease No 0 Total 6 Treatment Treatment ordered: Other Other anticoagulant ordered: heparin Danielle Hernandez MD Jan 14, 2021 09:14
[2021-01-14 09:25] LABS: ABG BASE EXCESS 3.3 (-2.0-2.0); ABG HCO3 26.7 MEQ/L (22.0-26.0); ABG O2 SATURATION 95.2 % (95.0-99.0); ABG PARTIAL PRESSURE CO2 36.9 mmHg (35.0-45.0); ABG PARTIAL PRESSURE O2 70.8 mmHg (75.0-100.0); ABG STANDARD HCO3 27.3 MEQ/L (22.0-26.0); ABG TOTAL CO2 27.9 MEQ/L (23.0-31.0); ABG pH (ARTERIAL) 7.478 UNITS (7.350-7.450)
[2021-01-14] MEDS ORDERED: POTASSIUM CHLORIDE 10 MEQ SR TABLET PO ONE (10:00)
[2021-01-14 10:05] LABS: BASO % 0.3 % (0.0-1.0); EOS # 0.1 10^3/uL (0.0-0.5); EOS % 0.9 % (0.0-3.0); HEMATOCRIT 37.2 % (36.0-47.0); LYMPH # 0.9 10^3/uL (1.5-5.0); LYMPH % 13.6 % (24.0-44.0); MEAN CORPUSCULAR HEMOGLOBIN 28.6 pg (27.0-33.0); MEAN CORPUSCULAR HGB CONC 32.3 g/dl (32.0-36.5); MEAN CORPUSCULAR VOLUME 88.8 fl (80.0-96.0); MONO # 0.5 10^3/uL (0.0-0.8); MONO % 7.6 % (2.0-8.0); NEUTROPHILS # 5.1 10^3/uL (1.5-8.5); NEUTROPHILS % 77.3 % (36.0-66.0); PLATELET COUNT, AUTOMATED 305 10^3/uL (150-450); RED BLOOD COUNT 4.19 10^6/uL (4.00-5.40); WHITE BLOOD COUNT 6.6 10^3/uL (4.0-10.0)
[2021-01-14] MEDS: LIDOCAINE 1% MDV 20ML VIAL SC ONE (10:19)
[2021-01-14] MEDS: DOCUSATE SODIUM 100MG CAPSULE PO SCH ×2 (11:00→21:45)
[2021-01-14] MEDS: PANTOPRAZOLE 40MG TAB (PROTONIX) PO SCH ×2 (11:00→14:27)
[2021-01-14] MEDS: KETOROLAC 30 MG/ML 1ML VIAL IV SCH ×2 (12:00→18:01)
[2021-01-14 13:08] LABS: BLOOD UREA NITROGEN 16 MG/DL (7-18); CALCIUM LEVEL 9.6 MG/DL (8.8-10.2); CARBON DIOXIDE LEVEL 29 MEQ/L (21-32); CHLORIDE LEVEL 104 MEQ/L (98-107); CREATININE FOR GFR 0.71 MG/DL (0.55-1.30); GLOMERULAR FILTRATION RATE > 60.0 (>32); GLUCOSE, FASTING 97 MG/DL (70-100); LDH LACTATE DEHYDROGENASE 167 U/L (84-246); POTASSIUM SERUM 3.5 MEQ/L (3.5-5.1); SODIUM LEVEL 140 MEQ/L (136-145)
[2021-01-14] MEDS: LEVALBUTEROL 1.25 MG/0.5 ML CONCENTRATE NEB NEB SCH ×2 (14:00→19:53)
[2021-01-14] MEDS ORDERED: NITROGLYCERIN 0.4 MG SUBL TABLET SL PRN (14:05)
[2021-01-14] MEDS ORDERED: OMEPRAZOLE 20 MG CAP PO PRN (14:05)
[2021-01-14] MEDS: VITAMIN D 1,000 INTERNATIONAL UNITS TABLET PO SCH (14:27)
[2021-01-14] MEDS: MOM 30ML SUSPENSION UDC PO SCH (14:29)
[2021-01-14 14:58] LABS: PH BODY FLUID 7.529 UNITS (NOT ESTABLISHED); SOURCE, BODY FLUID pH PLEURAL
[2021-01-14 14:59] LABS: APPEARANCE, BODY FLUID CLOUDY (CLEAR); PLEURAL FL COLOR AMBER (COLORLESS); SOURCE, BODY FLUID PLEURAL
[2021-01-14] MEDS: hydrALAZINE 20MG/ML 1ML VIAL (J0360 PER 20MG) IV SCH ×2 (15:00→23:00)
[2021-01-14 15:18] LABS: AMYLASE, BODY FLUID 37 U/L (NOT ESTABLISHED); CHOLESTEROL, BODY FLUID 68 MG/DL (NOT ESTABLISHED); LDH, BODY FLUID 134 U/L (NOT ESTABLISHED); SOURCE, BODY FLUID AMYLASE PLEURAL; SOURCE, BODY FLUID CHOL PLEURAL; SOURCE, BODY FLUID GLUCOSE PLEURAL; SOURCE, BODY FLUID LDH PLEURAL; SOURCE, BODY FLUID TRIG PLEURAL; TRIGLYCERIDE, BODY FLUID 24 MG/DL (NOT ESTABLISHED)
[2021-01-14 15:19] LABS: SOURCE, BODY FLUID ALBUMIN PLEURAL; SOURCE, BODY FLUID TOT PROTEIN PLEURAL; TOTAL PROTEIN, BODY FLUID 4.1 G/DL (NOT ESTABLISHED)
--- NOTE | 2021-01-14 17:29 | REP ---
INDICATION: pleural effusion, after pleurex placed later this AM. COMPARISON: 01/14/2021 at 5:46 a.m. and 01/12/2021. TECHNIQUE: SINGLE PORTABLE AP VIEW OF THE CHEST WAS PERFORMED. FINDINGS: There has been placement of a right PleurX catheter. The tip is in the superomedial right hemithorax. The right pleural effusion appears to have essentially resolved. There is a persistent mild left effusion. Mild streaky left basilar opacities are unchanged. The right lung is clear. The heart and mediastinum are unchanged. IMPRESSION: Placement of right PleurX catheter with resolution of right pleural effusion. No pneumothorax. <Electronically signed by Yassine Fernandez > 01/14/21 [id number]
[2021-01-14] MEDS ORDERED: HEPARIN SOD (PORCINE) 5000UNITS/ML 1ML VIAL/SYRINGE SC SCH (18:00)
--- NOTE | 2021-01-14 18:41 | CR ---
CONSULTATION DATE: 01/14/2021 Patient seen at the request of Dr. García of the emergency room and the hospitalist service for pleural effusion and shortness of breath. HISTORY OF PRESENT ILLNESS: Patient is an 89-year-old white female who in 2018 underwent a lumpectomy of her right breast, where she was found to have an infiltrating ductal carcinoma, grade 2, ER and MO positive, and HER2 negative. She underwent a sentinel node dissection, which was negative for malignancy. A couple weeks ago she was in [place] and noted pain in her right back beneath her scapula and sought medical attention there. She was noted to have bilateral pleural effusions, and a CT scan also revealed a 1.1 spiculated node in the mid lung field. She underwent a thoracentesis with a positive cytology, which again was ER positive, MO positive, and HER2 negative, consistent with breast carcinoma. Between being seen in [facility] in [place] in November and a few days ago she underwent another thoracentesis of December 30 with 950 mL of fluid being removed from the right chest. She again returns complaining of increasing shortness of breath just walking around her home. She is sleeping with her head elevated. She denies paroxysmal nocturnal dyspnea at this point in time. She has not noted swelling of her legs. There has been no fever, chills, or sweats. She does complain of now bilateral subcostal pain, which increases with taking a deep breath. MEDICAL HISTORY: A cerebrovascular accident (CVA) in the remote past, which left her with decreased sensation on her left upper extremity. She reports having had a myocardial infarction in the past. She also has mild aortic valve stenosis. PAST SURGICAL HISTORY: 1. Hysterectomy in 1984. 2. Bladder sling in 2004. 3. Bilateral cataract surgeries in the past. HOME MEDICATIONS: - aspirin 81 mg daily - vitamin D3 at 1000 units daily - calcium carbonate and vitamin D3 at 600/400 every night - letrozole 2.5 mg daily - lisinopril/hydrochlorothiazide 20/25 one daily - nitroglycerin 0.4 mg as needed for chest pain sublingually - omeprazole 20 mg daily as needed for heartburn - rosuvastatin 5 mg daily TRAVEL HISTORY: She has been to [place] but not to the [facility]. EXPOSURES: She lives with her granddaughter, who has two dogs, a Border Collie and a Sheltie. HABITS: Does not smoke. Does not imbibe alcohol. There are no illicit drugs. REVIEW OF SYSTEMS: CONSTITUTIONAL: Without fever, chills, sweats, or weight loss. EYES: Without diplopia, without amaurosis fugax, without prior jaundice. NOSE: Without epistaxis. MOUTH: Has dentures. CARDIOVASCULAR: See history of present illness (HPI). RESPIRATORY: See HPI. GASTROINTESTINAL: Without nausea, vomiting. Has had a bout of diarrhea in the past week. No constipation. No hematochezia, hematemesis, or melena. No abdominal pain. NEUROLOGIC: Without seizures or paralysis. Does have the paresthesia and numbness in her left upper extremity, status post a CVA. PSYCHIATRIC: Without pathological anxieties, depression, or psychoses. ENDOCRINE: Without diabetes or thyroid disease. PHYSICAL EXAMINATION: Well-developed, well-nourished white female in moderate distress with shortness of breath, sitting in inclined positions. Vital signs: Temperature is 98.2, pulse is 75 in a sinus rhythm, respiratory rate of 18 without the use of accessory muscles. She is 98% saturated on 2 liters nasal cannula. Blood pressure is 167/73. Head: Normocephalic. Eyes: Pupils equal and reactive to light. Extraocular muscles intact. Sclerae anicteric. Nose without deformity. Mouth has dentures in place. Mucous membranes are pink and moist. Lips and commissures without lesions. There is no thrush. Neck is supple. There is no jugular venous distention. No subcutaneous emphysema. Trachea is midline. She has a transmitted murmur to both carotids. Carotid upstrokes are 2+. There is thyromegaly or lymphadenopathy. Lungs show decreased breath sounds with E-to-A egophony on both sides with a dull percussion note on both sides about a quarter way up the chest on either side. Cardiac exam shows a 3/4 systolic murmur, heart best at the right upper sternal border but also at the left lower sternal border and apex. It is blowing in nature. It is high pitched. I cannot feel her point of maximal impulse (PMI). S1 and S2 are normal. Abdomen is soft and nontender. Bowel sounds are positive. There is no hepatomegaly. No costovertebral angle (CVA) tenderness. Extremities show trace pretibial edema. No calf tenderness, no differential swelling of the upper extremities. Skin is warm, dry, and perfused without cyanosis or mottling, including that of the nailbeds and knees. Neurologic shows II-XII intact. Normal gross motor, gross sensation intact. Gait is not tested. Psychiatric shows her to be awake, alert, and oriented times three with appropriate mood and affect and conversational. DIAGNOSTIC STUDIES: Her white count today is 6.6 with hemoglobin and hematocrit of 12.0 and 37.2, and a platelet count of 305. Differential shows 72% neutrophils, 13% lymphocytes, 7% monocytes. There are no immature forms or toxic granulations. Chemistries today initially showed a sodium of 140 with a potassium 3.3. It has since risen to 3.5 with replacement. BUN and creatinine are 17 and 0.68, respectively, with a glucose of 113 and a calcium of 8.6. Blood gases this morning showed a pH of 7.47, pCO2 of 36, a pO2 of 70 with a base excess of 3.3. Chest x-ray shows bilateral opacities in the lower hemithoraces, consistent with fluid. CT scan shows bilateral pleural effusions with the right and left about equal now. She has multiple small nodules in both lungs. Adrenals have a normal configuration, and there are no liver lesions. A PET scan done last week showed numerous hypermetabolic lesions in the mediastinum just below the matti and in both right and left lionel. None of the pulmonary nodules are hypermetabolic. She also has hypermetabolic lesions at T10, T5, as well as L5. IMPRESSION: 1. Bilateral malignant pleural effusions. 2. History of breast cancer, status post lumpectomy in 2014, ER/MO positive and HER2 negative. 3. Aortic stenosis, mild. 4. Hypertension. 5. History of cerebrovascular accident (CVA) with residual paresthesia in the left upper extremity. 6. Coronary atherosclerosis. PLAN AND DISCUSSION: I will place a PleurX catheter on her right side. I have a sinking feeling, however, that she will need bilateral PleruX catheters. After draining her today, we will see how she is breathing tomorrow. If she is still short of breath, I will place a left PleurX catheter. I would not aggressively treat her hypertension, because she has aortic stenosis, albeit mild.
--- NOTE | 2021-01-14 18:47 | RO ---
OPERATIVE NOTE DATE OF OPERATION: 01/14/2021 PREOPERATIVE DIAGNOSIS: Right pleural effusion, shortness of breath, metastatic pleural effusion. POSTOPERATIVE DIAGNOSIS: Right pleural effusion, shortness of breath, metastatic pleural effusion. PROCEDURE: Insertion of right PleurX catheter. SURGEON: Dr. Jose Elias Avila. DESCRIPTION OF PROCEDURE: Under satisfactory moderate sedation achieved with 2 mg of Versed, patient was prepped and draped in the usual sterile fashion. Entry and exit sites were marked. An exploring needle was placed into the entry site posteriorly and laterally, and fluid was obtained. A guidewire was placed, and two incisions were made at the proposed exit site and entrance sites. A tunnel was created with a tunneled dilator and a PleurX catheter pulled through. Healing collar was positioned appropriately, and the entry tract was then dilated with a peel-away introducer. The PleurX catheter was then placed with the peel-away introducer and again positioned appropriately. The entry wound was closed with running 4-0 Monopril subcuticular suture, and the suture was secured to the abdominal wall by use of 2-0 silk suture. Patient was drained of 1000 mL of serosanguineous fluid. It was sent for the requisite studies of cytologies, hematologies, chemistries and bacteriologies. Patient tolerated the procedure well. A chest x-ray is pending.
[2021-01-14] MEDS: HEPARIN SOD (PORCINE) 5000UNITS/ML 1ML VIAL/SYRINGE SC SCH (21:47)
[2021-01-15] VITALS: BP 142/63
[2021-01-15] MEDS: KETOROLAC 30 MG/ML 1ML VIAL IV SCH ×2 (00:18→06:45)
[2021-01-15] MEDS: LEVALBUTEROL 1.25 MG/0.5 ML CONCENTRATE NEB NEB SCH ×2 (01:34→07:55)
[2021-01-15 04:00] VITALS: BP 143/63
[2021-01-15 05:16] LABS: BASO % 0.3 % (0.0-1.0); EOS # 0.3 10^3/uL (0.0-0.5); EOS % 3.9 % (0.0-3.0); HEMATOCRIT 32.7 % (36.0-47.0); HEMOGLOBIN 10.6 g/dl (12.0-15.5); LYMPH # 0.7 10^3/uL (1.5-5.0); LYMPH % 11.2 % (24.0-44.0); MEAN CORPUSCULAR HEMOGLOBIN 29.2 pg (27.0-33.0); MEAN CORPUSCULAR HGB CONC 32.4 g/dl (32.0-36.5); MEAN CORPUSCULAR VOLUME 90.1 fl (80.0-96.0); MONO # 0.6 10^3/uL (0.0-0.8); MONO % 9.6 % (2.0-8.0); NEUTROPHILS # 4.8 10^3/uL (1.5-8.5); NEUTROPHILS % 74.8 % (36.0-66.0); PLATELET COUNT, AUTOMATED 256 10^3/uL (150-450); RED BLOOD COUNT 3.63 10^6/uL (4.00-5.40); WHITE BLOOD COUNT 6.4 10^3/uL (4.0-10.0)
[2021-01-15 05:37] LABS: CALCIUM LEVEL 8.8 MG/DL (8.8-10.2); CREATININE FOR GFR 1.08 MG/DL (0.55-1.30); POTASSIUM SERUM 3.8 MEQ/L (3.5-5.1)
[2021-01-15 06:11] LABS: ABG BASE EXCESS 0.4 (-2.0-2.0); ABG HCO3 24.3 MEQ/L (22.0-26.0); ABG PARTIAL PRESSURE CO2 36.6 mmHg (35.0-45.0); ABG PARTIAL PRESSURE O2 76.5 mmHg (75.0-100.0); ABG STANDARD HCO3 24.8 MEQ/L (22.0-26.0); ABG TOTAL CO2 25.4 MEQ/L (23.0-31.0)
[2021-01-15] MEDS: hydrALAZINE 20MG/ML 1ML VIAL (J0360 PER 20MG) IV SCH (07:00)
[2021-01-15 07:57] VITALS: BP 149/68
[2021-01-15] MEDS: VITAMIN D 1,000 INTERNATIONAL UNITS TABLET PO SCH (08:08)
[2021-01-15 08:09] VITALS: BP 149/68
[2021-01-15] MEDS: DOCUSATE SODIUM 100MG CAPSULE PO SCH (08:09)
[2021-01-15] MEDS: MOM 30ML SUSPENSION UDC PO SCH (08:10)
[2021-01-15] MEDS: HEPARIN SOD (PORCINE) 5000UNITS/ML 1ML VIAL/SYRINGE SC SCH (08:11)
[2021-01-15] MEDS ORDERED: ROSUVASTATIN 10 MG TAB (CRESTOR) PO SCH (09:00)
[2021-01-15] MEDS ORDERED: SLF 3 ML SYR IV PRN (09:20)
--- NOTE | 2021-01-15 09:32 | REP ---
INDICATION: pleural effusion COMPARISON: 01/14/2021.. TECHNIQUE: PA/Lateral FINDINGS: Right PleurX catheter appears unchanged in position. Small right effusion has increased. Left pleural effusion is unchanged. There are mild bi basilar parenchymal opacities in each lung base. Heart and mediastinum are unchanged. There are degenerative changes of the spine. IMPRESSION: Small right effusion has mildly increased since the prior study, with mild adjacent right base parenchymal opacity. Left effusion and basilar parenchymal opacity not significantly changed. <Electronically signed by Yassine Fernandez > 01/15/21 0941
[2021-01-15] MEDS ORDERED: ACET1TAB55 PO (10:48)
--- NOTE | 2021-01-15 11:02 | DS.PDOC ---
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 The patient states she woke at approximately 3 AM with acute onset of increased shortness of breath and cough. She denies chest pain, lightheadedness, dizziness, loss of consciousness, diaphoresis, nausea, vomiting, diarrhea. The patient states she has been increasingly short of breath, especially over the past several months. She was diagnosed with pleural effusion in November 2020 and taken to [facility] to have pleural effusion drained. She stayed there for several days and the pleural catheter was removed and she was discharged home. 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 She also had a recent ultrasound guided right thoracentesis yielding 915 mL of low viscosity red colored fluid on 12/30/2020. She had met with Dr. Avila, cardiac thoracic surgery and plan was placing a Pleurx catheter as outpatient. This was supposed to take place 01/19/2002/04/2021: however, events of last night occurred and the patient was brought to the ER this morning not being able to wait further. In the emergency room, vital signs were: 96.6 temperature, pulse 89, respiratory rate 20, blood pressure [id number], saturated 94% on room air. CT chest without contrast: Moderate size, layering bilateral pleural effusions, similar in size to the recent prior PET scan. Volume loss and consolidation is seen in the bilateral lung bases likely due to compressive atelectasis. Scattered on RA nodules measuring up to 5 mm were unchanged when compared to the November 2020 scan. Labs were unremarkable. Dr. Avila with cardiothoracic surgery was called and suggested admission. The patient will be admitted for increased shortness of breath 2/2 to bilateral pleural effusions, recurrent right-sided pleural effusions requiring Pleurx catheter placement. HOSPITAL COURSE: Patient had right pleural effusion drainage (1 L ) and PleurX catheter placement 01/14/21. Initial fluid studies showed this reaccumulation is likely 2/2 to metastatic breast cancer. Official fluid cx pending. BP improved. Patient remained on 2 LNC but was later weaned off to RA early AM on 01/15/21. Repeat CXR reviewed by CT surgery with decision made to discharge home with PleurX catheter, family educated on how to care for this o/p. She will be following up with Dr. Avila as o/p this coming week. She will need new CXR prior to that appointment. All other chronic issues remained stable at discharge. PAST MEDICAL HISTORY: Recurrent right side pleural effusion s/p multiple thoracenteses 12/20 to me tastatic breast cancer, metastatic ductal CA of R breast (ER positive, CA positive and HER-2 negative s/p radiation therapy, 4-5 years ago), HTN, Diastolic CHF, R lacunar CVA w/ residual LUE weakness (11/2020), DLP, OA PAST SURGICAL HISTORY: Hysterectomy Right breast lumpectomy Left knee laproscopy Bladder suspension surgery Multiple thoracentesis for recurrent right pleural effusion FAMILY HISTORY - Father with a history of kidney cancer SOCIAL HISTORY: - Denies the use of alcohol, tobacco or illicit drugs - Denies recent travel or sick contacts - Occupation; stopped working in 1980, but used to [employer] - Oncologist- Dr. Pasquale Correia - PCP- Dr. Oliver ALLERGIES: Please see below. HOME MEDICATIONS: Please see below. PHYSICAL EXAMINATION: VS: Please see below CONSTITUTIONAL: No acute distress, resting comfortably, AAO x 3 EYES: PERRLA, EOM intact HENT, MOUTH: Normocephalic, atraumatic, moist mucous membranes, NECK: SUPPLE, no JVD, no lymphadenopathy, no carotid bruit CV: Regular rate and rhythm, S1S2 normal, 3/6 aortic murmur appreciated. No rubs/gallops CHEST: Right side PLeurx catheter in place RESPIRATORY: Improved crackles in b/l lower posterior lungs,no rales/rhonchi/w heezes GI: BS positive in 4 quadrants, soft, nontender, nondistended, no rebound or guarding, no organomegaly : Deferred MUSCULOSKELETAL: Normal ROM. No cyanosis, clubbing, swelling, joint deformity, extremity edema INTEGUMENTARY: Intact, no rashes, no lesions, no erythema NEUROLOGIC: Left upper and lower ext weakness 4/5- chronic and unchanged . All other ext 5/5 strength. Cranial Nerves II-XII are intact, no focal deficits PSYCHIATRIC: Mood and affect are normal LABORATORY DATA: Please see below IMAGING: CT chest: 1. Moderate-sized, layering bilateral pleural effusions, similar in size to the recent prior PET-CT scan. 2. Volume loss and consolidation in the bilateral lung bases, likely due to compressive atelectasis. Underlying pathology could be obscured. 3. Scattered pulmonary nodules measuring up to 5 mm, unchanged compared to November,. A history of breast cancer was given on a prior report. Fleischner Society follow up recommendations for incidental nodules are not indicated. Follow up per the patient's medical condition. CXR: The current frontal CXR is of suboptimal quality. In general, no significant interval change is evident over the past 2 days. Bilateral pleural effusions remain. 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 PLAN: Recurrent right side pleural effusion/bilateral pleural effusions 2/2 metastatic breast cancer -S/p right pleural effusion drainage, 1 L 01/15/21 -Also had right pleural effusion drainage 11/2020 and again on 12/30/20 -CT chest above -Currently saturating well on RA -PleurX catheter placed, fluid studies show likely malignant in origin. Official fluid cx pending -Follow up with Dr. Avila as o/p this coming week, will need new CXR prior to that appointment. HTN, uncontrolled -BP better controlled -Resume home meds Metastatic ductal CA of R breast (ER positive, CA positive and HER-2 negative s/p radiation therapy, 4-5 years ago) -F/u with Dr. Pasquale Correia as o/p Aortic stenosis -Murmur appreciated -No increased fluid retention -Last echo 05/2020: Grade 1 left vent. diastolic dysfunction, AV scloerosis , mild aortic stenosis -F/u o/p HFpEF, chronic and currently not in exacerbation -Echo 05/2020 -C/w home meds, f/u o/p with PCP Hx of R lacunar CVA with residual LUE weaknes -No worsened symptoms-at baseline -C/w home meds HLD -C/w statin DISPOSITION: Discharge today, f/u Dr. Avila (CT surgery) as o/p. TIME SPENT ON DISCHARGE: 35 minutes. Vital Signs/I&Os Vital Signs Date Time Temp Pulse Resp B/P (MAP) Pulse Ox O2 Delivery O2 Flow Rate FiO2 01/15/21 08:09 149/68 01/15/21 07:57 98.7 83 16 96 Nasal Cannula 2.0 I&O- Last 24 Hours up to 6 AM 01/15/21 06:00 Intake Total 1741 ml Output Total 2280 ml Balance -539 ml Laboratory Data Labs 24H Laboratory Tests 2 01/14/21 12:00: Body Fluid pH 7.529, Body Fluid pH Source PLEURAL, Body Fluid WBC (Auto) 1863H, Body Fluid RBC (Auto) 22, Body Fluid Mononuclear Cells % Auto 94.5H, Fluid Polymorphonuclear Cell % Auto 5.5H, Body Fluid Glucose Source PLEURAL, Body Fluid Glucose 101, Body Fluid Protein Source PLEURAL, Body Fluid Total Protein 4.1, Body Fluid Albumin Source PLEURAL, Body Fluid Albumin 2.5, Body Fluid LDH Source PLEURAL, Body Fluid Lactate Dehydrogenase 134, Body Fluid Amylase Source PLEURAL, Body Fluid Amylase 37, Body Fluid Cholesterol 68, Body Fluid Cholesterol Source PLEURAL, Body Fluid Triglyceride Source PLEURAL, Body Fluid Triglycerides 24, Pleural Fluid Source PLEURAL, Pleural Fluid Color REESE, Pleural Fluid Appearance CLOUDY 01/15/21 05:02: Immature Granulocyte % (Auto) 0.2, Neutrophils (%) (Auto) 74.8H, Lymphocytes (%) (Auto) 11.2L, Monocytes (%) (Auto) 9.6H, Eosinophils (%) (Auto) 3.9H, Basophils (%) (Auto) 0.3, Neutrophils # (Auto) 4.8, Lymphocytes # (Auto) 0.7L, Monocytes # (Auto) 0.6, Eosinophils # (Auto) 0.3, Basophils # (Auto) 0.0, Nucleated Red Blood Cells % (auto) 0.0, Anion Gap 5L, Glomerular Filtration Rate 51.0, Calcium Level 8.8 01/15/21 05:51: Blood Gas Bicarbonate Standard 24.8, Arterial Blood pH 7.440, Arterial Blood Partial Pressure CO2 36.6, Arterial Blood Partial Pressure O2 76.5, Arterial Blood Total CO2 25.4, Arterial Blood HCO3 24.3, Arterial Blood Base Excess 0.4, Arterial Blood Oxygen Saturation 96.0 CBC/BMP Laboratory Tests 01/15/21 05:02 Microbiology Microbiology 01/14/21 Acid Fast Stain, Received Pending 01/14/21 Mycobacterial Culture, Received Pending 01/14/21 Fungal Smear, Received Pending 01/14/21 Fungal Culture, Received Pending 01/14/21 Gram Stain - Final, Resulted 01/14/21 Anaerobic Culture, Resulted Pending 01/14/21 Body Fluid Culture, Received Pending 01/14/21 Respiratory Virus Panel (PCR) (JIHAN) - Final, Complete Discharge Medications Scheduled Acetaminophen (Acetaminophen) 325 Mg Tablet, 650 MG PO Q6HP Aspirin (Ecotrin) 81 Mg Tablet.dr, 81 MG PO DAILY, (Reported) Calcium Carbonate/Vitamin D3 (Calcium 600 + Vit D 400 Softgl) 1 Each Capsule, 1 CAP PO QHS, (Reported) Cholecalciferol (Vitamin D3) (Vitamin D3) 1,000 Unit Tablet, 1,000 UNITS PO DAILY, (Reported) Krill Oil (Krill Oil) 500 Mg Capsule, 500 MG PO DAILY, (Reported) Letrozole (Letrozole) 2.5 Mg Tablet, 1 TAB PO DAILY Lisinopril/Hydrochlorothiazide (Lisinopril-Hctz 20-25 mg Tab) 1 Each Tablet, 1 TAB PO DAILY, (Reported) Rosuvastatin Calcium (Rosuvastatin Calcium) 5 Mg Tablet, 5 MG PO DAILY, (Reported) Scheduled PRN Nitroglycerin (Nitroglycerin) 0.4 Mg Tab.subl, 0.4 MG SL NITRO PRN for CHEST PAIN, (Reported) Omeprazole (Omeprazole) 20 Mg Capsule.dr, 20 MG PO DAILY PRN for HEARTBURN/INDIGESTION, (Reported) Allergies Coded Allergies: Antihistamines - Alkylamine (Unverified Allergy, Unknown, UNKNOWN REACTION, 02/25/19) hydrocodone (Verified Allergy, Unknown, 02/26/19) oxycodone (Unverified Allergy, Unknown, UNKNOWN REACTION, 02/25/19) Spnisdr-Zoi-Dok Reductase Inhibitor (Verified Adverse Reaction, Intermediate, HEART RACES, 02/26/19) Danielle Hernandez MD Jan 15, 2021 11:02
--- NOTE | 2021-01-15 11:08 | IPN ---
PROGRESS NOTE DATE: 01/15/2021 SUBJECTIVE: Mrs. Joaquin is breathing a bit better today. She does, however, still get short of breath ambulating the halls. She is 96% saturated on 2 liters nasal cannula and we will wean her oxygen today. Her granddaughter has been in and has been taught how to do the drainage with the PleurX bottles. OBJECTIVE: VITAL SIGNS: Show a T-max of 98.7 with a heart rate that ranges between 78 and 83 in sinus rhythm. Respiratory rate of 16 to 19 without the use of accessory muscles who was 96% saturated on 2 liters nasal cannula and whose blood pressure is ranging between 142/63 to 149/68. INTAKE AND OUTPUT: Over the past 24 hours has been recorded as 1741 in and 2000 out for a negativity of 260 mL. We drained her 1100 mL from the PleurX catheter yesterday and 400 mL today. RESPIRATORY: Her lungs show decreased breath sounds in the left lower hemithorax with a dull percussion note in the left lower hemithorax. Right side shows scattered rhonchi most of which clears with coughing. Percussion note is full to the diaphragm. CARDIAC: Shows a 3-4 systolic honking murmur heard best at the right upper sternal border, but radiating to the carotids into the abdomen. S1 and S2 are normal. I cannot feel her PMI. ABDOMEN: Soft and nontender. Bowel sounds are positive. There is no hepatomegaly. No CVA tenderness. EXTREMITIES: Show trace pretibial edema. No calf tenderness. No differential swelling of the upper extremities. SKIN: Warm, dry, and perfused without cyanosis or mottling, including that of the nail beds and knees. NECK: Supple. There is no jugular venous distention. No subcutaneous emphysema. Trachea is midline. MOUTH: Shows the mucous membranes to be pink and moist. Lips and gums without lesions and no thrush. EYES: Show her pupils equal and reactive. Extraocular movements are intact. Sclerae nonicteric. NEUROLOGIC: Shows II through XII intact. Normal gross motor, gross sensation intact. Gait is not tested. PSYCHIATRIC: Shows her to be awake, alert, and oriented x3 with appropriate mood and affect and conversational. LABORATORY DATA: Her white count today is 6.4 with a hemoglobin and hematocrit of 10.6 and 32.7 down from 12.0 and 37.2 yesterday. I suspect this is secondary to hemodilution. Platelet count is 256,000 and differential shows 74% neutrophils, 11% leukocytes, and 9% monocytes. There area no immunofixation and no toxic granulations. Her electrolytes are normal with a BUN and creatinine of 27 and 1.08. Glucose is 113, calcium 8.8. Blood gases this morning show a pH of 7.44, pCO2 of 36, and a pO2 of 76 on 2 liters nasal cannula with a base excess of 0.4. IMAGING DATA: Chest x-ray shows again reaccumulation of fluid in the right hemithorax. It was taken before drainage. The left hemithorax shows the same amount of fluid there was before. I see no infiltrates per se. IMPRESSION: 1. Recurrent malignant pleural effusion right side. 2. Left-sided pleural effusion probably the same. 3. History of breast cancer status post lumpectomy in 2014, ER/TX positive and HER2 negative. 4. Aortic stenosis, mild. 5. Hypertension. 6. 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 7. Coronary atherosclerosis. PLAN AND DISCUSSION: I will ask the hospitalist service to discharge her today. I will defer placing a left-sided PleurX catheter to see how she does over the next week. I will see her back in the office in a week with a chest x-ray. If she is still short of breath or cannot lay recumbent flat, I would consider placing a left PleurX catheter. Furthermore if the fluid is increased on the left side in a week, that would also push me toward placing a left-sided PleurX on an outpatient basis.
[2021-01-15] MEDS ORDERED: SLF 3 ML SYR IV SCH (14:00)
== END 2021-01-15 11:35 | disposition home or self-care (01) | DRG 598 ==
LOC: M ED 04:42 → M ED INP 08:09 → M PCU 09:15
PROVIDERS: ADMIT Thoracic Surgery (Cardiothoracic Vascular Surgery); ATTEND Internal Medicine
DX: C50.911 Malignant neoplasm of unspecified site of right female breast (principal); J91.0 Malignant pleural effusion; I50.32 Chronic diastolic (congestive) heart failure; I69.354 Hemiplegia and hemiparesis following cerebral infarction affecting left non-dominant side; I11.0 Hypertensive heart disease with heart failure; E78.5 Hyperlipidemia, unspecified; I35.0 Nonrheumatic aortic (valve) stenosis; Z79.82 Long term (current) use of aspirin; Z79.899 Other long term (current) drug therapy; Z88.5 Allergy status to narcotic agent; Z88.8 Allergy status to other drugs, medicaments and biological substances

== ENCOUNTER → 2021-01-26 | Outpatient (CLI) | payer MEDICARE ==
[~2021-01-26] MED LIST changes: +ACET1TAB55 PO; +KISQ200T PO
--- NOTE | 2021-01-26 09:10 | REPPI ---
INDICATION: MALIGNANT PLEURAL EFFUSION COMPARISON: 01/15/2021 TECHNIQUE: PA and lateral. FINDINGS: Right-sided chest tube in stable position. Bibasilar pleural effusions and opacities are essentially unchanged when allowing for variation in technique. No obvious pneumothorax. Underlying chronic interstitial changes noted. IMPRESSION: No significant change from prior examination. Lower lobe opacities consistent with effusions and atelectasis/consolidations (left greater than right). <Electronically signed by Gilbert Brar > 01/26/21 0906
== END ==
LOC: M PLAIMG 08:18
PROVIDERS: ATTEND Thoracic Surgery (Cardiothoracic Vascular Surgery)
DX: C50.511 Malignant neoplasm of lower-outer quadrant of right female breast (principal); J91.0 Malignant pleural effusion

== ENCOUNTER → 2021-01-31 | Outpatient (CLI) | payer MEDICARE ==
--- NOTE | 2021-01-31 17:06 | ECGEPIP ---
[facility] Test Date: 2021-01-31 Pat Name: SUGEY NAM Department: Room: - Gender: Female [place] Operator: ADILSON : 1930 Requested By: SUGEY Herrera Order Number: [id number] Reading MD: Brian Hutson Measurements Intervals [place] Rate: 90 P: 11 IN: 192 QRS: 4 QRSD: 78 T: 67 QT: 380 QTc: 464 Interpretive Statements Normal sinus rhythm Nonspecific ST abnormality Less prominent limb lead voltage as compared with 06/03/2020. Electronically Signed on 01-31-2021 17:06:25 EDT by Brian Hutson
== END ==
LOC: M EKG 13:48
PROVIDERS: ATTEND Internal Medicine Medical Oncology
DX: I45.81 Long QT syndrome (principal)

== ENCOUNTER 2021-02-11 21:47 | Inpatient (IN) | payer MEDICARE ==
[~2021-02-11] VITALS: Ht 162.6 cm; Wt 73.6 kg
[2021-02-11 23:23] LABS: BASO % 0.1 % (0.0-1.0); EOS % 0.2 % (0.0-3.0); HEMATOCRIT 28.4 % (36.0-47.0); HEMOGLOBIN 9.1 g/dl (12.0-15.5); LYMPH # 0.6 10^3/uL (1.5-5.0); LYMPH % 6.1 % (24.0-44.0); MEAN CORPUSCULAR HEMOGLOBIN 28.8 pg (27.0-33.0); MEAN CORPUSCULAR VOLUME 89.9 fl (80.0-96.0); MONO # 0.7 10^3/uL (0.0-0.8); MONO % 7.6 % (2.0-8.0); NEUTROPHILS # 7.9 10^3/uL (1.5-8.5); NEUTROPHILS % 85.7 % (36.0-66.0); PLATELET COUNT, AUTOMATED 295 10^3/uL (150-450); RED BLOOD COUNT 3.16 10^6/uL (4.00-5.40); WHITE BLOOD COUNT 9.3 10^3/uL (4.0-10.0)
[2021-02-11] MEDS ORDERED: ISOVUE-370 76% 100ML VIAL As Ordered ONE (23:52)
[2021-02-11 23:53] LABS: ALBUMIN 2.3 GM/DL (3.2-5.2); BILIRUBIN,DIRECT 0.2 MG/DL (0.0-0.2); BILIRUBIN,TOTAL 0.4 MG/DL (0.2-1.0); TOTAL PROTEIN 5.7 GM/DL (6.4-8.2)
[2021-02-11 23:59] LABS: RSV AMPLIFICATION NEGATIVE (NEGATIVE)
[2021-02-12] VITALS (36 sets, daily range): BP systolic 85–131; BP diastolic 50–65; O2SAT 95–100
[2021-02-12] MEDS ORDERED: MOM 30ML SUSPENSION UDC PO PRN (00:55)
[2021-02-12] MEDS ORDERED: KCL 10MEQ/100ML SWI (KRUN) 10 MEQ in IV 1 EA IV ONE (00:55)
[2021-02-12] MEDS ORDERED: LR 1,000 ML IV SCH (00:55)
[2021-02-12] MEDS ORDERED: MAALOX 30 ML SUSP *UDC PO PRN (00:55)
--- NOTE | 2021-02-12 00:56 | REPVR ---
PROCEDURE INFORMATION: Exam: CT Angiography Chest With Contrast Exam date and time: 02/11/2021 12:02 AM Age: 89 years old Clinical indication: Shortness of breath; Additional info: SOB with active CA, eval for pe or effusion TECHNIQUE: Imaging protocol: Computed tomographic angiography of the chest with contrast. 3D rendering (Not supervised by radiologist): MIP and/or 3D reconstructed images were created by the technologist. Radiation optimization: All CT scans at this facility use at least one of these dose optimization techniques: automated exposure control; mA and/or kV adjustment per patient size (includes targeted exams where dose is matched to clinical indication); or iterative reconstruction. Contrast material: ISOVUE 370; Contrast volume: 75 ml; Contrast route: INTRAVENOUS (IV); COMPARISON: CT Chest without contrast 01/14/2021 6:39 AM FINDINGS: Tubes, catheters and devices: There is a right pleural chest tube terminating in the posteromedial aspect of the right mid hemithorax. Pulmonary arteries: No pulmonary embolism. Aorta: The thoracic aorta is intact and patent. There is no thoracic aortic aneurysm, pseudoaneurysm, penetrating atherosclerotic ulcer, intramural hematoma, or dissection. There are extensive atherosclerotic calcifications. Great vessels off aortic arch: The brachiocephalic artery, imaged proximal portions of the common carotid arteries, imaged proximal portions of the vertebral arteries, and subclavian arteries are intact. No stenosis or occlusion of these vessels is noted. Thyroid: There are multiple thyroid nodules, the largest nodule in the lower pole of the right lobe measuring 2.5 cm. Lungs: There are ground-glass opacities in both lungs with areas of superimposed consolidation that have developed since the prior CT chest on 01/14/2021. There is compressive atelectasis in the left lower lobe. There are calcified granulomas in the left lower lobe. Pleural spaces: There is a moderate to large left pleural effusion that measures water density and is not loculated and has increased in size compared to the prior CT chest on 01/14/2021. There is a small right pleural effusion that has decreased in size compared to the prior CT chest on 01/14/2021. No pneumothorax. Heart: No cardiomegaly or pericardial effusion. The ratio of the diameter of the right ventricle to the diameter of the left ventricle measures less than 1, which is within normal limits and there is no CT evidence for a right ventricular strain. There are aortic valve and mitral valve calcifications. Mediastinal space: No mediastinal fluid collection or pneumomediastinum is noted. There is a small sliding hiatal hernia. Lymph nodes: There is a 10 mm pretracheal lymph node, which is unchanged compared to the prior CT chest on 01/14/2021. There is a 1.5 cm right hilar lymph node containing calcifications, which is compatible with a calcified granuloma. Other smaller subcentimeter calcified right hilar lymph nodes are also present. Bones/joints: There is no fracture or dislocation. No suspicious osteolytic or osteoblastic lesion. There is a mild levoscoliosis of the upper thoracic spine and degenerative changes in the thoracic spine. There is osteoarthritis of both glenohumeral joints, left greater than right. Incidental note is made of small bone islands in the left glenoid and left humeral head. The bones have a demineralized appearance. Soft tissues: Unremarkable. No soft tissue fluid collection. IMPRESSION: 1. No pulmonary embolism. 2. Development of ground-glass opacities in both lungs with areas of superimposed consolidation since the prior CT chest on 01/14/2021. Imaging features can be seen with COVID-19 pneumonia, though are nonspecific and can occur with a variety of infectious and noninfectious processes. (Reference: Arnav) 3. Moderate to large left pleural effusion that has increased in size compared to the prior CT chest on 01/14/2021. 4. Small right pleural effusion that has decreased in size compared to the prior CT chest on 01/14/2021. 5. Multiple thyroid nodules, the largest nodule in the lower pole of the right lobe measuring 2.5 cm. See management guidelines below. 6. 10 mm pretracheal lymph node, which is unchanged compared to the prior CT chest on 01/14/2021. COMMENTS: Consistent with the [employer]'s Incidental Findings Committee white paper (J Am Poonam Radiol 2015): In patients aged 35 years and older with an incidental thyroid nodule equal to or greater than 1.[address], MRI or extrathyroidal US, further evaluation with dedicated thyroid US is recommended for patients with normal life expectancy and without comorbidities. For smaller nodules without suspicious features, no further evaluation or follow up is recommended. REFERENCES: Arnav Dumont, et al., Radiological Society of [place] Expert Consensus Statement on Reporting Chest CT Findings Related to COVID-19. Endorsed by the Society of Thoracic Radiology, the [employer], and RSNA. Published February 10, 2020. Electronically signed by: Alfa Worthy On 02/12/2021 00:55:55 AM
[2021-02-12 01:16] LABS: VENOUS BASE EXCESS 3.2 (-2.0-2.0); VENOUS O2 SATURATION 99.7 % (60.0-80.0); VENOUS PARTIAL PRESSURE O2 191.2 mmHg (30.0-50.0); VENOUS PH 7.569 UNITS (7.330-7.430); VENOUS STANDARD HCO3 27.4 MEQ/L; VENOUS TOTAL CO2 25.9 MEQ/L (24.0-28.0)
[2021-02-12] MEDS ORDERED: LEVALBUTEROL 1.25 MG/0.5 ML CONCENTRATE NEB INH PRN (02:10)
[2021-02-12] MEDS ORDERED: NITROGLYCERIN 0.4 MG SUBL TABLET SL PRN (02:15)
--- NOTE | 2021-02-12 02:18 | HPEPDOC ---
General Date of Admission Feb 12, 2021 at 00:55 Date of Service: Feb 12, 2021 Attending Physician: PORTILLO NAPIER MD Chief Complaint dyspnea History of Present Illness This is an 89-year-old female presented to the ER with c/o shortness of breath. She was recently hospitalized at [facility] for bilateral malignant pleural effusions and had a pleurx catheter placed. Per pt's granddaughter at her bedside who is her shipping receiving manager, she has had about 250-300ml of serosanguinous drainage q3days. Pt notes that her sob improved after discharge from the hospital previously but then noticed increasing shortness of breath about 1 week ago. She also reports feeling fatigued and weak and dizzy and it is limiting her from even walking around her house. She reports sleeping with her head elevated at night but denies any paroxysmal nocturnal dyspnea at this time. Denies any CP, fever, chills, n/v/d, abdominal discomfort. 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 HOME MEDICATIONS: Please see below. PHYSICAL EXAMINATION: VS: Please see below CONSTITUTIONAL: No acute distress, resting comfortably, AAO x 3 EYES: PERRLA, EOM intact HEENT: Normocephalic, atraumatic, moist mucous membranes, NECK: SUPPLE, no JVD, no lymphadenopathy, no carotid bruit CV: Regular rate and rhythm, S1S2 normal, 3/6 aortic murmur appreciated. No rubs/gallops RESPIRATORY: no rales/rhonchi/wheezes GI: BS positive in 4 quadrants, soft, nontender, nondistended, no rebound or guarding, no organomegaly MUSCULOSKELETAL: Normal ROM. No cyanosis, clubbing, swelling, joint deformity, extremity edema INTEGUMENTARY: Intact, no rashes, no lesions, no erythema NEUROLOGIC: Left upper and lower ext weakness 4/5- chronic and unchanged . All other ext 5/5 strength. Cranial Nerves II-XII are intact, no focal deficits IMAGING: CTA: 1. No pulm embolism 2. Development of ground-glass opacities in both lungs with areas of superimposed consolidation since the prior CT chest on 01/14/2021. Imaging features can be seen with COVID-19 pneumonia, though are nonspecific and can occur with a variety of infectious and noninfectious processes. (Reference: Arnav) 3. Moderate to large left pleural effusion that has increased in size compared to the prior CT chest on 01/14/2021. 4. Small right pleural effusion that has decreased in size compared to the prior CT chest on 01/14/2021. 5. Multiple thyroid nodules, the largest nodule in the lower pole of the right lobe measuring 2.5 cm. See management guidelines below. 6. 10 mm pretracheal lymph node, which is unchanged compared to the prior CT chest on 01/14/2021. ASSESSMENT AND PLAN This is an 89-year-old female with past mental history of ductal carcinoma the right breast status post radiation therapy, hypertension, diastolic heart failure, right lacunar CVA with residual left upper extremity weakness, hyperl ipidemia admitted for increased shortness of breath 2/2 to a moderate to large L sided pleural effusion. Pt is s/p pleurex catheter on the R side per Cardiothoracic during her prior admission for bilateral Pleural effusion. She will be admitted under hospitalist service for further mgmt and cardiothoracic consultation will be made and may require a L sided pelurex catheter placement. Pt is NPO and ASA held for possible procedure tomorrow am per cardiothoracic (Dr. Avila). #L sided pleural effusion likely 2/2 metastatic breast cancer -S/p right pleural effusion drainage 11/2020 and again on 12/30/20 -CTA as above -Currently saturating well on RA - have titration O2 orders - levalbuterol neb gracy and PRN - Cardiothoracic consultation (Dr. Avila)- PleurX catheter on L side #Anemia - may be due to anemia of chronic disease - will order for type and screen and prepare to transfuse if symptomatic or if H drops <7 -iron panel ordered - will order b12 folate - will order for a stool for occult blood - am team to follow up on these #hypoK+ -repleted - continue to monitor lytes and replete as necessary #Essential HTN / Chronic HFpEF -clinically compensated -Last echo 05/2020: Grade 1 left vent. diastolic dysfunction, AV scloerosis , mild aortic stenosis -monitor weight -c/w home meds #Metastatic ductal CA of R breast (ER positive, IL positive and HER-2 negative s/p radiation therapy, 4-5 years ago) -F/u with Dr. Pasquale Correia as o/p #Aortic stenosis -Murmur appreciated -No increased fluid retention #Hx of R lacunar CVA with residual LUE weakness -No worsened symptoms-at baseline -C/w home meds #HLD -C/w home statin DVT px TEDS SCDs Code status: DNR/DNI Home Medications Scheduled Aspirin (Ecotrin) 81 Mg Tablet.dr, 81 MG PO DAILY, (Reported) Cholecalciferol (Vitamin D3) (Vitamin D3) 1,000 Unit Tablet, 1,000 UNITS PO DAILY, (Reported) Krill Oil (Krill Oil) 500 Mg Capsule, 500 MG PO DAILY, (Reported) Letrozole (Letrozole) 2.5 Mg Tablet, 1 TAB PO DAILY Lisinopril/Hydrochlorothiazide (Lisinopril-Hctz 20-25 mg Tab) 1 Each Tablet, 1 TAB PO DAILY, (Reported) Rosuvastatin Calcium (Rosuvastatin Calcium) 5 Mg Tablet, 5 MG PO DAILY, (Reported) Scheduled PRN Nitroglycerin (Nitroglycerin) 0.4 Mg Tab.subl, 0.4 MG SL NITRO PRN for CHEST PAIN, (Reported) Allergies Coded Allergies: Antihistamines - Alkylamine (Unverified Allergy, Unknown, UNKNOWN REACTION, 02/25/19) hydrocodone (Verified Allergy, Unknown, 02/26/19) oxycodone (Unverified Allergy, Unknown, UNKNOWN REACTION, 02/25/19) Yyvrbip-Yhl-Epq Reductase Inhibitor (Verified Adverse Reaction, Intermediate, HEART RACES, 02/26/19) A-FIB/CHADSVASC A-FIB History Current/History of A-Fib/PAF?: No Current PO Anticoag Therapy: No Vital Signs Vital Signs Date Time Temp Pulse Resp B/P (MAP) Pulse Ox O2 Delivery O2 Flow Rate FiO2 02/11/21 22:29 Nasal Cannula 2.0 02/11/21 21:54 97.6 87 19 125/61 99 Laboratory Data Labs 24H Laboratory Tests 2 02/11/21 23:16: Immature Granulocyte % (Auto) 0.3, Neutrophils (%) (Auto) 85.7H, Lymphocytes (%) (Auto) 6.1L, Monocytes (%) (Auto) 7.6, Eosinophils (%) (Auto) 0.2, Basophils (%) (Auto) 0.1, Neutrophils # (Auto) 7.9, Lymphocytes # (Auto) 0.6L, Monocytes # (Auto) 0.7, Eosinophils # (Auto) 0.0, Basophils # (Auto) 0.0, Nucleated Red Blood Cells % (auto) 0.0, Total Bilirubin 0.4, Direct Bilirubin 0.2, Aspartate Amino Transf (AST/SGOT) 34, Alanine Aminotransferase (ALT/SGPT) 27, Alkaline Ph osphatase 81, XY-Lpt-Q-Type Natriuretic Peptide 520H, Total Protein 5.7L, Albumin 2.3L, Albumin/Globulin Ratio 0.7L, Coronavirus (COVID-19)(PCR) NEGATIVE, Influenza Type A (RT-PCR) NEGATIVE, Influenza Type B (RT-PCR) NEGATIVE, Respiratory Syncytial Virus (PCR) NEGATIVE 02/11/21 23:23: POC Glucose (Misc Panel) 138H, POC Sodium (Misc Panel) 135L, POC Potassium (Misc Panel) 3.1L, POC Chloride (Misc Panel) 97L, POC Total CO2 (Misc Panel) 25.0, POC Blood Urea Nitrogen (Misc Panel 41H, POC Ionized Calcium (Misc Panel) 4.6, POC Creatinine (Misc Panel) 0.9, POC Hematocrit (Misc Panel) 25.0L 02/11/21 23:26: POC Troponin I (Misc) 0.01 02/12/21 01:10: Blood Gas Bicarbonate Standard 27.4, Venous Blood pH 7.569H, Venous Blood Partial Pressure CO2 28.0L, Venous Blood Partial Pressure O2 191.2H, Venous Blood Total Carbon Dioxide 25.9, Venous Blood HCO3 25.0, Venous Blood Oxygen Saturation 99.7H, Venous Blood Base Excess 3.2H CBC/BMP Laboratory Tests 02/11/21 23:16 Plan / VTE VTE Prophylaxis Ordered?: Yes GME ATTESTATION GME ATTESTATION My faculty preceptor for this patient encounter was physically present during the encounter and was fully available. All aspects of the patient interview, examination, medical decision making process, and medical care plan development were reviewed and approved by the faculty preceptor. The faculty preceptor is aware and concurs with the plan as stated in the body of this note and will attest to such by his/her cosignature. ATTENDING NOTE TIME OF SERVICE 125AM is an 89 yr old w a hx of HFpEF, CVA w L sided weakness, HTN, aortic stenosis, and ductal carcinoma of the breast with mets the pleura w R sided Pleurx cath who presented w c/o gradually worsening dyspnea and was found to have moderate left pleural effusion, worsening NN anemia, and hypokalemia. Will ask the day time team to f/u w for left thoracentesis Rest per 's H&P Oksana Becerril DO Feb 12, 2021 02:18 PORTILLO NAPIER MD Feb 12, 2021 05:30
[2021-02-12 05:55] LABS: BASO % 0.2 % (0.0-1.0); EOS # 0.1 10^3/uL (0.0-0.5); EOS % 1.6 % (0.0-3.0); HEMATOCRIT 23.2 % (36.0-47.0); HEMOGLOBIN 7.4 g/dl (12.0-15.5); LYMPH # 0.9 10^3/uL (1.5-5.0); LYMPH % 10.1 % (24.0-44.0); MEAN CORPUSCULAR HEMOGLOBIN 28.4 pg (27.0-33.0); MEAN CORPUSCULAR HGB CONC 31.9 g/dl (32.0-36.5); MEAN CORPUSCULAR VOLUME 88.9 fl (80.0-96.0); MONO # 0.7 10^3/uL (0.0-0.8); MONO % 8.3 % (2.0-8.0); NEUTROPHILS % 79.6 % (36.0-66.0); PLATELET COUNT, AUTOMATED 277 10^3/uL (150-450); RED BLOOD COUNT 2.61 10^6/uL (4.00-5.40); WHITE BLOOD COUNT 8.8 10^3/uL (4.0-10.0)
[2021-02-12 06:00] LABS: BLOOD UREA NITROGEN 46 MG/DL (7-18); CALCIUM LEVEL 8.1 MG/DL (8.8-10.2); CARBON DIOXIDE LEVEL 27 MEQ/L (21-32); CHLORIDE LEVEL 103 MEQ/L (98-107); GLOMERULAR FILTRATION RATE > 60.0 (>32); GLUCOSE, FASTING 109 MG/DL (70-100); POTASSIUM SERUM 3.2 MEQ/L (3.5-5.1); SODIUM LEVEL 137 MEQ/L (136-145)
[2021-02-12] MEDS ORDERED: POTASSIUM CHLORIDE 10% LIQ 20 MEQ/15 ML UDC PO ONE (06:25)
[2021-02-12] MEDS ORDERED: HEPARIN SOD (PORCINE) 5000UNITS/ML 1ML VIAL/SYRINGE SQ SCH (06:30)
--- NOTE | 2021-02-12 07:28 | REPVR ---
PROCEDURE INFORMATION: Exam: XR Chest Exam date and time: 02/12/2021 6:58 AM Age: 89 years old Clinical indication: Other: Dyspnea TECHNIQUE: Imaging protocol: XR of the chest Views: 2 views. COMPARISON: CR CHEST 2 VIEWS 01/26/2021 8:38 AM FINDINGS: Tubes, catheters and devices: A right chest tube is again present. Lungs: There are similar bibasilar opacities, left worse than right. Pleural spaces: There are similar large left and small right pleural effusions. No pneumothorax. Heart/Mediastinum: The cardiomediastinal silhouette is fairly stable in appearance. Bones/joints: Degenerative changes again involve the spine. IMPRESSION: Stable radiographic appearance of the chest since 01/26/21. Electronically signed by: Kiran Castano On 02/12/2021 07:28:25 AM
--- NOTE | 2021-02-12 07:41 | ECGEPIP ---
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
[2021-02-12] MEDS: LEVALBUTEROL 1.25 MG/0.5 ML CONCENTRATE NEB INH SCH ×3 (07:46→20:46)
[2021-02-12 07:57] LABS: FERRITIN 85 NG/ML (8-252); IRON (FE) 32 UG/DL (50-170); MAGNESIUM LEVEL 2.1 MG/DL (1.8-2.4); PERCENT SATURATION 9.2 % (13.2-45.0); TOTAL IRON BINDING CAPACITY 348 UG/DL (250-450)
[2021-02-12] MEDS: ROSUVASTATIN 10 MG TAB (CRESTOR) PO SCH (08:04)
[2021-02-12] MEDS: VITAMIN D 1,000 INTERNATIONAL UNITS TABLET PO SCH (08:04)
[2021-02-12] MEDS ORDERED: MIDAZOLAM INJ 2MG/2ML VIAL (J2250 PER 1MG) IV STA (09:00)
[2021-02-12] MEDS ORDERED: LIDOCAINE 1% MDV 20ML VIAL SC ONE (09:00)
[2021-02-12] MEDS ORDERED: flumazeniL 0.5 MG/5 ML VIAL As Ordered ONE (09:37)
[2021-02-12] MEDS ORDERED: MIDAZOLAM INJ 2MG/2ML VIAL (J2250 PER 1MG) As Ordered ONE (09:37)
[2021-02-12] MEDS ORDERED: LIDOCAINE 1% MDV 20ML VIAL As Ordered ONE (09:38)
[2021-02-12] MEDS ORDERED: ONDANSETRON 4MG/2ML VIAL IV PRN (10:25)
[2021-02-12] MEDS ORDERED: BISACODYL 10 MG SUPP PR PRN (10:25)
--- NOTE | 2021-02-12 10:46 | REP ---
INDICATION: s/p pluerX. COMPARISON: Comparison chest x-ray 07/07/2021 at 6:47 a.m.. TECHNIQUE: Portable upright AP chest radiograph. FINDINGS: There are now bilateral PleurX drainage catheters. Right is unchanged. A left PleurX drainage catheter is been inserted and terminates along the left mediastinum. The left pleural effusion has decreased since the earlier film. There is no evidence of pneumothorax. Heart size is borderline unchanged.. IMPRESSION: Status post left PleurX drainage catheter placement. Improved left effusion.. <Electronically signed by Rolando Harper > 02/12/21 [id number]
[2021-02-12 11:06] LABS: APPEARANCE, BODY FLUID CLOUDY (CLEAR); PLEURAL FL COLOR YELLOW (COLORLESS); SOURCE, BODY FLUID PLEURAL
[2021-02-12 11:13] LABS: PH BODY FLUID 7.564 UNITS (NOT ESTABLISHED); SOURCE, BODY FLUID pH PLEURAL
[2021-02-12] MEDS: KETOROLAC 30 MG/ML 1ML VIAL IV SCH ×3 (11:15→23:00)
[2021-02-12 11:25] LABS: AMYLASE, BODY FLUID 42 U/L (NOT ESTABLISHED); CHOLESTEROL, BODY FLUID 63 MG/DL (NOT ESTABLISHED); LDH, BODY FLUID 99 U/L (NOT ESTABLISHED); SOURCE, BODY FLUID ALBUMIN PLEURAL; SOURCE, BODY FLUID AMYLASE PLEURAL; SOURCE, BODY FLUID CHOL PLEURAL; SOURCE, BODY FLUID GLUCOSE PLEURAL; SOURCE, BODY FLUID LDH PLEURAL; SOURCE, BODY FLUID TOT PROTEIN PLEURAL; SOURCE, BODY FLUID TRIG PLEURAL; TRIGLYCERIDE, BODY FLUID 15 MG/DL (NOT ESTABLISHED)
[2021-02-12 11:52] LABS: LDH LACTATE DEHYDROGENASE 266 U/L (84-246)
[2021-02-12] MEDS: DOCUSATE SODIUM 100MG CAPSULE PO SCH (20:24)
[2021-02-13] VITALS (25 sets, daily range): BP systolic 105–134; BP diastolic 51–65; O2SAT 84–99
[2021-02-13] MEDS: ACETAMINOPHEN TAB 650MG DOSE (2X325MG) PO PRN (00:27)
[2021-02-13] MEDS: LEVALBUTEROL 1.25 MG/0.5 ML CONCENTRATE NEB INH SCH ×4 (01:47→20:55)
[2021-02-13] MEDS: KETOROLAC 30 MG/ML 1ML VIAL IV SCH ×3 (03:00→14:32)
[2021-02-13 05:19] LABS: BASO % 0.2 % (0.0-1.0); EOS # 0.4 10^3/uL (0.0-0.5); EOS % 4.1 % (0.0-3.0); LYMPH # 0.8 10^3/uL (1.5-5.0); LYMPH % 8.8 % (24.0-44.0); MEAN CORPUSCULAR HEMOGLOBIN 28.4 pg (27.0-33.0); MEAN CORPUSCULAR HGB CONC 31.8 g/dl (32.0-36.5); MEAN CORPUSCULAR VOLUME 89.3 fl (80.0-96.0); MONO # 0.7 10^3/uL (0.0-0.8); MONO % 8.4 % (2.0-8.0); NEUTROPHILS # 6.9 10^3/uL (1.5-8.5); NEUTROPHILS % 78.2 % (36.0-66.0); PLATELET COUNT, AUTOMATED 281 10^3/uL (150-450); RED BLOOD COUNT 2.15 10^6/uL (4.00-5.40); WHITE BLOOD COUNT 8.8 10^3/uL (4.0-10.0)
[2021-02-13 05:22] LABS: HEMATOCRIT 19.2 % (36.0-47.0); HEMOGLOBIN 6.1 g/dl (12.0-15.5)
[2021-02-13 05:40] LABS: CREATININE FOR GFR 1.24 MG/DL (0.55-1.30); GLOMERULAR FILTRATION RATE 43.5 (>32)
[2021-02-13] MEDS ORDERED: IRON SUCROSE 100MG 5ML VIAL (J1756 PER 1MG) IV SCH (06:15)
--- NOTE | 2021-02-13 08:29 | REP ---
INDICATION: pleural effusion COMPARISON: 02/12/2021 TECHNIQUE: PA and lateral. FINDINGS: Small to moderate bilateral pleural effusions with chest tubes in stable position. Underlying scattered airspace disease and chronic interstitial changes are again noted and similar to prior examination. No obvious pneumothorax. No new acute process identified. Skeletal structures stable. Cardiac silhouette normal/stable. IMPRESSION: 1. Small to moderate bilateral pleural effusions with chest tubes in stable position. 2. Stable pleuroparenchymal changes similar to prior examination. 3. No new acute process identified. <Electronically signed by Gilbert Brar > 02/13/21 [id number]
[2021-02-13] MEDS ORDERED: SLF 3 ML SYR IV PRN (08:45)
[2021-02-13] MEDS: DOCUSATE SODIUM 100MG CAPSULE PO SCH ×2 (08:49→21:47)
[2021-02-13] MEDS: ROSUVASTATIN 10 MG TAB (CRESTOR) PO SCH (08:49)
[2021-02-13] MEDS: VITAMIN D 1,000 INTERNATIONAL UNITS TABLET PO SCH (08:49)
[2021-02-13] MEDS: PANTOPRAZOLE 40MG TAB (PROTONIX) PO SCH (08:49)
[2021-02-13] MEDS: DARBEPOETIN 100 MCG/0.5 ML *NON-DIALYSIS* SYRINGE (J0881) SC SCH (09:57)
--- NOTE | 2021-02-13 10:24 | RO ---
OPERATIVE NOTE DATE OF OPERATION: 02/12/2021 PREPROCEDURE DIAGNOSIS: Left pleural effusion probably malignant. POSTPROCEDURE DIAGNOSIS: Left pleural effusion probably malignant. PROCEDURE: Insertion of a tunneled PleurX catheter, left side. SURGEON: Jose Elias Avila M.D. LIBRARY MEDIA TECHNICIAN: None. ANESTHESIA: 2 mg Versed. FINDINGS: Chest was eluded of 1000 mL of serous fluid. It will be sent for the requisite studies including hematologies, cytologies, bacteriologies, and chemistries. DESCRIPTION OF PROCEDURE: Under satisfactory moderate sedation achieved with 2 mg of Versed, the patient was prepped and draped in the usual sterile fashion. Entry and exit sites were marked and chosen. Skin, subcutaneous tissue, muscle, and pleura were infiltrated in the mid axillary line in and around the seventh intercostal space. Exploring needle was placed and serous fluid was found. Wire was placed. Entrance incision was made and the exit incision was made around the wire. Tunnel was created between the two incisions and the PleurX catheter pulled through without difficulty. The tract was dilated, a Peel-Away introducer was placed, and the PleurX catheter was placed through the Peel-Away introducer in a posterior direction. Catheter was appropriately positioned and the entry wound was closed with running 4-0 Monocryl subcuticular suture and the catheter was secured to the abdominal wall with 2-0 silk suture. 1000 mL of serous fluid was drained. The patient tolerated the procedure well and a chest x-ray is pending.
--- NOTE | 2021-02-13 11:48 | CR ---
CONSULTATION DATE: 02/12/2021 REASON FOR CONSULTATION: Patient seen at the request of the hospitalist service and the emergency room for shortness of breath and a left-sided pleural effusion. HISTORY OF PRESENT ILLNESS: The patient is an 89-year-old white female who has known breast cancer of infiltrating ductal carcinoma grade 2, ER/RI positive, and HER2 negative. She underwent a lumpectomy of her breast in 2018. She was admitted to this hospital on 01/14/2021, with a right-sided pleural effusion, which proved to be malignant consistent with breast cancer. A PleurX catheter was placed. Over the course of her admission at that time, she was taught to use the PleurX catheter, but it was known that her left pleural effusion was decreasing. Over the past two weeks, she has become progressively short of breath to the point now, she can hardly get around her house without getting short of breath. She has a cough, but it is essentially nonproductive. There is no chest pain or chest discomfort. There is no dysphagia. There has been no fever, chills, or sweats. PAST MEDICAL HISTORY: 1. Cerebrovascular accident in the remote past resulting in decreased sensation of her left upper extremity. 2. Myocardial infarction. 3. Aortic valve stenosis, mild. 4. The above breast cancer. PAST SURGICAL HISTORY: 1. Hysterectomy in 1994. 2. Bladder sling in 2004. 3. Bilateral cataract surgeries. HOME MEDICATIONS: 1. Aspirin 81 mg q. day. 2. Vitamin D 1000 units q. day. 3. Letrozole 2.5 mg q. day. 4. Lisinopril/hydrochlorothiazide 20/25 one q. day. 5. Nitroglycerin 0.4 mg p.r.n. chest pain sublingually. 6. Rosuvastatin 5 mg q. day. TRAVEL HISTORY: She has been to [place], [facility]. EXPOSURES: She lives with her granddaughter. Has two dogs a border collie and a sheltie. HABITS: Does not smoke. Does not drink alcohol. There are no illicit drugs. REVIEW OF SYSTEMS: Constitutional: See HPI. Without fever, chills, seats, or night sweats. Eyes: Without diplopia, without amaurosis fugax, and without prior jaundice. Nose without epistaxis. Mouth: Wears dentures. Cardiovascular: See HPI. Does not have orthopnea or paroxysmal nocturnal dyspnea. Has not noted peripheral edema since discharge from the hospital. Respiratory: See HPI. GI: Without nausea, vomiting, diarrhea, constipation, melena, hematochezia, or abdominal pain. Neurologic: Without seizures or paralysis. Does have paresthesias and numbness in the left upper extremity status post a CVA. Psychiatric: Without pathological anxieties, depressions, or psychosis. Endocrine: Without diabetes or thyroid disease. PHYSICAL EXAMINATION: GENERAL APPEARANCE: Well-developed and well-nourished obese white female lying comfortably in bed. VITAL SIGNS: Temperature 98.3 with a heart rate of 82 in a sinus rhythm. Respiratory rate of 16 without the use of accessory muscles who is 91% to 99% saturated on 3 liters nasal cannula, and whose blood pressure is 122/60. EYES: Pupils equal, round, and reactive to light. Extraocular muscles intact. Sclerae nonicteric. NOSE: Without deformity. MOUTH: Shows her mucous membranes to be pink and moist. Lips and commisures without lesions. There is no thrush. She has dentures in place. NECK: Supple. There is no jugular venous distention. No subcutaneous emphysema. Trachea is midline. There is no thyromegaly or lymphadenopathy. LUNGS: Show markedly decreased breath sounds in the left lower hemithorax with a dull percussion note in the left lower hemithorax. The remainder of her lung sounds are normal vesicular sounds. CARDIAC: Without murmurs, clicks, gallops, or rubs. I cannot feel her PMI. S1, S2 are normal. ABDOMEN: Soft and nontender. Bowel sounds positive. There is no hepatomegaly and no CVA tenderness. EXTREMITIES: Show no pretibial edema. No calf tenderness. No differential swelling of the upper extremities. SKIN: Warm, dry, and perfuse without cyanosis or mottling including that of the nail beds and knees. NEUROLOGIC: Shows II through XII intact. Normal gross motor. Normal gross sensation. Gait was not tested. PSYCHIATRIC: Shows her to be awake, alert, and oriented x3 with appropriate mood and affect and conversational. LABORATORY DATA: Her white count this morning was 8.8 with a hemoglobin and hematocrit of 7.5 and 23.2 down from 9.1 and 28.4 yesterday. Her Is and Os do not reflect hemodilution. Platelet count is 277,000 and the differential shows 79% neutrophils, 10% lymphocytes, and 8% monocytes. There are no immature forms and no toxic granulations. Chemistries today show a potassium of 3.2 with a BUN and creatinine of 46 and 0.70. Glucose is 109 with a calcium of 8.1. Albumin is 2.3. IMAGING DATA: Her chest x-ray shows an opacity in the left lower hemithorax. CT scan confirms that this opacity is in deed a pleural effusion. The right side has just a trace pleural effusion. She has a compression atelectasis in the left lower lobe. IMPRESSION: 1. History of infiltrating ductal carcinoma of the right breast. 2. 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 3. Increasing pleural effusion on the left side also probably malignant. 4. Acute anemia from last night. 5. Aortic stenosis mild. 6. Hypertension. 7. 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 8. Coronary atherosclerosis. PLAN AND DISCUSSION: She already has a PleurX catheter in the right side and I will place her on the left side to drain her to improve her symptomatically. She is being seen by oncology. I would repeat her CBC as that is a significant hemoglobin and hematocrit drop overnight. She is essentially asymptomatic.
[2021-02-13 11:56] LABS: FOLATE 18.3 NG/ML
[2021-02-13 12:01] LABS: HEMOGLOBIN 6.2 g/dl (12.0-15.5)
[2021-02-13] MEDS: IRON SUCROSE 200 MG in NS 100 ML OVER 1 HR IV SCH (12:26)
[2021-02-13] MEDS ORDERED: MOM 30ML SUSPENSION UDC PO ONE (14:00)
[2021-02-13] MEDS: SLF 3 ML SYR IV SCH ×2 (14:33→21:47)
--- NOTE | 2021-02-13 16:50 | IPNPDOC ---
Text Note Date of Service The patient was seen on 02/13/21. NOTE Hospitalist Progress Note Subjective: The patient is sitting upright in the bed. She is awake alert and in no acute distress. Upon further questioning this morning it appears that she has noticed a significant quantity of home blood in her stools over the past few days, but she had not told anyone about this. She states that the blood is dark red, but not necessarily black, not certainly bright red either. Her shortness of breath is actually improved from yesterday since the addition of her second Pleurx catheter to the left side (already had one on the right). She is not experiencing any symptoms of lightheadedness. She does not have any pain with the exception of a mild discomfort at the insertion site of the Pleurx catheter. Objective: General: Awake, alert, oriented 3. Not in any acute distress. HEENT: Head normocephalic, atraumatic, sclera are nonicteric. Hearing is grossly intact to conversation. Respiratory: Diminished lung sounds at the bases with mild crackles, otherwise remainder lung rockwell are clear. Cardiovascular: Regular rate and rhythm, with no rubs, gallops. 3/6 systolic murmur Abdomen: Soft, nontender, nondistended, no hepatosplenomegaly appreciated. Bowel sounds present. Extremities: 2+ pulses in the radial and dorsalis pedis bilaterally. No evidence of clubbing or cyanosis. Assessment: -Large left-sided pleural effusion likely secondary to metastatic breast cancer Pleurx catheter placed per cardiothoracic surgery yesterday, over 1 L of fluid was drained. I spoke with him, this was not a hemothorax, but apparently was fluid consistent with a pleural effusion. Chest x-ray today shows significant improvement in left pleural effusion which was to be expected. -History of recurrent right-sided pleural effusion with placement of Pleurx catheter which she drains every 3 days Chronic, stable -Significant drop in H&H, likely secondary to GI bleed Consult placed to GI. She'll be started on clear liquids and today, and will be made nothing by mouth after midnight tonight in anticipation for likely upper and lower scopes tomorrow. She is a Jew, therefore blood products will not be administered. A dose of Aranesp was given to her yesterday. She is receiving IV iron supplementation today. She is already on Protonix 40 mg daily. Repeat H&H today at noon showed no change from this morning, will repeat another one this evening. -Uremia BUN/creatinine is trending upward, likely secondary to absorption of blood in the GI tract -Hypokalemia Supplementation was provided, resolved today. We'll continue to monitor -Hypertension Her home dose of lisinopril and hydrochlorothiazide is currently being held. Pressures have been within acceptable limits. -Metastatic ductal carcinoma of the right breast Will need to continue following up outpatient with her oncologist -Aortic stenosis Chronic, stable -Chronic heart failure with preserved ejection fraction She does not appear to be decompensated at this time -History of right lacunar CVA with residual left upper extremity paresthesia and weakness -Hyperlipidemia Chronic, stable. Continue home dose of Crestor -DVT prophylaxis teds and sequentials VS,Fishbone, I+O VS, Fishbone, I+O Laboratory Tests 02/13/21 04:48 02/13/21 11:32 Vital Signs Date Time Temp Pulse Resp B/P (MAP) Pulse Ox O2 Delivery O2 Flow Rate FiO2 02/13/21 16:00 96 Nasal Cannula 2.0 02/13/21 16:00 99.0 89 18 134/63 (86) I&O- Last 24 Hours up to 6 AM 02/13/21 05:59 Intake Total 1320 ml Output Total 1900 ml Balance -580 ml ALEXANDRU ARNOLD DO Feb 13, 2021 16:50
[2021-02-13] MEDS ORDERED: POLYETHYLENE GLYCOL (MIRALAX) 238GM BOTTLE PO ONE (17:00)
[2021-02-13 17:27] LABS: HEMATOCRIT 17.9 % (36.0-47.0); HEMOGLOBIN 5.7 g/dl (12.0-15.5)
[2021-02-13] MEDS: SUCRALFATE 1 GM TAB PO SCH ×2 (17:30→21:47)
[2021-02-13] MEDS ORDERED: GLUCAGON INJ 1MG VIAL As Ordered ONE (18:40)
[2021-02-13] MEDS ORDERED: PHENYLEPHRINE 10MG/ML 1ML VIAL (J2370 PER 1) As Ordered ONE (18:53)
[2021-02-13] MEDS ORDERED: dexameTHASONE 4 MG/ML 1ML VIAL (J1100 PER 1MG) As Ordered ONE (18:53)
[2021-02-13] MEDS ORDERED: SUCCINYLCHOLINE 100 MG/5 ML SYRINGE (J0330) As Ordered ONE (18:53)
[2021-02-13] MEDS ORDERED: propofoL 200 MG/20 ML VIAL As Ordered ONE (18:53)
[2021-02-13] MEDS ORDERED: MIDAZOLAM INJ 2MG/2ML VIAL (J2250 PER 1MG) As Ordered ONE (18:53)
[2021-02-13] MEDS ORDERED: ONDANSETRON 4MG/2ML VIAL As Ordered ONE (18:53)
[2021-02-13] MEDS ORDERED: LIDOCAINE 2% 100MG/5ML SDV (FOR ANES.) As Ordered ONE (18:53)
[2021-02-13] MEDS ORDERED: ROCURONIUM BROMIDE 50 MG/5 ML VIAL As Ordered ONE (18:53)
[2021-02-13] MEDS ORDERED: KETAMINE HCL 200 MG/20 ML VIAL As Ordered ONE (18:53)
--- NOTE | 2021-02-13 19:18 | ROOR ---
Patient Name: Mayra Joaquin Procedure Date: 02/13/2021 6:00 PM Date of : 1930 Age: 89 Gender: Female Note Status: Finalized Procedure: Upper GI endoscopy Indications: Acute post hemorrhagic anemia, Melena Providers: Brian GARZA MD Referring MD: 2. Inpatient 2. Inpatient Requesting Provider: Medicines: General Anesthesia Complications: No immediate complications. Procedure: Pre-Anesthesia Assessment: - The heart rate, respiratory rate, oxygen saturations, blood pressure, adequacy of pulmonary ventilation, and response to care were monitored throughout the procedure. The Endoscope was introduced through the mouth, and advanced to the second part of duodenum. The upper GI endoscopy was somewhat difficult due to presence of food. Successful completion of the procedure was aided by lavage. Findings: The examined esophagus was normal. No gross lesions were noted in the entire examined stomach. A medium amount of food (residue) was found in the gastric fundus and in the gastric body. Removal of food was accomplished. A single diminutive angioectasia with bleeding was found in the second portion of the duodenum. For hemostasis, four hemostatic clips were successfully placed. There was no bleeding at the end of the procedure. A medium non-bleeding diverticulum was found in the second portion of the duodenum. Impression: - A single actively oozing/bleeding angioectasia in the second portion of the duodenum. Clips were placed with good hemostasis. - Non-bleeding duodenal diverticulum. - Adequate visualisation of the stomach after food residue removed. No gross lesions in the stomach. - Normal esophagus. Recommendation: - Clear liquid diet x 24 hrs. - Observe patient's clinical course. - Hold colonoscopy for now Procedure Code(s): --- Professional --- 12508, 59, Esophagogastroduodenoscopy, flexible, transoral; with control of bleeding, any method 88000, Esophagogastroduodenoscopy, flexible, transoral; with removal of foreign body(s) Diagnosis Code(s): --- Professional --- K57.10, Diverticulosis of small intestine without perforation or abscess without bleeding K92.1, Melena (includes Hematochezia) D62, Acute posthemorrhagic anemia K31.811, Angiodysplasia of stomach and duodenum with bleeding T18.2XXA, Foreign body in stomach, initial encounter CPT copyright 2019 [employer]. All rights reserved. The codes documented in this report are preliminary and upon rd scientist review may be revised to meet current compliance requirements. Brian Garza MD Brian GARZA MD 02/13/2021 7:18:00 PM Electronically signed by Brian GARZA MD Number of Addenda: 0 Note Initiated On: 02/13/2021 6:00 PM Estimated Blood Loss: Estimated blood loss: none.
[2021-02-13] MEDS ORDERED: ONDANSETRON 4MG/2ML VIAL IV PRN (19:20)
[2021-02-13] MEDS ORDERED: LR 1,000 ML IV SCH (19:20)
--- NOTE | 2021-02-13 21:43 | IPN ---
PROGRESS NOTE DATE: 02/13/2021 SUBJECTIVE: No acute events overnight. Patient continues to endorse ongoing shortness of breath that has been present since early after getting her right PleurX catheter. She again states that she was well for a short period of time but then began to develop shortness of breath. She had a left-sided PleurX catheter put in yesterday by Dr. Avila but despite that continues to be short of breath at baseline currently sitting in front of me. She had a left-sided PleurX catheter put in for a likely malignant pleural effusion. She otherwise denies any fevers, chills, chest pain, cough, difficulty breathing. In regards to her hemoglobin which continues to drop today on lab work, she admitted that over the last couple of days she has had blood in her stool which she had previously denied during her initial admission to the hospital. OBJECTIVE: Vital signs: Temperature of 98, pulse 83 and regular, respiratory rate of 18, blood pressure 112/57, saturating 95% on 3 liters nasal cannula. General: Patient is a somewhat pale appearing female who appears stated age, sitting upright in bed, comfortable, and speaking in complete sentences and in no acute distress. HEENT: Head is normocephalic, atraumatic. Extraocular movements intact. No scleral icterus. Nares are patent and atraumatic. Mucous membranes are moist. Neck: No jugular venous distension (JVD) or tracheal deviation. Cardiac: There is a soft blowing systolic murmur best appreciated in the right upper sternal border. Regular rate and rhythm. 3/6 systolic murmur best heard at the right upper sternal border. No additional murmurs, gallops, rubs. Respiratory: Clear to auscultation bilaterally. Some mild dullness to percussion in the left lower lobe. No wheezes, crackles, or rhonchi. Abdomen: Obese, soft, nontender, nondistended, but no hepatosplenomegaly, no masses or ecchymosis, no costovertebral (CVA) tenderness. Extremities: No edema in bilateral lower extremities. Neurologic: Cranial nerves II-XII intact. Sensation is intact. Gait not tested. Psychiatric: Patient is alert, awake, oriented times three with appropriate mood and affect. LABORATORY DATA: White blood cell count of 8.8, morning hemoglobin of 6.1, hematocrit 19.2, platelet count of 281. Later at 11:30 this morning, hemoglobin of 6.2, hematocrit of 19. Sodium of 137, potassium 4.0, chloride 104, bicarbonate 27, BUN of 72, creatinine 1.24, glucose 123, calcium of 9. Pleural fluid showing a white blood cell count of 1042, red blood cells 12, mononuclear percentage 84.8, PMN percentage 15.2, fluid glucose 123, fluid total protein 4.0, albumin 2.2, fluid LDH 99, fluid amylase 42, fluid cholesterol 63, fluid triglycerides 15. Microbiology still pending. Gram stain is showing moderate red blood cells with few white blood cells with no organism seen. Pathology pending. IMAGING: Chest x-ray showing some very mild blunting of the right costophrenic angle and blunting of the left costophrenic angle. No signs of focal infiltrate. Trachea is midline. The left hemidiaphragm appears to be somewhat elevated compared to the right and the overall lung volume is somewhat diminished as well. ASSESSMENT: 1. Left-sided pleural effusion. 2. 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 3. History of infiltrating ductal carcinoma of the right breast. 4. Acute anemia. 5. Mild aortic stenosis. 6. Hypertension. 7. 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 8. Coronary atherosclerosis. PLAN: 1. The left-sided pleural effusion does not seem to be the cause of the shortness of breath and the pleural fluid findings are more consistent with a transudative process than with an exudative process. However, given her history of the right-sided malignant effusion this still remains on the differential. We have advised that she drain her PleurX catheters every other day on alternating days. We will have this patient followup in Dr. Avila's office 10 days after discharge to see how she is doing. 2. Acute anemia, and the most pressing problem for this patient at this time is the precipitous drop in her hemoglobin level over the last 24-48 hours. She has not yet had an occult blood for her stool ordered but her afternoon hemoglobin is down to 5.7. Dr. Andre has reached out to Dr. Garza who initially planned to do a colonoscopy tomorrow morning. 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 However, on seeing her afternoon hemoglobin of 5.7, Dr. Avila spoke with Dr. Garza who is agreeable to doing a colonoscopy and possible EGD this evening at 8 pm. The patient has been without food since she had lunch but given how much blood she has lost it is likely that the bleed will be fairly large. Will continue to follow along. Thank you for involving us in the care of this patient. My faculty preceptor for this patient encounter was physically present during the encounter and was fully available. All aspects of the patient interview, examination, medical decision making process, and medical care plan development were reviewed and approved by the faculty preceptor. The faculty preceptor is aware and concurs with the plan as stated in the body of this note and will attest to such by his/her co-signature.
[2021-02-14] VITALS (10 sets, daily range): BP systolic 98–142; BP diastolic 44–88; O2SAT 94–95
[2021-02-14 00:33] LABS: HEMATOCRIT 18.2 % (36.0-47.0)
[2021-02-14 00:37] LABS: HEMOGLOBIN 5.8 g/dl (12.0-15.5)
[2021-02-14] MEDS: LEVALBUTEROL 1.25 MG/0.5 ML CONCENTRATE NEB INH SCH ×4 (02:25→20:00)
[2021-02-14] MEDS: SLF 3 ML SYR IV SCH ×3 (05:14→22:23)
[2021-02-14] MEDS ORDERED: POLYETHYLENE GLYCOL (MIRALAX) 238GM BOTTLE PO ONE ×2 (06:00→14:00)
[2021-02-14 06:31] LABS: BLOOD UREA NITROGEN 62 MG/DL (7-18); CALCIUM LEVEL 8.2 MG/DL (8.8-10.2); CARBON DIOXIDE LEVEL 28 MEQ/L (21-32); CHLORIDE LEVEL 106 MEQ/L (98-107); GLOMERULAR FILTRATION RATE > 60.0 (>32); GLUCOSE, FASTING 157 MG/DL (70-100); POTASSIUM SERUM 4.7 MEQ/L (3.5-5.1); SODIUM LEVEL 140 MEQ/L (136-145)
[2021-02-14 06:45] LABS: HEMATOCRIT 17.4 % (36.0-47.0); LYMPH # 0.6 10^3/uL (1.5-5.0); LYMPH % 5.8 % (24.0-44.0); MEAN CORPUSCULAR HEMOGLOBIN 28.6 pg (27.0-33.0); MEAN CORPUSCULAR HGB CONC 31.6 g/dl (32.0-36.5); MEAN CORPUSCULAR VOLUME 90.6 fl (80.0-96.0); MONO # 0.4 10^3/uL (0.0-0.8); MONO % 3.5 % (2.0-8.0); NEUTROPHILS # 9.2 10^3/uL (1.5-8.5); PLATELET COUNT, AUTOMATED 303 10^3/uL (150-450); RED BLOOD COUNT 1.92 10^6/uL (4.00-5.40); WHITE BLOOD COUNT 10.3 10^3/uL (4.0-10.0)
[2021-02-14 06:48] LABS: HEMOGLOBIN 5.5 g/dl (12.0-15.5)
--- NOTE | 2021-02-14 07:45 | IPNPDOC ---
Date Seen The patient was seen on 02/14/21. Progress Note progress note dictated job # [id number]. pls call hypertype at [phone] to stat transcribe. VS, I&O, 24H, Fishbone Vital Signs/I&O Vital Signs Date Time Temp Pulse Resp B/P (MAP) Pulse Ox O2 Delivery O2 Flow Rate FiO2 02/14/21 07:16 97.8 92 18 98/49 (65) 94 Nasal Cannula 3.0 I&O- Last 24 Hours up to 6 AM 02/14/21 06:00 Intake Total 1300 ml Output Total 750 ml Balance 550 ml Laboratory Data 24H LABS Laboratory Tests 2 02/14/21 05:16: Anion Gap 6L, Glomerular Filtration Rate > 60.0, Calcium Level 8.2L 02/14/21 06:20: Immature Granulocyte % (Auto) 0.7, Neutrophils (%) (Auto) 90.0H, Lymphocytes (%) (Auto) 5.8L, Monocytes (%) (Auto) 3.5, Eosinophils (%) (Auto) 0.0, Basophils (%) (Auto) 0.0, Neutrophils # (Auto) 9.2H, Lymphocytes # (Auto) 0.6L, Monocytes # (Auto) 0.4, Eosinophils # (Auto) 0.0, Basophils # (Auto) 0.0, Nucleated Red Blood Cells % (auto) 0.0 CBC/BMP Laboratory Tests 02/13/21 11:32 02/13/21 17:05 02/14/21 00:03 02/14/21 05:16 02/14/21 06:20 Microbiology Microbiology 02/12/21 Acid Fast Stain, Received Pending 02/12/21 Mycobacterial Culture, Received Pending 02/12/21 Fungal Smear, Received Pending 02/12/21 Fungal Culture, Received Pending 02/12/21 Gram Stain - Final, Resulted 02/12/21 Body Fluid Culture, Resulted Pending 02/12/21 Anaerobic Culture, Resulted Pending KEEGAN HWANG MD Feb 14, 2021 07:45
--- NOTE | 2021-02-14 08:05 | REP ---
INDICATION: pleural effusion. COMPARISON: Comparison chest x-ray February 13, 2021. TECHNIQUE: Two views.. FINDINGS: There is blunting of the pleural angles bilaterally consistent with small bilateral effusions. Bilateral PleurX catheters are noted in place. Heart size is borderline. Cardiothoracic ratio measures 52.8%. Pulmonary vasculature is not increased. No pulmonary mass or nodule is appreciated. IMPRESSION: Bilateral PleurX drainage catheter is in place. Blunting of the pleural angles bilaterally consistent with small effusions. Borderline heart size.. <Electronically signed by Rolando Harper > 02/14/21 0841
--- NOTE | 2021-02-14 08:09 | IPN ---
PROGRESS NOTE DATE: 02/14/2021 SUBJECTIVE: The patient is seen and examined at the bedside, the chart has been reviewed. The patient denies chest pain, pressure, tightness, shortness of breath, palpitations, lightheadedness or dizziness. Ambulates with assistance from bed to the bathroom. Denies any bright-red blood per rectum, melena, or black tarry stools from overnight. EGD shows AVM that was bleeding, status post metallic clip, clears for 24 hours. Patient is a Jehov[employer] Witness who refuses blood transfusion for a persistent hemoglobin of 5.5. OBJECTIVE: VITAL SIGNS: Temperature is 97.8, pulse is 92, respiratory rate 18, blood pressure is 98/49, 84% on 3 liters nasal cannula. GENERAL: Awake, alert and oriented to person, place and time answering questions appropriately without use of respiratory accessory muscles. Pallor. No icterus or jaundice. NECK: No JVD or thyromegaly. No cervical lymphadenopathy or tracheal deviation. LUNGS: Clear to auscultation. No wheezing, rales or rhonchi. HEART: S1 and S2, sinus rhythm. ABDOMEN: Soft, nontender, nondistended. Positive bowel sounds. EXTREMITIES: No pitting edema. LABORATORY DATA: White count is 10, hemoglobin is 5.5, hematocrit 17, platelet count is 303,000. Sodium is 140, potassium is 4.7, chloride is 106, bicarbonate 28, BUN 62, creatinine 0.8, glucose of 157. Pleural fluid pending acid fast and fungal cultures. Moderate RBCs, a few WBCs, no organism seen. ASSESSMENT AND PLAN: This is an 89-year-old female admitted on 02/12, DNR/DNI, Jehovah Witness with symptomatic anemia and bleeding, oozing, angiodysplasia, status post metallic clip on Protonix and Carafate. EGD on 02/13/2021 with left malignant pleural effusion secondary to breast malignancy status post chest tube managed by Dr. Jose Elias Avila. Active issues are as follows: 1. Malignant pleural effusion secondary to metastatic breast cancer status post one liter, pleural fluid removed with significant improvement. PleurX catheter placed by thoracic surgery, chronic. 2. Acute GI bleed with symptomatic anemia with blood loss requiring IV Aranesp secondary to refusal to take blood products due to her Jehovah Witness status. Patient is on Protonix and Carafate, EGD on 02/13 showed bleeding and oozing arterial venous dysplasia status post clip, unclear diet for 24 hours, on Protonix and Carafate. GI consulted. 3. Hypertension, due to low blood pressure her Lisinopril and Hydrochlorothiazide have been held. 4. 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 Has PleurX catheter due to malignant pleural effusion which is recurrent. 5. Aortic stenosis, chronic. 6. Chronic diastolic heart failure, compensated. 7. History of right lacunar CVA. 8. Hyperlipidemia. 9. Persistent left upper extremity paraesthesias and weakness. Not on home dose of Crestor and no antiplatelet or anticoagulant because of current acute blood loss anemia. 10.Electrolyte abnormalities, resolved. MTDD
[2021-02-14] MEDS: DOCUSATE SODIUM 100MG CAPSULE PO SCH ×2 (08:31→22:23)
[2021-02-14] MEDS: PANTOPRAZOLE 40MG TAB (PROTONIX) PO SCH (08:31)
[2021-02-14] MEDS: SUCRALFATE 1 GM TAB PO SCH ×4 (08:31→22:23)
[2021-02-14] MEDS: ROSUVASTATIN 10 MG TAB (CRESTOR) PO SCH (08:31)
[2021-02-14] MEDS: VITAMIN D 1,000 INTERNATIONAL UNITS TABLET PO SCH (08:32)
[2021-02-14] MEDS ORDERED: FLEET ENEMA PR ONE ×2 (09:00→14:30)
[2021-02-14] MEDS ORDERED: MAGNESIUM CITRATE 300 ML BTL PO ONE (09:00)
[2021-02-14] MEDS: IRON SUCROSE 200 MG in NS 100 ML OVER 1 HR IV SCH (12:16)
[2021-02-14 12:35] LABS: HEMATOCRIT 17.9 % (36.0-47.0); HEMOGLOBIN 5.6 g/dl (12.0-15.5)
--- NOTE | 2021-02-14 14:10 | IPN ---
THORACIC SURGERY PROGRESS NOTE DATE: 02/14/2021 SUBJECTIVE: Patient is seen and examined this morning at bedside. She reports no acute events overnight and was able to sleep well. 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 Garza. Per nursing staff, Dr. Garza has already called this morning to have the patient nothing by mouth for a repeat EGD and colonoscopy later today due to the drop in hemoglobin from 5.8 to 5.5 overnight. She does admit this morning to some mild pleuritic left-sided chest pain. Outside of this, she has no additional complaints. She is not really sure if she feels better since she was admitted or feels less short of breath. She did have her right PleurX catheter drained with 250 mL coming off. She otherwise denies any fevers, chills, abdominal pain, nausea, vomiting, constipation, diarrhea or change in bowel habits. OBJECTIVE: VITAL SIGNS: She was afebrile overnight. Temperature 97 degrees Fahrenheit, pulse 90 and regular, respiratory rate 20, blood pressure 112/44, saturating 98% on 2 liters nasal cannula. INTAKE AND OUTPUT: She had 1400 mL of intake in the last 24 hours with 950 mL output in the last 24 hours, with 700 mL of urine output and 250 mL of drainage from the right PleurX catheter. PHYSICAL EXAMINATION: GENERAL: Patient is a pale-appearing female who appears stated age, sitting upright in bed, speaking in complete sentences, in no acute distress. HEENT: Head normocephalic, atraumatic. Extraocular movements intact. No scleral icterus. Mucous membranes are moist. There are some mild petechiae in the posterior pharynx. NECK: No jugular venous distention (JVD) or lymphadenopathy. No tracheal deviation. CARDIOVASCULAR: Soft blowing 3/6 systolic murmur best heard at the right upper sternal border. No additional murmurs, gallops or rubs. RESPIRATORY: Crackles appreciated in the left lower lobe. Dullness to percussion left lower lobe compared to right. No wheezes or rhonchi. ABDOMEN: Obese, soft, nontender, nondistended. No hepatosplenomegaly. No masses or ecchymosis. No costovertebral angle (CVA) tenderness. EXTREMITIES: No edema in bilateral upper or lower extremities. NEUROLOGIC: Cranial nerves II-XII intact. Sensation is intact. Gait is not tested. PSYCHIATRIC: Patient is awake, alert, oriented times three with appropriate mood and affect. LABORATORY DATA: White blood cell count 10.3, hemoglobin 5.5, hematocrit 17.4, platelet count 303. Sodium 140, potassium 4.7, chloride 106, bicarbonate 28, BUN 62, creatinine 0.80, glucose 157, calcium 8.2. Pathology and cytology are still pending. IMAGING: Chest x-ray 2-view showing decreased blunting of the right costophrenic angle compared to day prior. Some increased blunting of the left costophrenic angle compared to day prior. No acute infiltrates seen. PleurX extends out to the chest wall bilaterally. Heart borders are regular. Trachea is midline. ASSESSMENT: 1. Left-sided pleural effusion. 2. 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 3. History of infiltrating ductal carcinoma of the right breast. 4. Acute anemia. 5. Mild aortic stenosis. 6. Hypertension. 7. History of cerebrovascular accident (CVA) with residual paresthesias in left upper extremity. 8. Coronary atherosclerosis. PLAN: 1. Right-sided PleurX catheter continues to drain well. Left-sided PleurX catheter will be drained today and each will be drained every other day. Once again, patient should follow up with Dr. Avila's office in 10 days following her discharge. She is already aware of how to operative the PleurX catheters. Pleural effusion is consistent with a transudative process. 2. Acute anemia. Per gastroenterology (GI), Dr. Garza plans to take patient to the endoscopy suite later tonight for a colonoscopy and endoscopy. Patient is DO NOT RESUSCITATE (DNR)/DO NOT INTUBATE and is a [employer] and refuses blood products. Yesterday, he found arteriovenous malformations and is somewhat concerned by the ongoing drop in hemoglobin despite clipping this yesterday. We will continue to follow along closely. E ATTESTATION
[2021-02-14 18:19] LABS: HEMATOCRIT 19.4 % (36.0-47.0); HEMOGLOBIN 6.1 g/dl (12.0-15.5)
--- NOTE | 2021-02-14 21:48 | ROOR ---
Patient Name: Mayra Joaquin Procedure Date: 02/14/2021 2:42 PM Date of : 1930 Age: 89 Gender: Female Note Status: Finalized Procedure: Colonoscopy Indications: Melena, Acute post hemorrhagic anemia Providers: Brian GARZA MD Referring MD: 2. Inpatient 2. Inpatient Requesting Provider: Medicines: Monitored Anesthesia Care Complications: No immediate complications. Procedure: Pre-Anesthesia Assessment: - The heart rate, respiratory rate, oxygen saturations, blood pressure, adequacy of pulmonary ventilation, and response to care were monitored throughout the procedure. The Colonoscope was introduced through the anus and advanced to the terminal ileum, with identification of the appendiceal orifice and IC valve. The colonoscopy was technically difficult and complex due to inadequate bowel prep. Successful completion of the procedure was aided by lavage. The patient tolerated the procedure well. The quality of the bowel preparation was adequate to identify polyps 6 mm and larger in size and fair. Findings: Hemorrhoids were found on perianal exam. Multiple small and large-mouthed diverticula were found in the sigmoid colon and descending colon. Internal external and internal hemorrhoids were found during retroflexion. The hemorrhoids were Grade II (internal hemorrhoids that prolapse but reduce spontaneously). The exam was otherwise without abnormality. Impression: - Preparation of the colon was suboptimal. - Hemorrhoids found on perianal exam. - Diverticulosis in the sigmoid colon and in the descending colon. - Internal external and internal hemorrhoids. - The examination was otherwise normal. - No specimens collected. Recommendation: - [facility] care. Procedure Code(s): --- Professional --- 60882, Colonoscopy, flexible; diagnostic, including collection of specimen(s) by brushing or washing, when performed (separate procedure) Diagnosis Code(s): --- Professional --- K64.1, Second degree hemorrhoids K92.1, Melena (includes Hematochezia) D62, Acute posthemorrhagic anemia K57.30, Diverticulosis of large intestine without perforation or abscess without bleeding CPT copyright 2019 [employer]. All rights reserved. The codes documented in this report are preliminary and upon sap payroll consultant review may be revised to meet current compliance requirements. Brian Garza MD Brian GARZA MD 02/14/2021 9:48:31 PM Electronically signed by Brian GARZA MD Number of Addenda: 0 Note Initiated On: 02/14/2021 2:42 PM Estimated Blood Loss: Estimated blood loss: none.
[2021-02-14] MEDS ORDERED: LR 1,000 ML IV SCH (21:50)
[2021-02-14] MEDS ORDERED: ONDANSETRON 4MG/2ML VIAL IV PRN (21:50)
--- NOTE | 2021-02-14 21:55 | ROOR ---
Patient Name: Mayra Joaquin Procedure Date: 02/14/2021 9:49 PM Date of : 1930 Age: 89 Gender: Female Note Status: Finalized Procedure: Upper GI endoscopy Indications: Acute post hemorrhagic anemia, Melena, Decreaseing Hb since yesterdays EGD/clip of AVM. recheck for recurrent bleeding Providers: Brian GARZA MD Referring MD: 2. Inpatient 2. Inpatient Requesting Provider: Medicines: Monitored Anesthesia Care Complications: No immediate complications. Procedure: Pre-Anesthesia Assessment: - The heart rate, respiratory rate, oxygen saturations, blood pressure, adequacy of pulmonary ventilation, and response to care were monitored throughout the procedure. - The heart rate, respiratory rate, oxygen saturations, blood pressure, adequacy of pulmonary ventilation, and response to care were monitored throughout the procedure. The Endoscope was introduced through the mouth, and advanced to the third part of duodenum. The upper GI endoscopy was accomplished without difficulty. The patient tolerated the procedure well. Findings: The examined esophagus was normal. The entire examined stomach was normal. A diverticulum was found in the second portion of the duodenum. A single diminutive angioectasia with endoclips in place, without bleeding was found in the second portion of the duodenum. Impression: - Normal esophagus. - Normal stomach. - Duodenal diverticulum. - A single non-bleeding angioectasia with attached endoclips in the duodenum. - No specimens collected. Recommendation: - Observe patient's clinical course. - Clear liquid diet today. Procedure Code(s): --- Professional --- 25530, Esophagogastroduodenoscopy, flexible, transoral; diagnostic, including collection of specimen(s) by brushing or washing, when performed (separate procedure) Diagnosis Code(s): --- Professional --- K57.10, Diverticulosis of small intestine without perforation or abscess without bleeding K92.1, Melena (includes Hematochezia) D62, Acute posthemorrhagic anemia K31.819, Angiodysplasia of stomach and duodenum without bleeding CPT copyright 2019 [employer]. All rights reserved. The codes documented in this report are preliminary and upon trade mark attorney review may be revised to meet current compliance requirements. Brian Garza MD Brian GARZA MD 02/14/2021 9:54:46 PM Electronically signed by Brian GARZA MD Number of Addenda: 0 Note Initiated On: 02/14/2021 9:49 PM Estimated Blood Loss: Estimated blood loss: none.
[2021-02-15] VITALS (18 sets, daily range): BP systolic 112–146; BP diastolic 55–78; O2SAT 85–98
[2021-02-15 00:32] LABS: HEMATOCRIT 18.3 % (36.0-47.0); HEMOGLOBIN 5.6 g/dl (12.0-15.5)
[2021-02-15] MEDS: LEVALBUTEROL 1.25 MG/0.5 ML CONCENTRATE NEB INH SCH ×4 (02:34→19:20)
[2021-02-15] MEDS: SLF 3 ML SYR IV SCH ×3 (05:05→20:37)
[2021-02-15 05:52] LABS: BASO % 0.3 % (0.0-1.0); EOS # 0.4 10^3/uL (0.0-0.5); EOS % 5.7 % (0.0-3.0); LYMPH # 0.9 10^3/uL (1.5-5.0); LYMPH % 11.5 % (24.0-44.0); MEAN CORPUSCULAR HEMOGLOBIN 28.8 pg (27.0-33.0); MEAN CORPUSCULAR HGB CONC 30.3 g/dl (32.0-36.5); MEAN CORPUSCULAR VOLUME 95.1 fl (80.0-96.0); MONO # 0.7 10^3/uL (0.0-0.8); MONO % 9.1 % (2.0-8.0); NEUTROPHILS # 5.4 10^3/uL (1.5-8.5); NEUTROPHILS % 72.5 % (36.0-66.0); PLATELET COUNT, AUTOMATED 355 10^3/uL (150-450); RED BLOOD COUNT 1.84 10^6/uL (4.00-5.40); WHITE BLOOD COUNT 7.4 10^3/uL (4.0-10.0)
[2021-02-15 05:57] LABS: HEMATOCRIT 17.5 % (36.0-47.0)
[2021-02-15 05:58] LABS: HEMOGLOBIN 5.3 g/dl (12.0-15.5)
[2021-02-15 06:11] LABS: BLOOD UREA NITROGEN 43 MG/DL (7-18); CALCIUM LEVEL 8.4 MG/DL (8.8-10.2); CARBON DIOXIDE LEVEL 31 MEQ/L (21-32); CHLORIDE LEVEL 109 MEQ/L (98-107); CREATININE FOR GFR 0.74 MG/DL (0.55-1.30); GLOMERULAR FILTRATION RATE > 60.0 (>32); GLUCOSE, FASTING 103 MG/DL (70-100); POTASSIUM SERUM 3.8 MEQ/L (3.5-5.1); SODIUM LEVEL 143 MEQ/L (136-145)
[2021-02-15] MEDS: SUCRALFATE 1 GM TAB PO SCH ×4 (07:30→20:37)
--- NOTE | 2021-02-15 08:11 | REP ---
INDICATION: pleural effusion COMPARISON: 02/14/2021 TECHNIQUE: PA and lateral. FINDINGS: Bilateral chest tubes and bilateral lower lobe opacities suggesting small pleural effusions (left greater than right) and airspace disease again noted and similar to prior examination. No obvious pneumothorax. Mediastinum and cardiac silhouette stable. Skeletal structures stable. IMPRESSION: No significant change from prior examination. Bilateral lower lobe opacities suggesting airspace disease and effusions (left greater than right) again noted. <Electronically signed by Gilbert Brar > 02/15/21 0877
[2021-02-15] MEDS: ROSUVASTATIN 10 MG TAB (CRESTOR) PO SCH (09:00)
[2021-02-15] MEDS: VITAMIN D 1,000 INTERNATIONAL UNITS TABLET PO SCH (09:35)
[2021-02-15] MEDS: PANTOPRAZOLE 40MG VIAL (C9113 PER 1) IV SCH ×2 (09:35→20:37)
[2021-02-15] MEDS: DOCUSATE SODIUM 100MG CAPSULE PO SCH ×2 (09:36→20:37)
--- NOTE | 2021-02-15 10:32 | IPNPDOC ---
Date Seen The patient was seen on 02/15/21. Progress Note please call [facility] at [phone] to stat transcribed progress note by Dr. Ornelas if needed urgently. VS, I&O, 24H, Fishbone Vital Signs/I&O Vital Signs Date Time Temp Pulse Resp B/P (MAP) Pulse Ox O2 Delivery O2 Flow Rate FiO2 02/15/21 08:19 2.0 02/15/21 08:13 97.3 81 19 140/62 (88) 02/15/21 08:00 95 Nasal Cannula I&O- Last 24 Hours up to 6 AM 02/15/21 06:00 Intake Total 1150 ml Output Total 1200 ml Balance -50 ml Laboratory Data 24H LABS Laboratory Tests 2 02/15/21 05:32: Immature Granulocyte % (Auto) 0.9, Neutrophils (%) (Auto) 72.5H, Lymphocytes (%) (Auto) 11.5L, Monocytes (%) (Auto) 9.1H, Eosinophils (%) (Auto) 5.7H, Basophils (%) (Auto) 0.3, Neutrophils # (Auto) 5.4, Lymphocytes # (Auto) 0.9L, Monocytes # (Auto) 0.7, Eosinophils # (Auto) 0.4, Basophils # (Auto) 0.0, Nucleated Red Bl ood Cells % (auto) 0.3H, Anion Gap 3L, Glomerular Filtration Rate > 60.0, Calcium Level 8.4L CBC/BMP Laboratory Tests 02/14/21 12:07 02/14/21 18:03 02/14/21 23:54 02/15/21 05:32 Microbiology Microbiology 02/12/21 Acid Fast Stain, Received Pending 02/12/21 Mycobacterial Culture, Received Pending 02/12/21 Fungal Smear, Received Pending 02/12/21 Fungal Culture, Received Pending 02/12/21 Gram Stain - Final, Complete 02/12/21 Body Fluid Culture - Final, Complete 02/12/21 Anaerobic Culture - Final, Complete KEEGAN ORNELAS MD Feb 15, 2021 10:31
[2021-02-15] MEDS: IRON SUCROSE 200 MG in NS 100 ML OVER 1 HR IV SCH (11:48)
--- NOTE | 2021-02-15 12:43 | IPN ---
PROGRESS NOTE DATE: 02/15/2021 SUBJECTIVE: The patient still complains of generalized weakness, some lightheadedness when she ambulates from bed to the bathroom with assistance. She denies any bright red blood per rectum, melena, black tarry stools. No chest pain, pressure, tightness, fevers or chills, headache, cough. Occasional exertional dyspnea which improves with rest. No nausea, vomiting, abdominal pain. OBJECTIVE: Vital signs: Temperature 97.3, pulse 81, respiratory rate 19, blood pressure 140/62, 95% on 2 liters nasal cannula. Generally awake, alert and oriented to person, place, and time. Answering questions appropriately. The patient has no use of respiratory accessory muscles. No cyanosis. The patient is very pale. No icterus, jaundice. Neck is supple, full range of motion. No cervical lymphadenopathy, thyromegaly, JVD, carotid bruits. Lungs diminished, clear to auscultation, no wheezing or rales. Heart: S1, S2 sinus rhythm. Systolic ejection murmur at the apex, radiation towards the carotids. Abdomen: Obese, soft, nontender, nondistended. Positive bowel sounds times four quadrants. Extremities: No pitting edema. LABORATORY DATA: White count 7.4, hemoglobin 5.3, hematocrit 17, platelet count 355. Sodium 143, potassium 3.8, chloride 109, bicarb 31, BUN 43, creatinine 0.74, glucose 103. Microbiology: Body fluid, pleural fluid, no organisms seen, no growth aerobically, no growth anaerobically. 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 Avila for persistent left pleural effusion, found to have symptomatic anemia with hemoglobin of 5 status post EGD by Dr. Brian Garza showing single nonbleeding angioectasia with attached Endoclips in the duodenum. Active issues are as follows: 1. Acute symptomatic anemia/acute blood loss anemia/acute GI bleed status post EGD colonoscopy. EGD showing a single angioectasia in the duodenum. Colonoscopy showed internal and external hemorrhoids and diverticulosis. The patient is a [employer] and refuses blood transfusion. Currently on IV Venofer. Remains symptomatic from severe anemia on Protonix IV twice a day, clear liquid diet to be advanced to full liquids. The patient's prognosis remains poor due to comorbid conditions as well as symptomatic anemia. 2. Diastolic congestive heart failure compensated. 3. History of metastatic breast cancer with recurrence and recurrent pleural effusions status post PleurX catheter, managed by thoracic surgery. 4. Hypertension, stable. 5. Aortic stenosis, chronic. 6. History of right lacunar CVA with persistent left upper extremity weakness. 7. Hyperlipidemia. DISPOSITION: Left anterior PleurX catheter drained 400 mL out yesterday. Chest tube deferred to thoracic surgery for management. The patient remains with poor prognosis with severe symptomatic anemia, still refusing RBC transfusion. MTDD
--- NOTE | 2021-02-15 12:49 | IPN ---
THORACIC SURGERY PROGRESS NOTE DATE: 02/15/2021 SUBJECTIVE: The patient went for upper and lower endoscopy yesterday with Dr. Garza. 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 She tolerated the procedure well. This morning, however, she feels like she is more short of breath from the day prior. She had recently returned from x-ray at the time of examination and was having a difficult time just standing for the x-ray itself. She reports no additional symptoms, fever, chills, chest pain, abdominal pain, wheezing, coughing, nausea, vomiting, constipation or diarrhea. OBJECTIVE: VITAL SIGNS: Afebrile overnight. Temperature 97.3, pulse 81 and regular, respiratory rate 19, blood pressure 140/62, saturating 95% on 2 liters nasal cannula. INTAKE AND OUTPUT (I AND O): Intake 1350 mL, output 1500 mL with 1100 mL of urine and 400 mL of PleurX catheter drainage. PHYSICAL EXAMINATION: GENERAL: Patient is a pale-appearing female laying back in bed in no acute distress, speaking in complete sentences. HEENT: Head is normocephalic, atraumatic. Extraocular movements intact. No scleral icterus. Mucous membranes are somewhat dry-appearing. NECK: No lymphadenopathy, jugular venous distention (JVD). No tracheal deviation. CARDIOVASCULAR: Ongoing soft-blowing 3/6 systolic murmur best heard at the right upper sternal border. No additional murmurs, gallops or rubs. RESPIRATORY: Crackles appreciated bilaterally. Dullness to percussion in left lower lobe compared to right. No wheezes or rhonchi. ABDOMEN: Obese, soft, nontender, nondistended. No hepatosplenomegaly. No masses or ecchymosis. No costovertebral angle (CVA) tenderness. EXTREMITIES: No edema in bilateral upper or lower extremities. NEUROLOGIC: Cranial nerves II-XII intact. Sensation intact. PSYCHIATRIC: Patient is awake, alert, oriented times three with appropriate mood and affect. LABORATORY DATA: White blood cell count 7.4, hemoglobin 5.3, hematocrit 17.5, platelet count 355. Sodium 143, potassium 3.8, chloride 109, bicarbonate 31, BUN 43, creatinine 0.74, glucose 103, calcium 8.4. IMAGING: A 2-view chest x-ray showing improved pleural effusion on the left, some mild blunting of the costophrenic angle, regular heart borders, trachea is midline. PleurX extending out to the chest wall with no signs of acute infiltrate. Lateral chest x-ray showing ongoing pleural effusions. ASSESSMENT: 1. Left-sided pleural effusion. 2. 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 3. History of infiltrating ductal carcinoma of the right breast. 4. Acute anemia. 5. Mild aortic stenosis. 6. Hypertension. 7. History of cerebrovascular accident with residual paresthesias in the left upper extremity. 8. Coronary atherosclerosis. PLAN: 1. Left-sided pleural effusion. Cytology is showing rare atypical cells in a background of macrophages and lymphocytes with a cell block showing rare atypical epithelioid cells and reactive mesothelial cells. Will continue to suspect this is secondary to malignant pleural effusion. Her PleurX catheter is draining well and, as stated in prior notes, should be drained every other day. Patient should follow up with Dr. Avila's office 10 days following discharge from the hospital. 2. Upper gastrointestinal (GI) bleed. Patient continues to have ongoing anemia. We did discuss the possibility of a red blood cell scan for suspicion of an ongoing GI bleed; however, patient declined receiving her own blood, so this is not possible. She is already getting darbepoetin weekly and is getting an intravenous (IV) iron transfusion later today. I do not think at this point there is much else that can be done in the event that she has an ongoing slow GI bleed outside of the medical management that is already being done. We will continue to follow along. Thank you for involving us. ABDULAZIZE ATTESTATION. JULI
[2021-02-15] MEDS ORDERED: LIDOCAINE 1% MDV 20ML VIAL As Ordered ONE (16:09)
--- NOTE | 2021-02-15 17:41 | REP ---
PROCEDURE NAME: PICC LINE INSERTION W/SITERITE CLINICAL INFORMATION: poor iv access. COMPARISON: None. PROCEDURE DESCRIPTION: The procedure was performed by ANUSHKA Tavares, under the direct supervision of Dr. Fernandez. The risks and benefits of the procedure were explained to the patient and an informed consent was obtained both verbally and written. Directly prior to the start of the procedure a formal time-out was completed in the procedure room. The right basilic vein was localized using ultrasound guidance. The skin was prepped and draped in sterile fashion. Two mL of 1% lidocaine 10 mg/mL was used as a local anesthetic. Using ultrasound guidance the right basilic vein was cannulated, and a 0.018 guidewire was inserted and advanced to the level of SVC using fluoroscopic guidance. The needle was removed and a 5.5 Gibraltarian dilator and peel-away sheath was inserted over the guidewire. A 5.5 [place]raltarian dual lumen catheter was cut to a length of 45 cm. The dilator was removed and the catheter was inserted over the guidewire with the tip ending at the level of the SVC. The peel-away sheath was removed and the catheter was flushed with heparinized saline as per hospital protocol. The catheter was affixed to the skin and a sterile dressing was applied. The patient tolerated the procedure well and there were no immediate complications. CONCLUSION: PICC line insertion into the right basilic vein. 0.2 minutes of fluoroscopy time was utilized for this procedure. Some fluoroscopic images are performed with last image hold technology. These images require no additional radiation. <Electronically signed by Arline Browning > 02/15/21 [id number] <Electronically signed by Yassine Fernandez > 02/15/21 [id number]
[2021-02-15] MEDS: ASCORBIC ACID 500 MG TAB PO SCH (18:18)
[2021-02-15] MEDS: ACETAMINOPHEN TAB 650MG DOSE (2X325MG) PO PRN (18:18)
[2021-02-16] VITALS (7 sets, daily range): BP systolic 124–171; BP diastolic 56–75
[2021-02-16] MEDS: LEVALBUTEROL 1.25 MG/0.5 ML CONCENTRATE NEB INH SCH ×4 (02:00→20:05)
[2021-02-16] MEDS: SLF 3 ML SYR IV SCH ×3 (05:29→20:03)
[2021-02-16] MEDS: SODIUM CHLORIDE 0.9% INJ 10 ML SYR IV SCH ×2 (05:29→18:08)
[2021-02-16 05:51] LABS: BASO % 0.3 % (0.0-1.0); EOS # 0.3 10^3/uL (0.0-0.5); EOS % 2.5 % (0.0-3.0); LYMPH # 0.7 10^3/uL (1.5-5.0); LYMPH % 6.1 % (24.0-44.0); MEAN CORPUSCULAR HEMOGLOBIN 28.4 pg (27.0-33.0); MEAN CORPUSCULAR HGB CONC 29.8 g/dl (32.0-36.5); MONO # 0.6 10^3/uL (0.0-0.8); MONO % 4.7 % (2.0-8.0); NEUTROPHILS % 85.6 % (36.0-66.0); PLATELET COUNT, AUTOMATED 418 10^3/uL (150-450); RED BLOOD COUNT 2.01 10^6/uL (4.00-5.40); WHITE BLOOD COUNT 11.6 10^3/uL (4.0-10.0)
[2021-02-16 05:58] LABS: BLOOD UREA NITROGEN 25 MG/DL (7-18); CARBON DIOXIDE LEVEL 30 MEQ/L (21-32); CHLORIDE LEVEL 111 MEQ/L (98-107); CREATININE FOR GFR 0.63 MG/DL (0.55-1.30); GLOMERULAR FILTRATION RATE > 60.0 (>32); GLUCOSE, FASTING 113 MG/DL (70-100); POTASSIUM SERUM 4.1 MEQ/L (3.5-5.1); SODIUM LEVEL 144 MEQ/L (136-145)
[2021-02-16 06:14] LABS: HEMATOCRIT 19.1 % (36.0-47.0); HEMOGLOBIN 5.7 g/dl (12.0-15.5)
--- NOTE | 2021-02-16 07:37 | REP ---
INDICATION: pleural effusion. COMPARISON: February 15, 2021 TECHNIQUE: Upright PA and lateral chest. FINDINGS: The bilateral chest tubes and bilateral pleural effusions are unchanged. Cardiac size is upper normal, unchanged. The lionel, mediastinum, and skeletal structures are unchanged. There is a new left upper extremity PICC line with the tip in the superior vena cava in satisfactory location. IMPRESSION: The bilateral thoracotomy tubes bilateral pleural effusions are unchanged. There is a new left upper extremity PICC line with the tip in the superior vena cava. <Electronically signed by Yassine Gonzalez > 02/16/21 0733
[2021-02-16] MEDS: ASCORBIC ACID 500 MG TAB PO SCH ×2 (09:27→18:08)
[2021-02-16] MEDS: VITAMIN D 1,000 INTERNATIONAL UNITS TABLET PO SCH (09:27)
[2021-02-16] MEDS: ROSUVASTATIN 10 MG TAB (CRESTOR) PO SCH (09:27)
[2021-02-16] MEDS: SUCRALFATE 1 GM TAB PO SCH ×4 (09:27→20:02)
[2021-02-16] MEDS: PANTOPRAZOLE 40MG VIAL (C9113 PER 1) IV SCH ×2 (09:27→20:02)
[2021-02-16] MEDS: DOCUSATE SODIUM 100MG CAPSULE PO SCH ×2 (09:27→20:02)
--- NOTE | 2021-02-16 09:44 | IPN ---
PROGRESS NOTE DATE: 02/16/2021 SUBJECTIVE: The patient complains of increasing dyspnea, especially with exertion but still even at rest. No chest pain, pressure, tightness, lightheadedness, dizziness. No complaints of cough. OBJECTIVE: Vital signs: Temperature 98.8, pulse 87, respiratory rate 20, blood pressure 144/62, 94% on 2 liters nasal cannula. Generally very pale. No icterus, jaundice. No use of respiratory accessory muscles. Bilateral PleurX catheter. Heart: S1, S2 sinus rhythm. Abdomen: Obese, soft, nontender, nondistended. Extremities: No cyanosis or clubbing. LABORATORY DATA: White count 11, hemoglobin 5.7, hematocrit 19, platelet count 418. Sodium 144, potassium 4, chloride 111, bicarb 30, BUN 25, creatinine 0.63, glucose 113. Chest x-ray 02/16/2021: Bilateral thoracotomy tubes, bilateral pleural effusions unchanged. No left upper extremity PICC line in the superior vena cava tip. ASSESSMENT AND PLAN: This is an 89-year-old DO NOT RESUSCITATE, DO NOT INTUBATE Yazidi patient who presented with symptomatic anemia, refused blood transfusion, persistent hemoglobin of 5, status post EGD and colonoscopy with nonbleeding angioectasia and diverticulosis, internal and external hemorrhoids. CURRENT ISSUES: 1. Acute symptomatic blood loss anemia. 2. Acute gastrointestinal bleed status post esophagogastroduodenoscopy (EGD) colonoscopy on proton pump inhibitor (PPI), Venofer, iron, vitamin C, Protonix twice a day. 3. Malignant pleural effusion status post thoracotomy bilaterally. 4. History of metastatic breast CA and ductal carcinoma of the right breast. ER/SC positive, HER2/natali negative. Despite pathology showing atypical mesothelial reactive cells, most likely malignancy. The patient does not want any hospice at this time. 5. Hypertension, controlled. 6. Diastolic heart failure, compensated. 7. Chronic aortic stenosis. 8. Avoid dehydration. 9. History of right lacunar CVA with persistent left upper extremity weakness. 10. ARU. 11. Hyperlipidemia, chronic. DISPOSITION: The patient's family is requesting assistance with discharge options. They are unable to provide five to six hours of supervision at home and are requesting either hospice or rehab. The patient does not want to go to hospice and does not want rehab. PFS has been consulted. MTDD
[2021-02-16] MEDS: IRON SUCROSE 200 MG in NS 100 ML OVER 1 HR IV SCH (12:24)
[2021-02-17] MEDS: LEVALBUTEROL 1.25 MG/0.5 ML CONCENTRATE NEB INH SCH ×4 (01:44→20:39)
[2021-02-17 04:43] VITALS: BP 133/65
[2021-02-17] MEDS: SODIUM CHLORIDE 0.9% INJ 10 ML SYR IV SCH ×2 (04:54→16:58)
[2021-02-17] MEDS: SLF 3 ML SYR IV SCH ×3 (04:54→20:35)
[2021-02-17 08:00] VITALS: BP 137/61
--- NOTE | 2021-02-17 08:14 | REP ---
INDICATION: pleural effusion. COMPARISON: PA and lateral chest dated 02/16/2021. TECHNIQUE: Upright PA and lateral chest. FINDINGS: The bilateral pleural effusions are unchanged. The bilateral chest tubes are unchanged. The left upper extremity PICC line is unchanged. The lung rockwell are otherwise clear. Cardiac size is upper normal, unchanged. IMPRESSION: There is no significant interval change. <Electronically signed by Yassine Gonzalez > 02/17/21 [id number]
[2021-02-17] MEDS: PANTOPRAZOLE 40MG VIAL (C9113 PER 1) IV SCH ×2 (08:39→20:35)
[2021-02-17] MEDS: ROSUVASTATIN 10 MG TAB (CRESTOR) PO SCH (08:40)
[2021-02-17] MEDS: DOCUSATE SODIUM 100MG CAPSULE PO SCH ×2 (08:40→21:00)
[2021-02-17] MEDS: VITAMIN D 1,000 INTERNATIONAL UNITS TABLET PO SCH (08:40)
[2021-02-17] MEDS: SUCRALFATE 1 GM TAB PO SCH ×4 (08:40→20:35)
[2021-02-17] MEDS: ASCORBIC ACID 500 MG TAB PO SCH ×2 (08:40→16:57)
--- NOTE | 2021-02-17 09:24 | IPNPDOC ---
Date Seen The patient was seen on 02/17/21. 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 Hospitalist [place] [id number] If the progress note is needed urgently. VS, I&O, 24H, Fishbone Vital Signs/I&O Vital Signs Date Time Temp Pulse Resp B/P (MAP) Pulse Ox O2 Delivery O2 Flow Rate FiO2 02/17/21 04:43 97.7 78 16 133/65 (87) 98 Nasal Cannula 2.0 I&O- Last 24 Hours up to 6 AM 02/17/21 06:00 Intake Total 1360 ml Output Total 1075 ml Balance 285 ml Laboratory Data Microbiology Microbiology 02/12/21 Acid Fast Stain, Received Pending 02/12/21 Mycobacterial Culture, Received Pending 02/12/21 Fungal Smear, Received Pending 02/12/21 Fungal Culture, Received Pending 02/12/21 Gram Stain - Final, Complete 02/12/21 Body Fluid Culture - Final, Complete 02/12/21 Anaerobic Culture - Final, Complete KEEGAN HWANG MD Feb 17, 2021 09:24
--- NOTE | 2021-02-17 09:44 | IPN ---
PROGRESS NOTE DATE: 02/17/2021 SUBJECTIVE: Patient has had no issues overnight. Denies bright-red blood per rectum, melena or black tarry stools. She continues to complain of generalized weakness, difficulty ambulating without one or two person assistance, no chest pain, pressure, tightness, lightheadedness or dizziness. No fever or chills, cough or shortness of breath. OBJECTIVE: VITAL SIGNS: Temperature is 97.7, pulse is 78, respiratory rate is 16, blood pressure is 133/65, 95% on 2 liters nasal cannula. GENERAL: Alert, awake, oriented to person, place and time answering questions appropriately without respiratory distress. She is very pale without cyanosis, icterus or jaundice. LUNGS: No use of respiratory or accessory muscles. HEART: S1 and S2 sinus rhythm. There is a 3/6 systolic ejection murmur at the apex radiating to the carotids. LUNGS: Clear to auscultation. Bilateral PleurX catheter noted. ABDOMEN: Obese, soft, nontender and nondistended. EXTREMITIES: No cyanosis or clubbing. ASSESSMENT AND PLAN: This is an 89-year-old woman who is a do not resuscitate, do not intubate female, Latter-day who presented with symptomatic anemia with the following issues: 1. Acute symptomatic anemia secondary to acute blood loss anemia. 2. Malignant pleural effusion status post thoracotomy bilaterally. 3. History of metastatic breast cancer, ductal carcinoma of the right breast. 4. Hypertension, controlled. 5. Diastolic heart failure. 6. Chronic aortic stenosis. 7. Right lacunar infarct with persistent left upper extremity weakness. 8. Hyperlipidemia. PLAN: The patient is currently medical stable but unable to be discharged home because the family is unable to provide 24/7 care. Therefore, patient is being evaluated by ARU. Patient is a Latter-day and refuses to take any RBC transfusion despite risk of TN, syncope, and . She, however does not want to be on Hospice. JULI
[2021-02-17] MEDS: IRON SUCROSE 200 MG in NS 100 ML OVER 1 HR IV SCH (10:57)
--- NOTE | 2021-02-17 11:22 | IPN ---
THORACIC SURGERY PROGRESS NOTE DATE: 02/16/2021 SUBJECTIVE: Patient is seen and examined at bedside. She had an incident where she complains she was short of breath this morning, but declined a nebulizer treatment, stating she felt like it was suffocating her. She does not really recall this event and states she feels fine at this time. Nursing staff feels that this was likely anxiety related. She otherwise denies any complaints right now, including fevers, chills, chest pain, shortness of breath at rest, abdominal pain, nausea, vomiting, diarrhea, blood in her stool, black tarry stool. OBJECTIVE: VITAL SIGNS: Temperature 98.8, afebrile overnight, pulse 87 and regular, respiratory rate 20, blood pressure 144/62, saturating 94% on 2 liters nasal cannula. Intake and output (I and O): 1420 mL of intake, 875 mL of output, 200 mL of drainage from chest tube. PHYSICAL EXAMINATION: GENERAL: Patient is a pale, tired-appearing female laying back in bed in no acute distress, speaking in complete sentences. HEENT: Head is normocephalic, atraumatic. Extraocular movements intact. No scleral icterus. Conjunctiva are somewhat pale-appearing. Mucous membranes moist. NECK: No lymphadenopathy or jugular venous distention (JVD). CARDIOVASCULAR: Soft blowing 3/6 systolic murmur that is heard at the right upper sternal border. Otherwise, no additional gallops or rubs. RESPIRATORY: No adventitious breath sounds appreciated in the upper lobes bilaterally. There are some mild crackles appreciated in bilateral lower lobes. No wheezes or rhonchi. No dullness to percussion bilaterally. ABDOMEN: Obese, soft, nontender, nondistended. No hepatosplenomegaly. Bowel sounds are present. EXTREMITIES: Minimal edema in bilateral lower extremities. None in upper extremities. NEUROLOGIC: Cranial nerves II-XII grossly intact. Sensation intact. Gait not tested. Strength is grossly intact.. PSYCHIATRIC: Awake, alert, oriented times three with appropriate mood and affect. LABORATORY DATA: WBC 11.6, hemoglobin 5.7, hematocrit 19.1, platelet count 418. Sodium 144, potassium 4.1, chloride 111, bicarbonate 30, BUN 25, creatinine 0.63, glucose 113, calcium 8. IMAGING: A 2-view chest x-ray showing ongoing bilateral pleural effusions. Left side is about the same, if not maybe a little bit larger compared to day prior. Right side is maybe a little bit worse than day prior. No acute infiltrate. Heart borders are regular, but somewhat obscured on the left. Trachea is midline. PleurX extends out to the chest wall. ASSESSMENT: 1. Left-sided pleural effusion, likely malignant. 2. 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 3. History of infiltrating ductal carcinoma of the right breast. 4. Acute anemia. 5. Mild aortic stenosis. 6. Hypertension. 7. History of cerebrovascular accident (CVA) with residual paresthesia in the left upper extremity. 8. Coronary atherosclerosis. PLAN: 1. Left-sided pleural effusion. Continue to drain PleurX catheters every other day on alternating days. Follow up with Dr. Avila's office in 10 days following discharge. 2. Upper gastrointestinal (GI) bleed. This tends to have plateaued and stabilized. It does not seem as though she is having any more ongoing bleeding. She is going to continue to work with physical therapy and occupational therapy to get her strength back. She is getting intravenous (IV) iron and darbepoetin for her anemia. Outside of this, patient continues to not want any additional blood products, which we will respect. Patient also had acute rehabilitation unit (ARU) screening done. Apparently, there is a family meeting being held today. We will continue to follow along for an additional day. GME ATTESTATION.
[2021-02-17 12:00] VITALS: BP 128/65
--- NOTE | 2021-02-17 12:15 | IPN ---
PROGRESS NOTE DATE: 02/17/2021 SUBJECTIVE: No acute events overnight. The patient states she feels about the same. She is eating well and tolerating her diet. There are plans for her to go to acute rehab for further strengthening, as her family is unable to care for her at home. She otherwise denies any fevers, chills, chest pain, currently difficulty breathing, abdominal pain, nausea, vomiting, constipation, or diarrhea. OBJECTIVE: VITAL SIGNS: Temperature 97.6, pulse 96 and regular, respiratory rate of 16, blood pressure 137/61, saturating 96% on 2 liters nasal cannula. INTAKE AND OUTPUT: 1290 mL of intake with 1275 mL of output. Chest tube drainage on 02/15 was 200 mL out. I am not sure if it was done on 02/16. GENERAL: The patient is a pale appearing female who appears stated age. Lying comfortably in bed in no acute distress. HEENT: Head is normocephalic, atraumatic. EOMI. No scleral icterus. Mucous membranes are moist. NECK: Trachea is midline. No JVD or lymphadenopathy. CARDIOVASCULAR: Regular rate and rhythm. Soft blowing 3/6 systolic murmur best heard at the right upper sternal border. No additional gallops or rubs appreciated on auscultation. RESPIRATORY: Bilateral lower lobe crackles appreciated. No wheezes or rhonchi. No additional adventitious breath sounds. No use of secondary muscles of respiration. ABDOMEN: Obese, soft, nontender, and nondistended. Bowel sounds present. No hepatosplenomegaly. EXTREMITIES: The patient has PADMINI stockings on currently, but no appreciable edema in the lower extremities and none in bilateral upper extremities. NEUROLOGIC: Cranial nerves 2 through 12 are intact. Gait not tested. Strength not tested. Sensation is intact throughout. PSYCHIATRIC: Awake, alert, oriented x3 with appropriate mood and affect. LABORATORY DATA: No new laboratory studies have been done for 02/17. IMAGING DATA: Chest x-ray showing ongoing bilateral pleural effusions that are not markedly changed from the day prior, maybe slight less for the right costophrenic angle. No acute infiltrate. Heart borders are regular. Trachea is midline. ASSESSMENT: 1. Left-sided pleural effusion. 2. 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 3. History of infiltrating ductal carcinoma of the right breast. 4. Acute anemia. 5. Mild aortic stenosis. 6. Hypertension. 7. 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 8. Coronary atherosclerosis. PLAN: 1. Left-sided pleural effusion. The patient should continue with PleurX catheter as prescribed draining once every other day. In the event that she is admitted to acute rehab, Dr. Avila will come in and cut out her stitches in about seven days. In the event that she is discharged sooner than that somehow, she should follow-up with him in the office in 10 days for getting her stitches cut out. 2. Upper gastrointestinal (GI) bleed. This appears to have stabilized. No labs drawn this morning; however, yesterday they appeared to have plateaued. She is getting the erythropoietin (EPO) and IV iron, but ultimately we did convey that it will take several months for her blood supply to go back to anywhere near normal. She will be admitted to acute rehabilitation unit (ARU) for further strengthening. We discussed this with her and how it would likely be a good option, as there was some discrepancy apparently that she may not want to go to ARU, but the family could not take care of her. At this point, we will sign off on this case. As stated above if she is admitted to ARU, Dr. Avila will come by to cut out her stitches in seven days. Otherwise she should follow-up at the office in about seven days as well to have her sutures removed. Thank you very much for having us participate in the care of this patient. My faculty preceptor, Jose Elias Avila M.D., for this patient encounter was physically present during the encounter and was fully available. All aspects of the patient interview, examination, medical decision making process, and medical care plan development were reviewed and approved by the faculty preceptor. The faculty preceptor is aware and concurs with the plan as stated in the body of this note and will attest to such by his co-signature.
[2021-02-17] MEDS ORDERED: BISA10SU PR (13:50)
[2021-02-17] MEDS ORDERED: ASCO50TA PO (13:50)
[2021-02-17] MEDS ORDERED: FERR325T3 PO (13:50)
[2021-02-17] MEDS ORDERED: DOK1CAP7 PO (13:50)
[2021-02-17] MEDS ORDERED: SUCR1TA PO (13:50)
[2021-02-17] MEDS ORDERED: PROT1TAB2 PO (13:52)
[2021-02-17 16:00] VITALS: BP 147/67
[2021-02-17] MEDS: ACETAMINOPHEN TAB 650MG DOSE (2X325MG) PO PRN (16:58)
[2021-02-17 20:00] VITALS: BP 126/62
[2021-02-17 22:10] VITALS: BP 152/51
[2021-02-18] MEDS: LEVALBUTEROL 1.25 MG/0.5 ML CONCENTRATE NEB INH SCH ×4 (02:07→19:19)
[2021-02-18] MEDS: SODIUM CHLORIDE 0.9% INJ 10 ML SYR IV SCH ×2 (05:13→18:10)
[2021-02-18 06:00] VITALS: BP 127/53
[2021-02-18 07:09] LABS: MEAN CORPUSCULAR HEMOGLOBIN 29.8 pg (27.0-33.0); MEAN CORPUSCULAR VOLUME 96.2 fl (80.0-96.0); PLATELET COUNT, AUTOMATED 431 10^3/uL (150-450); RED BLOOD COUNT 2.08 10^6/uL (4.00-5.40); WHITE BLOOD COUNT 11.2 10^3/uL (4.0-10.0)
[2021-02-18 07:32] LABS: HEMOGLOBIN 6.2 g/dl (12.0-15.5)
--- NOTE | 2021-02-18 07:59 | REP ---
INDICATION: pleural effusion. COMPARISON: A PA and lateral chest dated 02/17/2021. TECHNIQUE: PA and lateral chest. FINDINGS: The bilateral thoracotomy tubes and bilateral pleural effusions are unchanged. There is atelectasis in the inferior lung rockwell adjacent to the pleural effusions. The lung rockwell are otherwise clear. This is unchanged. The left upper extremity PICC line remains in satisfactory position with its tip in the superior vena cava, unchanged. 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 IMPRESSION: No significant interval change. <Electronically signed by Yassine Gonzalez > 02/18/21 [id number]
[2021-02-18] MEDS: ASCORBIC ACID 500 MG TAB PO SCH ×2 (08:59→18:09)
[2021-02-18] MEDS: PANTOPRAZOLE 40MG VIAL (C9113 PER 1) IV SCH ×2 (08:59→20:17)
[2021-02-18] MEDS: SUCRALFATE 1 GM TAB PO SCH ×4 (08:59→20:17)
[2021-02-18] MEDS: ROSUVASTATIN 10 MG TAB (CRESTOR) PO SCH (08:59)
[2021-02-18] MEDS: VITAMIN D 1,000 INTERNATIONAL UNITS TABLET PO SCH (08:59)
[2021-02-18] MEDS: DOCUSATE SODIUM 100MG CAPSULE PO SCH ×2 (08:59→20:17)
[2021-02-18] MEDS: IRON SUCROSE 200 MG in NS 100 ML OVER 1 HR IV SCH (11:52)
[2021-02-18 14:00] VITALS: BP 131/58
[2021-02-18 19:19] VITALS: O2SAT 28
[2021-02-18] MEDS: SODIUM CHLORIDE 0.9% INJ 10 ML SYR IV PRN (20:17)
[2021-02-19] MEDS: LEVALBUTEROL 1.25 MG/0.5 ML CONCENTRATE NEB INH SCH ×4 (01:02→20:04)
[2021-02-19] MEDS: SODIUM CHLORIDE 0.9% INJ 10 ML SYR IV SCH ×2 (05:14→17:50)
[2021-02-19] MEDS: ACETAMINOPHEN TAB 650MG DOSE (2X325MG) PO PRN (05:42)
[2021-02-19 06:00] VITALS: BP 131/59
[2021-02-19 08:00] VITALS: BP 120/53
--- NOTE | 2021-02-19 08:14 | REP ---
INDICATION: pleural effusion. COMPARISON: 02/18/2021 PA and lateral chest. TECHNIQUE: Upright PA and lateral chest. FINDINGS: The bilateral pleural effusions and bilateral thoracotomy tubes are unchanged. The compression atelectasis of the lungs adjacent to the pleural effusions is unchanged. Lung rockwell are otherwise clear, unchanged. Cardiac size is upper normal, unchanged. The lionel, mediastinum, and skeletal structures are unchanged. The left upper extremity PICC line is unchanged. IMPRESSION: There is no significant interval change. <Electronically signed by Yassine Gonzalez > 02/19/21 [id number]
[2021-02-19] MEDS: ASCORBIC ACID 500 MG TAB PO SCH ×2 (08:33→17:36)
[2021-02-19] MEDS: ROSUVASTATIN 10 MG TAB (CRESTOR) PO SCH (08:33)
[2021-02-19] MEDS: SUCRALFATE 1 GM TAB PO SCH ×4 (08:33→22:00)
[2021-02-19] MEDS: VITAMIN D 1,000 INTERNATIONAL UNITS TABLET PO SCH (08:33)
[2021-02-19] MEDS: DOCUSATE SODIUM 100MG CAPSULE PO SCH ×2 (08:33→22:00)
[2021-02-19] MEDS: PANTOPRAZOLE 40MG VIAL (C9113 PER 1) IV SCH ×2 (08:33→21:59)
[2021-02-19 10:00] VITALS: BP 118/51
[2021-02-19] MEDS: CIPROFLOXACIN 250MG TAB PO SCH ×2 (11:39→17:36)
[2021-02-19] MEDS: IRON SUCROSE 200 MG in NS 100 ML OVER 1 HR IV SCH (11:40)
[2021-02-19 20:04] VITALS: O2SAT 28
[2021-02-19] MEDS: SODIUM CHLORIDE 0.9% INJ 10 ML SYR IV PRN (22:02)
[2021-02-20] MEDS: LEVALBUTEROL 1.25 MG/0.5 ML CONCENTRATE NEB INH SCH ×4 (01:01→19:17)
[2021-02-20 06:00] VITALS: BP 147/72
[2021-02-20] MEDS: CIPROFLOXACIN 250MG TAB PO SCH ×2 (06:21→18:01)
[2021-02-20] MEDS: SODIUM CHLORIDE 0.9% INJ 10 ML SYR IV SCH ×2 (06:22→18:01)
[2021-02-20] MEDS: SUCRALFATE 1 GM TAB PO SCH ×4 (09:39→20:50)
[2021-02-20] MEDS: PANTOPRAZOLE 40MG VIAL (C9113 PER 1) IV SCH ×2 (09:39→20:50)
[2021-02-20] MEDS: ASCORBIC ACID 500 MG TAB PO SCH ×2 (09:39→18:01)
[2021-02-20] MEDS: VITAMIN D 1,000 INTERNATIONAL UNITS TABLET PO SCH (09:46)
[2021-02-20] MEDS: ROSUVASTATIN 10 MG TAB (CRESTOR) PO SCH (09:46)
[2021-02-20] MEDS: DOCUSATE SODIUM 100MG CAPSULE PO SCH ×2 (09:46→20:50)
[2021-02-20 10:09] LABS: HEMATOCRIT 21.1 % (36.0-47.0); MEAN CORPUSCULAR HEMOGLOBIN 29.3 pg (27.0-33.0); MEAN CORPUSCULAR HGB CONC 28.9 g/dl (32.0-36.5); MEAN CORPUSCULAR VOLUME 101.4 fl (80.0-96.0); PLATELET COUNT, AUTOMATED 450 10^3/uL (150-450); RED BLOOD COUNT 2.08 10^6/uL (4.00-5.40); WHITE BLOOD COUNT 7.8 10^3/uL (4.0-10.0)
[2021-02-20 10:19] LABS: HEMOGLOBIN 6.1 g/dl (12.0-15.5)
[2021-02-20 10:37] LABS: BLOOD UREA NITROGEN 13 MG/DL (7-18); CALCIUM LEVEL 8.1 MG/DL (8.8-10.2); CARBON DIOXIDE LEVEL 27 MEQ/L (21-32); CHLORIDE LEVEL 109 MEQ/L (98-107); CREATININE FOR GFR 0.61 MG/DL (0.55-1.30); GLOMERULAR FILTRATION RATE > 60.0 (>32); GLUCOSE, FASTING 157 MG/DL (70-100); POTASSIUM SERUM 3.9 MEQ/L (3.5-5.1); SODIUM LEVEL 142 MEQ/L (136-145)
--- NOTE | 2021-02-20 11:28 | REP ---
INDICATION: pleural effusion COMPARISON: 02/19/2021 TECHNIQUE: PA and lateral. FINDINGS: Chest tubes and left PICC line in stable position. Mediastinum and cardiac silhouette stable. Perihilar and lower lobe opacities suggesting atelectasis along with moderate pleural effusions based on lateral radiograph similar to prior examination. No obvious pneumothorax. IMPRESSION: Lower lobe infiltrates and moderate pleural effusions similar to prior examination. <Electronically signed by Gilbert Brar > 02/20/21 [id number]
[2021-02-20] MEDS: DARBEPOETIN 100 MCG/0.5 ML *NON-DIALYSIS* SYRINGE (J0881) SC SCH (11:37)
[2021-02-20 11:38] VITALS: BP 138/65; O2SAT 98
[2021-02-20] MEDS: IRON SUCROSE 200 MG in NS 100 ML OVER 1 HR IV SCH (11:38)
[2021-02-20 16:00] VITALS: O2SAT 93
[2021-02-20 16:04] VITALS: O2SAT 95
[2021-02-20 19:19] VITALS: O2SAT 94
[2021-02-20 20:00] VITALS: O2SAT 96
[2021-02-21] MEDS: LEVALBUTEROL 1.25 MG/0.5 ML CONCENTRATE NEB INH SCH ×2 (01:21→07:32)
[2021-02-21 05:55] VITALS: BP 159/68
[2021-02-21] MEDS: SODIUM CHLORIDE 0.9% INJ 10 ML SYR IV SCH (06:07)
[2021-02-21] MEDS: CIPROFLOXACIN 250MG TAB PO SCH (06:07)
[2021-02-21] MEDS: SODIUM CHLORIDE 0.9% INJ 10 ML SYR IV PRN ×2 (06:31→08:34)
[2021-02-21 06:48] LABS: HEMATOCRIT 22.8 % (36.0-47.0); MEAN CORPUSCULAR HEMOGLOBIN 29.8 pg (27.0-33.0); MEAN CORPUSCULAR HGB CONC 29.4 g/dl (32.0-36.5); MEAN CORPUSCULAR VOLUME 101.3 fl (80.0-96.0); PLATELET COUNT, AUTOMATED 468 10^3/uL (150-450); RED BLOOD COUNT 2.25 10^6/uL (4.00-5.40); WHITE BLOOD COUNT 7.2 10^3/uL (4.0-10.0)
[2021-02-21 06:49] LABS: HEMOGLOBIN 6.7 g/dl (12.0-15.5)
[2021-02-21] MEDS: PANTOPRAZOLE 40MG VIAL (C9113 PER 1) IV SCH (08:17)
[2021-02-21] MEDS: ROSUVASTATIN 10 MG TAB (CRESTOR) PO SCH (08:18)
[2021-02-21] MEDS: VITAMIN D 1,000 INTERNATIONAL UNITS TABLET PO SCH (08:18)
[2021-02-21] MEDS: ASCORBIC ACID 500 MG TAB PO SCH (08:18)
[2021-02-21] MEDS: DOCUSATE SODIUM 100MG CAPSULE PO SCH (08:18)
[2021-02-21] MEDS: SUCRALFATE 1 GM TAB PO SCH (08:18)
[2021-02-21 08:43] VITALS: BP 165/79
[2021-02-21] MEDS: IRON SUCROSE 200 MG in NS 100 ML OVER 1 HR IV SCH (11:00)
--- NOTE | 2021-02-22 14:53 | DS.PDOC ---
Discharge Summary General Date of Admission Feb 12, 2021 at 00:55 Date of Discharge 02/21/21 Discharge Summary PROCEDURES PERFORMED DURING STAY: Insertion of a tunneled PleurX catheter, left side on 02/12/21 EGD on 02/13/21 - A single actively oozing/bleeding angiectasia in the second portion of the duodenum. Clips were placed with good hemostasis. - Non-bleeding duodenal diverticulum. - Adequate visualization of the stomach after food residue removed. No gross lesions in the stomach. - Normal esophagus. EGD: 02/14/21 The examined esophagus was normal. The entire examined stomach was normal. A diverticulum was found in the second portion of the duodenum. A single diminutive angioectasia with endoclips in place, without bleeding was found in the second portion of the duodenum. COLONOSCOPY: 02/14/21 Findings: Hemorrhoids were found on perianal exam. Multiple small and large-mouthed diverticula were found in the sigmoid colon and descending colon. Internal external and internal hemorrhoids were found during retroflexion. The hemorrhoids were Grade II (internal hemorrhoids that prolapse but reduce spontaneously). The exam was otherwise without abnormality. Impression: - Preparation of the colon was suboptimal. - Hemorrhoids found on perianal exam. - Diverticulosis in the sigmoid colon and in the descending colon. - Internal external and internal hemorrhoids. - The examination was otherwise normal. - No specimens collected. DISCHARGE DIAGNOSES: Bilateral Malignant Pleural effusions with bilateral pleurx catheter. 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 Mild aortic stenosis. Hypertension. 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 HOSPITAL COURSE: This is an 89-year-old female with PMH of metastatic right breast cancer with bilateral pleural effusions, right proven malignant pleural effusion with pleurx catheter recently placed in a prior admission presented to the ER with c/o increasing shortness of breath for 1 week. She was noted to have increasing left sided pleural effusion. A pleurx catheter was placed soon after admission on 02/12 with drainage of 1 l of serosanguinous fluid. On day 2 of admission she was noted to have a drop in Hb from 9.1 on admission to 6.1. at that time she reported that she has been having dark colored stools at home for several days. She underwent at urgent EGD on 02/13 and was found to have bleeding duodenal angiectasia which was clipped. Patient's hemoglobin the next day 02/14 dropped further to 5.8 and reached a estrella at 5.3. She was taken for repeat EGD and colonoscopy on 02/14/21. Findings as above. No new bleeding source was found. She was given Aranesp 100 mcg and IV venofer 200 mg. She being a Bahai blood products were not administered. Hb did show mild improvement during the hospitalization to 6.9. She continued to have weakness and dizziness during ambulation with occasional exertional dyspnea which improved promptly on rest. Her fecal occult blood x 1 on 02/21/21 was surprisingly negative. Hospital course was complicated by a Ecoli UTI/ cystitis for which she received 3 days of ciprofloxacin. Her aerobic and anaerobic cultures from the left pleural fluid was negative for any growth. Cytology of the left pleural fluid showed atypical cells on the back ground of macrophages and lymphocytes, no definite malignant cells were seen. Pathology of the cell block showed Rare atypical epithelioid cells and reactive mesothelial cells. However in view of her h/o right malignant pleural effusion it was felt that the left pleural effusion was also malignant. She continued to refuse PRBC transfusion during the stay. Prognosis was discussed with patient and advance directives and goals of care discussed. Hospice and palliative care options were discussed. She at this time wanted to be DNR and DNI but did not want to go to hospice. on 02/17/21 The patient was felt to be medically stable to be discharged but unable to be discharged home because the family is unable to provide 24/7 care. So the patient was plcaed on ALC status. A [facility]/ [facility] bed became available on 02/21/21. Patient was discharged to [facility] in a stable condition. DISCHARGE MEDICATIONS: Please see below. ALLERGIES: Please see below. PHYSICAL EXAMINATION ON DISCHARGE: VITAL SIGNS: Please see below. GENERAL: The patient is a pale appearing female who appears stated age. Sitting comfortably in Chair in no acute distress. HEENT: Head is normocephalic, atraumatic. EOMI. No scleral icterus. Mucous membranes are moist. NECK: Trachea is midline. No JVD or lymphadenopathy. CARDIOVASCULAR: Regular rate and rhythm. Soft blowing 3/6 systolic murmur best heard at the right upper sternal border. No additional gallops or rubs appreciated on auscultation. RESPIRATORY: Bilateral lower lobe crackles appreciated. No wheezes or rhonchi. No additional adventitious breath sounds. No use of secondary muscles of respiration. ABDOMEN: Obese, soft, nontender, and nondistended. Bowel sounds present. No hepatosplenomegaly. EXTREMITIES: 1+ bipedal edema NEUROLOGIC: Cranial nerves 2 through 12 are intact. Gait not tested. Strength not tested. Sensation is intact throughout. PSYCHIATRIC: Awake, alert, oriented x3 with appropriate mood and affect. LABORATORY DATA: Please see below. IMAGING: CTA of chest: 02/11/21 1. No pulmonary embolism. 2. Development of ground-glass opacities in both lungs with areas of superimposed consolidation since the prior CT chest on 01/14/2021. Imaging features can be seen with COVID-19 pneumonia, though are nonspecific and can occur with a variety of infectious and noninfectious processes. (Reference: Arnav) 3. Moderate to large left pleural effusion that has increased in size compared to the prior CT chest on 01/14/2021. 4. Small right pleural effusion that has decreased in size compared to the prior CT chest on 01/14/2021. 5. Multiple thyroid nodules, the largest nodule in the lower pole of the right lobe measuring 2.5 cm. See management guidelines below. 6. 10 mm pretracheal lymph node, which is unchanged compared to the prior CT chest on 01/14/2021. PROGNOSIS: Poor ACTIVITY: [As tolerated]. DIET: As tolerated DISCHARGE PLAN: [place] DISCHARGE INSTRUCTIONS: Dr Avila in 1 week for removal of stitches and pleurx cath check. Follow up with at [facility]. ITEMS TO FOLLOWUP ON ON OUTPATIENT: AFB cluture from the left pleural fluid DISCHARGE CONDITION: [Stable]. TIME SPENT ON DISCHARGE: 40 minutes. Vital Signs/I&Os Vital Signs Date Time Temp Pulse Resp B/P (MAP) Pulse Ox O2 Delivery O2 Flow Rate FiO2 02/21/21 08:43 87 165/79 (107) 02/21/21 05:55 98.0 18 94 Room Air 02/20/21 19:19 21 02/20/21 11:38 2.0 I&O- Last 24 Hours up to 6 AM 02/21/21 06:00 Intake Total 1820 ml Output Total 3275 ml Balance -1455 ml Laboratory Data Labs 24H Laboratory Tests 2 02/21/21 06:00: Nucleated Red Blood Cells % (auto) 1.0H CBC/BMP Laboratory Tests 02/21/21 06:00 Microbiology Microbiology 02/21/21 Stool Occult Blood (JIHAN), Received Pending 02/19/21 Urine Culture - Final, Complete Escherichia Coli 02/12/21 Acid Fast Stain, Received Pending 02/12/21 Mycobacterial Culture, Received Pending 02/12/21 Fungal Smear, Received Pending 02/12/21 Fungal Culture, Received Pending 02/12/21 Gram Stain - Final, Complete 02/12/21 Body Fluid Culture - Final, Complete 02/12/21 Anaerobic Culture - Final, Complete Discharge Medications Scheduled Ascorbic Acid (Vitamin C) 500 Mg Tablet, 500 MG PO BIDWM Cholecalciferol (Vitamin D3) (Vitamin D3) 1,000 Unit Tablet, 1,000 UNITS PO DAILY, (Reported) Docusate Sodium (Dok) 100 Mg Capsule, 100 MG PO BID Ferrous Sulfate (Ferrous Sulfate) 325 Mg Tablet.dr, 1 TAB PO BID Krill Oil (Krill Oil) 500 Mg Capsule, 500 MG PO DAILY, (Reported) Letrozole (Letrozole) 2.5 Mg Tablet, 1 TAB PO DAILY Pantoprazole Sodium (Protonix) 40 Mg Tablet.dr, 40 MG PO BID Rosuvastatin Calcium (Rosuvastatin Calcium) 5 Mg Tablet, 5 MG PO DAILY, (Reported) Sucralfate (Sucralfate) 1 Gm Tablet, 1 GM PO ACHS Scheduled PRN Bisacodyl (Bisacodyl) 10 Mg Supp.rect, 10 MG IN Q4HP PRN for CONSTIPATION Nitroglycerin (Nitroglycerin) 0.4 Mg Tab.subl, 0.4 MG SL NITRO PRN for CHEST PAIN, (Reported) Allergies Coded Allergies: Antihistamines - Alkylamine (Unverified Allergy, Unknown, UNKNOWN REACTION, 02/25/19) hydrocodone (Verified Allergy, Unknown, 02/26/19) oxycodone (Unverified Allergy, Unknown, UNKNOWN REACTION, 02/25/19) Bfbbduw-Kim-Big Reductase Inhibitor (Verified Adverse Reaction, Intermediate, HEART RACES, 02/26/19) CLAUDE VILLEGAS MD Feb 21, 2021 09:51
== END 2021-02-21 11:47 | DRG 597 ==
LOC: M ED 21:47 → M ED INP 02-12 00:55 → ENRESERV 02-12 01:41 → M PCU 02-12 02:26 → M MSPAV 02-17 22:09
PROVIDERS: ADMIT Internal Medicine; ATTEND Internal Medicine Nephrology
PROC: 0W9B3ZZ Drainage of Left Pleural Cavity, Percutaneous Approach (ICD-10-PCS; principal; 2021-02-12)
PROC: 0W3P8ZZ Control Bleeding in Gastrointestinal Tract, Via Natural or Artificial Opening Endoscopic (ICD-10-PCS; 2021-02-13)
PROC: 0DJD8ZZ Inspection of Lower Intestinal Tract, Via Natural or Artificial Opening Endoscopic (ICD-10-PCS; 2021-02-14)
PROC: 0DJ08ZZ Inspection of Upper Intestinal Tract, Via Natural or Artificial Opening Endoscopic (ICD-10-PCS; 2021-02-14)
PROC: 02HV33Z Insertion of Infusion Device into Superior Vena Cava, Percutaneous Approach (ICD-10-PCS; 2021-02-15)
DX: C50.911 Malignant neoplasm of unspecified site of right female breast (principal); K31.811 Angiodysplasia of stomach and duodenum with bleeding; J91.0 Malignant pleural effusion; I50.32 Chronic diastolic (congestive) heart failure; D62 Acute posthemorrhagic anemia; K92.1 Melena; M19.90 Unspecified osteoarthritis, unspecified site; K57.10 Diverticulosis of small intestine without perforation or abscess without bleeding; I11.0 Hypertensive heart disease with heart failure; K57.30 Diverticulosis of large intestine without perforation or abscess without bleeding; K64.8 Other hemorrhoids; B96.29 Other Escherichia coli [E. coli] as the cause of diseases classified elsewhere; N30.90 Cystitis, unspecified without hematuria; I35.0 Nonrheumatic aortic (valve) stenosis; E04.1 Nontoxic single thyroid nodule; Z79.899 Other long term (current) drug therapy; Z88.5 Allergy status to narcotic agent; Z88.8 Allergy status to other drugs, medicaments and biological substances; E87.6 Hypokalemia; I69.344 Monoplegia of lower limb following cerebral infarction affecting left non-dominant side; Z66 Do not resuscitate; Z79.82 Long term (current) use of aspirin; I25.2 Old myocardial infarction; Z98.41 Cataract extraction status, right eye; Z98.42 Cataract extraction status, left eye; E78.5 Hyperlipidemia, unspecified; K64.1 Second degree hemorrhoids